=== PATIENT | female | born 1930 | race Caucasian/White ===

== ENCOUNTER 2016-05-20 22:05 | Inpatient (IN) | payer MEDICARE ==
[~2016-05-20] VITALS: Ht 165.1 cm; Wt 75.6 kg
[~2016-05-20 22:05] MED LIST: ASPI81 PO; ATOR10 PO; FLUD.1 PO; GABA100C4 PO; HYDR25TA35 PO; LORA-392 PO; SYNT25TA PO; VITA50LO PO
[2016-05-20 22:09] VITALS: TEMP 102.4
[2016-05-20 22:15] VITALS: BP 150/65; PULSE 72; RESP 24; TEMP 102.4; O2SAT 96
[2016-05-20] MEDS ORDERED: SODIUM CHLOR 0.9% 1000 ML INJ 1,000 ML IV ONE (22:18)
[2016-05-20] MEDS ORDERED: ATOR10TA15 PO (22:22)
[2016-05-20] MEDS ORDERED: ASPI1TAB69 PO (22:22)
[2016-05-20] MEDS ORDERED: MIDO5TAB PO (22:22)
[2016-05-20] MEDS ORDERED: GABA300C5 PO (22:22)
[2016-05-20] MEDS ORDERED: LEVO25TA4 PO (22:22)
[2016-05-20] MEDS ORDERED: FLUD.1 PO (22:22)
[2016-05-20] MEDS ORDERED: ACETAMINOPHEN 325 MG TAB PO ONE (22:30)
[2016-05-20 22:39] LABS: AUTOMATED NEUTROPHIL # 3.3 TH/MM3 (1.8-7.7); BASOPHIL % 0.5 % (0.0-2.0); EOSINOPHIL # 0.1 TH/MM3 (0-0.4); EOSINOPHIL % 1.3 % (0.0-4.0); HEMATOCRIT 28.7 % (35.0-46.0); HEMO FLAGS DIFF FINAL; LYMPH % 14.4 % (9.0-44.0); LYMPHOCYTE # 0.7 TH/MM3 (1.0-4.8); MEAN CELL VOLUME 91.5 FL (80.0-100.0); MEAN CORPUSCULAR HEMOGLOBIN 31.6 PG (27.0-34.0); MEAN CORPUSCULAR HGB CONC 34.6 % (32.0-36.0); MONO % 18.3 % (0.0-8.0); NEUT % 65.5 % (16.0-70.0); PLATELET COUNT 145 TH/MM3 (150-450); RED BLOOD COUNT 3.14 MIL/MM3 (4.00-5.30); RED CELL DISTRIBUTION WIDTH 13.7 % (11.6-17.2)
[2016-05-20 22:54] LABS: APTT (PATIENT) 29.2 SEC (24.3-30.1); PROTHROMBIN TIME - PATIENT 11.4 SEC (9.8-11.6)
[2016-05-20 23:01] LABS: ALT (GPT) 10 U/L (10-53); ANION GAP 8 MEQ/L (5-15); AST (GOT) 13 U/L (15-37); BICARBONATE 27.4 MEQ/L (21.0-32.0); BLOOD UREA NITROGEN 19 MG/DL (7-18); CHLORIDE 102 MEQ/L (98-107); GLOMERULAR FILTRATION RATE 38 ML/MIN (>89); MAGNESIUM 1.8 MG/DL (1.5-2.5); POTASSIUM 3.8 MEQ/L (3.5-5.1); SODIUM (NA) 137 MEQ/L (136-145)
--- NOTE | 2016-05-20 23:03 | RADRPT ---
EXAM DATE/TIME: 05/20/2016 22:35 [facility] COMPARISON: CHEST SINGLE AP, August 27, 2014, 0:56. INDICATIONS : Fever and cough. MEDICAL HISTORY : None. SURGICAL HISTORY : None. ENCOUNTER: Initial ACUITY: 1 week PAIN SCORE: 0/10 LOCATION: chest FINDINGS: A single view of the chest demonstrates linear scarring at the bases. No significant effusion. No pne umothorax. Heart size within normal limits. CONCLUSION: 1. Minimal basilar scarring or atelectasis. Anupam Cabral MD on May 20, 2016 at 23:00 Board Certified Radiologist. This report was verified electronically.
[2016-05-20 23:11] LABS: ALKALINE PHOSPHATASE 71 U/L (45-117); TOTAL BILIRUBIN ADULT 0.4 MG/DL (0.2-1.0)
[2016-05-20] MEDS ORDERED: IODIXANOL 320 MG/ML 10 ML VIAL (for RAD SPEC) IV ONE (23:29)
[2016-05-20 23:51] LABS: BACTERIA, URINE FEW /hpf; BLOOD, URINE NEG (NEG); GLUCOSE,URINE NEG (NEG); KETONE, URINE NEG (NEG); SQUAMOUS EPITHELIAL CELL URINE <1 /hpf (0-5); URINE COLOR YELLOW (YELLW/STRAW)
--- NOTE | 2016-05-20 23:53 | RADRPT ---
EXAM DATE/TIME: 05/20/2016 23:30 [facility] COMPARISON: No previous studies available for comparison. INDICATIONS : Abdominal pain. IV CONTRAST: 47 cc Visipaque (iodixanol) IV ORAL CONTRAST: No oral contrast ingested. RADIATION DOSE: 12.31 CTDIvol (mGy) MEDICAL HISTORY : Hypertension. SURGICAL HISTORY : Appendectomy. Cholecystectomy.Hysterectomy. ENCOUNTER: Initial ACUITY: 1 day PAIN SCALE: 6/10 LOCATION: abdomen TECHNIQUE: Volumetric scanning of the abdomen and pelvis was performed. Using automated exposure control and ad justment of the mA and/or kV according to patient size, radiation dose was kept as low as reasonably achievable to obtain optimal diagnostic quality images. FINDINGS: LOWER LUNGS: The visualized lower lungs are clear. LIVER: Homogeneous density without lesion. There is no dilation of the biliary tree. Previous cholecystecto my. SPLEEN: Normal size without lesion. PANCREAS: Within normal limits. KIDNEYS: Normal in size and shape. There is no mass, stone or hydronephrosis. ADRENAL GLANDS: Within normal limits. VASCULAR: There is atherosclerotic plaque of the abdominal aorta. No aneurysm. BOWEL/MESENTERY: Masslike increased attenuation measuring about 4.3 cm seen in the base of the cecum. I don't see the appendix. ABDOMINAL WALL: Within normal limits. RETROPERITONEUM: There is no lymphadenopathy. BLADDER: No wall thickening or mass. REPRODUCTIVE: Prior hysterectomy. INGUINAL: There is no lymphadenopathy or hernia. MUSCULOSKELETAL: There are degenerative changes of the thoracolumbar spine. No acute bony abnormality demonstrated. CONCLUSION: 1. 4.3 cm intraluminal masslike increased attenuation at the base of the cecum. I'm not sure whether this is debris or a true mass. 2. No other acute abnormalities are demonstrated. There is atherosclerosis of the abdominal aorta wit hout aneurysm. Patient has had previous hysterectomy and cholecystectomy. Blake Saenz MD on May 20, 2016 at 23:44 Board Certified Radiologist. This report was verified electronically.
[2016-05-20 23:55] LABS: COMMENT (UR) CATH-CULTURE IND; CULTURE IF INDICATED CATH CULTURE IND; NITRITE,URINE POS (NEG)
[2016-05-21] VITALS (12 sets, daily range): BP systolic 107–158; BP diastolic 54–72; PULSE 61–88; RESP 16–22; TEMP 97.6–100.8; O2SAT 93–99
--- NOTE | 2016-05-21 00:03 | RADRPT ---
EXAM DATE/TIME: 05/20/2016 23:43 [facility] COMPARISON: No previous studies available for comparison. INDICATIONS : Trauma, fall. MEDICAL HISTORY : None. SURGICAL HISTORY : None. ENCOUNTER: Initial ACUITY: 1 day PAIN SCORE: 3/10 LOCATION: Left knee. FINDINGS: No fracture or subluxation seen of the left knee. No perceptible joint effusion. There is mild 3 compartment joint space narrowing. Also chronic enthesopathic changes of the distal q uadriceps. CONCLUSION: Mild degenerative changes. No evidence of fracture. Blake Saenz MD on May 21, 2016 at 0:00 Board Certified Radiologist. This report was verified electronically.
[2016-05-21] MEDS ORDERED: cefTRIAXone INJ 1,000 MG in SODIUM CHLORIDE 0.9% INJ 100 ML IV ONE (00:15)
--- NOTE | 2016-05-21 00:29 | PD ---
HPI Chief Complaint: Fall Time Seen by Provider: 22:16 Travel History International Travel<30 days: No Contact w/Intl Traveler<30days: No Traveled to known affect area: No History of Present Illness HPI Patient is an 85-year-old female who comes in after she fell today and was unable to get up. She was found to be febrile by EMS. She says she has been feeling sick for the past few days, with fever on and off. She says she has some nausea, but has not vomited. She complains of some lower abdominal pain. She has occasional cough with some nasal congestion. She did not get a flu shot this year. She denies any chest pain. She says she did not hit her head when she fell, she landed on her knees. She denies any loss of consciousness. She says she often falls and has history of postural hypotension as well as neuropathy that seems to be the cause of her falls. Her family was concerned today because she was unable to get up after she fell. PFSH Past Medical History Hx Anticoagulant Therapy: Yes Blood Disorders: No Cancer: No Cardiovascular Problems: Yes (postural hypotension) High Cholesterol: Yes Chemotherapy: No Cerebrovascular Accident: Yes Diabetes: No Diminished Hearing: No Endocrine: No Gastrointestinal Disorders: No Genitourinary: Yes Hepatitis: No Hiatal Hernia: No Hypertension: Yes Implanted Vascular Access Dvce: No Musculoskeletal: No Neurologic: Yes Psychiatric: No Reproductive: Yes Respiratory: Yes Radiation Therapy: No Thyroid Disease: Yes Tetanus Vaccination: > 5 Years Menopausal: No Past Surgical History Abdominal Surgery: Yes AICD: No Appendectomy: Yes Cholecystectomy: Yes Gynecologic Surgery: Yes Hysterectomy: Yes Joint Replacement: No Oral Surgery: Yes Pacemaker: No Tonsillectomy: Yes Other Surgery: Yes (LEFT CAROTID) Social History Alcohol Use: No Tobacco Use: No Substance Use: No Allergies-Medications (Allergen,Severity, Reaction): Coded Allergies: No Known Allergies (Verified , 05/20/16) Reported Meds & Prescriptions Reported Meds & Active Scripts Active Reported Levothyroxine (Levothyroxine Sodium) 25 Mcg Tab 25 Mcg PO HS Fludrocortisone (Fludrocortisone Acetate) 0.1 Mg Tab 0.1 Mg PO DAILY Midodrine 5 Mg Tab 5 Mg PO BID Atorvastatin (Atorvastatin Calcium) 10 Mg Tab 10 Mg PO HS Gabapentin 300 Mg Cap 300 Mg PO TID Aspirin 81 Mg Tabdr 81 Mg PO DAILY Review of Systems Except as stated in HPI: all other systems reviewed are Neg General / Constitutional: Positive: Fever, Chills HENT: Positive: Headaches Cardiovascular: No: Chest Pain or Discomfort Respiratory: No: Shortness of Breath Gastrointestinal: Positive: Nausea, Abdominal Pain, No: Vomiting Genitourinary: No: Dysuria Musculoskeletal: No: Edema, Pain Skin: No Rash, No Change in Pigmentation Neurologic: No: Weakness, Dizziness Physical Exam Narrative GENERAL: Awake and alert in no acute distress. SKIN: Warm and dry. HEAD: Atraumatic. Normocephalic. EYES: Pupils equal and round. No scleral icterus. Extraocular movements intact. ENT: Mucous membranes pink and moist. NECK: Trachea midline. No JVD. CARDIOVASCULAR: Regular rate and rhythm. No murmur appreciated. RESPIRATORY: No accessory muscle use. Clear to auscultation. Breath sounds equal bilaterally. GASTROINTESTINAL: Abdomen soft, nondistended. Tender to the suprapubic area. No rebound or guarding. MUSCULOSKELETAL: No obvious deformities. No clubbing. No cyanosis. No edema. NEUROLOGICAL: Awake and alert. No obvious cranial nerve deficits. Motor grossly within normal limits. Normal speech. PSYCHIATRIC: Appropriate mood and affect; insight and judgment normal. Data Data Last Documented VS Vital Signs Date Time Temp Pulse Resp B/P Pulse Ox O2 Delivery O2 Flow Rate FiO2 05/21/16 00:09 100.8 05/20/16 22:20 89 Nasal Cannula 2 05/20/16 22:15 24 05/20/16 22:15 72 150/65 Orders Electrocardiogram (05/20/16 22:18) Complete Blood Count With Diff (05/20/16 22:18) Comprehensive Metabolic Panel (05/20/16 22:18) Prothrombin Time / Inr (Pt) (05/20/16 22:18) Act Partial Throm Time (Ptt) (05/20/16 22:18) Lactic Acid Sepsis Protocol (05/20/16 22:18) Magnesium (Mg) (05/20/16 22:18) Phosphorus (Po4) (05/20/16 22:18) Lipase (05/20/16 22:18) Troponin I (05/20/16 22:18) Urinalysis - C+S If Indicated (05/20/16 22:18) Ua Includes Microscopic (05/20/16 22:18) Influenzae A/B Antigen (05/20/16 22:18) Blood Culture (05/20/16 22:18) Chest, Single Ap (05/20/16 22:18) Blood Glucose (05/20/16 22:18) Ecg Monitoring (05/20/16 22:18) Iv Access Insert/Monitor (05/20/16 22:18) Oximetry (05/20/16 22:18) Oxygen Administration (05/20/16 22:18) Acetaminophen (Tylenol) (05/20/16 22:30) Sodium Chlor 0.9% 1000 Ml Inj (Ns 1000 M (05/20/16 22:18) Thyroid Stimulating Hormone (05/20/16 22:18) Ct Abd/Pel W Iv Contrast(Rout) (05/20/16 ) Iodixanol 320 Inj (Visipaque 320 Inj) (05/20/16 23:29) Knee, Complete (4vws) (05/20/16 ) Urine Culture (05/20/16 23:07) Ceftriaxone Inj (Rocephin Inj) (05/21/16 00:15) Admit Order (Ed Use Only) (05/21/16 ) Labs Laboratory Tests Test 05/20/16 05/20/16 22:25 23:07 White Blood Count 5.0 TH/MM3 Red Blood Count 3.14 MIL/MM3 Hemoglobin 9.9 GM/DL Hematocrit 28.7 % Mean Corpuscular Volume 91.5 FL Mean Corpuscular Hemoglobin 31.6 PG Mean Corpuscular Hemoglobin 34.6 % Concent Red Cell Distribution Width 13.7 % Platelet Count 145 TH/MM3 Mean Platelet Volume 9.4 FL Neutrophils (%) (Auto) 65.5 % Lymphocytes (%) (Auto) 14.4 % Monocytes (%) (Auto) 18.3 % Eosinophils (%) (Auto) 1.3 % Basophils (%) (Auto) 0.5 % Neutrophils # (Auto) 3.3 TH/MM3 Lymphocytes # (Auto) 0.7 TH/MM3 Monocytes # (Auto) 0.9 TH/MM3 Eosinophils # (Auto) 0.1 TH/MM3 Basophils # (Auto) 0.0 TH/MM3 CBC Comment DIFF FINAL Differential Comment Prothrombin Time 11.4 SEC Prothromb Time International 1.0 RATIO Ratio Activated Partial 29.2 SEC Thromboplast Time Sodium Level 137 MEQ/L Potassium Level 3.8 MEQ/L Chloride Level 102 MEQ/L Carbon Dioxide Level 27.4 MEQ/L Anion Gap 8 MEQ/L Blood Urea Nitrogen 19 MG/DL Creatinine 1.33 MG/DL Estimat Glomerular Filtration 38 ML/MIN Rate Random Glucose 108 MG/DL Lactic Acid Level 0.9 mmol/L Calcium Level 7.7 MG/DL Phosphorus Level 3.0 MG/DL Magnesium Level 1.8 MG/DL Total Bilirubin 0.4 MG/DL Aspartate Amino Transf 13 U/L (AST/SGOT) Alanine Aminotransferase 10 U/L (ALT/SGPT) Alkaline Phosphatase 71 U/L Troponin I LESS THAN 0.02 NG/ML Total Protein 5.9 GM/DL Albumin 3.1 GM/DL Lipase 87 U/L Thyroid Stimulating Hormone 0.627 uIU/ML 3rd Gen Urine Color YELLOW Urine Turbidity HAZY Urine pH 6.0 Urine Specific [place] 1.015 Urine Protein TRACE mg/dL Urine Glucose (UA) NEG mg/dL Urine Ketones NEG mg/dL Urine Occult Blood NEG Urine Nitrite POS Urine Bilirubin NEG Urine Urobilinogen LESS THAN 2.0 MG/DL Urine Leukocyte Esterase TRACE Urine RBC LESS THAN 1 /hpf Urine WBC 6 /hpf Urine Squamous Epithelial <1 /hpf Cells Urine Bacteria FEW /hpf Microscopic Urinalysis Comment CATH-CULTURE IND MDM Medical Decision Making Medical Screen Exam Complete: Yes Emergency Medical Condition: Yes Medical Record Reviewed: Yes Interpretation(s) ECG shows normal sinus rhythm at 70, no ST elevation or depression, normal intervals. Differential Diagnosis Pneumonia Versus sepsis versus UTI versus influenza Narrative Course Patient is an 85-year-old female who comes in after a fall today with a fever. Exam shows some suprapubic tenderness on palpation of the abdomen. IV established, labs sent. Patient given bolus of IV fluids. Given Tylenol. Urinalysis is positive for UTI. CT of the abdomen and pelvis shows a possible cecal mass. This needs to be followed up with possible repeat CT scan. Patient informed of these results. Patient given Rocephin for her UTI. Given ibuprofen for continued headache. Patient will be admitted for further management. Diagnosis Primary Impression: UTI (urinary tract infection) Qualified Code: N30.00 - Acute cystitis without hematuria Additional Impression: Cecum mass Admitting Information Admitting Physician Requests: Admit Kathy Claudio MD May 21, 2016 00:29
[2016-05-21] MEDS ORDERED: SODIUM CHLORIDE 0.9% FLUSH 5 ML FLUSH FLUSH PRN (03:00)
[2016-05-21] MEDS ORDERED: BISACODYL 10 MG SUPP PR PRN (03:00)
[2016-05-21] MEDS ORDERED: MAGNESIUM HYDROXIDE SUSP 30 ML CUP PO PRN (03:00)
[2016-05-21] MEDS ORDERED: NALOXONE HCL 0.4 MG/ML AMP IV PRN (03:00)
[2016-05-21] MEDS: SODIUM CHLOR 0.9% 1000 ML INJ 1,000 ML IV SCH ×2 (03:18→14:44)
[2016-05-21] MEDS: HEPARIN SODIUM - SQ 10,000 UNITS/ML VIAL SQ SCH ×3 (06:35→22:11)
[2016-05-21] MEDS: DOCUSATE SODIUM 100 MG CAP PO SCH ×2 (09:31→22:10)
[2016-05-21] MEDS: SODIUM CHLORIDE 0.9% FLUSH 5 ML FLUSH FLUSH SCH ×2 (09:32→22:10)
[2016-05-21] MEDS: FLUDROCORTISONE ACETATE 0.1 MG TAB PO SCH (13:00)
--- NOTE | 2016-05-21 13:10 | HHI.HP ---
[facility] Service [facility] Primary Care Physician Sarmad Davenport MD Admission Diagnosis UTI, fever Diagnoses: Chief Complaint: Fall Travel History International Travel<30 Days: No Contact w/Intl Traveler <30 Da: No Traveled to Known Affected Are: No History of Present Illness 85-year-old female with past medical history of orthostatic hypotension, HLD, CKD, incontinence, hypothyroidism, neuropathy who presented after a fall. The patient had a fall yesterday at her independent living facility when her family was visiting. She states that she's been having problems with falls for years now. She states that if she's been sitting or lying down too long and stands up too quickly she becomes dizzy. She states that she tries to be careful, but she still fall sometimes. She would like to remain in independent living if possible. She denies any injury from the fall. She states that last night she was having some fevers and chills. She has urinary incontinence at baseline, but feels that the incontinence is been worsening recently. She denies any burning with urination. She denies any nausea. She's been having some "light" abdominal discomfort. She does have an advanced directive to be a DO NOT RESUSCITATE, and would like to continue that. Discussed at length with the patient regarding CT findings and possible cecal mass. She's not sure if she would like to seek treatment for this or not depending on the findings, but would like to find out exactly what it is. Review of Systems Except as stated in HPI: all other systems reviewed are Neg Past Family Social History Past Medical History Orthostatic hypertension Hyperlipidemia Chronic kidney disease Urinary incontinence Hypothyroidism Peripheral neuropathy Past Surgical History Cholecystectomy Hysterectomy Right carotid endarterectomy Tonsillectomy Reported Medications Levothyroxine (Levothyroxine Sodium) 25 Mcg Tab 25 Mcg PO HS Fludrocortisone (Fludrocortisone Acetate) 0.1 Mg Tab 0.1 Mg PO DAILY Midodrine 5 Mg Tab 5 Mg PO BID Atorvastatin (Atorvastatin Calcium) 10 Mg Tab 10 Mg PO HS Gabapentin 300 Mg Cap 300 Mg PO TID Aspirin 81 Mg Tabdr 81 Mg PO DAILY Allergies: Coded Allergies: No Known Allergies (Verified , 05/20/16) Active Ordered Medications Current Medications Medications (Trade) Dose Ordered Sig/Betito Route Start Time Stop Time Status Last Admin (NS 1000 ml Inj) 1,000 ml @ 100 mls/hr Q10H IV 05/21/16 03:00 05/21/16 03:18 (NS Flush) 2 ml UNSCH PRN FLUSH 05/21/16 03:00 (NS Flush) 2 ml BID FLUSH 05/21/16 09:00 05/21/16 09:32 (Tylenol) 650 mg Q4H PRN PO 05/21/16 03:00 (Zofran Inj) 4 mg Q6H PRN IVP 05/21/16 03:00 (Dulcolax Supp) 10 mg DAILY PRN MO 05/21/16 03:00 (Colace) 100 mg Q12HR PO 05/21/16 09:00 05/21/16 09:31 (Milk Of Magnesia Liq) 30 ml Q12H PRN PO 05/21/16 03:00 (Senokot) 17.2 mg Q12H PRN PO 05/21/16 03:00 (Heparin Inj) 5,000 units Q8HR SQ 05/21/16 06:00 05/21/16 06:35 Naloxone HCl 0.4 mg 0.4 mg UNSCH PRN IV 05/21/16 03:00 (Rocephin Inj/NS Inj) 100 ml @ 200 mls/hr Q24H IV 05/22/16 00:00 Family History Mother had some kind of cancer Social History No alcohol or tobacco use Lives alone in independent living facility Physical Exam Vital Signs Vital Signs Date Time Temp Pulse Resp B/P Pulse Ox O2 Delivery O2 Flow Rate FiO2 05/21/16 08:15 98.7 62 16 107/54 95 05/21/16 04:15 97.6 61 17 115/57 95 05/21/16 03:00 97.9 62 22 115/57 96 Nasal Cannula 1 05/21/16 00:57 65 20 125/57 97 Nasal Cannula 1 05/21/16 00:09 100.8 05/20/16 22:20 89 Nasal Cannula 2 05/20/16 22:15 24 94 Room Air 05/20/16 22:15 102.4 72 24 150/65 96 Nasal Cannula 2 05/20/16 22:09 102.4 Physical Exam GENERAL: Well-developed well-nourished. In no acute distress. SKIN: Warm and dry. No lesions noted. HEENT: Normocephalic. Pupils equal and round. Mucous membranes pink and moist. CARDIOVASCULAR: Regular rate and rhythm. No murmur appreciated. RESPIRATORY: No accessory muscle use. Clear to auscultation. Breath sounds equal bilaterally. GASTROINTESTINAL: Abdomen soft, mild lower abdominal TTP, nondistended. Bowel sounds x4. MUSCULOSKELETAL: No obvious deformities. No clubbing or cyanosis. No edema. Lower extremities tender to light touch. NEUROLOGICAL: Awake and alert. No focal neurological deficits. Moves upper and lower extremities spontaneously. Normal speech. PSYCHIATRIC: Appropriate mood and affect; insight and judgment normal. Laboratory Laboratory Tests Test 05/20/16 05/20/16 22:25 23:07 White Blood Count 5.0 Red Blood Count 3.14 Hemoglobin 9.9 Hematocrit 28.7 Mean Corpuscular Volume 91.5 Mean Corpuscular Hemoglobin 31.6 Mean Corpuscular Hemoglobin 34.6 Concent Red Cell Distribution Width 13.7 Platelet Count 145 Mean Platelet Volume 9.4 Neutrophils (%) (Auto) 65.5 Lymphocytes (%) (Auto) 14.4 Monocytes (%) (Auto) 18.3 Eosinophils (%) (Auto) 1.3 Basophils (%) (Auto) 0.5 Neutrophils # (Auto) 3.3 Lymphocytes # (Auto) 0.7 Monocytes # (Auto) 0.9 Eosinophils # (Auto) 0.1 Basophils # (Auto) 0.0 CBC Comment DIFF FINAL Differential Comment Prothrombin Time 11.4 Prothromb Time International 1.0 Ratio Activated Partial 29.2 Thromboplast Time Sodium Level 137 Potassium Level 3.8 Chloride Level 102 Carbon Dioxide Level 27.4 Anion Gap 8 Blood Urea Nitrogen 19 Creatinine 1.33 Estimat Glomerular Filtration 38 Rate Random Glucose 108 Lactic Acid Level 0.9 Calcium Level 7.7 Phosphorus Level 3.0 Magnesium Level 1.8 Total Bilirubin 0.4 Aspartate Amino Transf 13 (AST/SGOT) Alanine Aminotransferase 10 (ALT/SGPT) Alkaline Phosphatase 71 Troponin I LESS THAN 0.02 Total Protein 5.9 Albumin 3.1 Lipase 87 Thyroid Stimulating Hormone 0.627 3rd Gen Urine Color YELLOW Urine Turbidity HAZY Urine pH 6.0 Urine Specific [place] 1.015 Urine Protein TRACE Urine Glucose (UA) NEG Urine Ketones NEG Urine Occult Blood NEG Urine Nitrite POS Urine Bilirubin NEG Urine Urobilinogen LESS THAN 2.0 Urine Leukocyte Esterase TRACE Urine RBC LESS THAN 1 Urine WBC 6 Urine Squamous Epithelial <1 Cells Urine Bacteria FEW Microscopic Urinalysis Comment CATH-CULTURE IND Date/Time Procedure Status Source Growth 05/20/16 23:07 Urine Culture Received Urine Catheterized Urine Pending 05/20/16 22:38 Influenza Types A,B Antigen (MADY) - Final Complete Nasal Washing NEGATIVE FOR FLU A AND B ANTIGEN.... 05/20/16 22:35 Aerobic Blood Culture - Preliminary Resulted Blood Peripheral NO GROWTH IN 1 DAY 05/20/16 22:35 Anaerobic Blood Culture - Preliminary Resulted Blood Peripheral NO GROWTH IN 1 DAY Result Diagram: 05/20/16222405/20/162224 Imaging Last Impressions Chest X-Ray 05/20/162217 Signed Impressions: Service Date/Time: Friday, May 20, 2016 22:35 - CONCLUSION: 1. Minimal basilar scarring or atelectasis. Anupam Cabral MD Knee X-Ray 05/20/16 0000 Signed Impressions: Service Date/Time: Friday, May 20, 2016 23:43 - CONCLUSION: Mild degenerative changes. No evidence of fracture. Blake Saenz MD Abdomen/Pelvis CT 05/20/16 0000 Signed Impressions: Service Date/Time: Friday, May 20, 2016 23:30 - CONCLUSION: 1. 4.3 cm intraluminal masslike increased attenuation at the base of the cecum. I'm not sure whether this is debris or a true mass. 2. No other acute abnormalities are demonstrated. There is atherosclerosis of the abdominal aorta without aneurysm. Patient has had previous hysterectomy and cholecystectomy. Blake Saenz MD Assessment and Plan Problem List: (1) UTI (urinary tract infection) ICD Code: N39.0 Status: Acute (2) Cecum mass ICD Code: K63.9 Status: Acute Assessment and Plan 85-year-old female with past medical history of orthostatic hypotension, HLD, CKD, incontinence, hypothyroidism, neuropathy who presented after a fall UTI with sepsis: Tmax 102.4, tachypnea, source UTI. WBC and lactic acid within normal limits. Chest x-ray with no acute finding. Blood cultures with NGTD. Urine culture pending. Continue empiric IV Rocephin and follow-up cultures. IVF. Fall: Recurrent. Likely secondary to chronic orthostatic hypotension. Denies any injury. PT eval. Fall precautions. Orthostatic hypotension: Chronic. Continue home fludrocortisone and midodrine. Check orthostatics every shift and adjust medications as needed. Cecal mass: Abdomen and pelvis CT in the ED showed incidental 4.3 cm possible mass at the base of the cecum. The patient would like to proceed with definitive diagnosis. Discussed with on-call oncology, recommended colonoscopy for tissue biopsy, surgery evaluation, possible chest CT for staging, no need for consult at this time. Consult gastroenterology. Will also consult palliative care. Hypothyroidism: Check TSH. Continue levothyroxine. DVT prophylaxis: Heparin, SCDs Written by Luc Prescott, acting as scribe for Dr. Solis on 05/21/16 at 13:10. The documentation accurately reflects the work performed [id number] by me Dr. Solis on 05/21/16 at 13:10. Code Status DO NOT RESUSCITATE Discussed Condition With Patient, RN, Dr. Myles Problem Qualifiers (1) UTI (urinary tract infection): Qualified Code: N30.00 - Acute cystitis without hematuria Luc Prescott May 21, 2016 13:10 Shannan Solis MD May 21, 2016 14:11
[2016-05-21] MEDS: SENNOSIDES 8.6 MG TAB PO PRN ×2 (14:39→22:10)
[2016-05-21] MEDS: GABAPENTIN 300 MG CAP PO SCH ×2 (14:39→16:53)
[2016-05-21] MEDS: ONDANSETRON HCL 4 MG/2 ML VIAL IVP PRN (14:47)
--- NOTE | 2016-05-21 14:47 | MB ---
cc: WILLIE METCALF M.D., MIRELA MD DATE OF CONSULTATION: 05/21/2016 REASON FOR CONSULTATION: Abnormal CT scan showing a possible colon mass. Ms. Torres is a 85-year-old lady basically came in because of fall. She states she feels fine. She says she has a little bit of discomfort in her abdomen but no issues, overall. She says her bowels have been moving regularly. She is not being in any bleeding and there is no weight loss. REVIEW OF SYSTEMS Currently reports no symptoms. PAST MEDICAL HISTORY: 1. Hypertension 2. Hyperlipidemia 3. Chronic kidney disease 4. Urinary incontinence 5. Hypothyroidism. 6. Peripheral neuropathy. PAST SURGICAL HISTORY 1. Cholecystectomy 2. Hysterectomy 3. Carotid endarterectomy 4. Tonsillectomy. MEDICATIONS On admission 1. Levothyroxine 2. Midrin 1. Atorvastatin 2. Gabapentin 3. Aspirin. ALLERGIES None documented. FAMILY HISTORY: Mother had some cancer not clear what the etiology of this was SOCIAL HISTORY No tobacco, no alcohol. PHYSICAL EXAMINATION: IN GENERAL: physical examination reveals a well-nourished lady in no apparent distress. VITAL SIGNS: Vitals are stable. HEAD/NECK: Head and neck examination anicteric sclerae. CHEST: Bilateral air entry with rales. ABDOMEN: The abdomen is soft, nontender. No hepatosplenomegaly. Bowel sounds are present. CENTRAL NERVOUS SYSTEM: Exam is nonfocal. RECTAL EXAMINATION: The rectal examination is deferred at this time. LABORATORY FINDINGS: The labs revealed creatinine at 1.3. Liver function tests are normal. Hemoglobin 9.9. CT of the abdomen and pelvis reveals a 4.3 cm intraluminal mass-like lesion in the cecum. No other abnormalities. IMPRESSION Cecal mass. RECOMMENDATIONS Colonoscopy discussed with the patient. She is agreeable this will be scheduled for Monday with Sterecycle prep. For now diet as tolerated. Further recommendations to follow. Thank you for this referral. MD KELLY Etienne/vishnu /1:45 PM /2:41 PM
--- NOTE | 2016-05-21 16:08 | EKG ---
Date Performed: 05/20/2016 Time Performed: 22:29:02 PTAGE: 85 years EKG: Sinus rhythm NONSPECIFIC ST & T-WAVE ABNORMALITY BORDERLINE ECG PREVIOUS TRACING : 08/27/2014 03.32 Compared to previous tracing, ST changes are more prominent . Consider ischemia. DOCTOR: Devante Wilson Interpretating Date/Time 05/21/2016 16:07:34
[2016-05-21] MEDS: ACETAMINOPHEN 325 MG TAB PO PRN ×2 (16:54→22:22)
[2016-05-21] MEDS: RESP: ALBUTEROL 2.5 MG/IPRATROPIUM 0.5 MG NEB (PRN) NEB (21:19)
--- NOTE | 2016-05-21 22:05 | RADRPT ---
EXAM DATE/TIME: 05/21/2016 20:47 [facility] COMPARISON: CHEST SINGLE AP, May 20, 2016, 22:35. INDICATIONS : Congestion MEDICAL HISTORY : None. SURGICAL HISTORY : None. ENCOUNTER: Subsequent ACUITY: 1 week PAIN SCORE: 4/10 LOCATION: Bilateral chest FINDINGS: A single view of the chest demonstrates the lungs to be symmetrically aerated without evidence of mas s, infiltrate or effusion. The cardiomediastinal contours are unremarkable except a mildly tortuous aorta. Osseous structures are intact. CONCLUSION: 1. No acute findings. Anupam Cabral MD on May 21, 2016 at 22:03 Board Certified Radiologist. This report was verified electronically.
[2016-05-21] MEDS: MIDODRINE 5 MG TAB PO SCH (22:10)
[2016-05-21] MEDS: ATORVASTATIN 10 MG TAB PO SCH (22:10)
[2016-05-21] MEDS: LEVOTHYROXINE SODIUM 25 MCG TAB PO SCH (22:10)
[2016-05-21] MEDS: cefTRIAXone INJ 1,000 MG in SODIUM CHLORIDE 0.9% INJ 100 ML IV SCH (22:12)
[2016-05-22] VITALS (9 sets, daily range): BP systolic 129–192; BP diastolic 53–84; PULSE 58–89; RESP 17–21; TEMP 95.6–98; O2SAT 91–96
[2016-05-22] MEDS: RESP: ALBUTEROL 2.5 MG/IPRATROPIUM 0.5 MG NEB (PRN) NEB (01:34)
[2016-05-22] MEDS: HEPARIN SODIUM - SQ 10,000 UNITS/ML VIAL SQ SCH ×3 (06:37→22:00)
[2016-05-22 07:50] LABS: AUTOMATED NEUTROPHIL # 1.4 TH/MM3 (1.8-7.7); BASOPHIL % 0.6 % (0.0-2.0); EOSINOPHIL # 0.1 TH/MM3 (0-0.4); EOSINOPHIL % 4.2 % (0.0-4.0); HEMATOCRIT 26.5 % (35.0-46.0); HEMO FLAGS DIFF FINAL; LYMPH % 27.9 % (9.0-44.0); LYMPHOCYTE # 0.7 TH/MM3 (1.0-4.8); MEAN CELL VOLUME 91.8 FL (80.0-100.0); MEAN CORPUSCULAR HEMOGLOBIN 31.2 PG (27.0-34.0); MEAN CORPUSCULAR HGB CONC 33.9 % (32.0-36.0); MONO % 15.9 % (0.0-8.0); NEUT % 51.4 % (16.0-70.0); PLATELET COUNT 113 TH/MM3 (150-450); RED BLOOD COUNT 2.89 MIL/MM3 (4.00-5.30); RED CELL DISTRIBUTION WIDTH 13.2 % (11.6-17.2); WHITE BLOOD COUNT 2.6 TH/MM3 (4.0-11.0)
[2016-05-22 08:26] LABS: BICARBONATE 27.9 MEQ/L (21.0-32.0)
[2016-05-22] MEDS: GABAPENTIN 300 MG CAP PO SCH ×3 (09:42→17:34)
[2016-05-22] MEDS: MIDODRINE 5 MG TAB PO SCH ×2 (09:43→22:19)
[2016-05-22] MEDS: FLUDROCORTISONE ACETATE 0.1 MG TAB PO SCH (09:43)
[2016-05-22] MEDS: ASPIRIN EC 81 MG TABEC PO SCH (09:43)
[2016-05-22] MEDS: DOCUSATE SODIUM 100 MG CAP PO SCH ×2 (09:43→22:20)
[2016-05-22] MEDS: SODIUM CHLORIDE 0.9% FLUSH 5 ML FLUSH FLUSH SCH ×2 (09:48→22:19)
[2016-05-22] MEDS: ONDANSETRON HCL 4 MG/2 ML VIAL IVP PRN ×2 (10:55→23:34)
[2016-05-22] MEDS: ACETAMINOPHEN 325 MG TAB PO PRN ×2 (11:10→22:22)
[2016-05-22] MEDS ORDERED: PEG (High)/E-LYTE SOLN 4000 ML BTL PO ONE (12:15)
--- NOTE | 2016-05-22 17:19 | HHI.PR ---
Subjective Remarks Says she is coughing more today, no sputum production. No n/v/d/c. No fever or chills. Denies cp, sob, n/v/d/c. Abdominal pain/suprapubic pain improved. Feels tired. Objective Vitals Vital Signs Date Time Temp Pulse Resp B/P Pulse Ox O2 Delivery O2 Flow Rate FiO2 05/22/16 12:00 98.0 58 17 150/84 92 05/22/16 08:00 97.7 60 17 146/68 92 05/22/16 08:00 92 Room Air 05/22/16 04:00 158/62 05/22/16 03:15 96.5 66 20 192/77 91 05/22/16 00:30 97.4 60 18 165/72 92 140/83 129/60 05/21/16 21:23 99 21 05/21/16 19:52 99.1 63 18 158/64 05/21/16 18:58 Room Air 05/21/16 17:50 69 112/55 132/60 121/56 I/O 05/21/16 05/21/16 05/21/16 05/22/16 05/22/16 05/22/16 07:00 15:00 23:00 07:00 15:00 23:00 Intake Total 441 ml 720 ml 739 ml 513 ml Balance 441 ml 720 ml 739 ml 513 ml Intake Oral 120 ml 720 ml 240 ml 240 ml IV Total 321 ml 499 ml 273 ml # Voids 1 4 3 3 # Bowel Movements 0 0 0 0 Result Diagram: 05/22/1611 05/22/16 0711 Imaging Last Impressions Chest X-Ray 05/21/16 0000 Signed Impressions: Service Date/Time: Saturday, May 21, 2016 20:47 - CONCLUSION: 1. No acute findings. Anupam Cabral MD Knee X-Ray 05/20/16 0000 Signed Impressions: Service Date/Time: Friday, May 20, 2016 23:43 - CONCLUSION: Mild degenerative changes. No evidence of fracture. Blake Saenz MD Abdomen/Pelvis CT 05/20/16 0000 Signed Impressions: Service Date/Time: Friday, May 20, 2016 23:30 - CONCLUSION: 1. 4.3 cm intraluminal masslike increased attenuation at the base of the cecum. I'm not sure whether this is debris or a true mass. 2. No other acute abnormalities are demonstrated. There is atherosclerosis of the abdominal aorta without aneurysm. Patient has had previous hysterectomy and cholecystectomy. Blake Saenz MD Objective Remarks GENERAL: Well-developed well-nourished. In no acute distress. SKIN: Warm and dry. No lesions noted. HEENT: Normocephalic. Pupils equal and round. Mucous membranes pink and moist. CARDIOVASCULAR: Regular rate and rhythm. No murmur appreciated. RESPIRATORY: No accessory muscle use. Clear to auscultation. Breath sounds equal bilaterally. GASTROINTESTINAL: Abdomen soft, mild lower abdominal TTP, nondistended. Bowel sounds x4. MUSCULOSKELETAL: No obvious deformities. No clubbing or cyanosis. No edema. Lower extremities tender to light touch. NEUROLOGICAL: Awake and alert. No focal neurological deficits. Moves upper and lower extremities spontaneously. Normal speech. PSYCHIATRIC: Appropriate mood and affect; insight and judgment normal. A/P Problem List: (1) UTI (urinary tract infection) ICD Code: N39.0 Status: Acute (2) Cecum mass ICD Code: K63.9 Status: Acute Assessment and Plan 85-year-old female with past medical history of orthostatic hypotension, HLD, CKD, incontinence, hypothyroidism, neuropathy who presented after a fall UTI with sepsis: Tmax 102.4, tachypnea, source UTI, WBC and lactic acid within normal limits on admission. Chest x-ray with no acute finding. Blood cultures NTD. Urine culture pending. Continue empiric IV Rocephin and follow-up cultures. Continue IVF. Fall: Recurrent. Likely secondary to chronic orthostatic hypotension. Denies any injury. PT eval. Fall precautions. Orthostatic hypotension: Chronic. Continue home fludrocortisone and midodrine. Check orthostatics every shift and adjust medications as needed. Cecal mass: Abdomen and pelvis CT in the ED showed incidental 4.3 cm possible mass at the base of the cecum. The patient would like to proceed with definitive diagnosis. Discussed with on-call oncology, recommended colonoscopy for tissue biopsy, surgery evaluation, possible chest CT for staging, no need for consult at this time. Consult gastroenterology, plan for colonoscopy 05/23. Will also consult palliative care. Hypothyroidism: TSH normal. Continue levothyroxine. DVT prophylaxis: Heparin, SCDs Code Status DO NOT RESUSCITATE Discussed Condition With Patient, nurse Problem Qualifiers (1) UTI (urinary tract infection): Qualified Code: N30.00 - Acute cystitis without hematuria Shannan Solis MD May 22, 2016 17:19
[2016-05-22] MEDS ORDERED: CALCIUM CARBONATE 500 MG CHEWABLE TAB CHEW PRN (17:30)
[2016-05-22] MEDS ORDERED: CALCIUM CARBONATE 500 MG CHEWABLE TAB CHEW ONE (17:30)
[2016-05-22] MEDS: ATORVASTATIN 10 MG TAB PO SCH (22:19)
[2016-05-22] MEDS: SENNOSIDES 8.6 MG TAB PO PRN (22:19)
[2016-05-22] MEDS: LEVOTHYROXINE SODIUM 25 MCG TAB PO SCH (22:19)
[2016-05-22] MEDS: cefTRIAXone INJ 1,000 MG in SODIUM CHLORIDE 0.9% INJ 100 ML IV SCH (23:34)
[2016-05-23] VITALS (8 sets, daily range): BP systolic 100–146; BP diastolic 46–91; PULSE 50–66; RESP 16–22; TEMP 96.7–99.3; O2SAT 93–96
[2016-05-23] MEDS: RESP: ALBUTEROL 2.5 MG/IPRATROPIUM 0.5 MG NEB (PRN) NEB ×2 (03:56→22:34)
[2016-05-23] MEDS: HEPARIN SODIUM - SQ 10,000 UNITS/ML VIAL SQ SCH ×3 (06:00→21:41)
[2016-05-23] MEDS: ASPIRIN EC 81 MG TABEC PO SCH (09:16)
[2016-05-23] MEDS: DOCUSATE SODIUM 100 MG CAP PO SCH ×2 (09:16→21:41)
[2016-05-23] MEDS: GABAPENTIN 300 MG CAP PO SCH ×3 (09:17→17:54)
[2016-05-23] MEDS: MIDODRINE 5 MG TAB PO SCH ×2 (09:17→21:41)
[2016-05-23] MEDS: FLUDROCORTISONE ACETATE 0.1 MG TAB PO SCH (09:17)
[2016-05-23] MEDS: ONDANSETRON HCL 4 MG/2 ML VIAL IVP PRN (09:20)
[2016-05-23] MEDS: SODIUM CHLORIDE 0.9% FLUSH 5 ML FLUSH FLUSH SCH ×2 (09:21→21:00)
[2016-05-23] MEDS: SODIUM CHLORID 0.9% 500 ML IV SCH (10:00)
[2016-05-23] MEDS ORDERED: METOPROLOL TARTRATE 25 MG TAB PO PRN (10:15)
[2016-05-23] MEDS ORDERED: INSULIN HUMAN REGULAR 1,000 UNITS/10 ML VIAL SQ PRN (10:15)
[2016-05-23 13:03] LABS: BASOPHIL % 0.8 % (0.0-2.0); EOSINOPHIL # 0.1 TH/MM3 (0-0.4); EOSINOPHIL % 4.3 % (0.0-4.0); HEMATOCRIT 29.1 % (35.0-46.0); HEMO FLAGS DIFF FINAL; LYMPH % 18.7 % (9.0-44.0); LYMPHOCYTE # 0.6 TH/MM3 (1.0-4.8); MEAN CELL VOLUME 91.9 FL (80.0-100.0); MEAN CORPUSCULAR HEMOGLOBIN 30.6 PG (27.0-34.0); MEAN CORPUSCULAR HGB CONC 33.3 % (32.0-36.0); MONO % 12.2 % (0.0-8.0); PLATELET COUNT 132 TH/MM3 (150-450); RED BLOOD COUNT 3.16 MIL/MM3 (4.00-5.30); RED CELL DISTRIBUTION WIDTH 13.5 % (11.6-17.2); WHITE BLOOD COUNT 3.1 TH/MM3 (4.0-11.0)
[2016-05-23 13:24] LABS: BICARBONATE 29.9 MEQ/L (21.0-32.0); POTASSIUM 3.7 MEQ/L (3.5-5.1)
--- NOTE | 2016-05-23 14:15 | HHI.PR ---
Subjective Remarks Awaiting for colonoscopy plan at 12 today. Says pain is controlled by meds. No n /v/d/c. Had BM yesterday. No blood in it. Denies fever or chills. Has cough, nonproductive, no wheezing or sob, sattign well on room air. Objective Vitals Vital Signs Date Time Temp Pulse Resp B/P Pulse Ox O2 Delivery O2 Flow Rate FiO2 05/23/16 12:06 98.5 60 18 142/91 93 05/23/16 09:17 Room Air 05/23/16 09:17 50 05/23/16 08:10 97.6 62 16 121/74 93 05/23/16 03:35 96.7 55 18 143/70 93 05/22/16 23:45 97.8 61 17 163/60 93 05/22/16 19:40 97.6 60 18 165/83 96 150/62 135/53 05/22/16 19:03 Room Air 05/22/16 16:00 97.9 59 17 146/68 96 I/O 05/22/16 05/22/16 05/22/16 05/23/16 05/23/16 05/23/16 06:59 14:59 22:59 06:59 14:59 22:59 Intake Total 513 ml 1920 ml 1020 ml 480 ml Balance 513 ml 1920 ml 1020 ml 480 ml Intake Oral 240 ml 1920 ml 1020 ml 480 ml IV Total 273 ml # Voids 3 10 5 3 # Bowel Movements 0 6 2 3 Result Diagram: 05/23/16 1245 05/23/16 1245 Imaging Last Impressions Chest X-Ray 05/21/16 0000 Signed Impressions: Service Date/Time: Saturday, May 21, 2016 20:47 - CONCLUSION: 1. No acute findings. Anupam Cabral MD Knee X-Ray 05/20/16 0000 Signed Impressions: Service Date/Time: Friday, May 20, 2016 23:43 - CONCLUSION: Mild degenerative changes. No evidence of fracture. Blake Saenz MD Abdomen/Pelvis CT 05/20/16 0000 Signed Impressions: Service Date/Time: Friday, May 20, 2016 23:30 - CONCLUSION: 1. 4.3 cm intraluminal masslike increased attenuation at the base of the cecum. I'm not sure whether this is debris or a true mass. 2. No other acute abnormalities are demonstrated. There is atherosclerosis of the abdominal aorta without aneurysm. Patient has had previous hysterectomy and cholecystectomy. Blake Saenz MD Objective Remarks GENERAL: Well-developed well-nourished. In no acute distress. SKIN: Warm and dry. No lesions noted. HEENT: Normocephalic. Pupils equal and round. Mucous membranes pink and moist. CARDIOVASCULAR: Regular rate and rhythm. No murmur appreciated. RESPIRATORY: No accessory muscle use. Clear to auscultation. Breath sounds equal bilaterally. GASTROINTESTINAL: Abdomen soft, mild lower abdominal TTP, nondistended. Bowel sounds x4. MUSCULOSKELETAL: No obvious deformities. No clubbing or cyanosis. No edema. Lower extremities tender to light touch. NEUROLOGICAL: Awake and alert. No focal neurological deficits. Moves upper and lower extremities spontaneously. Normal speech. PSYCHIATRIC: Appropriate mood and affect; insight and judgment normal. A/P Problem List: (1) UTI (urinary tract infection) ICD Code: N39.0 Status: Acute (2) Cecum mass ICD Code: K63.9 Status: Acute Assessment and Plan 85-year-old female with past medical history of orthostatic hypotension, HLD, CKD, incontinence, hypothyroidism, neuropathy who presented after a fall UTI with sepsis: Tmax 102.4, tachypnea, source UTI, WBC and lactic acid within normal limits on admission. Chest x-ray with no acute finding. Blood cultures NTD. Urine culture pending. Continue empiric IV Rocephin and follow-up cultures. Continue IVF. Fall: Recurrent. Likely secondary to chronic orthostatic hypotension. Denies any injury. PT eval. Fall precautions. Orthostatic hypotension: Chronic. Continue home fludrocortisone and midodrine. Check orthostatics every shift and adjust medications as needed. Cecal mass: Abdomen and pelvis CT in the ED showed incidental 4.3 cm possible mass at the base of the cecum. The patient would like to proceed with definitive diagnosis. Discussed with on-call oncology, recommended colonoscopy for tissue biopsy, surgery evaluation, possible chest CT for staging, no need for consult at this time. Consult gastroenterology, plan for colonoscopy 05/23. Will also consult palliative care. Hypothyroidism: TSH normal. Continue levothyroxine. DVT prophylaxis: Heparin, SCDs Code Status DO NOT RESUSCITATE Discussed Condition With Patient, nurse, family at bedside Problem Qualifiers (1) UTI (urinary tract infection): Qualified Code: N30.00 - Acute cystitis without hematuria Shannan Solis MD May 23, 2016 14:15
[2016-05-23] MEDS: LACTATED RINGER'S 1000 ML IV SCH (14:57)
--- NOTE | 2016-05-23 16:06 | PD.CONS ---
Consult Service Palliative Care . Consult Requested By YANDEL Francis . Primary Care Physician Had been seeing Dr. Espinal. Was in process of transferring care to Dr. Hunt. . Reason for Consultation a. To assist with evaluation and management of symptoms including: episodic back pain; mild abdominal pain; constipation b. To assist medical decision maker(s) with: better understanding of current medical conditions; weighing benefits/burdens of medical treatment options; making medical treatment decisions. . HPI History of Present Illness Ms. Torres is an 85-year-old female resident of [facility] ) with known history of postural hypotension; hyperlipidemia; stroke; and hypothyroidism who was brought to the emergency department on 05/20/2016 after suffering a fall at her independent living facility. She was unable to get up on her own and EMS was contacted. On arrival, EMS found her to be febrile. The patient admitted to having felt ill for a few days leading up to ER presentation and indicated she had felt feverish on and off. She also reported some nausea without vomiting. She also reported some lower abdominal pain as well as occasional cough and nasal congestion. She denied chest pain. At the time of the fall, the patient fell onto her knees and did not strike her head or have any loss of consciousness. The patient has a history of postural hypotension as well as neuropathy. She reported that she been having problems with falls for approximately a year. Falls usually happen when she gets up from a sitting or recumbent position. The patient reported having baseline urinary incontinence for about two years but this had become worse recently but was not accompanied by dysuria or hematuria. Initial vital signs in the emergency department were as follows: Temperature 102.4; pulse 72; respiratory rate 24; blood pressure 150/65; pulse oximetry 94% on room air Initial evaluation by the emergency department store salesperson noted no abnormal findings. Initial diagnostic testing nor the following: * CBC showed WBC 5.0; hemoglobin 9.9; platelet count 145 * Coagulation profile showed PT 11.4; INR 1.0; PTT 29.2 * Chemistry panel showed sodium 137; potassium 3.8; chloride 102; CO2 27.4; anion gap 8; BUN 19; creatinine 1.33; GFR 38; glucose 108; lactic acid 0.9; calcium 7.7; phosphorus 3.0; magnesium 1.8 * Liver function testing showed AST 13; ALT 10; alkaline phosphatase 71; total protein 5.9; albumin 3.1 * Cardiac serology showed troponin less than 0.02 * Lipase is 87 * TSH was 0.627 * Urinalysis was positive for nitrites and also had 6 white blood cells per high power field and a few bacteria. * EKG showed normal sinus rhythm at a rate of [address]-T wave findings. * CT of the abdomen revealed what appeared to be a 4.3 cm intraluminal masslike structure at the base of the cecum area atherosclerosis of the abdominal aorta without aneurysm was noted. * Chest x-ray showed minimal basilar scarring or atelectasis The emergency department physician was concerned about pneumonia versus sepsis versus UTI versus influenza and possible cecal mass. The patient was started on Rocephin in the emergency department for possible UTI. She was given ibuprofen for reported headache. The patient was admitted to the hospitalist service. Gastroenterology was consulted because of the possible cecal mass. A colonoscopy was performed today -- there is no note from the gastroeneterologist on the chart but family tells me they were told that this appears to be a cancer. Since admission, the patient has had no blood in the bowel movements. She has had a nonproductive cough but no wheezing or significant shortness of breath. White count has remained on the low side at 3.1. Hemoglobin is stable at 9.7. She has had elevated monocytes since admission. The patient's blood cultures and nasal washings for influenza have been negative to date. Urine culture taken on 05/20/16 is positive for Escherichia coli which is pansensitive except to ampicillin. At time of my visit she is just back from the GI lab. She is laughing with family. She is hungry/thirsty and enjoying a meal. Daughter (Mireya), daughter- in-law (Crystal Torres) and two grandchildren are at bedside. . Function/Cognitive Trajectory Patient resides at [facility] in the independent living section. She moved there about a year ago from her own home in [place]. Family says she has not been losing weight. She has had many falls. She has had mild cognitive decline. Patient reports low back pain when she is standing for periods of time. This is attributed to her L3-L4 spinal stenosis and to a less extent her L2-L3 spinal stenosis. Pain is described as severe. It does not radiate. It is helped by sitting down. She does not take pain medication for it. . Review of Systems Constitutional: COMPLAINS OF: Fever, Dizziness (orthostatic lightheadedness), Pain (Gets low back pain from her spinal stenosis), DENIES: Weight gain, Weight loss, Generalized weakness Endocrine: DENIES: Polydipsia, Polyphagia Eyes: COMPLAINS OF: Vision loss (wears glasses), DENIES: Double Vision Ears, nose, mouth, throat: DENIES: Tinnitus, Hearing loss, Throat pain, Running Nose, Epistaxis Respiratory: COMPLAINS OF: Cough, Sputum production, Shortness of breath, DENIES: Hemoptysis Cardiovascular: DENIES: Chest pain, Palpitations, Syncope, Dyspnea on Exertion , Lower Extremity Edema Gastrointestinal: COMPLAINS OF: Constipation, DENIES: Black stools, Bloody stools, Diarrhea, Nausea, Vomiting, Difficulty Swallowing, Anorexia, Vomiting blood Genitourinary: COMPLAINS OF: Urinary incontinence, DENIES: Hematuria, Dysuria Musculoskeletal: COMPLAINS OF: Stiffness, Back pain, Decreased range of motion , DENIES: Neck pain Integumentary: DENIES: Rash, Non-healing sores Hematologic/Lymphatics: DENIES: Bruising Immunologic/Allergic: DENIES: Eczema, Urticaria Neurologic: COMPLAINS OF: Headache, Seizures (history of seizures in the past) , Poor Balance, DENIES: Speech Problems, Tremor Psychiatric: DENIES: Anxiety, Confusion, Depression, Hallucinations, Agitation Past Family Social History Coded Allergies: No Known Allergies (Verified , 05/20/16) Past Medical History Orthostatic hypertension Frequent falls Hyperlipidemia Chronic kidney disease Urinary incontinence Lumbar spinal stenosis at the L3-L4 level with associated degenerative disc disease, facet arthropathy, and spondylolisthesis. Also moderate stenosis at L2 -L3. T12 vertebral body compression fracture Hypothyroidism Peripheral neuropathy Peripheral vascular disease status post carotid endarterectomy History of stroke. . Past Surgical History Cholecystectomy 2003 Appendectomy 2003 Hysterectomy 1974 Left carotid endarterectomy (this had to be stopped prematurely due to hypotension or other problem?) Tonsillectomy . Reported Medications Prehospital medications included the following: Levothyroxine (Levothyroxine Sodium) 25 Mcg Tab 25 Mcg PO HS Fludrocortisone (Fludrocortisone Acetate) 0.1 Mg Tab 0.1 Mg PO DAILY Midodrine 5 Mg Tab 5 Mg PO BID Atorvastatin (Atorvastatin Calcium) 10 Mg Tab 10 Mg PO HS Gabapentin 300 Mg Cap 300 Mg PO TID Aspirin 81 Mg Tabdr 81 Mg PO DAILY . Current Medications Medications (Trade) Dose Ordered Sig/Betito Route Start Time Stop Time Status Last Admin (NS 1000 ml Inj) 1,000 ml @ 100 mls/hr Q10H IV 05/21/16 03:00 Hold 05/21/16 14:44 (NS Flush) 2 ml UNSCH PRN FLUSH 05/21/16 03:00 05/23/16 14:57 (NS Flush) 2 ml BID FLUSH 05/21/16 09:00 05/23/16 09:21 (Tylenol) 650 mg Q4H PRN PO 05/21/16 03:00 05/22/16 22:22 (Zofran Inj) 4 mg Q6H PRN IVP 05/21/16 03:00 05/23/16 09:20 (Dulcolax Supp) 10 mg DAILY PRN DE 05/21/16 03:00 05/23/16 00:28 (Colace) 100 mg Q12HR PO 05/21/16 09:00 05/22/16 22:20 (Milk Of Magnesia Liq) 30 ml Q12H PRN PO 05/21/16 03:00 (Senokot) 17.2 mg Q12H PRN PO 05/21/16 03:00 05/22/16 22:19 (Heparin Inj) 5,000 units Q8HR SQ 05/21/16 06:00 05/22/16 13:21 Naloxone HCl 0.4 mg 0.4 mg UNSCH PRN IV 05/21/16 03:00 (Rocephin Inj/NS Inj) 100 ml @ 200 mls/hr Q24H IV 05/22/16 00:00 05/22/16 23:34 (Ecotrin Ec) 81 mg DAILY PO 05/22/16 09:00 05/22/16 09:43 (Lipitor) 10 mg HS PO 05/21/16 21:00 05/22/16 22:19 (Florinef) 0.1 mg DAILY PO 05/21/16 13:00 05/23/16 09:17 (Neurontin) 300 mg TID PO 05/21/16 13:00 05/23/16 14:56 (Synthroid) 25 mcg HS PO 05/21/16 21:00 05/22/16 22:19 (Proamatine) 5 mg BID PO 05/21/16 21:00 05/23/16 09:17 (Vasotec Inj) 2.25 mg Q6H PRN IV PUSH 05/22/16 12:00 Calcium Carbonate 500 mg 500 mg Q2H PRN CHEW 05/22/16 17:30 Lactated Ringer's 1,000 ml @ 30 mls/hr Q24H IV 05/23/16 10:00 05/23/16 14:57 (NS 500 ml Inj) 500 ml @ 30 mls/hr [id number] IV 05/23/16 10:00 05/24/16 09:59 (Robitussin Dm 200-20 Mg/10 ml Liq) 10 ml Q6H PRN PO 05/23/16 14:30 . Family History Mother had some kind of cancer. She also had kidney disease. She at approximately age 79 Father had heart disease. He at approximately age 65 There is also a history of breast cancer in the family. . Substance Use Tobacco: Lifetime nonsmoker. Alcohol: No history of abuse Prescription med abuse: No known history of abuse Illicits: No known use of illicits . Psychosocial History Originally from the [place] area. Has lived in [facility] for decades. 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 Patient has 4 children * Tyree ([place]) * Edinson (the reported health care surrogate -- [place]) * Mireya Ann ([facility]) * Hina ([place]) There are multiple grandchildren. .. Spiritual/Cultural Factors Patient is Jain. Christianity and spirituality play an important role in her life. Her own pipe smoking machine offbearer has visited. [facility] charcoal unloader. . Living Will: Completed, but not made available Health Care Surrogate: Completed, but not made available Durable Power of Technical Associate: Completed, but not made available Date completed: Unknown date -- copy to be brought in. Health Care Surrogate(s): I am told that the patient's son -- Edinson -- is the designated health care surrogate but we have no paperwork at this time. . Documented care wishes: No written documentation of health care wishes/preferences. . Today's verbally stated goals: None stated today. . Family/friends goals: Family is waiting to here about treatment options and benefits/burdens of those options. . Ethical and Legal Issues Patient is currently capacitated to make her own health care decisions. . Physical Exam Vital Signs Date Time Temp Pulse Resp B/P Pulse Ox O2 Delivery O2 Flow Rate FiO2 05/23/16 12:06 98.5 60 18 142/91 93 05/23/16 09:17 Room Air 05/23/16 09:17 50 05/23/16 08:10 97.6 62 16 121/74 93 05/23/16 03:35 96.7 55 18 143/70 93 05/22/16 23:45 97.8 61 17 163/60 93 05/22/16 19:40 97.6 60 18 165/83 96 150/62 135/53 05/22/16 19:03 Room Air 05/22/16 16:00 97.9 59 17 146/68 96 05/22/16 05/23/16 19:00 07:00 Intake Total 1920 ml 1500 ml Balance 1920 ml 1500 ml Intake Oral 1920 ml 1500 ml # Voids 10 8 # Bowel Movements 6 5 Exam CONSTITUTIONAL/GENERAL: This is an adequately nourished patient, in no apparent distress. She is laughing, eating, post colonoscopy. There is a frequent wet- sounding cough. TUBES/LINES/DRAINS: Peripheral IV. SKIN: No jaundice, rashes, or lesions. Ecchymoses on upper extremities. No wounds seen anteriorly. Skin temperature appropriate. Not diaphoretic. HEAD: Atraumatic. Normocephalic. EYES: Pupils equal and round and reactive. Extraocular motions intact. No scleral icterus. No injection or drainage. Fundi not examined. ENT: Hearing grossly normal. Nose without bleeding or purulent drainage. Throat without visible erythema, exudates, masses, or lesions. NECK: Trachea midline. Supple, nontender. No palpable thyroid enlargement or nodularity. CARDIOVASCULAR: Regular rate and rhythm without murmurs, gallops, or rubs. No JVD. Peripheral pulses symmetric. RESPIRATORY/CHEST: Symmetric, unlabored respirations. Breath sounds equal bilaterally. Frequent cough. Faint wheeze. Faint ronchi bilaterally that clear with cough. GASTROINTESTINAL: Abdomen soft, non-tender, nondistended. No hepato-splenomegaly , or palpable masses. No guarding. Bowel sounds present. GENITOURINARY: Without palpable bladder distension. MUSCULOSKELETAL: Extremities without clubbing, cyanosis, or edema. No joint tenderness or effusion noted. No calf tenderness. No mottling. LYMPHATICS: No palpable cervical or supraclavicular adenopathy. NEUROLOGICAL: Awake and alert. Motor and sensory grossly within normal limits. Follows commands. Cognitively sharp. Moves all extremities. PSYCHIATRIC: No obvious anxiety/depression. No apparent hallucinations or other psychotic thought process. . Diagnostic Tests Laboratory Laboratory Tests Test 05/20/16 05/20/16 05/22/16 05/23/16 22:25 23:07 07:11 12:45 Prothrombin Time 11.4 SEC (9.8-11.6) Prothromb Time International 1.0 RATIO Ratio Activated Partial 29.2 SEC Thromboplast Time (24.3-30.1) Sodium Level 137 MEQ/L 138 MEQ/L 143 MEQ/L (136-145) (136-145) (136-145) Potassium Level 3.8 MEQ/L 4.0 MEQ/L 3.7 MEQ/L (3.5-5.1) (3.5-5.1) (3.5-5.1) Chloride Level 102 MEQ/L 104 MEQ/L 106 MEQ/L (98-107) (98-107) (98-107) Carbon Dioxide Level 27.4 MEQ/L 27.9 MEQ/L 29.9 MEQ/L (21.0-32.0) (21.0-32.0) (21.0-32.0) Anion Gap 8 MEQ/L (5-15) 6 MEQ/L (5-15) 7 MEQ/L (5-15) Blood Urea Nitrogen 19 MG/DL (7-18) 15 MG/DL (7-18) 10 MG/DL (7-18) Creatinine 1.33 MG/DL 1.12 MG/DL 1.14 MG/DL (0.50-1.00) (0.50-1.00) (0.50-1.00) Estimat Glomerular Filtration 38 ML/MIN (>89) 46 ML/MIN (>89) 45 ML/MIN (>89) Rate Random Glucose 108 MG/DL 85 MG/DL 94 MG/DL (74-106) (74-106) (74-106) Lactic Acid Level 0.9 mmol/L (0.4-2.0) Calcium Level 7.7 MG/DL 7.7 MG/DL 7.9 MG/DL (8.5-10.1) (8.5-10.1) (8.5-10.1) Phosphorus Level 3.0 MG/DL (2.5-4.9) Magnesium Level 1.8 MG/DL (1.5-2.5) Total Bilirubin 0.4 MG/DL (0.2-1.0) Aspartate Amino Transf 13 U/L (15-37) (AST/SGOT) Alanine Aminotransferase 10 U/L (10-53) (ALT/SGPT) Alkaline Phosphatase 71 U/L (45-117) Troponin I LESS THAN 0.02 NG/ML (0.02-0.05) Total Protein 5.9 GM/DL (6.4-8.2) Albumin 3.1 GM/DL (3.4-5.0) Lipase 87 U/L (73-393) Thyroid Stimulating Hormone 0.627 uIU/ML 3.160 uIU/ML 3rd Gen (0.358-3.740) (0.358-3.740) White Blood Count 5.0 TH/MM3 2.6 TH/MM3 3.1 TH/MM3 (4.0-11.0) (4.0-11.0) (4.0-11.0) Red Blood Count 3.14 MIL/MM3 2.89 MIL/MM3 3.16 MIL/MM3 (4.00-5.30) (4.00-5.30) (4.00-5.30) Hemoglobin 9.9 GM/DL 9.0 GM/DL 9.7 GM/DL (11.6-15.3) (11.6-15.3) (11.6-15.3) Hematocrit 28.7 % 26.5 % 29.1 % (35.0-46.0) (35.0-46.0) (35.0-46.0) Mean Corpuscular Volume 91.5 FL 91.8 FL 91.9 FL (80.0-100.0) (80.0-100.0) (80.0-100.0) Mean Corpuscular Hemoglobin 31.6 PG 31.2 PG 30.6 PG (27.0-34.0) (27.0-34.0) (27.0-34.0) Mean Corpuscular Hemoglobin 34.6 % 33.9 % 33.3 % Concent (32.0-36.0) (32.0-36.0) (32.0-36.0) Red Cell Distribution Width 13.7 % 13.2 % 13.5 % (11.6-17.2) (11.6-17.2) (11.6-17.2) Platelet Count 145 TH/MM3 113 TH/MM3 132 TH/MM3 (150-450) (150-450) (150-450) Mean Platelet Volume 9.4 FL 9.4 FL 9.3 FL (7.0-11.0) (7.0-11.0) (7.0-11.0) Neutrophils (%) (Auto) 65.5 % 51.4 % 64.0 % (16.0-70.0) (16.0-70.0) (16.0-70.0) Lymphocytes (%) (Auto) 14.4 % 27.9 % 18.7 % (9.0-44.0) (9.0-44.0) (9.0-44.0) Monocytes (%) (Auto) 18.3 % 15.9 % 12.2 % (0.0-8.0) (0.0-8.0) (0.0-8.0) Eosinophils (%) (Auto) 1.3 % (0.0-4.0) 4.2 % (0.0-4.0) 4.3 % (0.0-4.0) Basophils (%) (Auto) 0.5 % (0.0-2.0) 0.6 % (0.0-2.0) 0.8 % (0.0-2.0) Neutrophils # (Auto) 3.3 TH/MM3 1.4 TH/MM3 2.0 TH/MM3 (1.8-7.7) (1.8-7.7) (1.8-7.7) Lymphocytes # (Auto) 0.7 TH/MM3 0.7 TH/MM3 0.6 TH/MM3 (1.0-4.8) (1.0-4.8) (1.0-4.8) Monocytes # (Auto) 0.9 TH/MM3 0.4 TH/MM3 0.4 TH/MM3 (0-0.9) (0-0.9) (0-0.9) Eosinophils # (Auto) 0.1 TH/MM3 0.1 TH/MM3 0.1 TH/MM3 (0-0.4) (0-0.4) (0-0.4) Basophils # (Auto) 0.0 TH/MM3 0.0 TH/MM3 0.0 TH/MM3 (0-0.2) (0-0.2) (0-0.2) CBC Comment DIFF FINAL DIFF FINAL DIFF FINAL Differential Comment Urine Color YELLOW (YELLW/STRAW) Urine Turbidity HAZY (CLEAR) Urine pH 6.0 (5.0-8.5) Urine Specific [place] 1.015 (1.002-1.035) Urine Protein TRACE mg/dL (NEG-TRACE) Urine Glucose (UA) NEG mg/dL (NEG) Urine Ketones NEG mg/dL (NEG) Urine Occult Blood NEG (NEG) Urine Nitrite POS (NEG) Urine Bilirubin NEG (NEG) Urine Urobilinogen LESS THAN 2.0 MG/DL (LESS THAN 2.0) Urine Leukocyte Esterase TRACE (NEG) Urine RBC LESS THAN 1 /hpf (0-3) Urine WBC 6 /hpf (0-5) Urine Squamous Epithelial <1 /hpf (0-5) Cells Urine Bacteria FEW /hpf (NONE) Microscopic Urinalysis Comment CATH-CULTURE IND . Result Diagram: 05/23/16 1245 05/23/16 1245 Microbiology Microbiology Date/Time Procedure Status Source Growth 05/20/16 22:28 Aerobic Blood Culture - Preliminary Resulted Blood Peripheral NO GROWTH IN 3 DAYS 05/20/16 22:28 Anaerobic Blood Culture - Preliminary Resulted Blood Peripheral NO GROWTH IN 3 DAYS 05/20/16 22:35 Aerobic Blood Culture - Preliminary Resulted Blood Peripheral NO GROWTH IN 3 DAYS 05/20/16 22:35 Anaerobic Blood Culture - Preliminary Resulted Blood Peripheral NO GROWTH IN 3 DAYS 05/20/16 22:38 Influenza Types A,B Antigen (MADY) - Final Complete Nasal Washing NEGATIVE FOR FLU A AND B ANTIGEN.... 05/20/16 23:07 Urine Culture - Final Complete Urine Catheterized Urine Escherichia Coli . Imaging Last Impressions Chest X-Ray 05/21/16 0000 Signed Impressions: Service Date/Time: Saturday, May 21, 2016 20:47 - CONCLUSION: 1. No acute findings. Anupam Cabral MD Knee X-Ray 05/20/16 0000 Signed Impressions: Service Date/Time: Friday, May 20, 2016 23:43 - CONCLUSION: Mild degenerative changes. No evidence of fracture. Blake Saenz MD Abdomen/Pelvis CT 05/20/16 0000 Signed Impressions: Service Date/Time: Friday, May 20, 2016 23:30 - CONCLUSION: 1. 4.3 cm intraluminal masslike increased attenuation at the base of the cecum. I'm not sure whether this is debris or a true mass. 2. No other acute abnormalities are demonstrated. There is atherosclerosis of the abdominal aorta without aneurysm. Patient has had previous hysterectomy and cholecystectomy. Blake Saenz MD . Procedures * Colonoscopy 05/23/16 . Patient/Family Conference Present at Family Conference: Crystal Crespokett ([id number] and of reported health care surrogate); Mireya Ann (local daughter); Diana Oglesby (granddaughter). . Family Conference Time (mins): 40 Family Conference Location: [facility] Issues Discussed: * Additional medical, psychosocial, and spiritual history * Patients general health, functional status, and cognitive changes in the months leading up to the current hospitalization * Patient/family understanding of the current medical problems * Patient/family understanding of prognosis * Patients goals of care as best understood from advance directives and/or conversations and/or values * Important questions yet to be answered regarding cecal mass * Likely scenarios comparing ongoing aggressive care with a transition to comfort measures only * Questions answered to the best of my ability . 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 . (2) UTI (urinary tract infection) Comment: E coli per culture. . (3) Orthostatic hypotension (4) Lumbar stenosis with neurogenic claudication Comment: Known at L3-L4 and less at L2-L3. . (5) Frequent falls (6) Peripheral vascular disease Comment: Underwent left carotid endarterectomy which had to be halted for some reason. . (7) Hypothyroidism Symptom Scale: (1) Pain Comment: Patient reports low back pain when she is standing for periods of time. This is attributed to her L3-L4 spinal stenosis and to a less extent her L2-L3 spinal stenosis. Pain is described as severe. It does not radiate. It is helped by sitting down. She does not take pain medication for it. (2) Constipation 0-10 Scale: Unable to quantify Comment: Patient reports a bowel spinning frame changer the last several months. She used to be mostly regular. Now she can go without moving her bowels for two days and then spends a lot of time in the bathroom going on day 3. . No blood reported. . Pertinent Non-Medical Issues Psychosocial: Resident of [facility] independent living. Well supported by her 4 children and her grandchildren. Spiritual: Jain. Christianity and spirituality are important to her. Her pipe smoking machine offbearer will provide spiritual support. Legal: Reportedly has advance directives. No copies in chart at this time. Ethical issues impacting care: Patient is capacitated to make her own health care decisions at this time. . Important Contacts * Mireya Ann (daughter) [phone] . 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 Path still pending. Uncertain what stage this is if cancer. Also uncertain if patient would want treatment. Prognosis will be far more clear once these questions are answered. . Code Status: No Code Plan == Code Status: NO CODE per patient choice. == Decision maker: Patient is currently capacitated to make her own health care decisions. I am told by family that her son -- Edinson -- is the health care surrogate but we have no paperwork confirming. If there is no designated surrogate, should patient become incapacitated, decision making would fall to the patient's 4 children. == Goals of medical treatment: Patient is just back from colonoscopy and interested in eating at time of my visit. Not a good time for goals discussion with her. Family was told there will be a surgical consult tomorrow AM. Patient will probably want to know all treatment options and benefits/burdens of those options prior to talking about goals. Right now , she is very anxious to return to [facility]. == Pain: Patient has some mild post-colonoscopy abdominal pain. She has chronic low back pain that is exacerbated with standing but is not bothering her here in the hospital. She has acetaminophen ordered for pain and I agree. No further recommendation at this time. == Constipation: Patient just completed bowel prep and colonoscopy. Currently has docusate, senna, MOM, and Bisacodyl suppositories ordered. No further recommendation at this time. == Patient is fall risk normally due to orthostatic hypotension. Should not be getting out of bed unattended. == Family encouraged to bring in a copy of advance directive as soon as possible for us to scan into EMR. == Patient is very anxious to go home, but does not appear safe at this time to return to independent living even if she declines any/all treatments for the cecal mass. If she insists on leaving the hospital, she may need halfway at [facility] (where she normally lives in the "independent" section) until her cough is better, UTI is treated, and she is more steady on her feet. == If patient ends up declining all aggressive treatment and desires comfort measures only, she would be eligible for hospice services. Time Spent Total Floor Time (mins): 75 Face to Face Time (mins): 15 >50% Counseling/Coord of Care: Yes Thank you for the opportunity to participate in the care of Ms. Torres. . Attestation To help prompt me to consider important information that might be impacting today's encounter and assessment, information from prior notes written by myself or my colleagues may have been "brought forward" into today's note. My signature on this note, however, is an attestation that I personally performed the exam, history, and/or decision-making noted today, and, unless otherwise indicated, the interactions with patient, family, and staff as well as the review of records all occurred today. I also attest that the listed assessment and stated plan reflect my best clinical judgment today based on the combination of historical information, prior notes, and today's exam/ interactions. When time spent is documented, it refers only to time spent today by the signer, or if indicated, combined time spent today by collaborating physician/nurse practitioner. . Erwin William MD May 23, 2016 16:06
[2016-05-23] MEDS ORDERED: PROPOFOL 200 MG/20 ML AMP IV ONE (16:48)
[2016-05-23] MEDS: guaiFENesin/DEXTROMETHORPHAN 200 MG/20 MG/10 ML CUP PO PRN (18:47)
--- NOTE | 2016-05-23 20:23 | PD.CONS ---
HPI Service General Surgery Consult Requested By Dr. Egan Reason for Consult Cecal mass Primary Care Physician Junior Hunt MD History of Present Illness The patient is an 85-year-old female who is admitted to the hospital a few days ago after a fall. She was noted to have a UTI. She also had anemia with a hemoglobin of 9.9. A CT scan of the abdomen and pelvis with IV contrast was performed in the emergency department and she had a questionable cecal mass, no liver masses. Today, the patient underwent colonoscopy by Dr. Egan and cecal mass was confirmed. Biopsies were taken. I discussed the findings with Dr. Egan and there was an approximately 3 cm cecal mass with ulceration most likely consistent with a cancer. She has normal bowel movements and has not noted any bleeding per rectum. The patient is DNR. She lives in [facility] in the [facility]. The patient has had a cough recently. Review of Systems Constitutional: DENIES: Fever, Chills Eyes: DENIES: Eye inflammation, Eye pain Respiratory: COMPLAINS OF: Cough, Wheezing Gastrointestinal: DENIES: Abdominal pain, Bloody stools Integumentary: DENIES: Pruritus, Rash Neurologic: DENIES: Headache, Seizures Past Family Social History Past Medical History Orthostatic hypotension Hyperlipidemia Chronic kidney disease Hypothyroidism Past Surgical History Laparoscopic cholecystectomy Hysterectomy Right carotid endarterectomy Tonsillectomy Reported Medications Reported Meds & Active Scripts Active Reported Levothyroxine (Levothyroxine Sodium) 25 Mcg Tab 25 Mcg PO HS Fludrocortisone (Fludrocortisone Acetate) 0.1 Mg Tab 0.1 Mg PO DAILY Midodrine 5 Mg Tab 5 Mg PO BID Atorvastatin (Atorvastatin Calcium) 10 Mg Tab 10 Mg PO HS Gabapentin 300 Mg Cap 300 Mg PO TID Aspirin 81 Mg Tabdr 81 Mg PO DAILY Allergies: Coded Allergies: No Known Allergies (Verified , 05/20/16) Active Ordered Medications Current Medications Medications (Trade) Dose Ordered Sig/Betito Route Start Time Stop Time Status Last Admin (NS 1000 ml Inj) 1,000 ml @ 100 mls/hr Q10H IV 05/21/16 03:00 Hold 05/21/16 14:44 (NS Flush) 2 ml UNSCH PRN FLUSH 05/21/16 03:00 05/23/16 14:57 (NS Flush) 2 ml BID FLUSH 05/21/16 09:00 05/23/16 09:21 (Tylenol) 650 mg Q4H PRN PO 05/21/16 03:00 05/22/16 22:22 (Zofran Inj) 4 mg Q6H PRN IVP 05/21/16 03:00 05/23/16 09:20 (Dulcolax Supp) 10 mg DAILY PRN [place] 05/21/16 03:00 05/23/16 00:28 (Colace) 100 mg Q12HR PO 05/21/16 09:00 05/22/16 22:20 (Milk Of Magnesia Liq) 30 ml Q12H PRN PO 05/21/16 03:00 (Senokot) 17.2 mg Q12H PRN PO 05/21/16 03:00 05/22/16 22:19 (Heparin Inj) 5,000 units Q8HR SQ 05/21/16 06:00 05/22/16 13:21 Naloxone HCl 0.4 mg 0.4 mg UNSCH PRN IV 05/21/16 03:00 (Rocephin Inj/NS Inj) 100 ml @ 200 mls/hr Q24H IV 05/22/16 00:00 05/22/16 23:34 (Ecotrin Ec) 81 mg DAILY PO 05/22/16 09:00 05/22/16 09:43 (Lipitor) 10 mg HS PO 05/21/16 21:00 05/22/16 22:19 (Florinef) 0.1 mg DAILY PO 05/21/16 13:00 05/23/16 09:17 (Neurontin) 300 mg TID PO 05/21/16 13:00 05/23/16 17:54 (Synthroid) 25 mcg HS PO 05/21/16 21:00 05/22/16 22:19 (Proamatine) 5 mg BID PO 05/21/16 21:00 05/23/16 09:17 (Vasotec Inj) 2.25 mg Q6H PRN IV PUSH 05/22/16 12:00 Calcium Carbonate 500 mg 500 mg Q2H PRN CHEW 05/22/16 17:30 Lactated Ringer's 1,000 ml @ 30 mls/hr Q24H IV 05/23/16 10:00 05/23/16 14:57 (NS 500 ml Inj) 500 ml @ 30 mls/hr [id number] IV 05/23/16 10:00 05/24/16 09:59 (Robitussin Dm 200-20 Mg/10 ml Liq) 10 ml Q6H PRN PO 05/23/16 14:30 05/23/16 18:47 Family History Noncontributory Social History No alcohol tobacco or drug use. She lives in an independent living facility. She uses a walker to ambulate. Physical Exam Vital Signs Vital Signs Date Time Temp Pulse Resp B/P Pulse Ox O2 Delivery O2 Flow Rate FiO2 05/23/16 17:17 66 20 123/93 95 05/23/16 17:12 68 22 131/63 94 05/23/16 17:07 99.1 65 22 129/62 95 05/23/16 16:00 05/23/16 12:06 98.5 60 18 142/91 93 05/23/16 09:17 Room Air 05/23/16 09:17 50 05/23/16 08:10 97.6 62 16 121/74 93 05/23/16 03:35 96.7 55 18 143/70 93 05/22/16 23:45 97.8 61 17 163/60 93 Physical Exam GENERAL: Awake and alert. No acute distress. Cooperative. Elderly. HEAD: Normocephalic. Atraumatic. EYES: Pupils equal round and reactive to light bilaterally. No scleral icterus. CHEST: No respiratory distress. Bilateral mild wheezing. CARDIOVASCULAR: Regular rate and rhythm. ABDOMEN: Well-healed port site incisions. No masses. Nontender. EXTREMITIES: No cyanosis or edema. SKIN: Warm, dry, nonjaundiced. Laboratory Laboratory Tests Test 05/23/16 12:45 White Blood Count 3.1 Red Blood Count 3.16 Hemoglobin 9.7 Hematocrit 29.1 Mean Corpuscular Volume 91.9 Mean Corpuscular Hemoglobin 30.6 Mean Corpuscular Hemoglobin 33.3 Concent Red Cell Distribution Width 13.5 Platelet Count 132 Mean Platelet Volume 9.3 Neutrophils (%) (Auto) 64.0 Lymphocytes (%) (Auto) 18.7 Monocytes (%) (Auto) 12.2 Eosinophils (%) (Auto) 4.3 Basophils (%) (Auto) 0.8 Neutrophils # (Auto) 2.0 Lymphocytes # (Auto) 0.6 Monocytes # (Auto) 0.4 Eosinophils # (Auto) 0.1 Basophils # (Auto) 0.0 CBC Comment DIFF FINAL Differential Comment Sodium Level 143 Potassium Level 3.7 Chloride Level 106 Carbon Dioxide Level 29.9 Anion Gap 7 Blood Urea Nitrogen 10 Creatinine 1.14 Estimat Glomerular Filtration 45 Rate Random Glucose 94 Calcium Level 7.9 Date/Time Procedure Status Source Growth 05/20/16 23:07 Urine Culture - Final Complete Urine Catheterized Urine Escherichia Coli 05/20/16 22:38 Influenza Types A,B Antigen (MADY) - Final Complete Nasal Washing NEGATIVE FOR FLU A AND B ANTIGEN.... 05/20/16 22:35 Aerobic Blood Culture - Preliminary Resulted Blood Peripheral NO GROWTH IN 3 DAYS 05/20/16 22:35 Anaerobic Blood Culture - Preliminary Resulted Blood Peripheral NO GROWTH IN 3 DAYS Result Diagram: 05/23/16 1245 05/23/16 1245 Imaging Last Impressions Chest X-Ray 05/21/16 0000 Signed Impressions: Service Date/Time: Saturday, May 21, 2016 20:47 - CONCLUSION: 1. No acute findings. Anupam Cabral MD Knee X-Ray 05/20/16 0000 Signed Impressions: Service Date/Time: Friday, May 20, 2016 23:43 - CONCLUSION: Mild degenerative changes. No evidence of fracture. Blake Saenz MD Abdomen/Pelvis CT 05/20/16 0000 Signed Impressions: Service Date/Time: Friday, May 20, 2016 23:30 - CONCLUSION: 1. 4.3 cm intraluminal masslike increased attenuation at the base of the cecum. I'm not sure whether this is debris or a true mass. 2. No other acute abnormalities are demonstrated. There is atherosclerosis of the abdominal aorta without aneurysm. Patient has had previous hysterectomy and cholecystectomy. 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 I discussed the diagnosis and treatment options in detail with the patient tonight. Of course generally I would recommend a right colectomy especially due to chronic bleeding. I think she would do well with laparoscopic-assisted right colectomy. I will discuss the case with the patient's medical physician for clearance. The patient would like for me to discuss this with her son tomorrow when he arrives. We will make a final decision at that time. Levi Thompson MD May 23, 2016 20:23
[2016-05-23] MEDS: ATORVASTATIN 10 MG TAB PO SCH (21:41)
[2016-05-23] MEDS: LEVOTHYROXINE SODIUM 25 MCG TAB PO SCH (21:41)
[2016-05-23] MEDS: cefTRIAXone INJ 1,000 MG in SODIUM CHLORIDE 0.9% INJ 100 ML IV SCH (23:06)
[2016-05-24] VITALS (7 sets, daily range): BP systolic 137–206; BP diastolic 60–88; PULSE 74–90; RESP 16–20; TEMP 97.6–100.5; O2SAT 92–95
[2016-05-24] MEDS: SODIUM CHLORID 0.9% 500 ML IV SCH (02:40)
[2016-05-24] MEDS: HEPARIN SODIUM - SQ 10,000 UNITS/ML VIAL SQ SCH ×3 (06:20→21:32)
[2016-05-24] MEDS: guaiFENesin/DEXTROMETHORPHAN 200 MG/20 MG/10 ML CUP PO PRN ×2 (06:20→21:31)
[2016-05-24] MEDS: RESP: ALBUTEROL 2.5 MG/IPRATROPIUM 0.5 MG NEB (PRN) NEB ×2 (06:47→10:26)
[2016-05-24 08:12] LABS: AUTOMATED NEUTROPHIL # 2.5 TH/MM3 (1.8-7.7); BASOPHIL % 0.7 % (0.0-2.0); EOSINOPHIL # 0.1 TH/MM3 (0-0.4); EOSINOPHIL % 2.4 % (0.0-4.0); HEMATOCRIT 25.7 % (35.0-46.0); HEMO FLAGS DIFF FINAL; LYMPH % 25.5 % (9.0-44.0); MEAN CELL VOLUME 92.6 FL (80.0-100.0); MEAN CORPUSCULAR HEMOGLOBIN 31.2 PG (27.0-34.0); MEAN CORPUSCULAR HGB CONC 33.7 % (32.0-36.0); MONO % 10.9 % (0.0-8.0); NEUT % 60.5 % (16.0-70.0); PLATELET COUNT 114 TH/MM3 (150-450); RED BLOOD COUNT 2.78 MIL/MM3 (4.00-5.30); RED CELL DISTRIBUTION WIDTH 13.2 % (11.6-17.2); WHITE BLOOD COUNT 4.1 TH/MM3 (4.0-11.0)
[2016-05-24 08:49] LABS: BICARBONATE 32.2 MEQ/L (21.0-32.0); POTASSIUM 3.4 MEQ/L (3.5-5.1)
[2016-05-24] MEDS: SODIUM CHLORIDE 0.9% FLUSH 5 ML FLUSH FLUSH SCH (09:00)
[2016-05-24] MEDS ORDERED: POTASSIUM CHLORIDE 10 MEQ CONTROLLED RELEASE TAB PO ONE (10:00)
[2016-05-24] MEDS: MIDODRINE 5 MG TAB PO SCH ×2 (10:17→21:00)
[2016-05-24] MEDS: GABAPENTIN 300 MG CAP PO SCH ×3 (10:17→21:32)
[2016-05-24] MEDS: ASPIRIN EC 81 MG TABEC PO SCH (10:18)
[2016-05-24] MEDS: DOCUSATE SODIUM 100 MG CAP PO SCH ×2 (10:18→21:31)
[2016-05-24] MEDS: FLUDROCORTISONE ACETATE 0.1 MG TAB PO SCH (10:18)
--- NOTE | 2016-05-24 10:29 | HHI.PR ---
Subjective Subjective Notes Her son is present at bedside. She continues to have a cough but has no other complaints. Objective Vitals/I&O Vital Signs Date Time Temp Pulse Resp B/P Pulse Ox O2 Delivery O2 Flow Rate FiO2 05/24/16 08:00 100.0 76 16 157/66 92 05/23/16 22:34 Nasal Cannula 2.50 05/21/16 21:23 21 Labs Laboratory Tests Test 05/23/16 05/23/16 05/24/16 12:45 21:19 07:34 White Blood Count 3.1 4.1 Red Blood Count 3.16 2.78 Hemoglobin 9.7 8.7 Hematocrit 29.1 25.7 Mean Corpuscular Volume 91.9 92.6 Mean Corpuscular Hemoglobin 30.6 31.2 Mean Corpuscular Hemoglobin 33.3 33.7 Concent Red Cell Distribution Width 13.5 13.2 Platelet Count 132 114 Mean Platelet Volume 9.3 9.3 Neutrophils (%) (Auto) 64.0 60.5 Lymphocytes (%) (Auto) 18.7 25.5 Monocytes (%) (Auto) 12.2 10.9 Eosinophils (%) (Auto) 4.3 2.4 Basophils (%) (Auto) 0.8 0.7 Neutrophils # (Auto) 2.0 2.5 Lymphocytes # (Auto) 0.6 1.0 Monocytes # (Auto) 0.4 0.4 Eosinophils # (Auto) 0.1 0.1 Basophils # (Auto) 0.0 0.0 CBC Comment DIFF FINAL DIFF FINAL Differential Comment Sodium Level 143 138 Potassium Level 3.7 3.4 Chloride Level 106 101 Carbon Dioxide Level 29.9 32.2 Anion Gap 7 5 Blood Urea Nitrogen 10 9 Creatinine 1.14 1.18 Estimat Glomerular Filtration 45 43 Rate Random Glucose 94 117 Calcium Level 7.9 7.5 Carcinoembryonic Antigen 2.4 Date/Time Procedure Status Source Growth 05/20/16 23:07 Urine Culture - Final Complete Urine Catheterized Urine Escherichia Coli 05/20/16 22:38 Influenza Types A,B Antigen (MADY) - Final Complete Nasal Washing NEGATIVE FOR FLU A AND B ANTIGEN.... 05/20/16 22:35 Aerobic Blood Culture - Preliminary Resulted Blood Peripheral NO GROWTH IN 3 DAYS 05/20/16 22:35 Anaerobic Blood Culture - Preliminary Resulted Blood Peripheral NO GROWTH IN 3 DAYS Radiology Last Impressions Chest X-Ray 05/21/16 0000 Signed Impressions: Service Date/Time: Saturday, May 21, 2016 20:47 - CONCLUSION: 1. No acute findings. Anupam Cabral MD Knee X-Ray 05/20/16 0000 Signed Impressions: Service Date/Time: Friday, May 20, 2016 23:43 - CONCLUSION: Mild degenerative changes. No evidence of fracture. Blake Saenz MD Abdomen/Pelvis CT 05/20/16 Signed Impressions: Service Date/Time: Friday, May 20, 2016 23:30 - CONCLUSION: 1. 4.3 cm intraluminal masslike increased attenuation at the base of the cecum. I'm not sure whether this is debris or a true mass. 2. No other acute abnormalities are demonstrated. There is atherosclerosis of the abdominal aorta without aneurysm. Patient has had previous hysterectomy and cholecystectomy. Blake Saenz MD Narrative Exam NAD Lungs: mild wheezing and rhonchi bilaterally Abd: soft, nontender A/P Assessment and Plan 85 yo F with cecal mass, likely cancer, and anemia. H/o orthostatic hypotension , carotid disease. I discussed the case in detail with the patient again, this time with her son. She has already made a decision and would like to proceed with colectomy. I discussed risks and benefits. I will tentatively schedule this for tomorrow for laparoscopic assisted ascending colectomy. I will ask cardiology for a risk assessment due to her history of vascular disease and orthostatic hypotension. Levi Thompson MD May 24, 2016 10:29
[2016-05-24] MEDS: BENZONATATE 100 MG CAP PO PRN ×2 (10:44→17:46)
[2016-05-24] MEDS ORDERED: RESP: ALBUTEROL 2.5 MG/IPRATROPIUM 0.5 MG NEB (PRN) NEB ×2 (10:45→16:00)
--- NOTE | 2016-05-24 11:29 | HHI.PR ---
Subjective Remarks Patient in bed. She is coughing more today however no sputum production. She is more sob and she is wheezing. No fever or chills. No n/v/d/c. Did not eat much. K is low, replaced. No LE edema. Objective Vitals Vital Signs Date Time Temp Pulse Resp B/P Pulse Ox O2 Delivery O2 Flow Rate FiO2 05/24/16 10:28 93 Nasal Cannula 2.50 05/24/16 08:00 92 Nasal Cannula 2.00 05/24/16 08:00 100.0 76 16 157/66 92 05/23/16 23:17 98.9 66 22 122/62 95 05/23/16 22:34 95 Nasal Cannula 2.50 05/23/16 20:12 99.3 63 16 146/64 96 120/50 100/46 05/23/16 20:00 66 05/23/16 19:30 Nasal Cannula 2.00 05/23/16 17:17 66 20 123/93 95 05/23/16 17:12 68 22 131/63 94 05/23/16 17:07 99.1 65 22 129/62 95 05/23/16 16:00 05/23/16 12:06 98.5 60 18 142/91 93 I/O 05/23/16 05/23/16 05/23/16 05/24/16 05/24/16 05/24/16 07:00 15:00 23:00 07:00 15:00 23:00 Intake Total 480 ml 0 ml 540 ml 240 ml Balance 480 ml 0 ml 540 ml 240 ml Intake Oral 480 ml 0 ml 240 ml 240 ml IV Total 300 ml # Voids 3 4 2 2 # Bowel Movements 3 0 Result Diagram: 05/24/16 0734 05/24/16 0734 Imaging Last Impressions Chest X-Ray 05/21/16 0000 Signed Impressions: Service Date/Time: Saturday, May 21, 2016 20:47 - CONCLUSION: 1. No acute findings. Anupam Cabral MD Knee X-Ray 05/20/16 0000 Signed Impressions: Service Date/Time: Friday, May 20, 2016 23:43 - CONCLUSION: Mild degenerative changes. No evidence of fracture. Blake Saenz MD Abdomen/Pelvis CT 05/20/16 0000 Signed Impressions: Service Date/Time: Friday, May 20, 2016 23:30 - CONCLUSION: 1. 4.3 cm intraluminal masslike increased attenuation at the base of the cecum. I'm not sure whether this is debris or a true mass. 2. No other acute abnormalities are demonstrated. There is atherosclerosis of the abdominal aorta without aneurysm. Patient has had previous hysterectomy and cholecystectomy. Blake Saenz MD Objective Remarks GENERAL: Well-developed well-nourished. In no acute distress. SKIN: Warm and dry. No lesions noted. HEENT: Normocephalic. Pupils equal and round. Mucous membranes pink and moist. CARDIOVASCULAR: Regular rate and rhythm. No murmur appreciated. RESPIRATORY: No accessory muscle use. SOB, wheezing. GASTROINTESTINAL: Abdomen soft, mild lower abdominal TTP, nondistended. Bowel sounds x4. MUSCULOSKELETAL: No obvious deformities. No clubbing or cyanosis. No edema. Lower extremities tender to light touch. NEUROLOGICAL: Awake and alert. No focal neurological deficits. Moves upper and lower extremities spontaneously. Normal speech. PSYCHIATRIC: Appropriate mood and affect; insight and judgment normal. A/P Problem List: (1) UTI (urinary tract infection) ICD Code: N39.0 Status: Acute (2) Cecum mass ICD Code: K63.9 Status: Acute Assessment and Plan 85-year-old female with past medical history of orthostatic hypotension, HLD, CKD, incontinence, hypothyroidism, neuropathy who presented after a fall UTI with sepsis: Tmax 102.4, tachypnea, source UTI, WBC and lactic acid within normal limits on admission. Chest x-ray with no acute finding. Blood cultures NTD. Urine culture pending. Continue empiric IV Rocephin and follow-up cultures. Continue IVF. COPD with exacerbation: Patient has a h/o COPD. She has coughing and wheezing. She is sattign well on 2 L NC. Start duonebs scheduled and prn. CXR reviewed no signs of infiltrate or acute disease. Start Tessalon Perles. lready on ceftriaxone IV add azithromycin. No fevers, no tachycardia, has leukopenia, doesn't meet sepsis criteria. Check legionella and pneumococcal Ag, check sputum cx if obtainable. Fall: Recurrent. Likely secondary to chronic orthostatic hypotension. Denies any injury. PT eval. Fall precautions. Orthostatic hypotension: Chronic. Continue home fludrocortisone and midodrine. Check orthostatics every shift and adjust medications as needed. Cecal mass: Abdomen and pelvis CT in the ED showed incidental 4.3 cm possible mass at the base of the cecum. The patient would like to proceed with definitive diagnosis. Discussed with on-call oncology, recommended colonoscopy for tissue biopsy, surgery evaluation, possible chest CT for staging, no need for consult at this time. Consult gastroenterology, plan for colonoscopy 05/23. Will also consult palliative care. Hypothyroidism: TSH normal. Continue levothyroxine. DVT prophylaxis: Heparin, SCDs Code Status DO NOT RESUSCITATE Discussed Condition With Patient, nurse, family at bedside Problem Qualifiers (1) UTI (urinary tract infection): Qualified Code: N30.00 - Acute cystitis without hematuria Shannan Solis MD May 24, 2016 11:29
[2016-05-24] MEDS ORDERED: methylPREDNISolone SOD SUCC 125 MG/2 ML VIAL IV PUSH ONE (12:00)
[2016-05-24] MEDS: AZITHROMYCIN INJ 500 MG in SODIUM CHLOR 0.9% 250 ML INJ 250 ML IV SCH (12:56)
[2016-05-24 14:36] LABS: TRANSFERRIN IRON PROFILE 187 MG/DL (200-360)
[2016-05-24 15:01] LABS: FERRITIN 110 NG/ML (8-252)
--- NOTE | 2016-05-24 15:56 | MB ---
cc: ANGEL MARTIN DO DATE OF CONSULTATION: 05/24/2016 REASON FOR CONSULTATION: Risk assessment preoperatively HISTORY OF PRESENT ILLNESS Sameera Torres is a pleasant 85-year-old female who presents to [facility] emergency room on May 21, 2016 after a fall. She currently lives in independent living facility and her family was visiting. She states that she was attempting to get up and got up too quickly got dizzy and fell. She has a history of orthostatic hypotension for some time now and she knows that when she gets up too quickly after she has been sitting or lying down too long that she gets dizzy. She also notes that she has had some abdominal discomfort. Because of that she underwent a CT of the abdomen and was found to have a cecal mass. She then underwent colonoscopy which showed cecal mass with ulceration, most likely consistent with cancer. I was asked to see Sameera for cardiovascular risk assessment preoperatively for consideration of a right colectomy. In speaking to her she states that every day after lunch she walks a third to half mile. She does have to sit down occasionally during this as she has problems with her lungs. She denies any chest pain. She does have to sit down occasionally during this she has problems with her lungs. She denies any chest pain. She does have a chronic history of orthostatic hypotension and when she gets up too quickly, she has had episodes where she gets presyncopal and falls. PAST MEDICAL HISTORY 1. Orthostatic hypotension. 2. Hyperlipidemia 3. Chronic kidney disease. 4. Urinary incontinence 5. Hypothyroidism. 6. Peripheral vascular disease. 7. Peripheral neuropathy. PAST SURGICAL HISTORY 1. Right carotid endarterectomy (Aug 16 2012) 2. Cholecystectomy. 3. Hysterectomy 4. Tonsillectomy. ALLERGIES NO KNOWN DRUG ALLERGIES. MEDICATIONS 1. Fludrocortisone 0.1 mg daily 2. Midodrine 5 mg b.i.d. 3. Gabapentin 300 mg t.i.d. 4. Lipitor 10 mg every night 5. Aspirin 81 mg daily 6. Synthroid 25 mcg every night. FAMILY HISTORY Denies premature coronary artery disease or sudden cardiac within the family. SOCIAL HISTORY Denies alcohol or tobacco abuse. Lives alone in an independent living facility. REVIEW OF SYSTEMS 14 systems were reviewed including osteopathic pertinent positives and negatives above, otherwise negative. PHYSICAL EXAMINATION VITAL SIGNS: Temperature 98.1 with a max temperature of 102.4, heart rate 98, blood pressure 178/72, respirations 20, pulse ox 95% on 2 liters. IN GENERAL: In general the patient appears well in no acute distress, alert, awake and oriented x3. HEAD, EYES, EARS, NOSE, AND THROAT: Extraocular muscles intact. Mucous membranes moist. NECK: Supple. No JVD at 45 degrees. No carotid bruits heard bilaterally. Carotid upstroke is brisk in nature. HEART: Heart is regular rate and rhythm. Positive first and second heart sounds with a 1/6 holosystolic murmur noted at the apex. LUNGS: Lungs have decreased breath sounds bilaterally with noted expiration wheezing. No rales noted. ABDOMEN: The abdomen is soft, nontender, nondistended, no organomegaly noted. EXTREMITIES: Show no clubbing, cyanosis or edema. Femoral and distal pulses intact bilaterally. NEUROLOGIC: Neurologically, no focal deficits. SKIN: Warm, dry and intact. OSTEOPATHICALLY: Mild kyphoscoliosis, no lordosis or paraspinal tender points. LABORATORY FINDINGS Hemoglobin 8.7, hematocrit 25.7, platelets 114. Potassium 3.4, BUN 9, creatinine 1.18. Electrocardiogram (May 24, 2016 at 10:54) normal sinus rhythm, nonspecific ST-T wave changes. No significant change from previous. IMPRESSION 1. Preoperative risk assessment for laparoscopic-assisted right colectomy. 2. History of COPD with current exacerbation. 3. UTI with sepsis. 4. Orthostatic hypotension chronically 5. Cecal mass most likely cancerous in nature. 6. History of peripheral artery disease with her right carotid endarterectomy (August 16, 2012). 7. History of hyperlipidemia. RECOMMENDATIONS 1. It appears that Sameera most likely has a greater than four mets functional capacity although this is somewhat difficult with her current log status. 2. I agree with having pulmonary see her for risk assessment from her a COPD standpoint. 3. Will check a 2-D echo to look her overall left ventricular function, cardiac structure and possible vulvopathies. 4. Based on the above results we will discuss with primary surgery as well as the patient and family, risk assessment preoperatively. 5. Further recommendations will be made on the above testing. Thank you for allowing me to see Sameera Torres if there are any questions please do not hesitate to call. Angel ALANIZ/vishnu /2:22 PM /3:36 PM
--- NOTE | 2016-05-24 16:19 | EC ---
Study Study Date:05/24/2016 STUDY CONCLUSIONS SUMMARY - Left ventricle: The cavity size was normal. Systolic function was normal. The estimated ejection fraction was in the range of 60% to 65%. Wall motion was normal; there were no regional wall motion abnormalities. - Aortic valve: Valve area: 1.85cm^2(VTI). Valve area: 1.62cm^2 (Vmax). - Tricuspid valve: Mild regurgitation. - Pulmonary arteries: PA peak pressure: 56mm Hg (S). - Pericardium, extracardiac: A trivial pericardial effusion was identified. If LV function is below 40, please consider prescribing an ACEI or ARB or document rationale for non-use. PROCEDURE DATA STUDY STATUS: Elective. Procedure: Transthoracic echocardiography. Image quality was good. Scanning was performed from the parasternal, apical, and subcostal acoustic windows. Study completion: The patient tolerated the procedure well. Transthoracic echocardiography. M-mode, complete 2D, complete spectral Doppler, and color Doppler. Height: Height: 65in. Weight: Weight: 167.7lb. Body mass index: BMI: 28kg/m^2. Body surface area: BSA: 1.84m^2. Patient status: Inpatient. CARDIAC ANATOMY LEFT VENTRICLE: The cavity size was normal. There was no hypertrophy. Systolic function was normal. The estimated ejection fraction was in the range of 60% to 65%. Wall motion was normal; there were no regional wall motion abnormalities. AORTIC VALVE: The valve appears to be grossly normal. Doppler: There was no stenosis. No significant regurgitation. Valve area: 1.85cm^2(VTI). Indexed valve area: 1.01cm^2/m^2 (VTI). Valve area: 1.62cm^2 (Vmax). Indexed valve area: 0.88cm^2/m^2 (Vmax). Mean gradient: 4mm Hg (S). MITRAL VALVE: The valve appears to be grossly normal. Doppler: There was no evidence for stenosis. Trace to mild regurgitation. Peak gradient: 5mm Hg (D). LEFT ATRIUM: The atrium was normal in size. RIGHT VENTRICLE: The cavity size was normal. Systolic function was normal. PULMONIC VALVE: Not well visualized. Doppler: There was no evidence for stenosis. Trace regurgitation. TRICUSPID VALVE: The valve appears to be grossly normal. Doppler: There was no evidence for stenosis. Mild regurgitation. PERICARDIUM: A trivial pericardial effusion was identified. Patient weight: 167.7lb _Ejection fraction:_ 65-75% _Fractional shortening:_ 32% up to 5Kg 5-11.5Kg 11.6-22.9Kg 23-45Kg 45-57Kg Aortic Root 7-13 <17 13-22 17-27 17-27 LA diam 6-13 <23 24-38 33-47 37-40 RVID 10-17 7-15 7-15 7-18 8-17 LVIDd 12-22 <32 24-38 33-47 37-40 LVPW 2-4 3-6 5-7 6-8 7-8 IVS 2-4 3-6 5-7 6-8 7-8 BASIC MEASUREMENTS ADULT NORMAL Left ventricle LV internal dimension, ED, chordal 49.7 mm 43-52 level, PLAX LV internal dimension, ES, chordal 32.1 mm 23-38 level, PLAX Fractional shortening, chordal level, 35 % >29 PLAX LV posterior wall thickness, ED 9.78 mm IVS/LVPW ratio, ED 1 <1.3 Ventricular septum Septal thickness, ED 9.76 mm Aortic valve Leaflet separation 20 mm 15-26 Aorta Root diameter, ED 33 mm Left atrium Anterior-posterior dimension 29 mm Anterior-posterior dimension index 1.58 cm/m^2 <2.2 BASIC MEASUREMENTS ADULT NORMAL Aortic valve Leaflet separation 20 mm 15-26 DOPPLER MEASUREMENTS ADULT NORMAL Main pulmonary artery Pressure, S *56 mm Hg =30 Aortic valve Peak velocity, S 132 cm/s Mean velocity, S 95.9 cm/s VTI, S 28.2 cm Mean gradient, S 4 mm Hg Valve area, VTI 1.85 cm^2 Valve area index, VTI 1.01 cm^2/m^2 Valve area, Vmax 1.62 cm^2 Valve area index, Vmax 0.88 cm^2/m^2 Mitral valve Peak E-wave velocity 112 cm/s Peak A-wave velocity 77.5 cm/s Deceleration time *102 ms 150-230 Peak gradient, D 5 mm Hg Peak E/A ratio 1.4 Tricuspid valve Regurgitant peak velocity 346 cm/s Peak RV-RA gradient, S 48 mm Hg Maximal regurgitant velocity 346 cm/s Systemic veins Estimated CVP 10 mm Hg Right ventricle RV pressure, S *58 mm Hg <30 Pulmonic valve Peak velocity, S 75.9 cm/s LEGEND: Mean values are shown as u=mean value. Asterisk (*) lópez values outside specified normal range. Prepared and signed by Angel Azar [id number]
[2016-05-24] MEDS: RESP: ALBUTEROL 2.5 MG/IPRATROPIUM 0.5 MG NEB (SCH) NEB ×2 (17:21→19:33)
[2016-05-24] MEDS: methylPREDNISolone SOD SUCC 40 MG/1 ML VIAL IV PUSH SCH (17:41)
--- NOTE | 2016-05-24 18:27 | EKG ---
Date Performed: 05/24/2016 Time Performed: 10:54:24 PTAGE: 85 years EKG: Sinus rhythm NONSPECIFIC ST & T-WAVE ABNORMALITY Compared to prior tracing no significant change BORDERLINE ECG PREVIOUS TRACING : 05/20/2016 22.29 DOCTOR: Rian Michael Interpretating Date/Time 05/24/2016 18:25:10
--- NOTE | 2016-05-24 19:28 | MB ---
cc: RADHAMES,RADHAMES DATE OF CONSULTATION 05/24/2016 REASON FOR CONSULTATION Question bronchial asthma. HISTORY OF PRESENT ILLNESS Mrs. Torres is an 85-year-old female who was admitted with temperature elevation and underlying infection. Further evaluation was suggestive for underlying urinary tract infection. A cecal mass was suspect as well. The patient had developed shortness of breath and severe wheezing earlier today. She has been seen by cardiology. The patient's echocardiogram was undertaken with evidence of mild pulmonary hypertension, however, her left ventricular function seems normal. Colonoscopy was undertaken with evidence of a cecal mass and ulceration suggestive of underlying malignancy. The patient denies history of fever, chills or shortness of breath at present. No cough or expectoration. PAST MEDICAL HISTORY Her past medical history is that of: 1. Chronic kidney disease. 2. Hyperlipidemia. 3. Hypothyroidism. 4. Peripheral vascular disease. 5. Peripheral neuropathy. 6. Hyperlipidemia. 7. And orthostatic hypotension. 8. Previous right carotid endarterectomy. 9. Cholecystectomy. 10. Hysterectomy. 11. Tonsillectomy. ALLERGIES None known to medication. MEDICATIONS At home include: 1. Fludrocortisone. 2. Midodrine. 3. Gabapentin. 4. Lipitor. 5. Aspirin. 6. Synthroid. FAMILY HISTORY Noncontributory. SOCIAL HISTORY Does not smoke, does not drink. No TB, no industrial exposure. Lives at an independent living facility by herself. REVIEW OF SYSTEMS 12-point review of systems as per HPI and past history otherwise negative. PHYSICAL EXAMINATION VITAL SIGNS: Temperature 98, pulse 90, respiratory rate 18, blood pressure 170/70. Oxygen saturation 95% on 2 liters oxygen nasal cannula. HEENT: Unremarkable. Eyes without icterus. NECK: Without adenopathy or thyroid enlargement. Central trachea. CHEST: No dullness to percussion. Clear to auscultation. CARDIAC: Point of maximal impulse not appreciated. S1, S2 audible. No murmur, no rub. ABDOMEN: Lax. Bowel sounds audible. EXTREMITIES: No clubbing, cyanosis or edema. LABORATORY DATA White count 4.1, hemoglobin 8.7, hematocrit 25. Sodium 138, potassium 3.4, BUN 9, creatinine 1.1. INR 1.0. IMPRESSION 1. Acute onset chest wheeze, presently asymptomatic. 2. Cecal mass, question malignancy. 3. Urinary tract infection. 4. Hyperlipidemia. 5. Hypothyroidism. 6. Peripheral vascular disease. 7. Peripheral neuropathy. PLAN The patient's shortness of breath and wheezing are without obvious cause. The patient has no previous history of lung disease or smoking. Her oxygenation is adequate. Her oxygen saturation, however, is on the low side, oxygen saturation between 92-95% on 2 liters oxygen via nasal cannula. A CT angiogram for possible pulmonary embolization would be appropriate and she is prone to same given her advanced age and possible underlying malignancy. We will obtain baseline pulmonary function as well. I do thank you for asking me to partake in Mrs. Torres's care. Radhames Ricci MD WWW/[facility] /6:53 PM /12:33 PM
--- NOTE | 2016-05-24 19:48 | HHI.HCPN ---
Reason for visit a. To assist with evaluation and management of symptoms including: episodic back pain; mild abdominal pain; constipation; cough b. To assist medical decision maker(s) with: better understanding of current medical conditions; weighing benefits/burdens of medical treatment options; making medical treatment decisions. . Subjective/Interval History Ms. Torres was sleeping when I entered the room. When she was awakened her focus was on getting a nurse to help her go to the bathroom. Family at bedside tell me that she was feeling less comfortable today and apparently most of her complaints were some abdominal pain. She was eating little today. Family reports she continues to cough. Hospitalist noted more SOB/wheezing earlier today but no sputum production General surgery has been to see her and has talked with family. Dr. Thompson recommended an ascending colectomy. Patient and family have agreed. Dr. Thompson asked for cardiology clearance given her history of orthostatic hypotension and cardiology has, in turn , requested pulmonary clearance. An echocardigram has been completed and demonstrates an excellent EF and no significant valvular disease. Dr. Ricci has requested pulmonary function testing at bedside and chest CTA. Patient is now on methylprednisolone 40 mg q 6 hours and IV azithromycin for respiratory symptoms. Tmax 100.5. HR unremarkable. BPs 122-178/ 62-79 02 sats 92-95 on 02 at 2 L /min. Voiding well. No BM since bowel prep for colonoscopy. Hg now 8.7. Creat 1.18; GFR 43. Urine testing for Legionella and Strep pneum pending. No new imaging. . Family/friend interactions Spoke with son -- Edinson, daughter -- Hina Lozano, and Hina's at bedside. They confirmed that family would like patient to go through with surgery if cleared. Answered questions re: clearance. . Advance Directives Living Will: Copy in medical record Health Care Surrogate: Copy in medical record Durable Power of Retail Key Holder: Never completed Advance Directive Specifics Date completed: 10/09/2006 . Health Care Surrogate(s): Edinson Torres (son) is the primary Hina Lozano (daughter) is the alternate . . Documented care wishes: Patient only wants life support if both physicians and surrogate both believe the treatment would restore patient to a reasonable quality of life "in which I can interact in a meaningful way with other people." . Significant change in goals: Desires surgery for cancer. . Objective Vital Signs Date Time Temp Pulse Resp B/P Pulse Ox O2 Delivery O2 Flow Rate FiO2 05/24/16 16:31 100.0 86 20 157/74 95 05/24/16 13:20 98.1 90 20 178/72 95 05/24/16 13:20 95 Nasal Cannula 2.00 05/24/16 12:00 100.5 83 16 172/79 94 137/60 150/67 05/24/16 10:28 93 Nasal Cannula 2.50 05/24/16 08:00 92 Nasal Cannula 2.00 05/24/16 08:00 100.0 76 16 157/66 92 05/23/16 23:17 98.9 66 22 122/62 95 05/23/16 22:34 95 Nasal Cannula 2.50 05/23/16 20:12 99.3 63 16 146/64 96 120/50 100/46 05/23/16 20:00 66 05/23/16 19:30 Nasal Cannula 2.00 Intake & Output 05/24/16 05/24/16 07:00 19:00 Intake Total 480 ml 480 ml Balance 480 ml 480 ml Intake Oral 480 ml 480 ml # Voids 4 2 # Bowel Movements 0 . Physical Exam CONSTITUTIONAL/GENERAL: This is an adequately nourished patient, in no apparent distress. Intermittent cough noted. She is uncomfortable and needs to go to the bathroom at time of my visit. TUBES/LINES/DRAINS: Peripheral IV. Nasal cannula 02. SKIN: No jaundice, rashes, or lesions. Ecchymoses on upper extremities. No wounds seen anteriorly. Skin temperature appropriate. Not diaphoretic. EYES: Pupils equal and round and reactive. Extraocular motions intact. No scleral icterus. No injection or drainage. Fundi not examined. CARDIOVASCULAR: Regular rate and rhythm without murmurs, gallops, or rubs. No JVD. RESPIRATORY/CHEST: Symmetric, unlabored respirations. Breath sounds equal bilaterally. Intermittent cough. No wheeze heard. Faint ronchi. GASTROINTESTINAL: Abdomen soft, non-tender, nondistended. No hepato-splenomegaly , or palpable masses. No guarding. Bowel sounds present. GENITOURINARY: Without palpable bladder distension. MUSCULOSKELETAL: Extremities without clubbing, cyanosis, or edema. No calf tenderness. No mottling. LYMPHATICS: Not examined. NEUROLOGICAL: Awake easily to voice/exam. Motor and sensory grossly within normal limits. Follows commands. Cognitively sharp. Moves all extremities. PSYCHIATRIC: No obvious anxiety/depression. No apparent hallucinations or other psychotic thought process. . Diagnostic Tests Laboratory Laboratory Tests Test 05/22/16 05/23/16 05/23/16 05/24/16 07:11 12:45 21:19 07:34 White Blood Count 2.6 TH/MM3 3.1 TH/MM3 4.1 TH/MM3 (4.0-11.0) (4.0-11.0) (4.0-11.0) Red Blood Count 2.89 MIL/MM3 3.16 MIL/MM3 2.78 MIL/MM3 (4.00-5.30) (4.00-5.30) (4.00-5.30) Hemoglobin 9.0 GM/DL 9.7 GM/DL 8.7 GM/DL (11.6-15.3) (11.6-15.3) (11.6-15.3) Hematocrit 26.5 % 29.1 % 25.7 % (35.0-46.0) (35.0-46.0) (35.0-46.0) Mean Corpuscular Volume 91.8 FL 91.9 FL 92.6 FL (80.0-100.0) (80.0-100.0) (80.0-100.0) Mean Corpuscular Hemoglobin 31.2 PG 30.6 PG 31.2 PG (27.0-34.0) (27.0-34.0) (27.0-34.0) Mean Corpuscular Hemoglobin 33.9 % 33.3 % 33.7 % Concent (32.0-36.0) (32.0-36.0) (32.0-36.0) Red Cell Distribution Width 13.2 % 13.5 % 13.2 % (11.6-17.2) (11.6-17.2) (11.6-17.2) Platelet Count 113 TH/MM3 132 TH/MM3 114 TH/MM3 (150-450) (150-450) (150-450) Mean Platelet Volume 9.4 FL 9.3 FL 9.3 FL (7.0-11.0) (7.0-11.0) (7.0-11.0) Neutrophils (%) (Auto) 51.4 % 64.0 % 60.5 % (16.0-70.0) (16.0-70.0) (16.0-70.0) Lymphocytes (%) (Auto) 27.9 % 18.7 % 25.5 % (9.0-44.0) (9.0-44.0) (9.0-44.0) Monocytes (%) (Auto) 15.9 % 12.2 % 10.9 % (0.0-8.0) (0.0-8.0) (0.0-8.0) Eosinophils (%) (Auto) 4.2 % (0.0-4.0) 4.3 % (0.0-4.0) 2.4 % (0.0-4.0) Basophils (%) (Auto) 0.6 % (0.0-2.0) 0.8 % (0.0-2.0) 0.7 % (0.0-2.0) Neutrophils # (Auto) 1.4 TH/MM3 2.0 TH/MM3 2.5 TH/MM3 (1.8-7.7) (1.8-7.7) (1.8-7.7) Lymphocytes # (Auto) 0.7 TH/MM3 0.6 TH/MM3 1.0 TH/MM3 (1.0-4.8) (1.0-4.8) (1.0-4.8) Monocytes # (Auto) 0.4 TH/MM3 0.4 TH/MM3 0.4 TH/MM3 (0-0.9) (0-0.9) (0-0.9) Eosinophils # (Auto) 0.1 TH/MM3 0.1 TH/MM3 0.1 TH/MM3 (0-0.4) (0-0.4) (0-0.4) Basophils # (Auto) 0.0 TH/MM3 0.0 TH/MM3 0.0 TH/MM3 (0-0.2) (0-0.2) (0-0.2) CBC Comment DIFF FINAL DIFF FINAL DIFF FINAL Differential Comment Sodium Level 138 MEQ/L 143 MEQ/L 138 MEQ/L (136-145) (136-145) (136-145) Potassium Level 4.0 MEQ/L 3.7 MEQ/L 3.4 MEQ/L (3.5-5.1) (3.5-5.1) (3.5-5.1) Chloride Level 104 MEQ/L 106 MEQ/L 101 MEQ/L (98-107) (98-107) (98-107) Carbon Dioxide Level 27.9 MEQ/L 29.9 MEQ/L 32.2 MEQ/L (21.0-32.0) (21.0-32.0) (21.0-32.0) Anion Gap 6 MEQ/L (5-15) 7 MEQ/L (5-15) 5 MEQ/L (5-15) Blood Urea Nitrogen 15 MG/DL (7-18) 10 MG/DL (7-18) 9 MG/DL (7-18) Creatinine 1.12 MG/DL 1.14 MG/DL 1.18 MG/DL (0.50-1.00) (0.50-1.00) (0.50-1.00) Estimat Glomerular Filtration 46 ML/MIN (>89) 45 ML/MIN (>89) 43 ML/MIN (>89) Rate Random Glucose 85 MG/DL 94 MG/DL 117 MG/DL (74-106) (74-106) (74-106) Calcium Level 7.7 MG/DL 7.9 MG/DL 7.5 MG/DL (8.5-10.1) (8.5-10.1) (8.5-10.1) Thyroid Stimulating Hormone 3.160 uIU/ML 3rd Gen (0.358-3.740) Carcinoembryonic Antigen 2.4 NG/ML (0.2-5.0) Test 05/24/16 13:33 Iron Level 14 MCG/DL (50-170) Total Iron Binding Capacity 262 MCG/DL (250-450) Percent Iron Saturation 5.3 % (20-50) Ferritin 110 NG/ML (8-252) B-Type Natriuretic Peptide 318 PG/ML (0-100) Vitamin B12 Level 424 PG/ML (193-986) Folate 14.6 NG/ML (3.1-17.5) . Result Diagram: 05/24/16 0734 05/24/16 0734 Microbiology Microbiology Date/Time Procedure Status Source Growth 05/24/16 11:10 Legionella Antigen Received Urine Random Urine Pending 05/24/16 11:10 Streptococcus pneumoniae Antigen (M Received Urine Random Urine Pending . Imaging Last Impressions Chest X-Ray 05/21/16 0000 Signed Impressions: Service Date/Time: Saturday, May 21, 2016 20:47 - CONCLUSION: 1. No acute findings. Anupam Cabral MD Knee X-Ray 05/20/16 0000 Signed Impressions: Service Date/Time: Friday, May 20, 2016 23:43 - CONCLUSION: Mild degenerative changes. No evidence of fracture. Blake Saenz MD Abdomen/Pelvis CT 05/20/16 0000 Signed Impressions: Service Date/Time: Friday, May 20, 2016 23:30 - CONCLUSION: 1. 4.3 cm intraluminal masslike increased attenuation at the base of the cecum. I'm not sure whether this is debris or a true mass. 2. No other acute abnormalities are demonstrated. There is atherosclerosis of the abdominal aorta without aneurysm. Patient has had previous hysterectomy and cholecystectomy. Blake Saenz MD . Procedures * Colonoscopy 05/23/16 . Other * Echocardiogram 05/24/16 --> EF 60-65%. No significant vavulopathy. Trivail pericardial effusion. . 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 . (2) UTI (urinary tract infection) Comment: E coli per culture. . (3) Respiratory infection Comment: Now on antibioitcs and IV steroids. . (4) Orthostatic hypotension (5) Lumbar stenosis with neurogenic claudication Comment: Known at L3-L4 and less at L2-L3. . (6) Peripheral vascular disease Comment: Underwent left carotid endarterectomy which had to be halted for some reason. . (7) Frequent falls (8) Hypothyroidism Symptom Scale: (1) Pain Comment: Patient reports low back pain when she is standing for periods of time. This is attributed to her L3-L4 spinal stenosis and to a less extent her L2-L3 spinal stenosis. Pain is described as severe. It does not radiate. It is helped by sitting down. She does not take pain medication for it. (2) Constipation 0-10 Scale: Unable to quantify Comment: Patient reports a bowel change control analyst the last several months. She used to be mostly regular. Now she can go without moving her bowels for two days and then spends a lot of time in the bathroom going on day 3. . No blood reported. . Pertinent Non-Medical Issues Psychosocial: Resident of [facility]. Well supported by her 4 children and her grandchildren. Spiritual: Taoist. Mandaen and spirituality are important to her. Her data consultant will provide spiritual support. Legal: Advance directive on chart. Son -- Edinson-- is health care surrogate. Ethical issues impacting care: Patient is capacitated to make her own health care decisions at this time. . Important Contacts * Edinson Torres (son and HEALTH CARE SURROGATE) [phone] * Mireya Ann (daughter) [phone] . 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 Path still pending. Uncertain what stage this is if cancer. Ascending colectomy has been recommended by surgery and patient/family agree. Await clearance by cardiology and pulmonology. Patient appears to have some sort of respiratory infection at this time that may need to clear before surgery. If she tolerates surgery well and there is no evidence of metastatic disease, she should have quality of life post operatively. Her advanced age certainly adds risk particularly to the post-op period in spite of being relatively spry for her age. . . Code Status: No Code Plan == Code Status: NO CODE per patient choice. == Decision maker: Patient is currently capacitated to make her own health care decisions. Advance directives are on chart. Patient's son -- Edinson Torres -- is the primary health care surrogate and daughter -- Hina -- is the alternate. == Goals of medical treatment: Patient and family are wanting to go forward with ascending colectomy for the cancer once she is cleared by cardiology and pulmonology. Goals are aggressive short of resuscitation. == Pain: Patient has some mild post-colonoscopy abdominal pain. She has chronic low back pain that is exacerbated with standing but is not bothering her here in the hospital. She has acetaminophen ordered for pain and I agree. No further recommendation at this time. == Constipation: Patient just completed bowel prep and colonoscopy on . Currently has docusate, senna, MOM, and Bisacodyl suppositories ordered. No further recommendation at this time. == Patient is fall risk normally due to orthostatic hypotension. Should not be getting out of bed unattended. == Respiratory infection -- CXR was negative , but patient has cough/wheezing. Now on antibioitcs and iv steroids. PFT and chest CTA are pending as part of pulmonary clearance w/u. == Palliative care will continue to follow to assist with symptom management and to further clarify goals of medical treatment as the clinical course evolves. . Attestation To help prompt me to consider important information that might be impacting today's encounter and assessment, information from prior notes written by myself or my colleagues may have been "brought forward" into today's note. My signature on this note, however, is an attestation that I personally performed the exam, history, and/or decision-making noted today, and, unless otherwise indicated, the interactions with patient, family, and staff as well as the review of records all occurred today. I also attest that the listed assessment and stated plan reflect my best clinical judgment today based on the combination of historical information, prior notes, and today's exam/ interactions. When time spent is documented, it refers only to time spent today by the signer, or if indicated, combined time spent today by collaborating physician/nurse practitioner. . Erwin William MD May 24, 2016 19:48
[2016-05-24 19:55] LABS: BLOOD GAS CARBOXYHEMOGLOBIN 0.9 % (0-4); BLOOD GAS HCO3 26 mmol/L (22-26); BLOOD GAS METHEMOGLOBIN 0.7 % (0-2); BLOOD GAS O2 HGB SATURATION 96 % (90-100); BLOOD GAS OXYGEN CONTENT 13.2 Vol % (12.0-20.0); BLOOD GAS PCO2 41 mmHg (38-42); BLOOD GAS PO2 97 mmHg (61-120); BLOOD GAS TOTAL HGB 9.7 G/DL (12.0-16.0); CRITICAL VALUE NO; DRAW SITE RT RADIAL; LITER FLOW 3 L/M; OXYGEN DEVICE NASAL CANNULA; TEMP CORR TO 98.6
[2016-05-24 19:56] LABS: NUMBER OF ARTERIAL PUNCTURES 1; STAT NO; ULNAR PULSE PRESENT
--- NOTE | 2016-05-24 21:22 | RADRPT ---
EXAM DATE/TIME: 05/24/2016 20:43 [facility] COMPARISON: No previous studies available for comparison. INDICATIONS : Shortness of breath and chest pain. IV CONTRAST: 60 cc Omnipaque 350 (iohexol) IV RADIATION DOSE: 23.28 CTDIvol (mGy) MEDICAL HISTORY : Cerebrovascular disease. Cardiovascular disease Hypertension. SURGICAL HISTORY : Appendectomy. Cholecystectomy. Hysterectomy. ENCOUNTER: Initial ACUITY: 1 day PAIN SCALE: 5/10 LOCATION: Chest TECHNIQUE: Volumetric scanning of the chest was performed using a pulmonary embolism protocol MIP images were reconstructed. Using automated exposure control and adjustment of the mA and/or kV acco rding to patient size, radiation dose was kept as low as reasonably achievable to obtain optimal diag nostic quality images. FINDINGS: The pulmonary arterial structures are well demonstrated. No pulmonary embolus identifi ed. There is patchy consolidation seen at the posterior aspect of the right upper lobe. There are mi nimal bilateral pleural effusions. There is a small hiatal hernia. CONCLUSION: 1. No pulmonary embolus. 2. Patchy consolidation in the posterior aspect of the right upper lobe. Blake Lombardo MD on May 24, 2016 at 21:08 Board Certified Radiologist. This report was verified electronically.
[2016-05-24] MEDS: LEVOTHYROXINE SODIUM 25 MCG TAB PO SCH (21:31)
[2016-05-24] MEDS: ATORVASTATIN 10 MG TAB PO SCH (21:31)
[2016-05-24] MEDS: ACETAMINOPHEN 325 MG TAB PO PRN (21:32)
[2016-05-25] VITALS (11 sets, daily range): BP systolic 140–200; BP diastolic 65–90; PULSE 56–138; RESP 18–20; TEMP 96.1–99; O2SAT 94–98
[2016-05-25] MEDS: methylPREDNISolone SOD SUCC 40 MG/1 ML VIAL IV PUSH SCH ×5 (00:24→23:49)
[2016-05-25] MEDS: cefTRIAXone INJ 1,000 MG in SODIUM CHLORIDE 0.9% INJ 100 ML IV SCH ×2 (00:25→23:49)
[2016-05-25] MEDS: ENALAPRILAT 2.5 MG/2 ML VIAL IV PUSH PRN ×2 (05:38→12:29)
[2016-05-25] MEDS: HEPARIN SODIUM - SQ 10,000 UNITS/ML VIAL SQ SCH ×3 (05:38→21:17)
[2016-05-25] MEDS ORDERED: ENALAPRILAT 2.5 MG/2 ML VIAL IV PUSH ONE (07:30)
[2016-05-25 08:11] LABS: AUTOMATED NEUTROPHIL # 2.5 TH/MM3 (1.8-7.7); BASOPHIL % 0.1 % (0.0-2.0); HEMATOCRIT 29.5 % (35.0-46.0); LYMPH % 14.5 % (9.0-44.0); LYMPHOCYTE # 0.5 TH/MM3 (1.0-4.8); MEAN CELL VOLUME 91.5 FL (80.0-100.0); MEAN CORPUSCULAR HEMOGLOBIN 30.6 PG (27.0-34.0); MEAN CORPUSCULAR HGB CONC 33.4 % (32.0-36.0); MONO % 7.3 % (0.0-8.0); NEUT % 78.1 % (16.0-70.0); PLATELET COUNT 125 TH/MM3 (150-450); RED BLOOD COUNT 3.22 MIL/MM3 (4.00-5.30); RED CELL DISTRIBUTION WIDTH 13.5 % (11.6-17.2); WHITE BLOOD COUNT 3.2 TH/MM3 (4.0-11.0)
[2016-05-25 08:18] LABS: HEMO FLAGS AUTO DIFF
[2016-05-25 08:24] LABS: BICARBONATE 32.2 MEQ/L (21.0-32.0); MAGNESIUM 1.8 MG/DL (1.5-2.5); POTASSIUM 3.6 MEQ/L (3.5-5.1)
--- NOTE | 2016-05-25 08:36 | HHI.PR ---
Subjective Subjective Notes She is breathing more comfortably. Son at bedside. Objective Vitals/I&O Vital Signs Date Time Temp Pulse Resp B/P Pulse Ox O2 Delivery O2 Flow Rate FiO2 05/25/16 06:30 200/90 05/25/16 04:00 96.5 56 96 05/25/16 00:00 18 05/24/16 19:42 Nasal Cannula 3.00 05/21/16 21:23 21 Labs Laboratory Tests Test 05/24/16 05/24/16 13:33 19:42 Iron Level 14 Total Iron Binding Capacity 262 Percent Iron Saturation 5.3 Ferritin 110 B-Type Natriuretic Peptide 318 Vitamin B12 Level 424 Folate 14.6 Blood Gas Puncture Site RT RADIAL Blood Gas Patient Temperature 98.6 Blood Gas HCO3 26 Blood Gas Base Excess 2.0 Blood Gas Oxygen Saturation 96 Arterial Blood pH 7.42 Arterial Blood Partial 41 Pressure CO2 Arterial Blood Partial 97 Pressure O2 Arterial Blood Oxygen Content 13.2 Arterial Blood 0.9 Carboxyhemoglobin Arterial Blood Methemoglobin 0.7 Blood Gas Hemoglobin 9.7 Oxygen Delivery Device NASAL CANNULA Blood Gas Liter Flow 3 Date/Time Procedure Status Source Growth 05/24/16 11:10 Legionella Antigen - Final Complete Urine Random Urine PRESUMPTIVE NEGATIVE FOR LEGIONELLA P... 05/24/16 11:10 Streptococcus pneumoniae Antigen (M - Final Complete Urine Random Urine PRESUMPTIVE NEGATIVE FOR STREPTOCOCCU... 05/20/16 23:07 Urine Culture - Final Complete Urine Catheterized Urine Escherichia Coli 05/20/16 22:38 Influenza Types A,B Antigen (MADY) - Final Complete Nasal Washing NEGATIVE FOR FLU A AND B ANTIGEN.... 05/20/16 22:35 Aerobic Blood Culture - Preliminary Resulted Blood Peripheral NO GROWTH IN 4 DAYS 05/20/16 22:35 Anaerobic Blood Culture - Preliminary Resulted Blood Peripheral NO GROWTH IN 4 DAYS Radiology Last Impressions Chest X-Ray 05/21/16 0000 Signed Impressions: Service Date/Time: Saturday, May 21, 2016 20:47 - CONCLUSION: 1. No acute findings. Anupam Cabral MD Knee X-Ray 05/20/16 0000 Signed Impressions: Service Date/Time: Friday, May 20, 2016 23:43 - CONCLUSION: Mild degenerative changes. No evidence of fracture. Blake Saenz MD Abdomen/Pelvis CT 05/20/16 0000 Signed Impressions: Service Date/Time: Friday, May 20, 2016 23:30 - CONCLUSION: 1. 4.3 cm intraluminal masslike increased attenuation at the base of the cecum. I'm not sure whether this is debris or a true mass. 2. No other acute abnormalities are demonstrated. There is atherosclerosis of the abdominal aorta without aneurysm. Patient has had previous hysterectomy and cholecystectomy. Blake Saenz MD Narrative Exam NAD Lungs: clear bilaterally Abd: soft, nontender A/P Assessment and Plan 85 yo F with cecal mass, likely cancer, and anemia. H/o orthostatic hypotension , carotid disease. Appreciate cardiology input. Recommend to postpone surgery at this time until pulmonary issues resolved. Pulmonology consult- pt on IV steroids. I discussed with patient and son rationale for waiting at least a few days for surgery. They are very anxious to have it done. I reinforced that this is not an emergency and it is safer to wait until she is at full strength and any cardiopulmonary issues resolved. Would likely plan for Monday, possibly this Monday. She may want to go home and see me in the office prior if it will be next week. JayLevi henriquez MD May 25, 2016 08:36
[2016-05-25] MEDS: MIDODRINE 5 MG TAB PO SCH ×2 (09:00→21:18)
[2016-05-25] MEDS: FLUDROCORTISONE ACETATE 0.1 MG TAB PO SCH (09:00)
[2016-05-25 09:31] LABS: BANDS 11 % (0-6); MYELOCYTES 1 % (0-0); NEUTROPHIL # MANUAL DIFF 2.5 TH/MM3 (1.8-7.7); PLATELET ESTIMATE SMEAR LOW (NORMAL); PLATELET MORPHOLOGY NORMAL (NORMAL); POLYS (SEG NEUTROPHILS) 67 % (16-70); WBC DIFF SAMPLE 100
[2016-05-25 09:32] LABS: SCAN/DIFF FINAL DIFF MANUAL
[2016-05-25] MEDS: GABAPENTIN 300 MG CAP PO SCH ×2 (09:43→21:17)
[2016-05-25] MEDS: DOCUSATE SODIUM 100 MG CAP PO SCH ×2 (09:44→21:17)
[2016-05-25] MEDS: ASPIRIN EC 81 MG TABEC PO SCH (09:44)
[2016-05-25] MEDS: SODIUM CHLORIDE 0.9% FLUSH 5 ML FLUSH FLUSH SCH ×2 (09:45→21:18)
--- NOTE | 2016-05-25 09:45 | HHI.PR ---
Subjective Remarks Patient is still coughing, nonproductive cough and she feesl sob requiring more O2. Denies chest pain . However she is endorsing chest pressure /dyscomfort. Per son at bedside she is also gettign more sob lately. Wheezing improving with steroids and nebs. No fever or chills overnight. Denies n/v/d/c. Objective Vitals Vital Signs Date Time Temp Pulse Resp B/P Pulse Ox O2 Delivery O2 Flow Rate FiO2 05/25/16 09:24 180/82 05/25/16 08:52 98 Nasal Cannula 4.00 05/25/16 06:30 200/90 05/25/16 05:37 200/90 05/25/16 04:00 96.5 56 96 05/25/16 00:00 140/68 05/25/16 00:00 144/69 05/25/16 00:00 96.1 73 18 195/88 95 05/24/16 21:31 74 05/24/16 20:09 97.6 77 20 206/88 95 05/24/16 19:42 Nasal Cannula 3.00 05/24/16 19:34 Nasal Cannula 3.00 Humidified 05/24/16 16:31 100.0 86 20 157/74 95 05/24/16 13:20 98.1 90 20 178/72 95 05/24/16 13:20 95 Nasal Cannula 2.00 05/24/16 12:00 100.5 83 16 172/79 94 137/60 150/67 05/24/16 10:28 93 Nasal Cannula 2.50 I/O 05/24/16 05/24/16 05/24/16 05/25/16 05/25/16 05/25/16 07:00 15:00 23:00 07:00 15:00 23:00 Intake Total 240 ml 480 ml 240 ml Balance 240 ml 480 ml 240 ml Intake Oral 240 ml 480 ml 240 ml # Voids 2 2 1 # Bowel Movements 0 Result Diagram: 05/25/1670205/25/[address] Angiography 05/24/16 0000 Signed Impressions: Service Date/Time: Tuesday, May 24, 2016 20:43 - CONCLUSION: 1. No pulmonary embolus. 2. Patchy consolidation in the posterior aspect of the right upper lobe. Blake Lombardo MD Chest X-Ray 05/21/16 Signed Impressions: Service Date/Time: Saturday, May 21, 2016 20:47 - CONCLUSION: 1. No acute findings. Anupam Cabral MD Knee X-Ray 05/20/16 Signed Impressions: Service Date/Time: Friday, May 20, 2016 23:43 - CONCLUSION: Mild degenerative changes. No evidence of fracture. Blake Saenz MD Abdomen/Pelvis CT 05/20/16 Signed Impressions: Service Date/Time: Friday, May 20, 2016 23:30 - CONCLUSION: 1. 4.3 cm intraluminal masslike increased attenuation at the base of the cecum. I'm not sure whether this is debris or a true mass. 2. No other acute abnormalities are demonstrated. There is atherosclerosis of the abdominal aorta without aneurysm. Patient has had previous hysterectomy and cholecystectomy. Blake Saenz MD Objective Remarks GENERAL: Well-developed well-nourished. In no acute distress. SKIN: Warm and dry. No lesions noted. HEENT: Normocephalic. Pupils equal and round. Mucous membranes pink and moist. CARDIOVASCULAR: Regular rate and rhythm. No murmur appreciated. RESPIRATORY: No accessory muscle use. SOB, wheezing. GASTROINTESTINAL: Abdomen soft, mild lower abdominal TTP, nondistended. Bowel sounds x4. MUSCULOSKELETAL: No obvious deformities. No clubbing or cyanosis. No edema. Lower extremities tender to light touch. NEUROLOGICAL: Awake and alert. No focal neurological deficits. Moves upper and lower extremities spontaneously. Normal speech. PSYCHIATRIC: Appropriate mood and affect; insight and judgment normal. A/P Problem List: (1) UTI (urinary tract infection) ICD Code: N39.0 Status: Acute (2) Cecum mass ICD Code: K63.9 Status: Acute Assessment and Plan 85-year-old female with past medical history of orthostatic hypotension, HLD, CKD, incontinence, hypothyroidism, neuropathy who presented after a fall UTI with sepsis: Tmax 102.4, tachypnea, source UTI, WBC and lactic acid within normal limits on admission. Chest x-ray with no acute finding. Blood cultures NTD. Urine culture with E Coli. Continue empiric IV Rocephin and follow-up cultures. Continue IVF. COPD with exacerbation. Pneumonia Pleural effusions,. BNP slightly elevated. DC IVF. Acute respiratory failure requiring now more O2 currently 4L . Patient has a h/o COPD. She has coughing and wheezing. She is sattign well on 2 L NC. Start duonebs scheduled and prn. CXR reviewed no signs of infiltrate or acute disease. Start Tessalon Perles. lready on ceftriaxone IVand azithromycin. No fevers, no tachycardia, has leukopenia, doesn't meet sepsis criteria. Influenza A/B is negative. Check legionella and pneumococcal Ag negative, check sputum cx if obtainable. Consult pulm, appreciate recommendations Fall: Recurrent. Likely secondary to chronic orthostatic hypotension. Denies any injury. PT eval. Fall precautions. Orthostatic hypotension: Chronic. Continue home fludrocortisone and midodrine. Check orthostatics every shift and adjust medications as needed. Now hypertensive. Hold fludocortisone because BP noted elevated. Restart home meds. Vasotec IV as need if SBP> 160. Give diuretic today and check BP . Discussed with Dr Madhu lowry cardiology Cecal mass: Abdomen and pelvis CT in the ED showed incidental 4.3 cm possible mass at the base of the cecum. The patient would like to proceed with definitive diagnosis. Discussed with on-call oncology, recommended colonoscopy for tissue biopsy, surgery evaluation, possible chest CT for staging, no need for consult at this time. Consult gastroenterology, plan for colonoscopy 05/23, reviewed, patient has biopsy of the mass. Plan for surgery by gen surg postponed as patient with copd with exacerbation at this time and is requiring more O2. Poss surgery removal of cecal mass on Tuesday 05/30. Dr Jay chaudhari surgery following. Consult cardiology for clearance for surgery, moderate risk for surgery. Patient /family is also refusing any intervention at this time , declined stress test/cardiac cath. Consult pulm for clearance for surgery. Consult palliative care. Anemia with Iron deficiency anemia. Will start venofer IV and will continue with ferrous sulfate PO after surgery at OR. Hypothyroidism: TSH normal. Continue levothyroxine. DVT prophylaxis: Heparin, SCDs Code Status DO NOT RESUSCITATE Discussed Condition With Patient, nurse, family at bedside, Dr Jay chaudhari surgery, Dr Reyes cardiology Problem Qualifiers (1) UTI (urinary tract infection): Qualified Code: N30.00 - Acute cystitis without hematuria Shannan Solis MD May 25, 2016 09:45
[2016-05-25] MEDS: LACTATED RINGER'S 1000 ML IV SCH (09:46)
[2016-05-25] MEDS ORDERED: CYANOCOBALAMIN 1000 MCG/ML VIAL IM ONE (10:00)
--- NOTE | 2016-05-25 10:40 | HHI.GIFU ---
Subjective Remarks Resting in bed. States her breathing is a little better today and that her O2 was decreased from 3.5 L to 2.5 L via n/c. No abdominal pain. Hungry this morning, waiting on breakfast tray. (Saige He) Objective Vitals I&O Vital Signs Date Time Temp Pulse Resp B/P Pulse Ox O2 Delivery O2 Flow Rate FiO2 05/25/16 09:24 180/82 05/25/16 08:52 98 Nasal Cannula 4.00 05/25/16 08:00 96.9 62 20 98 05/25/16 06:30 200/90 05/25/16 05:37 200/90 05/25/16 04:00 96.5 56 96 05/25/16 00:00 140/68 05/25/16 00:00 144/69 05/25/16 00:00 96.1 73 18 195/88 95 05/24/16 21:31 74 05/24/16 20:09 97.6 77 20 206/88 95 05/24/16 19:42 Nasal Cannula 3.00 05/24/16 19:34 Nasal Cannula 3.00 Humidified 05/24/16 16:31 100.0 86 20 157/74 95 05/24/16 13:20 98.1 90 20 178/72 95 05/24/16 13:20 95 Nasal Cannula 2.00 05/24/16 12:00 100.5 83 16 172/79 94 137/60 150/67 I/O 05/24/16 05/24/16 05/24/16 05/25/16 05/25/16 05/25/16 07:00 15:00 23:00 07:00 15:00 23:00 Intake Total 240 ml 480 ml 240 ml Balance 240 ml 480 ml 240 ml Intake Oral 240 ml 480 ml 240 ml # Voids 2 2 1 # Bowel Movements 0 Laboratory Laboratory Tests Test 05/24/16 05/24/16 05/25/16 13:33 19:42 07:03 Iron Level 14 Total Iron Binding Capacity 262 Percent Iron Saturation 5.3 Ferritin 110 B-Type Natriuretic Peptide 318 Vitamin B12 Level 424 Folate 14.6 Blood Gas Puncture Site RT RADIAL Blood Gas Patient Temperature 98.6 Blood Gas HCO3 26 Blood Gas Base Excess 2.0 Blood Gas Oxygen Saturation 96 Arterial Blood pH 7.42 Arterial Blood Partial 41 Pressure CO2 Arterial Blood Partial 97 Pressure O2 Arterial Blood Oxygen Content 13.2 Arterial Blood 0.9 Carboxyhemoglobin Arterial Blood Methemoglobin 0.7 Blood Gas Hemoglobin 9.7 Oxygen Delivery Device NASAL CANNULA Blood Gas Liter Flow 3 White Blood Count 3.2 Red Blood Count 3.22 Hemoglobin 9.9 Hematocrit 29.5 Mean Corpuscular Volume 91.5 Mean Corpuscular Hemoglobin 30.6 Mean Corpuscular Hemoglobin 33.4 Concent Red Cell Distribution Width 13.5 Platelet Count 125 Mean Platelet Volume 9.8 Neutrophils (%) (Auto) 78.1 Lymphocytes (%) (Auto) 14.5 Monocytes (%) (Auto) 7.3 Eosinophils (%) (Auto) 0.0 Basophils (%) (Auto) 0.1 Neutrophils # (Auto) 2.5 Lymphocytes # (Auto) 0.5 Monocytes # (Auto) 0.2 Eosinophils # (Auto) 0.0 Basophils # (Auto) 0.0 CBC Comment AUTO DIFF Differential Total Cells 100 Counted Neutrophils % (Manual) 67 Band Neutrophils % 11 Lymphocytes % 12 Monocytes % 9 Neutrophils # (Manual) 2.5 Myelocytes 1 Differential Comment FINAL DIFF MANUAL Platelet Estimate LOW Platelet Morphology Comment NORMAL Sodium Level 138 Potassium Level 3.6 Chloride Level 100 Carbon Dioxide Level 32.2 Anion Gap 6 Blood Urea Nitrogen 9 Creatinine 1.10 Estimat Glomerular Filtration 47 Rate Random Glucose 151 Calcium Level 8.0 Magnesium Level 1.8 Date/Time Procedure Status Source Growth 05/24/16 11:10 Legionella Antigen - Final Complete Urine Random Urine PRESUMPTIVE NEGATIVE FOR LEGIONELLA P... 05/24/16 11:10 Streptococcus pneumoniae Antigen (M - Final Complete Urine Random Urine PRESUMPTIVE NEGATIVE FOR STREPTOCOCCU... 05/20/16 23:07 Urine Culture - Final Complete Urine Catheterized Urine Escherichia Coli 05/20/16 22:38 Influenza Types A,B Antigen (MADY) - Final Complete Nasal Washing NEGATIVE FOR FLU A AND B ANTIGEN.... 05/20/16 22:35 Aerobic Blood Culture - Preliminary Resulted Blood Peripheral NO GROWTH IN 4 DAYS 05/20/16 22:35 Anaerobic Blood Culture - Preliminary Resulted Blood Peripheral NO GROWTH IN 4 DAYS Imaging Last Imp[address] CT Angiography 05/24/16 0000 Signed Impressions: Service Date/Time: Tuesday, May 24, 2016 20:43 - CONCLUSION: 1. No pulmonary embolus. 2. Patchy consolidation in the posterior aspect of the right upper lobe. Blake Lombardo MD Chest X-Ray 05/21/16 0000 Signed Impressions: Service Date/Time: Saturday, May 21, 2016 20:47 - CONCLUSION: 1. No acute findings. Anupam Cabral MD Knee X-Ray 05/20/16 0000 Signed Impressions: Service Date/Time: Friday, May 20, 2016 23:43 - CONCLUSION: Mild degenerative changes. No evidence of fracture. Blake Saenz MD Abdomen/Pelvis CT 05/20/16 0000 Signed Impressions: Service Date/Time: Friday, May 20, 2016 23:30 - CONCLUSION: 1. 4.3 cm intraluminal masslike increased attenuation at the base of the cecum. I'm not sure whether this is debris or a true mass. 2. No other acute abnormalities are demonstrated. There is atherosclerosis of the abdominal aorta without aneurysm. Patient has had previous hysterectomy and cholecystectomy. Blake Saenz MD Physical Exam HEENT: Normocephalic; atraumatic; no jaundice. CHEST: Resp even/unlabored, shallow breathing, diminished CARDIAC: RRR ABDOMEN: Soft, nondistended, nontender; no hepatosplenomegaly; bowel sounds are present in all four quadrants. EXTREMITIES: No clubbing, cyanosis, or edema. SKIN: Generalized pallor [employer]OR [employer] SORTER: No focal deficits; Lethargic and oriented times three. Generalized weakness (Saige He) Assessment and Plan Plan ASSESSMENT: - Cecal Mass. Abdomen/Pelvis CT (05/20/16)----> 1. 4.3 cm intraluminal masslike increased attenuation at the base of the cecum. I'm not sure whether this is debris or a true mass. 2. No other acute abnormalities are demonstrated. There is atherosclerosis of the abdominal aorta without aneurysm. Patient has had previous hysterectomy and cholecystectomy. S/P Colonoscopy (05/23/16)---> mass cecum, retroflexed views revealed small internal hemorrhoids, revealed external hemorrhoids. Pathology pending. GS following, planning for surgery once pulmonary issues resolve and cleared from cardiology/pulmonary standpoint. - Anemia. 9.9/29.5. - COPD Exacerbation, steroids, nebs, per pulmonary - UTI, Hyperlipidemia, DEANNE per primary - Cardiology following for risk assessment. PLAN: - MAGDALENE - Await pathology - Monitor labs - GS following - Oncology following - Pulmonary following - GI will sign off, please reconsult as needed - PT seen and examined by Dr. Egan and myself and this note is written on her behalf (Saige He) Physician Comments seen, examined agree with above pathology discussed with patient and family bedside=proceed with surgery as scheduled (Latanya Egan MD) Saige He May 25, 2016 10:39 Latanya Egan MD May 25, 2016 17:21
--- NOTE | 2016-05-25 10:42 | PD.CARD.PN ---
Subjective Subjective Remarks No chest pain, no shortness of breath Objective Medications Current Medications Medications (Trade) Dose Ordered Sig/Betito Route Start Time Stop Time Status Last Admin (NS 1000 ml Inj) 1,000 ml @ 100 mls/hr Q10H IV 05/21/16 03:00 Hold 05/21/16 14:44 (NS Flush) 2 ml UNSCH PRN FLUSH 05/21/16 03:00 05/23/16 14:57 (NS Flush) 2 ml BID FLUSH 05/21/16 09:00 05/25/16 09:45 (Tylenol) 650 mg Q4H PRN PO 05/21/16 03:00 05/24/16 21:32 (Zofran Inj) 4 mg Q6H PRN IVP 05/21/16 03:00 05/23/16 09:20 (Dulcolax Supp) 10 mg DAILY PRN IL 05/21/16 03:00 05/23/16 00:28 (Colace) 100 mg Q12HR PO 05/21/16 09:00 05/25/16 09:44 (Milk Of Smart Imaging Systemsviji Liq) 30 ml Q12H PRN PO 05/21/16 03:00 (Senokot) 17.2 mg Q12H PRN PO 05/21/16 03:00 05/22/16 22:19 (Heparin Inj) 5,000 units Q8HR SQ 05/21/16 06:00 05/24/16 21:32 Naloxone HCl 0.4 mg 0.4 mg UNSCH PRN IV 05/21/16 03:00 (Rocephin Inj/NS Inj) 100 ml @ 200 mls/hr Q24H IV 05/22/16 00:00 05/25/16 00:25 (Ecotrin Ec) 81 mg DAILY PO 05/22/16 09:00 05/25/16 09:44 (Lipitor) 10 mg HS PO 05/21/16 21:00 05/24/16 21:31 (Florinef) 0.1 mg DAILY PO 05/21/16 13:00 05/24/16 10:18 (Synthroid) 25 mcg HS PO 05/21/16 21:00 05/24/16 21:31 (Proamatine) 5 mg BID PO 05/21/16 21:00 05/24/16 10:17 (Vasotec Inj) 2.25 mg Q6H PRN IV PUSH 05/22/16 12:00 05/25/16 05:38 Calcium Carbonate 500 mg 500 mg Q2H PRN CHEW 05/22/16 17:30 (Lr 1000 ml Inj) 1,000 ml @ 30 mls/hr Q24H IV 05/23/16 10:00 05/23/16 14:57 (Robitussin Dm 200-20 Mg/10 ml Liq) 10 ml Q6H PRN PO 05/23/16 14:30 05/24/16 21:31 (Tessalon) 100 mg TID PRN PO 05/24/16 10:45 05/24/16 17:46 Methylprednisolone Sodium Succinate 40 mg 40 mg Q6HR IV PUSH 05/24/16 18:00 05/25/16 05:37 (Zithromax Inj/ NS 250 ml Inj) 250 ml @ 250 mls/hr Q24H IV 05/24/16 12:00 05/24/16 12:56 Gabapentin 300 mg 300 mg Q12HR PO 05/24/16 21:00 05/25/16 09:43 (Venofer Inj/NS Inj) 105 ml @ 105 mls/hr DAILY IV 05/25/16 10:00 05/27/16 09:59 Vital Signs / I&O Vital Signs Date Time Temp Pulse Resp B/P Pulse Ox O2 Delivery O2 Flow Rate FiO2 05/25/16 09:24 180/82 05/25/16 08:52 98 Nasal Cannula 4.00 05/25/16 08:00 96.9 62 20 98 05/25/16 06:30 200/90 05/25/16 05:37 200/90 05/25/16 04:00 96.5 56 96 05/25/16 00:00 140/68 05/25/16 00:00 144/69 05/25/16 00:00 96.1 73 18 195/88 95 05/24/16 21:31 74 05/24/16 20:09 97.6 77 20 206/88 95 05/24/16 19:42 Nasal Cannula 3.00 05/24/16 19:34 Nasal Cannula 3.00 Humidified 05/24/16 16:31 100.0 86 20 157/74 95 05/24/16 13:20 98.1 90 20 178/72 95 05/24/16 13:20 95 Nasal Cannula 2.00 05/24/16 12:00 100.5 83 16 172/79 94 137/60 150/67 05/24/16 10:28 93 Nasal Cannula 2.50 I/O 05/24/16 05/24/16 05/24/16 05/25/16 05/25/16 05/25/16 07:00 15:00 23:00 07:00 15:00 23:00 Intake Total 240 ml 480 ml 240 ml Balance 240 ml 480 ml 240 ml Intake Oral 240 ml 480 ml 240 ml # Voids 2 2 1 # Bowel Movements 0 Physical Exam GENERAL: NAD, AAOx3 SKIN: Warm and dry. HEAD: Atraumatic. Normocephalic. EYES: Pupils equal and round. No scleral icterus. No injection or drainage. ENT: No nasal bleeding or discharge. Mucous membranes pink and moist. NECK: Trachea midline. No JVD. CARDIOVASCULAR: Regular rate and rhythm. No murmurs RESPIRATORY: No accessory muscle use. Expiratory wheezing noted GASTROINTESTINAL: Abdomen soft, non-tender, nondistended. Hepatic and splenic margins not palpable. MUSCULOSKELETAL: Extremities without clubbing, cyanosis, or edema. No obvious deformities. NEUROLOGICAL: Awake and alert. No obvious cranial nerve deficits. Motor grossly within normal limits. Five out of 5 muscle strength in the arms and legs. Normal speech. PSYCHIATRIC: Appropriate mood and affect; insight and judgment normal. Laboratory Laboratory Tests Test 05/24/16 05/24/16 05/25/16 13:33 19:42 07:03 Iron Level 14 MCG/DL Total Iron Binding Capacity 262 MCG/DL Percent Iron Saturation 5.3 % Ferritin 110 NG/ML B-Type Natriuretic Peptide 318 PG/ML Vitamin B12 Level 424 PG/ML Folate 14.6 NG/ML Blood Gas Puncture Site RT RADIAL Blood Gas Patient Temperature 98.6 Blood Gas HCO3 26 mmol/L Blood Gas Base Excess 2.0 mmol/L Blood Gas Oxygen Saturation 96 % Arterial Blood pH 7.42 Arterial Blood Partial 41 mmHg Pressure CO2 Arterial Blood Partial 97 mmHg Pressure O2 Arterial Blood Oxygen Content 13.2 Vol % Arterial Blood 0.9 % Carboxyhemoglobin Arterial Blood Methemoglobin 0.7 % Blood Gas Hemoglobin 9.7 G/DL Oxygen Delivery Device NASAL CANNULA Blood Gas Liter Flow 3 L/M White Blood Count 3.2 TH/MM3 Red Blood Count 3.22 MIL/MM3 Hemoglobin 9.9 GM/DL Hematocrit 29.5 % Mean Corpuscular Volume 91.5 FL Mean Corpuscular Hemoglobin 30.6 PG Mean Corpuscular Hemoglobin 33.4 % Concent Red Cell Distribution Width 13.5 % Platelet Count 125 TH/MM3 Mean Platelet Volume 9.8 FL Neutrophils (%) (Auto) 78.1 % Lymphocytes (%) (Auto) 14.5 % Monocytes (%) (Auto) 7.3 % Eosinophils (%) (Auto) 0.0 % Basophils (%) (Auto) 0.1 % Neutrophils # (Auto) 2.5 TH/MM3 Lymphocytes # (Auto) 0.5 TH/MM3 Monocytes # (Auto) 0.2 TH/MM3 Eosinophils # (Auto) 0.0 TH/MM3 Basophils # (Auto) 0.0 TH/MM3 CBC Comment AUTO DIFF Differential Total Cells 100 Counted Neutrophils % (Manual) 67 % Band Neutrophils % 11 % Lymphocytes % 12 % Monocytes % 9 % Neutrophils # (Manual) 2.5 TH/MM3 Myelocytes 1 % Differential Comment FINAL DIFF MANUAL Platelet Estimate LOW Platelet Morphology Comment NORMAL Sodium Level 138 MEQ/L Potassium Level 3.6 MEQ/L Chloride Level 100 MEQ/L Carbon Dioxide Level 32.2 MEQ/L Anion Gap 6 MEQ/L Blood Urea Nitrogen 9 MG/DL Creatinine 1.10 MG/DL Estimat Glomerular Filtration 47 ML/MIN Rate Random Glucose 151 MG/DL Calcium Level 8.0 MG/DL Magnesium Level 1.8 MG/DL Assessment and Plan Problem List: (1) Cecum mass (2) Orthostatic hypotension (3) HTN (hypertension) (4) Peripheral vascular disease Assessment and Plan 1) Pre-operative risk assessment for possible Laparoscopic-Assisted Right Colectomy 2) Had a long discussion with the patient, her son and [id number] about her risk assessment, difficult to determine her functional capacity but it appears that she does laundry by herself, does walk some distance but at a slow pace, has to stop due to wheezing 3) Echo shows normal LV function, no significant valvular disease 4) On CT scan, does have minimal bibasilar pleural effusions and elevated BNP, no clinical CHF... received 5.5L of NS over 2 days 5) No clinical ACS noted 6) Patient/family do not want further ischemic work up, whether that be stress test/cardiac catheterization 7) I believe that she is moderate to high risk for a moderate risk surgery, and I can not decrease her risk further, patient/family understands there is risk undergoing surgery 8) No further testing will decrease her risk, will optimize as I can, maintain blood pressure sherine-operatively 9) Lasix for fluid overload state 10) Will watch blood pressure after diuresis, may need further medications, but would avoid Norvasc (potentiates orthostatic hypotension) and Beta Blockers ( would not start this soon to surgery) 11) Discussed with Dr. 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
[2016-05-25] MEDS: RESP: ALBUTEROL 2.5 MG/IPRATROPIUM 0.5 MG NEB (SCH) NEB ×3 (11:50→19:35)
[2016-05-25] MEDS: AZITHROMYCIN INJ 500 MG in SODIUM CHLOR 0.9% 250 ML INJ 250 ML IV SCH (12:30)
[2016-05-25] MEDS: IRON SUCROSE INJ 100 MG in SODIUM CHLORIDE 0.9% INJ 100 ML IV SCH (12:30)
[2016-05-25] MEDS: FUROSEMIDE 20 MG/2 ML VIAL IV PUSH SCH (12:30)
--- NOTE | 2016-05-25 19:00 | HHI.PR ---
Subjective Remarks ALERT OCASIONAL COUGH NO SOB Objective Vital Signs Date Time Temp Pulse Resp B/P Pulse Ox O2 Delivery O2 Flow Rate FiO2 05/25/16 16:54 98 Nasal Cannula 2.00 05/25/16 16:03 98.7 138 18 147/69 95 05/25/16 12:00 98.2 80 20 188/78 95 05/25/16 09:24 180/82 05/25/16 08:52 98 Nasal Cannula 4.00 05/25/16 08:00 96.9 62 20 98 05/25/16 06:30 200/90 05/25/16 05:37 200/90 05/25/16 04:00 96.5 56 96 05/25/16 00:00 140/68 05/25/16 00:00 144/69 05/25/16 00:00 96.1 73 18 195/88 95 05/24/16 21:31 74 05/24/16 20:09 97.6 77 20 206/88 95 05/24/16 19:42 Nasal Cannula 3.00 05/24/16 19:34 Nasal Cannula 3.00 Humidified I/O 05/24/16 05/24/16 05/24/16 05/25/16 05/25/16 05/25/16 07:00 15:00 23:00 07:00 15:00 23:00 Intake Total 240 ml 480 ml 240 ml 360 ml Balance 240 ml 480 ml 240 ml 360 ml Intake Oral 240 ml 480 ml 240 ml 360 ml # Voids 2 2 1 7 # Bowel Movements 0 0 Result Diagram: 05/25/16 0703 05/25/16 0703 Objective Remarks GENERAL: SKIN: Warm and dry. HEAD: Atraumatic. Normocephalic. EYES: Pupils equal and round. No scleral icterus. No injection or drainage. ENT: No nasal bleeding or discharge. Mucous membranes pink and moist. NECK: Trachea midline. No JVD. CARDIOVASCULAR: Regular rate and rhythm. RESPIRATORY: No accessory muscle use. Clear to auscultation. Breath sounds equal bilaterally. GASTROINTESTINAL: Abdomen soft, non-tender, nondistended. Hepatic and splenic margins not palpable. MUSCULOSKELETAL: Extremities without clubbing, cyanosis, or edema. No obvious deformities. NEUROLOGICAL: Awake and alert. No obvious cranial nerve deficits. Motor grossly within normal limits. Five out of 5 muscle strength in the arms and legs. Normal speech. PSYCHIATRIC: Appropriate mood and affect; insight and judgment normal. Assessment and Plan Assessment and Plan ALERT STILL WITH SOME CONGESTION ON ANTIBITICS COLON MASS PLAN O2 NEEDED ANTIBIOTICS BRONCHODILATOR THERAPY CHECK PFT Radhames Ricci MD May 25, 2016 19:00
[2016-05-25] MEDS: ATORVASTATIN 10 MG TAB PO SCH (21:17)
[2016-05-25] MEDS: LEVOTHYROXINE SODIUM 25 MCG TAB PO SCH (21:17)
[2016-05-25] MEDS: ACETAMINOPHEN 325 MG TAB PO PRN (21:18)
[2016-05-26] VITALS (16 sets, daily range): BP systolic 151–192; BP diastolic 69–92; PULSE 68–140; RESP 16–20; TEMP 95.9–98.2; O2SAT 91–98
[2016-05-26] MEDS: methylPREDNISolone SOD SUCC 40 MG/1 ML VIAL IV PUSH SCH ×3 (05:13→18:00)
[2016-05-26] MEDS: HEPARIN SODIUM - SQ 10,000 UNITS/ML VIAL SQ SCH ×3 (05:13→22:00)
[2016-05-26 07:00] LABS: BASOPHIL % 0.1 % (0.0-2.0); HEMATOCRIT 27.4 % (35.0-46.0); HEMO FLAGS DIFF FINAL; LYMPH % 4.5 % (9.0-44.0); LYMPHOCYTE # 0.4 TH/MM3 (1.0-4.8); MEAN CELL VOLUME 90.7 FL (80.0-100.0); MEAN CORPUSCULAR HGB CONC 34.2 % (32.0-36.0); MONO % 5.7 % (0.0-8.0); NEUT % 89.7 % (16.0-70.0); PLATELET COUNT 155 TH/MM3 (150-450); RED BLOOD COUNT 3.02 MIL/MM3 (4.00-5.30); RED CELL DISTRIBUTION WIDTH 13.2 % (11.6-17.2); WHITE BLOOD COUNT 8.9 TH/MM3 (4.0-11.0)
[2016-05-26 07:35] LABS: BICARBONATE 31.1 MEQ/L (21.0-32.0); MAGNESIUM 1.7 MG/DL (1.5-2.5); POTASSIUM 3.2 MEQ/L (3.5-5.1)
[2016-05-26] MEDS: RESP: ALBUTEROL 2.5 MG/IPRATROPIUM 0.5 MG NEB (SCH) NEB ×3 (07:42→21:22)
[2016-05-26] MEDS: FUROSEMIDE 20 MG/2 ML VIAL IV PUSH SCH (09:00)
[2016-05-26] MEDS: SODIUM CHLORIDE 0.9% FLUSH 5 ML FLUSH FLUSH SCH ×2 (09:03→22:00)
[2016-05-26] MEDS: ENALAPRILAT 2.5 MG/2 ML VIAL IV PUSH PRN (09:03)
[2016-05-26] MEDS: FLUDROCORTISONE ACETATE 0.1 MG TAB PO SCH (09:04)
[2016-05-26] MEDS: MIDODRINE 5 MG TAB PO SCH ×2 (09:04→21:59)
[2016-05-26] MEDS: DOCUSATE SODIUM 100 MG CAP PO SCH ×2 (09:04→22:00)
[2016-05-26] MEDS: ASPIRIN EC 81 MG TABEC PO SCH (09:04)
[2016-05-26] MEDS: GABAPENTIN 300 MG CAP PO SCH ×2 (09:04→22:01)
[2016-05-26] MEDS: IRON SUCROSE INJ 100 MG in SODIUM CHLORIDE 0.9% INJ 100 ML IV SCH (09:44)
[2016-05-26] MEDS ORDERED: POTASSIUM CHLORIDE 10 MEQ CONTROLLED RELEASE TAB PO ONE (10:00)
[2016-05-26] MEDS ORDERED: CALCIUM GLUCONATE INJ 1 GM in DEXTROSE 5% IN WATER 100ML INJ 100 ML IV ONE ×2 (10:00)
[2016-05-26] MEDS ORDERED: DILTIAZEM HCL 25 MG/5 ML VIAL IV PUSH ONE (10:00)
[2016-05-26] MEDS ORDERED: MORPHINE SULFATE 4 MG/ML INJ IV ONE (10:00)
--- NOTE | 2016-05-26 10:11 | HHI.PR ---
Subjective Remarks Stat call from the nurse. Patient having chest pain. When I arrived to the room patient in bed complaining of chest pain 10/10 epigastric, nonradiating, associated with sob, lightheadedness, palpitations. Received morphine, ASA, pain improved. Also she had cardizem IVP as her HR in 140s. HR better controlled. Objective Vitals Vital Signs Date Time Temp Pulse Resp B/P Pulse Ox O2 Delivery O2 Flow Rate FiO2 05/26/16 09:15 93 2.00 05/26/16 07:44 96 Nasal Cannula 2.00 05/26/16 04:11 97.8 70 18 151/69 97 05/26/16 00:18 95.9 79 20 156/72 98 05/25/16 21:17 3.00 05/25/16 20:08 99.0 90 18 142/65 94 05/25/16 16:54 98 Nasal Cannula 2.00 05/25/16 16:03 98.7 138 18 147/69 95 05/25/16 12:00 98.2 80 20 188/78 95 I/O 05/25/16 05/25/16 05/25/16 05/26/16 05/26/16 05/26/16 07:00 15:00 23:00 07:00 15:00 23:00 Intake Total 360 ml 500 ml Balance 360 ml 500 ml Intake Oral 360 ml 500 ml # Voids 7 3 # Bowel Movements 0 0 Result Diagram: 05/26/16 0535 05/26/16 0535 Imaging Last Impressions Chest X-Ray 05/26/16 0000 Signed Impressions: Service Date/Time: May 10:13 - CONCLUSION: Lingular infiltrate suspected. Cardiomegaly. Ricco Santana Jr., MD CT Angiography 05/24/16 0000 Signed Impressions: Service Date/Time: Tuesday, May 24, 2016 20:43 - CONCLUSION: 1. No pulmonary embolus. 2. Patchy consolidation in the posterior aspect of the right upper lobe. Blake Lombardo MD Knee X-Ray 05/20/16 0000 Signed Impressions: Service Date/Time: Friday, May 20, 2016 23:43 - CONCLUSION: Mild degenerative changes. No evidence of fracture. Blake Saenz MD Abdomen/Pelvis CT 05/20/16 0000 Signed Impressions: Service Date/Time: Friday, May 20, 2016 23:30 - CONCLUSION: 1. 4.3 cm intraluminal masslike increased attenuation at the base of the cecum. I'm not sure whether this is debris or a true mass. 2. No other acute abnormalities are demonstrated. There is atherosclerosis of the abdominal aorta without aneurysm. Patient has had previous hysterectomy and cholecystectomy. Blake Saenz MD Objective Remarks GENERAL: Well-developed well-nourished. In no acute distress. SKIN: Warm and dry. No lesions noted. HEENT: Normocephalic. Pupils equal and round. Mucous membranes pink and moist. CARDIOVASCULAR: Regular rate and rhythm. No murmur appreciated. RESPIRATORY: No accessory muscle use. SOB, wheezing. GASTROINTESTINAL: Abdomen soft, mild lower abdominal TTP, nondistended. Bowel sounds x4. MUSCULOSKELETAL: No obvious deformities. No clubbing or cyanosis. No edema. Lower extremities tender to light touch. NEUROLOGICAL: Awake and alert. No focal neurological deficits. Moves upper and lower extremities spontaneously. Normal speech. PSYCHIATRIC: Appropriate mood and affect; insight and judgment normal. A/P Problem List: (1) UTI (urinary tract infection) ICD Code: N39.0 Status: Acute (2) Cecum mass ICD Code: K63.9 Status: Acute Assessment and Plan 85-year-old female with past medical history of orthostatic hypotension, HLD, CKD, incontinence, hypothyroidism, neuropathy who presented after a fall Chest pain Newly onset Afib with RVR On telemetry patient with HR in 140s and irregularly irregular. Also her SBP 193. Patient main complaint is chest pain. Satting well on 2L. Stat trops, CKMB , cbc, bmp, EKG ordered. Patient received stat 2 mg IV morphine with some chest pain releaf. EKG with AFIB, received [address] Madhu lowry cardiology was notified and also came to the bedside. Patient improved with morphine and cardizem . Her SBP dropped to 99. Discussed with Dr Reyes cardiology and will start digoxin. Will hold on anticoagulation at this time per cardio. Started load digoxin IV Dr Doe briscoe following. Transfer patient to [facility] UTI with sepsis: Tmax 102.4, tachypnea, source UTI, WBC and lactic acid within normal limits on admission. Chest x-ray with no acute finding. Blood cultures NTD. Urine culture with E Coli. Continue empiric IV Rocephin and follow-up cultures. Continue IVF. COPD with exacerbation. Pneumonia Pleural effusions,. BNP slightly elevated. DC IVF. Acute respiratory failure requiring now more O2 currently 4L . Patient has a h/o COPD. She has coughing and wheezing. She is sattign well on 2 L NC. Start duonebs scheduled and prn. CXR reviewed no signs of infiltrate or acute disease. Start Tessalon Perles. lready on ceftriaxone IVand azithromycin. No fevers, no tachycardia, has leukopenia, doesn't meet sepsis criteria. Influenza A/B is negative. Check legionella and pneumococcal Ag negative, check sputum cx if obtainable. Consult pulm, appreciate recommendations Fall: Recurrent. Likely secondary to chronic orthostatic hypotension. Denies any injury. PT eval. Fall precautions. Orthostatic hypotension: Chronic. Continue home fludrocortisone and midodrine. Check orthostatics every shift and adjust medications as needed. Now hypertensive. Hold fludocortisone because BP noted elevated. Restart home meds. Vasotec IV as need if SBP> 160. Give diuretic today and check BP . Discussed with Dr Azar cardiology. Cecal mass: Abdomen and pelvis CT in the ED showed incidental 4.3 cm possible mass at the base of the cecum. The patient would like to proceed with definitive diagnosis. Discussed with on-call oncology, recommended colonoscopy for tissue biopsy, surgery evaluation, possible chest CT for staging, no need for consult at this time. Consult gastroenterology, plan for colonoscopy 05/23, reviewed, patient has biopsy of the mass. Plan for surgery by gen surg postponed as patient with copd with exacerbation at this time and is requiring more O2. Poss surgery removal of cecal mass on Tuesday 05/30. Dr Jay chaudhari surgery following. Consult cardiology for clearance for surgery, moderate risk for surgery. Patient /family is also refusing any intervention at this time , declined stress test/cardiac cath. Consult pulm for clearance for surgery. Consult palliative care. Anemia with Iron deficiency anemia. Will start venofer IV and will continue with ferrous sulfate PO after surgery at [place]. Hypothyroidism: TSH normal. Continue levothyroxine. DVT prophylaxis: Heparin, SCDs Code Status DO NOT RESUSCITATE Discussed Condition With Patient, nurse, family at bedside, Dr Reyes cardiology Transfer patient to [facility] Critical time spent 40 minutes. Problem Qualifiers (1) UTI (urinary tract infection): Qualified Code: N30.00 - Acute cystitis without hematuria Shannan Solis MD May 26, 2016 10:11
[2016-05-26] MEDS ORDERED: SODIUM CHLORIDE 0.9% FLUSH 5 ML FLUSH FLUSH PRN (10:15)
[2016-05-26] MEDS ORDERED: DIGOXIN 0.5 MG/2 ML VIAL IV PUSH ONE (10:15)
[2016-05-26] MEDS ORDERED: MAGNESIUM OXIDE 400 MG TAB PO ONE (10:15)
[2016-05-26] MEDS: POTASSIUM CHLOR 20 MEQ PREMIX 100 ML IV SCH ×2 (10:38→12:00)
--- NOTE | 2016-05-26 10:51 | RADRPT ---
EXAM DATE/TIME: 05/26/2016 10:13 [facility] COMPARISON: CHEST SINGLE AP, May 21, 2016, 20:47. INDICATIONS : Short of breath. MEDICAL HISTORY : Chronic obstructive pulmonary disease. Hypertension SURGICAL HISTORY : None. ENCOUNTER: Initial ACUITY: 4 - 6 days PAIN SCORE: 0/10 LOCATION: Bilateral chest FINDINGS: A single portable frontal view the chest shows a vague parenchymal density obscuring the cardiac apex . Right lung is clear. No effusions. Heart is mildly enlarged. Aorta is mildly calcified and tortuous . A scoliotic and degenerative thoracic spine. CONCLUSION: Lingular infiltrate suspected. Cardiomegaly. Ricco Santana Jr., MD on May 26, 2016 at 10:49 Board Certified Radiologist. This report was verified electronically.
[2016-05-26 10:55] LABS: AUTOMATED NEUTROPHIL # 8.6 TH/MM3 (1.8-7.7); BASOPHIL % 0.1 % (0.0-2.0); HEMATOCRIT 27.2 % (35.0-46.0); HEMO FLAGS DIFF FINAL; LYMPH % 3.2 % (9.0-44.0); LYMPHOCYTE # 0.3 TH/MM3 (1.0-4.8); MEAN CORPUSCULAR HEMOGLOBIN 30.9 PG (27.0-34.0); MEAN CORPUSCULAR HGB CONC 34.4 % (32.0-36.0); MONO % 6.3 % (0.0-8.0); NEUT % 90.4 % (16.0-70.0); PLATELET COUNT 171 TH/MM3 (150-450); RED BLOOD COUNT 3.03 MIL/MM3 (4.00-5.30); RED CELL DISTRIBUTION WIDTH 13.6 % (11.6-17.2); WHITE BLOOD COUNT 9.5 TH/MM3 (4.0-11.0)
[2016-05-26] MEDS ORDERED: MAGNESIUM SULFATE 1 GM PREMIX 100 ML IV SCH (11:00)
--- NOTE | 2016-05-26 11:16 | EKG ---
Date Performed: 05/26/2016 Time Performed: 09:33:00 PTAGE: 85 years EKG: ATRIAL FIBRILLATION WITH RAPID VENTRICULAR RESPONSE MARKED ST DEPRESSION, CONSIDER SUBENDO CARDIAL INJURY ABNORMAL ECG PREVIOUS TRACING : 05/24/2016 10.54 DOCTOR: Nik Dillon Interpretating Date/Time 05/26/2016 11:16:05
[2016-05-26 11:18] LABS: BICARBONATE 31.1 MEQ/L (21.0-32.0); POTASSIUM 3.2 MEQ/L (3.5-5.1)
[2016-05-26 11:47] LABS: CKMB 1.7 NG/ML (0.5-3.6)
[2016-05-26] MEDS: AZITHROMYCIN INJ 500 MG in SODIUM CHLOR 0.9% 250 ML INJ 250 ML IV SCH (12:00)
--- NOTE | 2016-05-26 12:45 | HHI.HCPN ---
Reason for visit a. To assist with evaluation and management of symptoms including: episodic back pain; chest pain; mild abdominal pain; constipation; cough b. To assist medical decision maker(s) with: better understanding of current medical conditions; weighing benefits/burdens of medical treatment options; making medical treatment decisions. . Subjective/Interval History Ms. Torres reports she was speaking with her son feeling well this AM and then had the sudden onset of increasing substernal chest tightness accompanied by increasing SOB. Patient became tachycardic. A HALICAT was called. EKG shwoed atrial fibrillation with RVR and marked ST depression. CXR shows lingular consolidation. Patient has received diltiazem, dig, morphine. CTA has been ordered. R/O WI w/u in progress. Patient has been transferred to the cardiac step-down unit. At time of my visit, patient says she barely notices any chest discomfort. She says a deep breath can cause slight substernal pain. She is smiling and laughing with visitors. She has a frequent wet sounding cough but tells me she is not able to bring any phlegm up. She denies SOB at this time. Has been eating well. No other complaints. . Family/friend interactions Spoke with daughter and granddaughter at bedside. Discussed today's events. We spoke about our highest priority is diagnosing and treating what caused today 's events. We discussed how today's events certainly shed a different light on surgical risk for the planned ascending colectomy and once stable this will need to be reassessed. . Advance Directives Living Will: Copy in medical record Health Care Surrogate: Copy in medical record Durable Power of Ore Washer: Never completed Advance Directive Specifics Date completed: 10/09/2006 . Health Care Surrogate(s): Edinson Torres (son) is the primary Hina Lozano (daughter) is the alternate . . Documented care wishes: Patient only wants life support if both physicians and surrogate both believe the treatment would restore patient to a reasonable quality of life "in which I can interact in a meaningful way with other people." . Objective Vital Signs Date Time Temp Pulse Resp B/P Pulse Ox O2 Delivery O2 Flow Rate FiO2 05/26/16 09:15 93 2.00 05/26/16 08:00 97.5 68 18 192/82 97 05/26/16 07:44 96 Nasal Cannula 2.00 05/26/16 04:11 97.8 70 18 151/69 97 05/26/16 00:18 95.9 79 20 156/72 98 05/25/16 21:17 3.00 05/25/16 20:08 99.0 90 18 142/65 94 05/25/16 16:54 98 Nasal Cannula 2.00 05/25/16 16:03 98.7 138 18 147/69 95 Intake & Output 05/26/16 05/26/16 07:00 19:00 Intake Total 500 ml Balance 500 ml Intake Oral 500 ml # Voids 3 # Bowel Movements 0 . Physical Exam CONSTITUTIONAL/GENERAL: This is an adequately nourished patient, in no apparent distress. Intermittent cough noted. Smiling and laughing with guests. TUBES/LINES/DRAINS: Peripheral IV. Nasal cannula 02. SKIN: No jaundice, rashes, or lesions. Ecchymoses on upper extremities. No wounds seen anteriorly. Skin temperature appropriate. Not diaphoretic. EYES: Pupils equal and round. Extraocular motions intact. No scleral icterus. No injection or drainage. Fundi not examined. CARDIOVASCULAR: Regular rate and rhythm without murmurs, gallops, or rubs. No JVD. RESPIRATORY/CHEST: Symmetric, unlabored respirations. Breath sounds equal bilaterally. Intermittent cough. Faint expiratory wheeze. Bibasilar faint crackles. GASTROINTESTINAL: Abdomen soft, non-tender, nondistended. No hepato-splenomegaly , or palpable masses. No guarding. Bowel sounds present. GENITOURINARY: Without palpable bladder distension. MUSCULOSKELETAL: Extremities without clubbing, cyanosis, or edema. No calf tenderness. No mottling. LYMPHATICS: Not examined. NEUROLOGICAL: Awake, alert, interactive, cognitively sharp. Follows commands. Moves all extremities. PSYCHIATRIC: No obvious anxiety/depression. No apparent hallucinations or other psychotic thought process. . Diagnostic Tests Laboratory Laboratory Tests Test 05/23/16 05/23/16 05/24/16 05/24/16 12:45 21:19 07:34 13:33 White Blood Count 3.1 TH/MM3 4.1 TH/MM3 (4.0-11.0) (4.0-11.0) Red Blood Count 3.16 MIL/MM3 2.78 MIL/MM3 (4.00-5.30) (4.00-5.30) Hemoglobin 9.7 GM/DL 8.7 GM/DL (11.6-15.3) (11.6-15.3) Hematocrit 29.1 % 25.7 % (35.0-46.0) (35.0-46.0) Mean Corpuscular Volume 91.9 FL 92.6 FL (80.0-100.0) (80.0-100.0) Mean Corpuscular Hemoglobin 30.6 PG 31.2 PG (27.0-34.0) (27.0-34.0) Mean Corpuscular Hemoglobin 33.3 % 33.7 % Concent (32.0-36.0) (32.0-36.0) Red Cell Distribution Width 13.5 % 13.2 % (11.6-17.2) (11.6-17.2) Platelet Count 132 TH/MM3 114 TH/MM3 (150-450) (150-450) Mean Platelet Volume 9.3 FL 9.3 FL (7.0-11.0) (7.0-11.0) Neutrophils (%) (Auto) 64.0 % 60.5 % (16.0-70.0) (16.0-70.0) Lymphocytes (%) (Auto) 18.7 % 25.5 % (9.0-44.0) (9.0-44.0) Monocytes (%) (Auto) 12.2 % 10.9 % (0.0-8.0) (0.0-8.0) Eosinophils (%) (Auto) 4.3 % (0.0-4.0) 2.4 % (0.0-4.0) Basophils (%) (Auto) 0.8 % (0.0-2.0) 0.7 % (0.0-2.0) Neutrophils # (Auto) 2.0 TH/MM3 2.5 TH/MM3 (1.8-7.7) (1.8-7.7) Lymphocytes # (Auto) 0.6 TH/MM3 1.0 TH/MM3 (1.0-4.8) (1.0-4.8) Monocytes # (Auto) 0.4 TH/MM3 0.4 TH/MM3 (0-0.9) (0-0.9) Eosinophils # (Auto) 0.1 TH/MM3 0.1 TH/MM3 (0-0.4) (0-0.4) Basophils # (Auto) 0.0 TH/MM3 0.0 TH/MM3 (0-0.2) (0-0.2) CBC Comment DIFF FINAL DIFF FINAL Differential Comment Sodium Level 143 MEQ/L 138 MEQ/L (136-145) (136-145) Potassium Level 3.7 MEQ/L 3.4 MEQ/L (3.5-5.1) (3.5-5.1) Chloride Level 106 MEQ/L 101 MEQ/L (98-107) (98-107) Carbon Dioxide Level 29.9 MEQ/L 32.2 MEQ/L (21.0-32.0) (21.0-32.0) Anion Gap 7 MEQ/L (5-15) 5 MEQ/L (5-15) Blood Urea Nitrogen 10 MG/DL (7-18) 9 MG/DL (7-18) Creatinine 1.14 MG/DL 1.18 MG/DL (0.50-1.00) (0.50-1.00) Estimat Glomerular Filtration 45 ML/MIN (>89) 43 ML/MIN (>89) Rate Random Glucose 94 MG/DL 117 MG/DL (74-106) (74-106) Calcium Level 7.9 MG/DL 7.5 MG/DL (8.5-10.1) (8.5-10.1) Carcinoembryonic Antigen 2.4 NG/ML (0.2-5.0) Iron Level 14 MCG/DL (50-170) Total Iron Binding Capacity 262 MCG/DL (250-450) Percent Iron Saturation 5.3 % (20-50) Ferritin 110 NG/ML (8-252) B-Type Natriuretic Peptide 318 PG/ML (0-100) Vitamin B12 Level 424 PG/ML (193-986) Folate 14.6 NG/ML (3.1-17.5) Test 05/24/16 05/25/16 05/26/16 05/26/16 19:42 07:03 05:35 10:45 Blood Gas Puncture Site RT RADIAL Blood Gas Patient Temperature 98.6 Blood Gas HCO3 26 mmol/L (22-26) Blood Gas Base Excess 2.0 mmol/L (-2-2) Blood Gas Oxygen Saturation 96 % (90-100) Arterial Blood pH 7.42 (7.380-7.420) Arterial Blood Partial 41 mmHg (38-42) Pressure CO2 Arterial Blood Partial 97 mmHg Pressure O2 (61-120) Arterial Blood Oxygen Content 13.2 Vol % (12.0-20.0) Arterial Blood 0.9 % (0-4) Carboxyhemoglobin Arterial Blood Methemoglobin 0.7 % (0-2) Blood Gas Hemoglobin 9.7 G/DL (12.0-16.0) Oxygen Delivery Device NASAL CANNULA Blood Gas Liter Flow 3 L/M White Blood Count 3.2 TH/MM3 8.9 TH/MM3 9.5 TH/MM3 (4.0-11.0) (4.0-11.0) (4.0-11.0) Red Blood Count 3.22 MIL/MM3 3.02 MIL/MM3 3.03 MIL/MM3 (4.00-5.30) (4.00-5.30) (4.00-5.30) Hemoglobin 9.9 GM/DL 9.4 GM/DL 9.4 GM/DL (11.6-15.3) (11.6-15.3) (11.6-15.3) Hematocrit 29.5 % 27.4 % 27.2 % (35.0-46.0) (35.0-46.0) (35.0-46.0) Mean Corpuscular Volume 91.5 FL 90.7 FL 90.0 FL (80.0-100.0) (80.0-100.0) (80.0-100.0) Mean Corpuscular Hemoglobin 30.6 PG 31.0 PG 30.9 PG (27.0-34.0) (27.0-34.0) (27.0-34.0) Mean Corpuscular Hemoglobin 33.4 % 34.2 % 34.4 % Concent (32.0-36.0) (32.0-36.0) (32.0-36.0) Red Cell Distribution Width 13.5 % 13.2 % 13.6 % (11.6-17.2) (11.6-17.2) (11.6-17.2) Platelet Count 125 TH/MM3 155 TH/MM3 171 TH/MM3 (150-450) (150-450) (150-450) Mean Platelet Volume 9.8 FL 10.2 FL 9.5 FL (7.0-11.0) (7.0-11.0) (7.0-11.0) Neutrophils (%) (Auto) 78.1 % 89.7 % 90.4 % (16.0-70.0) (16.0-70.0) (16.0-70.0) Lymphocytes (%) (Auto) 14.5 % 4.5 % 3.2 % (9.0-44.0) (9.0-44.0) (9.0-44.0) Monocytes (%) (Auto) 7.3 % (0.0-8.0) 5.7 % (0.0-8.0) 6.3 % (0.0-8.0) Eosinophils (%) (Auto) 0.0 % (0.0-4.0) 0.0 % (0.0-4.0) 0.0 % (0.0-4.0) Basophils (%) (Auto) 0.1 % (0.0-2.0) 0.1 % (0.0-2.0) 0.1 % (0.0-2.0) Neutrophils # (Auto) 2.5 TH/MM3 8.0 TH/MM3 8.6 TH/MM3 (1.8-7.7) (1.8-7.7) (1.8-7.7) Lymphocytes # (Auto) 0.5 TH/MM3 0.4 TH/MM3 0.3 TH/MM3 (1.0-4.8) (1.0-4.8) (1.0-4.8) Monocytes # (Auto) 0.2 TH/MM3 0.5 TH/MM3 0.6 TH/MM3 (0-0.9) (0-0.9) (0-0.9) Eosinophils # (Auto) 0.0 TH/MM3 0.0 TH/MM3 0.0 TH/MM3 (0-0.4) (0-0.4) (0-0.4) Basophils # (Auto) 0.0 TH/MM3 0.0 TH/MM3 0.0 TH/MM3 (0-0.2) (0-0.2) (0-0.2) CBC Comment AUTO DIFF DIFF FINAL DIFF FINAL Differential Total Cells 100 Counted Neutrophils % (Manual) 67 % (16-70) Band Neutrophils % 11 % (0-6) Lymphocytes % 12 % (9-44) Monocytes % 9 % (0-8) Neutrophils # (Manual) 2.5 TH/MM3 (1.8-7.7) Myelocytes 1 % (0-0) Differential Comment FINAL DIFF MANUAL Platelet Estimate LOW (NORMAL) Platelet Morphology Comment NORMAL (NORMAL) Sodium Level 138 MEQ/L 138 MEQ/L 138 MEQ/L (136-145) (136-145) (136-145) Potassium Level 3.6 MEQ/L 3.2 MEQ/L 3.2 MEQ/L (3.5-5.1) (3.5-5.1) (3.5-5.1) Chloride Level 100 MEQ/L 98 MEQ/L 100 MEQ/L (98-107) (98-107) (98-107) Carbon Dioxide Level 32.2 MEQ/L 31.1 MEQ/L 31.1 MEQ/L (21.0-32.0) (21.0-32.0) (21.0-32.0) Anion Gap 6 MEQ/L (5-15) 9 MEQ/L (5-15) 7 MEQ/L (5-15) Blood Urea Nitrogen 9 MG/DL (7-18) 14 MG/DL (7-18) 16 MG/DL (7-18) Creatinine 1.10 MG/DL 0.98 MG/DL 1.03 MG/DL (0.50-1.00) (0.50-1.00) (0.50-1.00) Estimat Glomerular Filtration 47 ML/MIN (>89) 54 ML/MIN (>89) 51 ML/MIN (>89) Rate Random Glucose 151 MG/DL 157 MG/DL 175 MG/DL (74-106) (74-106) (74-106) Calcium Level 8.0 MG/DL 7.7 MG/DL 7.9 MG/DL (8.5-10.1) (8.5-10.1) (8.5-10.1) Magnesium Level 1.8 MG/DL 1.7 MG/DL (1.5-2.5) (1.5-2.5) Total Creatine Kinase 225 U/L (26-192) Creatine Kinase MB 1.7 NG/ML (0.5-3.6) Creatine Kinase MB % 0.8 % (0.0-4.0) Troponin I 0.02 NG/ML (0.02-0.05) . Result Diagram: 05/26/16 1045 05/26/16 1045 Microbiology Microbiology Date/Time Procedure Status Source Growth 05/24/16 11:10 Legionella Antigen - Final Complete Urine Random Urine PRESUMPTIVE NEGATIVE FOR LEGIONELLA P... 05/24/16 11:10 Streptococcus pneumoniae Antigen (M - Final Complete Urine Random Urine PRESUMPTIVE NEGATIVE FOR STREPTOCOCCU... . Imaging Last Impressions Chest X-Ray 05/26/16 0000 Signed Impressions: Service Date/Time: May 10:13 - CONCLUSION: Lingular infiltrate suspected. Cardiomegaly. Ricco Santana Jr., MD CT Angiography 05/24/16 0000 Signed Impressions: Service Date/Time: Tuesday, May 24, 2016 20:43 - CONCLUSION: 1. No pulmonary embolus. 2. Patchy consolidation in the posterior aspect of the right upper lobe. Blake Lombardo MD Knee X-Ray 05/20/16 0000 Signed Impressions: Service Date/Time: Friday, May 20, 2016 23:43 - CONCLUSION: Mild degenerative changes. No evidence of fracture. Blake Saenz MD Abdomen/Pelvis CT 05/20/16 0000 Signed Impressions: Service Date/Time: Friday, May 20, 2016 23:30 - CONCLUSION: 1. 4.3 cm intraluminal masslike increased attenuation at the base of the cecum. I'm not sure whether this is debris or a true mass. 2. No other acute abnormalities are demonstrated. There is atherosclerosis of the abdominal aorta without aneurysm. Patient has had previous hysterectomy and cholecystectomy. Blake Saenz MD . Procedures * Colonoscopy 05/23/16 . 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 . (2) UTI (urinary tract infection) Comment: E coli per culture. . (3) Respiratory infection Comment: Now on antibioitcs and IV steroids. Lingular infiltrate seen on CXR - - possible pneumonia. . (4) Atrial fibrillation with RVR Comment: Sudden onset on 05/26/16. Ruling out WI. Event places patient at increased risk for planned ascending colectomy. May need to re-visit risks/ benefits of surgery. . (5) Orthostatic hypotension (6) Lumbar stenosis with neurogenic claudication Comment: Known at L3-L4 and less at L2-L3. . (7) Peripheral vascular disease Comment: Underwent left carotid endarterectomy which had to be halted for some reason. . (8) Frequent falls (9) Hypothyroidism Symptom Scale: (1) Pain Comment: Acute chest pain associated with a Fib with RVR on 05/26/16 now resolved. Pt possibly had WI. Patient also reports history low back pain when she is standing for periods of time. This is attributed to her L3-L4 spinal stenosis and to a less extent her L2-L3 spinal stenosis. Pain is described as severe. It does not radiate. It is helped by sitting down. She does not take pain medication for it. . (2) Constipation 0-10 Scale: Unable to quantify Comment: Patient reports a bowel mold changer the last several months. She used to be mostly regular. Now she can go without moving her bowels for two days and then spends a lot of time in the bathroom going on day 3. . No blood reported. No bowel movement since 05/23/16 when she had her colonoscopy prep. . Pertinent Non-Medical Issues Psychosocial: Resident of [facility]. Well supported by her 4 children and her grandchildren. Spiritual: Sikh. Christian and spirituality are important to her. Her cardiology technician will provide spiritual support. Legal: Advance directive on chart. Son -- Edinson-- is health care surrogate. Ethical issues impacting care: Patient is capacitated to make her own health care decisions at this time. . Important Contacts * Edinson Torres (son and HEALTH CARE SURROGATE) [phone] * Mireya Ann (daughter) [phone] . 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 Path still pending. Uncertain what stage this is if cancer. Ascending colectomy has been recommended by surgery and patient/family agree. Await clearance by cardiology and pulmonology. Patient appears to have some sort of respiratory infection (possibly pneumonia) at this time that may need to clear before surgery. On 05/26/16 she had chest pain and tachycardia -- she was in A fib with RVR. Pt may have had WI. This will greatly elevate risk of the surgery and will probably cause a significant delay even if there is determination to go forward with it. If she tolerates surgery well and there is no evidence of metastatic disease, she should have quality of life post operatively. Her advanced age certainly adds risk particularly to the post-op period in spite of being relatively spry for her age. . . Code Status: No Code Plan == Code Status: NO CODE per patient choice. == Decision maker: Patient is currently capacitated to make her own health care decisions. Advance directives are on chart. Patient's son -- Edinson Torres -- is the primary health care surrogate and daughter -- Hina -- is the alternate. == Goals of medical treatment: Patient and family are wanting to go forward with ascending colectomy for the cancer if/when she is cleared by cardiology and pulmonology. They may need to re-assess risiks/benefits of surgery given the vents of 05/26 with Atrial Fib + RVR and possible WI. Goals are aggressive short of resuscitation. == Pain: Patient had some mild post-colonoscopy abdominal pain. She has chronic low back pain that is exacerbated with standing but is not bothering her here in the hospital. She had brief 10/10 chest pain concurrent with her Atrial fib with RVR. She has acetaminophen ordered for pain. Recommend an order for 2 mg iv morphine q 4 hours prn pain level >#6 in case she has another cardiac event. == Constipation: Patient completed bowel prep and colonoscopy on 05/23/16. Now bowel movements since colonoscopy. Currently has docusate, senna, MOM, and Bisacodyl suppositories ordered. No further recommendation at this time. == Patient is fall risk normally due to orthostatic hypotension. Should not be getting out of bed unattended. == Respiratory infection -- CXR now shows lingular infiltrate -- pneumonia?. Cough and SOB persist. Now on antibioitcs and iv steroids. PFT and chest CTA are pending. == If, as a result of the cardiac event of 05/26/16 patient and family opt against surgery and desire comfort measures, hospice consultation would be appropriate. == Palliative care will continue to follow to assist with symptom management and to further clarify goals of medical treatment as the clinical course evolves. . Attestation To help prompt me to consider important information that might be impacting today's encounter and assessment, information from prior notes written by myself or my colleagues may have been "brought forward" into today's note. My signature on this note, however, is an attestation that I personally performed the exam, history, and/or decision-making noted today, and, unless otherwise indicated, the interactions with patient, family, and staff as well as the review of records all occurred today. I also attest that the listed assessment and stated plan reflect my best clinical judgment today based on the combination of historical information, prior notes, and today's exam/ interactions. When time spent is documented, it refers only to time spent today by the signer, or if indicated, combined time spent today by collaborating physician/nurse practitioner. . Erwin William MD May 26, 2016 12:45
--- NOTE | 2016-05-26 13:02 | HHI.PR ---
Subjective Subjective Notes She had an episode of tachycardia and chest pain this am and transferred to [facility]. Heart rate is down now and her symptoms have improved. She still has a cough. Family is at bedside. Objective Vitals/I&O Vital Signs Date Time Temp Pulse Resp B/P Pulse Ox O2 Delivery O2 Flow Rate FiO2 05/26/16 09:15 93 2.00 05/26/16 08:00 97.5 68 18 192/82 05/26/16 07:44 Nasal Cannula Labs Laboratory Tests Test 05/26/16 05/26/16 05:35 10:45 White Blood Count 8.9 9.5 Red Blood Count 3.02 3.03 Hemoglobin 9.4 9.4 Hematocrit 27.4 27.2 Mean Corpuscular Volume 90.7 90.0 Mean Corpuscular Hemoglobin 31.0 30.9 Mean Corpuscular Hemoglobin 34.2 34.4 Concent Red Cell Distribution Width 13.2 13.6 Platelet Count 155 171 Mean Platelet Volume 10.2 9.5 Neutrophils (%) (Auto) 89.7 90.4 Lymphocytes (%) (Auto) 4.5 3.2 Monocytes (%) (Auto) 5.7 6.3 Eosinophils (%) (Auto) 0.0 0.0 Basophils (%) (Auto) 0.1 0.1 Neutrophils # (Auto) 8.0 8.6 Lymphocytes # (Auto) 0.4 0.3 Monocytes # (Auto) 0.5 0.6 Eosinophils # (Auto) 0.0 0.0 Basophils # (Auto) 0.0 0.0 CBC Comment DIFF FINAL DIFF FINAL Differential Comment Sodium Level 138 138 Potassium Level 3.2 3.2 Chloride Level 98 100 Carbon Dioxide Level 31.1 31.1 Anion Gap 9 7 Blood Urea Nitrogen 14 16 Creatinine 0.98 1.03 Estimat Glomerular Filtration 54 51 Rate Random Glucose 157 175 Calcium Level 7.7 7.9 Magnesium Level 1.7 Total Creatine Kinase 225 Creatine Kinase MB 1.7 Creatine Kinase MB % 0.8 Troponin I 0.02 Date/Time Procedure Status Source Growth 05/24/16 11:10 Legionella Antigen - Final Complete Urine Random Urine PRESUMPTIVE NEGATIVE FOR LEGIONELLA P... 05/24/16 11:10 Streptococcus pneumoniae Antigen (M - Final Complete Urine Random Urine PRESUMPTIVE NEGATIVE FOR STREPTOCOCCU... Radiology Last Impressions Chest X-Ray 2/11/17 0000 Signed Impressions: Service Date/Time: Saturday, May 21, 2016 20:47 - CONCLUSION: 1. No acute findings. Anupam Cabral MD Knee X-Ray 05/20/16 Signed Impressions: Service Date/Time: Friday, May 20, 2016 23:43 - CONCLUSION: Mild degenerative changes. No evidence of fracture. Blake Saenz MD Abdomen/Pelvis CT 05/20/16 Signed Impressions: Service Date/Time: Friday, May 20, 2016 23:30 - CONCLUSION: 1. 4.3 cm intraluminal masslike increased attenuation at the base of the cecum. I'm not sure whether this is debris or a true mass. 2. No other acute abnormalities are demonstrated. There is atherosclerosis of the abdominal aorta without aneurysm. Patient has had previous hysterectomy and cholecystectomy. 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 H/o orthostatic hypotension , carotid disease. She had a cardiac episode this am. Heart rate is now controlled. First set of enzymes ok. Appreciate cardiology Dr. Muir- case discussed with him. At this point, I will hold off on surgery indefinitely until cardiac and pulmonary status improved and risk assessed. Likely will see her in office after discharge and plan for surgery at that time if the patient desires. 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 Levi Thompson MD May 26, 2016 13:02
[2016-05-26] MEDS: DIGOXIN 0.5 MG/2 ML VIAL IVS SCH ×2 (17:00→21:59)
[2016-05-26] MEDS ORDERED: IOHEXOL 350 MG/ML 10 ML VIAL (for RAD DIAG) IV ONE (17:19)
[2016-05-26 17:25] LABS: CKMB 1.8 NG/ML (0.5-3.6)
--- NOTE | 2016-05-26 17:47 | RADRPT ---
EXAM DATE/TIME: 05/26/2016 17:07 [facility] COMPARISON: CT PULMONARY ANGIOGRAM, May 24, 2016, 20:43. INDICATIONS : Chest pain and fever. IV CONTRAST: 75 cc Omnipaque 350 (iohexol) IV RADIATION DOSE: 13.48 CTDIvol (mGy) MEDICAL HISTORY : Cardiovascular disease. SURGICAL HISTORY : Tonsillectomy. Appendectomy.Cholecystectomy. ENCOUNTER: Initial ACUITY: 1 day PAIN SCALE: 3/10 LOCATION: chest TECHNIQUE: Volumetric scanning of the chest was performed using a pulmonary embolism protocol MIP images were re constructed. Using automated exposure control and adjustment of the mA and/or kV according to patien t size, radiation dose was kept as low as reasonably achievable to obtain optimal diagnostic quality images. FINDINGS: PULMONARY ARTERIES: No filling defects are seen in the pulmonary arteries through the segmental level. LUNGS: Airspace disease in the posterior aspect of the right upper lobe seen a few days earlier shows signif icant improvement and may represent resolving atelectasis. There are some developing atelectatic jaquez ges in the left lung base with a stable area of atelectasis in the right lung base and a small associ ated tiny right-sided. PLEURAE: Very small right-sided effusion. MEDIASTINUM: There is good visualization of the great vessels of the middle mediastinum. No evidence of mediastin al or hilar adenopathy/mass. However, there is some narrowing of the left mainstem bronchus which was not present 2-days earlier. This presumably is related to the phase of inspiration and there may be a component of external compression as the esophagus passes just posterior to the bronchus. Very smal l pericardial effusion. MUSCULOSKELETAL: Within normal limits for patient age. MISCELLANEOUS: The visualized upper abdominal organs demonstrate no acute abnormality. Patient is status post cholec ystectomy CONCLUSION: 1. Patchy airspace disease in the posterior perifissural aspect of the right upper lobe shows interva l improvement and probably represents resolving atelectasis. Minimal bibasilar atelectasis. 2. Tiny pericardial and right pleural effusion. Minimal bibasilar atelectatic changes. 3. Narrowing of the left mainstem bronchus I believe is physiologic and probably related to the phase of respiration possibly exacerbated by some esophageal distention as the latter passes just posterio r to the left mainstem bronchus. This was not present 2 days earlier.. Jaya Cazares MD on May 26, 2016 at 17:33 Board Certified Radiologist. This report was verified electronically.
--- NOTE | 2016-05-26 18:05 | PD.CARD.PN ---
Subjective Subjective Remarks Patient seen earlier during [facility] with Dr. Solis.... went into Afib with RVR, heart rate around 140, started having chest pain EKG Afib with RVR, ST depressions noted Given Cardizem 15mg IV, heart decreased to around 115bpm, blood pressure dropped with Cardizem, mildly dizzy... started on IV fluids. Chest pain decreased with drop in heart rate. Patient stabilized. Transferred to [facility]. Heart rate still mildly elevated around 110. Concern with previous history of orthostatic hypotension along with her sensitivity to blood pressure medications in the past, given digoxin 0.25 mg IV. Chest pain free. Stopped back to see the patient around 1pm. No chest pain, feels better. Hemodynamically stable Objective Medications Current Medications Medications (Trade) Dose Ordered Sig/Betito Route Start Time Stop Time Status Last Admin (NS Flush) 2 ml UNSCH PRN FLUSH 05/21/16 03:00 05/23/16 14:57 (NS Flush) 2 ml BID FLUSH 05/21/16 09:00 05/26/16 09:03 (Tylenol) 650 mg Q4H PRN PO 05/21/16 03:00 05/25/16 21:18 (Zofran Inj) 4 mg Q6H PRN IVP 05/21/16 03:00 05/23/16 09:20 (Dulcolax Supp) 10 mg DAILY PRN [place] 05/21/16 03:00 05/23/16 00:28 (Colace) 100 mg Q12HR PO 05/21/16 09:00 05/26/16 09:04 (Milk Of Magnesia Liq) 30 ml Q12H PRN PO 05/21/16 03:00 05/26/16 09:05 (Senokot) 17.2 mg Q12H PRN PO 05/21/16 03:00 05/22/16 22:19 (Heparin Inj) 5,000 units Q8HR SQ 05/21/16 06:00 05/26/16 14:00 Naloxone HCl 0.4 mg 0.4 mg UNSCH PRN IV 05/21/16 03:00 (Rocephin Inj/NS Inj) 100 ml @ 200 mls/hr Q24H IV 05/22/16 00:00 05/25/16 23:49 (Ecotrin Ec) 81 mg DAILY PO 05/22/16 09:00 05/26/16 09:04 (Lipitor) 10 mg HS PO 05/21/16 21:00 05/25/16 21:17 (Florinef) 0.1 mg DAILY PO 05/21/16 13:00 05/26/16 09:04 (Synthroid) 25 mcg HS PO 05/21/16 21:00 05/25/16 21:17 (Proamatine) 5 mg BID PO 05/21/16 21:00 05/26/16 09:04 (Vasotec Inj) 2.25 mg Q6H PRN IV PUSH 05/22/16 12:00 05/26/16 09:03 (Tums Chew) 500 mg Q2H PRN CHEW 05/22/16 17:30 (Robitussin Dm 200-20 Mg/10 ml Liq) 10 ml Q6H PRN PO 05/23/16 14:30 05/24/16 21:31 (Tessalon) 100 mg TID PRN PO 05/24/16 10:45 05/24/16 17:46 Methylprednisolone Sodium Succinate 40 mg 40 mg Q6HR IV PUSH 05/24/16 18:00 05/26/16 13:44 (Zithromax Inj/ NS 250 ml Inj) 250 ml @ 250 mls/hr Q24H IV 05/24/16 12:00 05/26/16 12:00 Gabapentin 300 mg 300 mg Q12HR PO 05/24/16 21:00 05/26/16 09:04 (Venofer Inj/NS Inj) 105 ml @ 105 mls/hr DAILY IV 05/25/16 10:00 05/27/16 09:59 05/26/16 09:44 (Lasix Inj) 20 mg DAILY IV PUSH 05/25/16 10:45 05/25/16 12:30 (Lanoxin Inj) 0.25 mg Q6H IVS 05/26/16 17:00 05/26/16 23:01 Vital Signs / I&O Vital Signs Date Time Temp Pulse Resp B/P Pulse Ox O2 Delivery O2 Flow Rate FiO2 05/26/16 16:30 158/80 05/26/16 16:00 97.9 71 20 184/92 93 05/26/16 11:30 98.1 98 18 152/83 94 05/26/16 09:15 93 2.00 05/26/16 09:00 140 05/26/16 09:00 Nasal Cannula 3.00 Humidified 05/26/16 08:00 97.5 68 18 192/82 97 05/26/16 07:44 96 Nasal Cannula 2.00 05/26/16 04:11 97.8 70 18 151/69 97 05/26/16 00:18 95.9 79 20 156/72 98 05/25/16 21:17 3.00 05/25/16 20:08 99.0 90 18 142/65 94 I/O 05/25/16 05/25/16 05/25/16 05/26/16 05/26/16 05/26/16 07:00 15:00 23:00 07:00 15:00 23:00 Intake Total 360 ml 500 ml Balance 360 ml 500 ml Intake Oral 360 ml 500 ml # Voids 7 3 # Bowel Movements 0 0 Physical Exam GENERAL: NAD, AAOx3 SKIN: Warm and dry. HEAD: Atraumatic. Normocephalic. EYES: Pupils equal and round. No scleral icterus. No injection or drainage. ENT: No nasal bleeding or discharge. Mucous membranes pink and moist. NECK: Trachea midline. No JVD. CARDIOVASCULAR: Irregularly irregular RESPIRATORY: No accessory muscle use. Expiratory wheezing noted, mild rhonchi GASTROINTESTINAL: Abdomen soft, non-tender, nondistended. Hepatic and splenic margins not palpable. MUSCULOSKELETAL: Extremities without clubbing, cyanosis, or edema. No obvious deformities. NEUROLOGICAL: Awake and alert. No obvious cranial nerve deficits. Motor grossly within normal limits. Five out of 5 muscle strength in the arms and legs. Normal speech. PSYCHIATRIC: Appropriate mood and affect; insight and judgment normal. Laboratory Laboratory Tests Test 05/26/16 05/26/16 05/26/16 05:35 10:45 16:33 White Blood Count 8.9 TH/MM3 9.5 TH/MM3 Red Blood Count 3.02 MIL/MM3 3.03 MIL/MM3 Hemoglobin 9.4 GM/DL 9.4 GM/DL Hematocrit 27.4 % 27.2 % Mean Corpuscular Volume 90.7 FL 90.0 FL Mean Corpuscular Hemoglobin 31.0 PG 30.9 PG Mean Corpuscular Hemoglobin 34.2 % 34.4 % Concent Red Cell Distribution Width 13.2 % 13.6 % Platelet Count 155 TH/MM3 171 TH/MM3 Mean Platelet Volume 10.2 FL 9.5 FL Neutrophils (%) (Auto) 89.7 % 90.4 % Lymphocytes (%) (Auto) 4.5 % 3.2 % Monocytes (%) (Auto) 5.7 % 6.3 % Eosinophils (%) (Auto) 0.0 % 0.0 % Basophils (%) (Auto) 0.1 % 0.1 % Neutrophils # (Auto) 8.0 TH/MM3 8.6 TH/MM3 Lymphocytes # (Auto) 0.4 TH/MM3 0.3 TH/MM3 Monocytes # (Auto) 0.5 TH/MM3 0.6 TH/MM3 Eosinophils # (Auto) 0.0 TH/MM3 0.0 TH/MM3 Basophils # (Auto) 0.0 TH/MM3 0.0 TH/MM3 CBC Comment DIFF FINAL DIFF FINAL Differential Comment Sodium Level 138 MEQ/L 138 MEQ/L Potassium Level 3.2 MEQ/L 3.2 MEQ/L Chloride Level 98 MEQ/L 100 MEQ/L Carbon Dioxide Level 31.1 MEQ/L 31.1 MEQ/L Anion Gap 9 MEQ/L 7 MEQ/L Blood Urea Nitrogen 14 MG/DL 16 MG/DL Creatinine 0.98 MG/DL 1.03 MG/DL Estimat Glomerular Filtration 54 ML/MIN 51 ML/MIN Rate Random Glucose 157 MG/DL 175 MG/DL Calcium Level 7.7 MG/DL 7.9 MG/DL Magnesium Level 1.7 MG/DL Total Creatine Kinase 225 U/L 221 U/L Creatine Kinase MB 1.7 NG/ML 1.8 NG/ML Creatine Kinase MB % 0.8 % 0.8 % Troponin I 0.02 NG/ML 0.09 NG/ML Assessment and Plan Problem List: (1) Cecum mass (2) Orthostatic hypotension (3) HTN (hypertension) (4) Peripheral vascular disease Assessment and Plan 1) Stabilized after episode of Afib with RVR.... chest pain most likely related to elevated heart rate, initial troponin normal, second mildly elevated 2) Had a long discussion with the patient and family about my concerns for surgery from a cardiovascular standpoint as well with the pulmonary issues. 3) Currently will hold off on surgery, discussed with Dr. Thompson who agrees 4) Will discuss further with Sameera about her previous AV doug blocking agents which she has been on, may need digoxin chronically if not able to use any other meds Angel Azar DO May 26, 2016 18:05
[2016-05-26] MEDS ORDERED: SODIUM CHLORIDE 0.9% FLUSH 5 ML FLUSH FLUSH SCH (21:00)
[2016-05-26] MEDS: ATORVASTATIN 10 MG TAB PO SCH (22:00)
[2016-05-26] MEDS: LEVOTHYROXINE SODIUM 25 MCG TAB PO SCH (22:00)
[2016-05-27] VITALS (26 sets, daily range): BP systolic 136–208; BP diastolic 67–105; PULSE 50–77; RESP 16–18; TEMP 97.7–98.3; O2SAT 64–98
[2016-05-27] MEDS: methylPREDNISolone SOD SUCC 40 MG/1 ML VIAL IV PUSH SCH ×4 (00:19→22:24)
[2016-05-27] MEDS: cefTRIAXone INJ 1,000 MG in SODIUM CHLORIDE 0.9% INJ 100 ML IV SCH (00:20)
[2016-05-27] MEDS: ENALAPRILAT 2.5 MG/2 ML VIAL IV PUSH PRN ×2 (03:51→11:01)
[2016-05-27] MEDS: HEPARIN SODIUM - SQ 10,000 UNITS/ML VIAL SQ SCH ×3 (06:27→22:25)
[2016-05-27] MEDS: RESP: ALBUTEROL 2.5 MG/IPRATROPIUM 0.5 MG NEB (SCH) NEB ×4 (07:34→20:28)
[2016-05-27 08:18] LABS: BICARBONATE 30.9 MEQ/L (21.0-32.0); MAGNESIUM 1.9 MG/DL (1.5-2.5); POTASSIUM 3.8 MEQ/L (3.5-5.1)
[2016-05-27] MEDS: MIDODRINE 5 MG TAB PO SCH ×2 (08:28→21:00)
[2016-05-27] MEDS: ASPIRIN EC 81 MG TABEC PO SCH (08:29)
[2016-05-27] MEDS: DOCUSATE SODIUM 100 MG CAP PO SCH ×2 (08:30→21:00)
[2016-05-27] MEDS: GABAPENTIN 300 MG CAP PO SCH ×2 (08:30→22:21)
[2016-05-27] MEDS: IRON SUCROSE INJ 100 MG in SODIUM CHLORIDE 0.9% INJ 100 ML IV SCH (08:31)
[2016-05-27] MEDS: FUROSEMIDE 20 MG/2 ML VIAL IV PUSH SCH (08:31)
[2016-05-27] MEDS: SODIUM CHLORIDE 0.9% FLUSH 5 ML FLUSH FLUSH SCH ×2 (08:31→22:22)
[2016-05-27] MEDS: FLUDROCORTISONE ACETATE 0.1 MG TAB PO SCH (08:32)
--- NOTE | 2016-05-27 08:37 | HHI.PR ---
Subjective Remarks ALERT no SOB CTA NO PE . IMPROVED ATELECTASIS Objective Vital Signs Date Time Temp Pulse Resp B/P Pulse Ox O2 Delivery O2 Flow Rate FiO2 05/27/16 07:34 96 Nasal Cannula 3.00 05/27/16 05:35 97.7 77 16 205/105 93 05/27/16 05:00 60 05/27/16 04:00 66 05/27/16 03:00 68 05/27/16 02:00 70 05/27/16 01:00 64 05/27/16 00:00 76 05/26/16 23:41 98.0 77 16 179/78 93 05/26/16 23:00 78 05/26/16 22:00 70 05/26/16 21:25 93 Nasal Cannula 2.00 05/26/16 21:00 70 05/26/16 20:43 Nasal Cannula 2.00 Humidified 05/26/16 20:00 74 05/26/16 20:00 98.2 70 16 186/77 91 05/26/16 19:00 70 05/26/16 16:30 158/80 05/26/16 16:00 97.9 71 20 184/92 93 05/26/16 11:30 98.1 98 18 152/83 94 05/26/16 09:15 93 2.00 05/26/16 09:00 140 05/26/16 09:00 Nasal Cannula 3.00 Humidified I/O 05/26/16 05/26/16 05/26/16 05/27/16 05/27/16 05/27/16 07:00 15:00 23:00 07:00 15:00 23:00 Intake Total 500 ml 440 ml Output Total 750 ml Balance 500 ml -310 ml Intake Oral 500 ml 440 ml Output Urine Total 750 ml # Voids 3 # Bowel Movements 0 Result Diagram: 05/26/16 1045 05/27/16 0705 Objective Remarks GENERAL: SKIN: Warm and dry. HEAD: Atraumatic. Normocephalic. EYES: Pupils equal and round. No scleral icterus. No injection or drainage. ENT: No nasal bleeding or discharge. Mucous membranes pink and moist. NECK: Trachea midline. No JVD. CARDIOVASCULAR: Regular rate and rhythm. RESPIRATORY: No accessory muscle use. Clear to auscultation. Breath sounds equal bilaterally. GASTROINTESTINAL: Abdomen soft, non-tender, nondistended. Hepatic and splenic margins not palpable. MUSCULOSKELETAL: Extremities without clubbing, cyanosis, or edema. No obvious deformities. NEUROLOGICAL: Awake and alert. No obvious cranial nerve deficits. Motor grossly within normal limits. Five out of 5 muscle strength in the arms and legs. Normal speech. PSYCHIATRIC: Appropriate mood and affect; insight and judgment normal. Assessment and Plan Assessment and Plan ALERT STILL WITH SOME CONGESTION ON ANTIBITICS COLON MASS PLAN O2 NEEDED ANTIBIOTICS BRONCHODILATOR THERAPY CHECK PFT OPTIONS FOR COLON MASS THERAPY , PER SURGERY Radhames Ricci MD May 27, 2016 08:37
--- NOTE | 2016-05-27 09:53 | HHI.PR ---
Subjective Remarks sitting on the chair with no distress. denies chest pain or sob. family at the bedside. Objective Vitals Vital Signs Date Time Temp Pulse Resp B/P Pulse Ox O2 Delivery O2 Flow Rate FiO2 05/27/16 07:34 96 Nasal Cannula 3.00 05/27/16 05:35 97.7 77 16 205/105 93 05/27/16 05:00 60 05/27/16 04:00 66 05/27/16 03:00 68 05/27/16 02:00 70 05/27/16 01:00 64 05/27/16 00:00 76 05/26/16 23:41 98.0 77 16 179/78 93 05/26/16 23:00 78 05/26/16 22:00 70 05/26/16 21:25 93 Nasal Cannula 2.00 05/26/16 21:00 70 05/26/16 20:43 Nasal Cannula 2.00 Humidified 05/26/16 20:00 74 05/26/16 20:00 98.2 70 16 186/77 91 05/26/16 19:00 70 05/26/16 16:30 158/80 05/26/16 16:00 97.9 71 20 184/92 93 05/26/16 11:30 98.1 98 18 152/83 94 I/O 05/26/16 05/26/16 05/26/16 05/27/16 05/27/16 05/27/16 07:00 15:00 23:00 07:00 15:00 23:00 Intake Total 500 ml 440 ml Output Total 750 ml Balance 500 ml -310 ml Intake Oral 500 ml 440 ml Output Urine Total 750 ml # Voids 3 # Bowel Movements 0 Result Diagram: 05/26/16 1045 05/27/16 0705 Imaging Last Impressions Chest X-Ray 05/26/16 0000 Signed Impressions: Service Date/Time: May 10:13 - CONCLUSION: Lingular infiltrate suspected. Cardiomegaly. Ricco Santana Jr., MD CT Angiography 05/26/16 0000 Signed Impressions: Service Date/Time: May 17:07 - CONCLUSION: 1. Patchy airspace disease in the posterior perifissural aspect of the right upper lobe shows interval improvement and probably represents resolving atelectasis. Minimal bibasilar atelectasis. 2. Tiny pericardial and right pleural effusion. Minimal bibasilar atelectatic changes. 3. Narrowing of the left mainstem bronchus I believe is physiologic and probably related to the phase of respiration possibly exacerbated by some esophageal distention as the latter passes just posterior to the left mainstem bronchus. This was not present 2 days earlier.. Jaya Cazares MD Knee X-Ray 05/20/16 0000 Signed Impressions: Service Date/Time: Friday, May 20, 2016 23:43 - CONCLUSION: Mild degenerative changes. No evidence of fracture. Blake Saenz MD Abdomen/Pelvis CT 05/20/16 0000 Signed Impressions: Service Date/Time: Friday, May 20, 2016 23:30 - CONCLUSION: 1. 4.3 cm intraluminal masslike increased attenuation at the base of the cecum. I'm not sure whether this is debris or a true mass. 2. No other acute abnormalities are demonstrated. There is atherosclerosis of the abdominal aorta without aneurysm. Patient has had previous hysterectomy and cholecystectomy. Blake Saenz MD Objective Remarks GENERAL: This is a well-nourished, well-developed patient, in no apparent distress. CARDIOVASCULAR: Regular rate and regular rhythm without murmurs, gallops, or rubs. RESPIRATORY: Clear to auscultation. Breath sounds equal bilaterally. No wheezes , rales, or rhonchi. GASTROINTESTINAL: Abdomen soft, non-tender, nondistended. Normal, active bowel sounds MUSCULOSKELETAL: Extremities without clubbing, cyanosis, or edema. NEURO: Alert & Oriented x4 to person, place, time, situation. Moves all ext x4 Medications and IVs Current Medications Acetaminophen 650 mg 650 mg ONCE ONCE PO Last administered on 05/20/16 22:54 ; Start 05/20/16 at 22:30; Stop 05/20/16 at 22:31; Status DC Sodium Chloride (NS 1000 ml Inj) 1,000 ml @ 1,000 mls/hr Q1H ONCE IV Last administered on 05/20/16 22:54; Start 05/20/16 at 22:18; Stop 05/20/16 at 23:17 ; Status DC Iodixanol 47 ml 47 ml STK-MED ONCE IV Last administered on 05/20/16 23:29; Start 05/20/16 at 23:29; Stop 05/20/16 at 23:30; Status DC Ceftriaxone Sodium 1000 mg/ Sodium Chloride 100 ml @ 200 mls/hr ONCE ONCE IV Last administered on 05/21/16 00:41; Start 05/21/16 at 00:15; Stop 05/21/16 at 00:44; Status DC Sodium Chloride (NS 1000 ml Inj) 1,000 ml @ 100 mls/hr Q10H IV Last administered on 05/21/16 14:44; Start 05/21/16 at 03:00; Stop 05/25/16 at 13:26 ; Status DC IV Flush (NS Flush) 2 ml UNSCH PRN FLUSH FLUSH AFTER USING IV ACCESS Last administered on 05/23/16 14:57; Start 05/21/16 at 03:00 IV Flush (NS Flush) 2 ml BID FLUSH Last administered on 05/27/16 08:31; Start 05/21/16 at 09:00 Acetaminophen (Tylenol) 650 mg Q4H PRN PO TEMP > 100.4 Last administered on 21:18; Start 05/21/16 at 03:00 Ondansetron HCl (Zofran Inj) 4 mg Q6H PRN IVP NAUSEA OR VOMITING Last administered on 05/23/16 09:20; Start 05/21/16 at 03:00 Bisacodyl (Dulcolax Supp) 10 mg DAILY PRN [place] CONSTIPATION Last administered on 05/23/16 00:28; Start 05/21/16 at 03:00 Docusate Sodium (Colace) 100 mg Q12HR PO Last administered on 05/27/16 08:30; Start 05/21/16 at 09:00 Magnesium Hydroxide (Milk Of Magnesia Liq) 30 ml Q12H PRN PO CONSTIPATION Last administered on 05/26/16 09:05; Start 05/21/16 at 03:00 Sennosides (Senokot) 17.2 mg Q12H PRN PO CONSTIPATION Last administered on 05/22 22:19; Start 05/21/16 at 03:00 Heparin Sodium (Porcine) (Heparin Inj) 5,000 units Q8HR SQ Last administered on 05/27/16 06:27; Start 05/21/16 at 06:00 Naloxone HCl 0.4 mg 0.4 mg UNSCH PRN IV SEE LABEL COMMENTS; Start 05/21/16 at 03:00 Ceftriaxone Sodium/Sodium Chloride (Rocephin Inj/NS Inj) 100 ml @ 200 mls/hr Q24H IV Last administered on 05/27/16 00:20; Start 05/22/16 at 00:00 Aspirin (Ecotrin Ec) 81 mg DAILY PO Last administered on 05/27/16 08:29; Start 05/22/16 at 09:00 Atorvastatin Calcium (Lipitor) 10 mg HS PO Last administered on 05/26/16 22:00 ; Start 05/21/16 at 21:00 Fludrocortisone Acetate (Florinef) 0.1 mg DAILY PO Last administered on 09:04; Start 05/21/16 at 13:00 Gabapentin (Neurontin) 300 mg TID PO Last administered on 05/24/16 13:11; Start 05/21/16 at 13:00; Stop 05/24/16 at 15:47; Status DC Levothyroxine Sodium (Synthroid) 25 mcg HS PO Last administered on 05/26/16 22 :00; Start 05/21/16 at 21:00 Midodrine (Proamatine) 5 mg BID PO Last administered on 05/27/16 08:28; Start 05/21/16 at 21:00 Albuterol/ Ipratropium (Duoneb Neb) 1 ampule Q4HR NEB PRN NEB shortness of breath/wheezing Last administered on 05/24/16 10:26; Start 05/21/16 at 20:00; Stop 05/24/16 at 10:33; Status DC Enalaprilat (Vasotec Inj) 2.25 mg Q6H PRN IV PUSH SBP>160, DBP>100 Last administered on 05/27/16 03:51; Start 05/22/16 at 12:00 Polyethylene Glycol/ Electrolytes (Colyte Liq) 4,000 ml ONCE ONCE PO Last administered on 05/22/16 13:06; Start 05/22/16 at 12:15; Stop 05/22/16 at 12:26 ; Status DC Calcium Carbonate (Tums Chew) 500 mg ONCE ONCE CHEW Last administered on 17:34; Start 05/22/16 at 17:30; Stop 05/22/16 at 17:31; Status DC Calcium Carbonate 500 mg 500 mg Q2H PRN CHEW dyspepsia /low calcium; Start 03/26 at 17:30 Lactated Ringer's 1,000 ml @ 30 mls/hr Q24H IV Last administered on 05/23/16 14:57; Start 05/23/16 at 10:00; Stop 05/25/16 at 13:26; Status DC Sodium Chloride (NS 500 ml Inj) 500 ml @ 30 mls/hr [id number] IV ; Start 05/23/16 at 10:00; Stop 05/24/16 at 09:59; Status DC Insulin Human Regular (NovoLIN R INJ) See Protocol Table ... UNSCH X1 PRN SQ SEE PROTOCOL; Start 05/23/16 at 10:15; Stop 05/24/16 at 10:14; Status DC Metoprolol Tartrate (Lopressor) 25 mg UNSCH X1 PRN PO SEE LABEL COMMENTS; Start 05/23/16 at 10:15; Stop 05/24/16 at 10:14; Status DC Guaifenesin/ Dextromethorphan (Robitussin Dm 200-20 Mg/10 ml Liq) 10 ml Q6H PRN PO cough Last administered on 05/24/16 21:31; Start 05/23/16 at 14:30 Propofol (Diprivan 200 Mg/20 ml Inj) 140 mg STK-MED ONCE IV ; Start 05/23/16 at 16:48; Stop 05/23/16 at 17:18; Status DC Potassium Chloride (KCl) 30 meq ONCE ONCE PO Last administered on 05/24/16 10 :18; Start 05/24/16 at 10:00; Stop 05/24/16 at 10:01; Status DC Albuterol/ Ipratropium (Duoneb Neb) 1 ampule Q6HR NEB PRN NEB shortness of breath/wheezing; Start 05/24/16 at 16:00; Status Cancel Albuterol/ Ipratropium (Duoneb Neb) 1 ampule Q2HR NEB PRN NEB sob/wheezing; Start 05/24/16 at 10:45 Benzonatate (Tessalon) 100 mg TID PRN PO cough Last administered on 05/24/16 17:46; Start 05/24/16 at 10:45 Methylprednisolone Sodium Succinate (SoluMEDROL INJ) 125 mg ONCE ONCE IV PUSH Last administered on 05/24/16 12:56; Start 05/24/16 at 12:00; Stop 05/24/16 at 12:01; Status DC Methylprednisolone Sodium Succinate (SoluMEDROL INJ) 40 mg Q6HR IV PUSH Last administered on 05/27/16 06:26; Start 05/24/16 at 18:00 Albuterol/ Ipratropium 1 ampule 1 ampule Q4HR WHILE AWAKE NEB NEB Last administered on 05/27/16 07:34; Start 05/24/16 at 12:00 Azithromycin/ Sodium Chloride (Zithromax Inj/ NS 250 ml Inj) 250 ml @ 250 mls/ hr Q24H IV Last administered on 05/26/16 12:00; Start 05/24/16 at 12:00 Gabapentin (Neurontin) 300 mg Q12HR PO Last administered on 05/27/16 08:30; Start 05/24/16 at 21:00 Enalaprilat 2.5 mg 2.5 mg NOW ONCE IV PUSH Last administered on 05/25/16 07: 33; Start 05/25/16 at 07:30; Stop 05/25/16 at 07:31; Status DC Iron Sucrose/ Sodium Chloride (Venofer Inj/NS Inj) 105 ml @ 105 mls/hr DAILY IV Last administered on 05/27/16 08:31; Start 05/25/16 at 10:00; Stop at 09:59 Cyanocobalamin (Vitamin B12 Inj) 1,000 mcg ONCE ONCE IM Last administered on 12:29; Start 05/25/16 at 10:00; Stop 05/25/16 at 10:01; Status DC Furosemide (Lasix Inj) 20 mg DAILY IV PUSH Last administered on 05/27/16 08:31 ; Start 05/25/16 at 10:45 Morphine Sulfate (Morphine Inj) 2 mg NOW ONCE IV Last administered on 09:15; Start 05/26/16 at 10:00; Stop 05/26/16 at 10:01; Status DC Diltiazem HCl 15 mg 15 mg NOW ONCE IV PUSH Last administered on 05/26/16 10: 00; Start 05/26/16 at 10:00; Stop 05/26/16 at 10:01; Status DC Potassium Chloride 100 ml @ 50 mls/hr Q2H IV Last administered on 05/26/16 12 :00; Start 05/26/16 at 10:00; Stop 05/26/16 at 13:59; Status DC Calcium Gluconate/ Dextrose (Calcium Gluconate Inj/D5W 100 ml Inj) 110 ml @ 110 mls/hr ONCE ONCE IV Last administered on 05/26/16 10:00; Start 05/26/16 at 10:00; Stop 05/26/16 at 10:59; Status DC Potassium Chloride (KCl) 30 meq ONCE ONCE PO Last administered on 05/26/16 10 :37; Start 05/26/16 at 10:00; Stop 05/26/16 at 10:04; Status DC Magnesium Oxide (Mag-Ox) 400 mg ONCE ONCE PO Last administered on 05/26/16 13 :45; Start 05/26/16 at 10:15; Stop 05/26/16 at 10:16; Status DC Digoxin (Lanoxin Inj) 0.25 mg ONCE ONCE IV PUSH Last administered on 10:37; Start 05/26/16 at 10:15; Stop 05/26/16 at 10:16; Status DC IV Flush (NS Flush) 2 ml UNSCH PRN FLUSH FLUSH AFTER USING IV ACCESS; Start at 10:15; Stop 05/26/16 at 10:27; Status DC IV Flush 2 ml 2 ml BID FLUSH ; Start 05/26/16 at 21:00; Stop 05/26/16 at 21:00; Status DC Magnesium Sulfate/ Dextrose (Magnesium Sulfate 1 Gm Premix) 100 ml @ 100 mls/ hr Q1H IV ; Start 05/26/16 at 11:00; Stop 05/26/16 at 12:59; Status DC Digoxin (Lanoxin Inj) 0.25 mg Q6H IVS Last administered on 05/26/16 21:59; Start 05/26/16 at 17:00; Stop 05/26/16 at 23:01; Status DC Iohexol (Omnipaque 350 Inj) 75 ml STK-MED ONCE IV ; Start 05/26/16 at 17:19; Stop 05/26/16 at 17:20; Status DC A/P Assessment and Plan A/P Chest pain/ Newly onset Afib with RVR Will hold on anticoagulation at this time per cardio. received digoxin IV Dr Azar cardiology following. UTI with sepsis: Urine culture with E Coli. Continue empiric IV Rocephin and follow-up cultures. COPD with exacerbation/Pneumonia Acute respiratory failure requiring now more O2 currently 4L . on ceftriaxone IV and azithromycin. taper down IV steroids- continue neb treatment. Influenza A/B is negative. Check legionella and pneumococcal Ag negative. Consulted pulm, appreciate recommendations Fall: Recurrent. Likely secondary to chronic orthostatic hypotension. Denies any injury. PT eval. Fall precautions. Orthostatic hypotension: Chronic. Continue home fludrocortisone and midodrine. Now hypertensive. Hold fludocortisone because BP noted elevated. Restart home meds. Vasotec IV as need if SBP> 160. Give diuretic today and check BP . Cecal mass: Abdomen and pelvis CT in the ED showed incidental 4.3 cm possible mass at the base of the cecum. 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 surgery recommends outpatient f/u due to her lung/ cardiac comorbidities- palliative care following. Anemia with Iron deficiency anemia. started venofer IV and will continue with ferrous sulfate PO after surgery at [place]. Hypothyroidism: TSH normal. Continue levothyroxine. DVT prophylaxis: Heparin, SCDs Discharge Planning d/w the family at the bedside who believe that she's not able to liver by herself. will consult case management for dc planning. Ernie Pacheco MD May 27, 2016 09:53
[2016-05-27 11:01] LABS: AUTOMATED NEUTROPHIL # 10.7 TH/MM3 (1.8-7.7); EOSINOPHIL % 0.1 % (0.0-4.0); HEMATOCRIT 30.3 % (35.0-46.0); LYMPH % 3.3 % (9.0-44.0); LYMPHOCYTE # 0.4 TH/MM3 (1.0-4.8); MEAN CELL VOLUME 90.9 FL (80.0-100.0); MEAN CORPUSCULAR HEMOGLOBIN 29.9 PG (27.0-34.0); MEAN CORPUSCULAR HGB CONC 32.8 % (32.0-36.0); MONO % 3.1 % (0.0-8.0); NEUT % 93.5 % (16.0-70.0); PLATELET COUNT 217 TH/MM3 (150-450); RED BLOOD COUNT 3.33 MIL/MM3 (4.00-5.30); RED CELL DISTRIBUTION WIDTH 13.7 % (11.6-17.2); WHITE BLOOD COUNT 11.4 TH/MM3 (4.0-11.0)
[2016-05-27 11:06] LABS: HEMO FLAGS AUTO DIFF
[2016-05-27 12:02] LABS: BANDS 4 % (0-6); METAMYELOCYTES 1 % (0-1); MYELOCYTES 1 % (0-0); NEUTROPHIL # MANUAL DIFF 10.8 TH/MM3 (1.8-7.7); PLATELET ESTIMATE SMEAR NORMAL (NORMAL); PLATELET MORPHOLOGY NORMAL (NORMAL); POLYS (SEG NEUTROPHILS) 89 % (16-70); SCAN/DIFF FINAL DIFF MANUAL; WBC DIFF SAMPLE 100
[2016-05-27] MEDS: AZITHROMYCIN INJ 500 MG in SODIUM CHLOR 0.9% 250 ML INJ 250 ML IV SCH (12:37)
--- NOTE | 2016-05-27 13:38 | PD.CARD.PN ---
Subjective Subjective Remarks No events over night, no chest pain, no shortness of breath Objective Medications Current Medications Medications (Trade) Dose Ordered Sig/Betito Route Start Time Stop Time Status Last Admin (NS Flush) 2 ml UNSCH PRN FLUSH 05/21/16 03:00 05/23/16 14:57 (NS Flush) 2 ml BID FLUSH 05/21/16 09:00 05/27/16 08:31 (Tylenol) 650 mg Q4H PRN PO 05/21/16 03:00 05/25/16 21:18 (Zofran Inj) 4 mg Q6H PRN IVP 05/21/16 03:00 05/23/16 09:20 (Dulcolax Supp) 10 mg DAILY PRN AL 05/21/16 03:00 05/23/16 00:28 (Colace) 100 mg Q12HR PO 05/21/16 09:00 05/27/16 08:30 (Milk Of Magnesia Liq) 30 ml Q12H PRN PO 05/21/16 03:00 05/26/16 09:05 (Senokot) 17.2 mg Q12H PRN PO 05/21/16 03:00 05/22/16 22:19 (Heparin Inj) 5,000 units Q8HR SQ 05/21/16 06:00 05/27/16 06:27 Naloxone HCl 0.4 mg 0.4 mg UNSCH PRN IV 05/21/16 03:00 (Rocephin Inj/NS Inj) 100 ml @ 200 mls/hr Q24H IV 05/22/16 00:00 05/27/16 00:20 (Ecotrin Ec) 81 mg DAILY PO 05/22/16 09:00 05/27/16 08:29 (Lipitor) 10 mg HS PO 05/21/16 21:00 05/26/16 22:00 (Florinef) 0.1 mg DAILY PO 05/21/16 13:00 Hold 05/26/16 09:04 (Synthroid) 25 mcg HS PO 05/21/16 21:00 05/26/16 22:00 (Proamatine) 5 mg BID PO 05/21/16 21:00 05/27/16 08:28 (Vasotec Inj) 2.25 mg Q6H PRN IV PUSH 05/22/16 12:00 05/27/16 11:01 (Tums Chew) 500 mg Q2H PRN CHEW 05/22/16 17:30 (Robitussin Dm 200-20 Mg/10 ml Liq) 10 ml Q6H PRN PO 05/23/16 14:30 05/24/16 21:31 Benzonatate 100 mg 100 mg TID PRN PO 05/24/16 10:45 05/24/16 17:46 (Zithromax Inj/ NS 250 ml Inj) 250 ml @ 250 mls/hr Q24H IV 05/24/16 12:00 05/27/16 12:37 (Neurontin) 300 mg Q12HR PO 05/24/16 21:00 05/27/16 08:30 (Lasix Inj) 20 mg DAILY IV PUSH 05/25/16 10:45 05/27/16 08:31 (SoluMEDROL INJ) 40 mg Q8HR IV PUSH 05/27/16 14:00 Vital Signs / I&O Vital Signs Date Time Temp Pulse Resp B/P Pulse Ox O2 Delivery O2 Flow Rate FiO2 05/27/16 12:25 74 05/27/16 12:25 98.3 71 18 180/92 97 05/27/16 11:55 71 05/27/16 10:21 51 05/27/16 09:00 64 05/27/16 08:00 59 05/27/16 08:00 98.1 68 18 208/82 95 05/27/16 08:00 Nasal Cannula 3.00 21 05/27/16 07:34 96 Nasal Cannula 3.00 05/27/16 05:35 97.7 77 16 205/105 93 05/27/16 05:00 60 05/27/16 04:00 66 05/27/16 03:00 68 05/27/16 02:00 70 05/27/16 01:00 64 05/27/16 00:00 76 05/26/16 23:41 98.0 77 16 179/78 93 05/26/16 23:00 78 05/26/16 22:00 70 05/26/16 21:25 93 Nasal Cannula 2.00 05/26/16 21:00 70 05/26/16 20:43 Nasal Cannula 2.00 Humidified 05/26/16 20:00 74 05/26/16 20:00 98.2 70 16 186/77 91 05/26/16 19:00 70 05/26/16 16:30 158/80 05/26/16 16:00 97.9 71 20 184/92 93 I/O 05/26/16 05/26/16 05/26/16 05/27/16 05/27/16 05/27/16 07:00 15:00 23:00 07:00 15:00 23:00 Intake Total 500 ml 440 ml Output Total 750 ml Balance 500 ml -310 ml Intake Oral 500 ml 440 ml Output Urine Total 750 ml # Voids 3 # Bowel Movements 0 Physical Exam GENERAL: NAD, AAOx3 SKIN: Warm and dry. HEAD: Atraumatic. Normocephalic. EYES: Pupils equal and round. No scleral icterus. No injection or drainage. ENT: No nasal bleeding or discharge. Mucous membranes pink and moist. NECK: Trachea midline. No JVD. CARDIOVASCULAR: Regular rate and rhythm RESPIRATORY: No accessory muscle use. Expiratory wheezing noted, mild rhonchi GASTROINTESTINAL: Abdomen soft, non-tender, nondistended. Hepatic and splenic margins not palpable. MUSCULOSKELETAL: Extremities without clubbing, cyanosis, or edema. No obvious deformities. NEUROLOGICAL: Awake and alert. No obvious cranial nerve deficits. Motor grossly within normal limits. Five out of 5 muscle strength in the arms and legs. Normal speech. PSYCHIATRIC: Appropriate mood and affect; insight and judgment normal. Laboratory Laboratory Tests Test 05/26/16 05/26/16 05/27/16 05/27/16 16:33 23:01 07:05 09:55 Total Creatine Kinase 221 U/L 172 U/L Creatine Kinase MB 1.8 NG/ML Creatine Kinase MB % 0.8 % Troponin I 0.09 NG/ML 0.09 NG/ML Sodium Level 137 MEQ/L Potassium Level 3.8 MEQ/L Chloride Level 97 MEQ/L Carbon Dioxide Level 30.9 MEQ/L Anion Gap 9 MEQ/L Blood Urea Nitrogen 21 MG/DL Creatinine 1.08 MG/DL Estimat Glomerular Filtration 48 ML/MIN Rate Random Glucose 140 MG/DL Calcium Level 8.2 MG/DL Magnesium Level 1.9 MG/DL White Blood Count 11.4 TH/MM3 Red Blood Count 3.33 MIL/MM3 Hemoglobin 10.0 GM/DL Hematocrit 30.3 % Mean Corpuscular Volume 90.9 FL Mean Corpuscular Hemoglobin 29.9 PG Mean Corpuscular Hemoglobin 32.8 % Concent Red Cell Distribution Width 13.7 % Platelet Count 217 TH/MM3 Mean Platelet Volume 9.9 FL Neutrophils (%) (Auto) 93.5 % Lymphocytes (%) (Auto) 3.3 % Monocytes (%) (Auto) 3.1 % Eosinophils (%) (Auto) 0.1 % Basophils (%) (Auto) 0.0 % Neutrophils # (Auto) 10.7 TH/MM3 Lymphocytes # (Auto) 0.4 TH/MM3 Monocytes # (Auto) 0.4 TH/MM3 Eosinophils # (Auto) 0.0 TH/MM3 Basophils # (Auto) 0.0 TH/MM3 CBC Comment AUTO DIFF Differential Total Cells 100 Counted Neutrophils % (Manual) 89 % Band Neutrophils % 4 % Lymphocytes % 2 % Monocytes % 3 % Neutrophils # (Manual) 10.8 TH/MM3 Metamyelocytes 1 % Myelocytes 1 % Differential Comment FINAL DIFF MANUAL Platelet Estimate NORMAL Platelet Morphology Comment NORMAL Red Cell Morphology Comment NORMAL Assessment and Plan Problem List: (1) Cecum mass (2) Orthostatic hypotension (3) HTN (hypertension) (4) Peripheral vascular disease (5) Atrial fibrillation with RVR Assessment and Plan 1) Stabilized after episode of Afib with RVR.... chest pain most likely related to elevated heart rate, initial troponin normal, second/third 0.09 2) Had a long discussion with the patient and family about my concerns for surgery from a cardiovascular standpoint as well with the pulmonary issues. 3) Currently will hold off on surgery, discussed with Dr. Thompson who agrees 4) She continues to be a moderate-high risk for surgery, unable to decrease this risk, family understands this risk but they want surgery... does not want further ischemic evaluation 5) If going to rehab, will attempt to start Lopressor low dose for hypertension and pre-operative BB Angel Azar DO May 27, 2016 13:38
--- NOTE | 2016-05-27 14:25 | HHI.PR ---
Subjective Subjective Notes She is feeling ok without complaints. Family is at bedside. Objective Vitals/I&O Vital Signs Date Time Temp Pulse Resp B/P Pulse Ox O2 Delivery O2 Flow Rate FiO2 05/27/16 14:05 60 05/27/16 12:25 98.3 18 180/92 97 05/27/16 08:00 Nasal Cannula 3.00 21 Labs Laboratory Tests Test 05/26/16 05/26/16 05/27/16 05/27/16 16:33 23:01 07:05 09:55 Total Creatine Kinase 221 172 Creatine Kinase MB 1.8 Creatine Kinase MB % 0.8 Troponin I 0.09 0.09 Sodium Level 137 Potassium Level 3.8 Chloride Level 97 Carbon Dioxide Level 30.9 Anion Gap 9 Blood Urea Nitrogen 21 Creatinine 1.08 Estimat Glomerular Filtration 48 Rate Random Glucose 140 Calcium Level 8.2 Magnesium Level 1.9 White Blood Count 11.4 Red Blood Count 3.33 Hemoglobin 10.0 Hematocrit 30.3 Mean Corpuscular Volume 90.9 Mean Corpuscular Hemoglobin 29.9 Mean Corpuscular Hemoglobin 32.8 Concent Red Cell Distribution Width 13.7 Platelet Count 217 Mean Platelet Volume 9.9 Neutrophils (%) (Auto) 93.5 Lymphocytes (%) (Auto) 3.3 Monocytes (%) (Auto) 3.1 Eosinophils (%) (Auto) 0.1 Basophils (%) (Auto) 0.0 Neutrophils # (Auto) 10.7 Lymphocytes # (Auto) 0.4 Monocytes # (Auto) 0.4 Eosinophils # (Auto) 0.0 Basophils # (Auto) 0.0 CBC Comment AUTO DIFF Differential Total Cells 100 Counted Neutrophils % (Manual) 89 Band Neutrophils % 4 Lymphocytes % 2 Monocytes % 3 Neutrophils # (Manual) 10.8 Metamyelocytes 1 Myelocytes 1 Differential Comment FINAL DIFF MANUAL Platelet Estimate NORMAL Platelet Morphology Comment NORMAL Red Cell Morphology Comment NORMAL Date/Time Procedure Status Source Growth 05/24/16 11:10 Legionella Antigen - Final Complete Urine Random Urine PRESUMPTIVE NEGATIVE FOR LEGIONELLA P... 05/24/16 11:10 Streptococcus pneumoniae Antigen (M - Final Complete Urine Random Urine PRESUMPTIVE NEGATIVE FOR STREPTOCOCCU... Radiology Last Impressions Chest X-Ray 05/21/16 0000 Signed Impressions: Service Date/Time: Saturday, May 21, 2016 20:47 - CONCLUSION: 1. No acute findings. Anupam Cabral MD Knee X-Ray 05/20/16 0000 Signed Impressions: Service Date/Time: Friday, May 20, 2016 23:43 - CONCLUSION: Mild degenerative changes. No evidence of fracture. Blake Saenz MD Abdomen/Pelvis CT 05/20/16 0000 Signed Impressions: Service Date/Time: Friday, May 20, 2016 23:30 - CONCLUSION: 1. 4.3 cm intraluminal masslike increased attenuation at the base of the cecum. I'm not sure whether this is debris or a true mass. 2. No other acute abnormalities are demonstrated. There is atherosclerosis of the abdominal aorta without aneurysm. Patient has had previous hysterectomy and cholecystectomy. 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 H/o orthostatic hypotension , carotid disease. I had a long discussion with the family. I recommend for her to be discharged when medically cleared and improve from cardiopulmonary standpoint and see me in the office in two weeks. I will plan surgery within 6 weeks when she is in optimal health. I discussed with Dr. Pacheco and Dr. Azar. The patient and family understand that she will be moderate to high risk for surgery. Levi Thompson MD May 27, 2016 14:25
--- NOTE | 2016-05-27 15:42 | HHI.HCPN ---
Reason for visit a. To assist with evaluation and management of symptoms including: episodic back pain; chest pain; mild abdominal pain; constipation; cough b. To assist medical decision maker(s) with: better understanding of current medical conditions; weighing benefits/burdens of medical treatment options; making medical treatment decisions. . Subjective/Interval History Ms. Torres is awake and alert at time of my visit. She reports no further episodes of chest pain. She denies SOB. She tells me her cough is improving. She says her appetite is improving. She had difficulty sleeping last night due to IV alarm sounds. Cardiology has been to see the patient already. He does not think she has had an WA. He does feel surgical risks are substantial. Hydralazine was started for BP control. General surgery has seen the patient and spoken with family today. There seems to be agreement that the best options at this point is to send the patient to rehab, allow her to get stronger, and then re-visit Dr. Thompson as an outpatient and make a decision then about surgery. . Family/friend interactions Daughter and son-in-law at bedside. They have spoken with cardiology and general surgery and are comfortable with the plan. They will be speaking to case management about discharge planning. . Advance Directives Living Will: Copy in medical record Health Care Surrogate: Copy in medical record Durable Power of Gill Box Operator: Never completed Advance Directive Specifics Date completed: 10/09/2006 . Health Care Surrogate(s): Edinson Torres (son) is the primary Hina Lozano (daughter) is the alternate . . Documented care wishes: Patient only wants life support if both physicians and surrogate both believe the treatment would restore patient to a reasonable quality of life "in which I can interact in a meaningful way with other people." . Objective Vital Signs Date Time Temp Pulse Resp B/P Pulse Ox O2 Delivery O2 Flow Rate FiO2 05/27/16 15:06 58 05/27/16 14:05 60 05/27/16 13:37 50 05/27/16 12:25 74 05/27/16 12:25 98.3 71 18 180/92 97 05/27/16 11:55 71 05/27/16 10:21 51 05/27/16 09:00 64 05/27/16 08:00 59 05/27/16 08:00 98.1 68 18 208/82 95 05/27/16 08:00 Nasal Cannula 3.00 21 05/27/16 07:34 96 Nasal Cannula 3.00 05/27/16 05:35 97.7 77 16 205/105 93 05/27/16 05:00 60 05/27/16 04:00 66 05/27/16 03:00 68 05/27/16 02:00 70 05/27/16 01:00 64 05/27/16 00:00 76 05/26/16 23:41 98.0 77 16 179/78 93 05/26/16 23:00 78 05/26/16 22:00 70 05/26/16 21:25 93 Nasal Cannula 2.00 05/26/16 21:00 70 05/26/16 20:43 Nasal Cannula 2.00 Humidified 05/26/16 20:00 74 05/26/16 20:00 98.2 70 16 186/77 91 05/26/16 19:00 70 05/26/16 16:30 158/80 05/26/16 16:00 97.9 71 20 184/92 93 Intake & Output 05/27/16 05/27/16 07:00 19:00 Intake Total 440 ml Output Total 750 ml Balance -310 ml Intake Oral 440 ml Output Urine Total 750 ml . Physical Exam CONSTITUTIONAL/GENERAL: This is an adequately nourished patient, in no apparent distress. No cough noted today. Smiles. TUBES/LINES/DRAINS: Peripheral IV. Nasal cannula 02. SKIN: No jaundice, rashes, or lesions. Ecchymoses on upper extremities. No wounds seen anteriorly. Skin temperature appropriate. Not diaphoretic. EYES: Pupils equal and round. Extraocular motions intact. No scleral icterus. No injection or drainage. Fundi not examined. CARDIOVASCULAR: Regular rate and rhythm without murmurs, gallops, or rubs. No JVD. RESPIRATORY/CHEST: Symmetric, unlabored respirations. Breath sounds equal bilaterally. No cough today. No audible wheeze. No crackles. GASTROINTESTINAL: Abdomen soft, non-tender, nondistended. No hepato-splenomegaly , or palpable masses. No guarding. Bowel sounds present. GENITOURINARY: Without palpable bladder distension. MUSCULOSKELETAL: Extremities without clubbing, cyanosis, or edema. No calf tenderness. No mottling. LYMPHATICS: Not examined. NEUROLOGICAL: Awake, alert, interactive, cognitively sharp. Follows commands. Moves all extremities. PSYCHIATRIC: No obvious anxiety/depression. No apparent hallucinations or other psychotic thought process. . Diagnostic Tests Laboratory Laboratory Tests Test 05/24/16 05/25/16 05/26/16 05/26/16 19:42 07:03 05:35 10:45 Blood Gas Puncture Site RT RADIAL Blood Gas Patient Temperature 98.6 Blood Gas HCO3 26 mmol/L (22-26) Blood Gas Base Excess 2.0 mmol/L (-2-2) Blood Gas Oxygen Saturation 96 % (90-100) Arterial Blood pH 7.42 (7.380-7.420) Arterial Blood Partial 41 mmHg (38-42) Pressure CO2 Arterial Blood Partial 97 mmHg Pressure O2 (61-120) Arterial Blood Oxygen Content 13.2 Vol % (12.0-20.0) Arterial Blood 0.9 % (0-4) Carboxyhemoglobin Arterial Blood Methemoglobin 0.7 % (0-2) Blood Gas Hemoglobin 9.7 G/DL (12.0-16.0) Oxygen Delivery Device NASAL CANNULA Blood Gas Liter Flow 3 L/M White Blood Count 3.2 TH/MM3 8.9 TH/MM3 9.5 TH/MM3 (4.0-11.0) (4.0-11.0) (4.0-11.0) Red Blood Count 3.22 MIL/MM3 3.02 MIL/MM3 3.03 MIL/MM3 (4.00-5.30) (4.00-5.30) (4.00-5.30) Hemoglobin 9.9 GM/DL 9.4 GM/DL 9.4 GM/DL (11.6-15.3) (11.6-15.3) (11.6-15.3) Hematocrit 29.5 % 27.4 % 27.2 % (35.0-46.0) (35.0-46.0) (35.0-46.0) Mean Corpuscular Volume 91.5 FL 90.7 FL 90.0 FL (80.0-100.0) (80.0-100.0) (80.0-100.0) Mean Corpuscular Hemoglobin 30.6 PG 31.0 PG 30.9 PG (27.0-34.0) (27.0-34.0) (27.0-34.0) Mean Corpuscular Hemoglobin 33.4 % 34.2 % 34.4 % Concent (32.0-36.0) (32.0-36.0) (32.0-36.0) Red Cell Distribution Width 13.5 % 13.2 % 13.6 % (11.6-17.2) (11.6-17.2) (11.6-17.2) Platelet Count 125 TH/MM3 155 TH/MM3 171 TH/MM3 (150-450) (150-450) (150-450) Mean Platelet Volume 9.8 FL 10.2 FL 9.5 FL (7.0-11.0) (7.0-11.0) (7.0-11.0) Neutrophils (%) (Auto) 78.1 % 89.7 % 90.4 % (16.0-70.0) (16.0-70.0) (16.0-70.0) Lymphocytes (%) (Auto) 14.5 % 4.5 % 3.2 % (9.0-44.0) (9.0-44.0) (9.0-44.0) Monocytes (%) (Auto) 7.3 % (0.0-8.0) 5.7 % (0.0-8.0) 6.3 % (0.0-8.0) Eosinophils (%) (Auto) 0.0 % (0.0-4.0) 0.0 % (0.0-4.0) 0.0 % (0.0-4.0) Basophils (%) (Auto) 0.1 % (0.0-2.0) 0.1 % (0.0-2.0) 0.1 % (0.0-2.0) Neutrophils # (Auto) 2.5 TH/MM3 8.0 TH/MM3 8.6 TH/MM3 (1.8-7.7) (1.8-7.7) (1.8-7.7) Lymphocytes # (Auto) 0.5 TH/MM3 0.4 TH/MM3 0.3 TH/MM3 (1.0-4.8) (1.0-4.8) (1.0-4.8) Monocytes # (Auto) 0.2 TH/MM3 0.5 TH/MM3 0.6 TH/MM3 (0-0.9) (0-0.9) (0-0.9) Eosinophils # (Auto) 0.0 TH/MM3 0.0 TH/MM3 0.0 TH/MM3 (0-0.4) (0-0.4) (0-0.4) Basophils # (Auto) 0.0 TH/MM3 0.0 TH/MM3 0.0 TH/MM3 (0-0.2) (0-0.2) (0-0.2) CBC Comment AUTO DIFF DIFF FINAL DIFF FINAL Differential Total Cells 100 Counted Neutrophils % (Manual) 67 % (16-70) Band Neutrophils % 11 % (0-6) Lymphocytes % 12 % (9-44) Monocytes % 9 % (0-8) Neutrophils # (Manual) 2.5 TH/MM3 (1.8-7.7) Myelocytes 1 % (0-0) Differential Comment FINAL DIFF MANUAL Platelet Estimate LOW (NORMAL) Platelet Morphology Comment NORMAL (NORMAL) Sodium Level 138 MEQ/L 138 MEQ/L 138 MEQ/L (136-145) (136-145) (136-145) Potassium Level 3.6 MEQ/L 3.2 MEQ/L 3.2 MEQ/L (3.5-5.1) (3.5-5.1) (3.5-5.1) Chloride Level 100 MEQ/L 98 MEQ/L 100 MEQ/L (98-107) (98-107) (98-107) Carbon Dioxide Level 32.2 MEQ/L 31.1 MEQ/L 31.1 MEQ/L (21.0-32.0) (21.0-32.0) (21.0-32.0) Anion Gap 6 MEQ/L (5-15) 9 MEQ/L (5-15) 7 MEQ/L (5-15) Blood Urea Nitrogen 9 MG/DL (7-18) 14 MG/DL (7-18) 16 MG/DL (7-18) Creatinine 1.10 MG/DL 0.98 MG/DL 1.03 MG/DL (0.50-1.00) (0.50-1.00) (0.50-1.00) Estimat Glomerular Filtration 47 ML/MIN (>89) 54 ML/MIN (>89) 51 ML/MIN (>89) Rate Random Glucose 151 MG/DL 157 MG/DL 175 MG/DL (74-106) (74-106) (74-106) Calcium Level 8.0 MG/DL 7.7 MG/DL 7.9 MG/DL (8.5-10.1) (8.5-10.1) (8.5-10.1) Magnesium Level 1.8 MG/DL 1.7 MG/DL (1.5-2.5) (1.5-2.5) Total Creatine Kinase 225 U/L (26-192) Creatine Kinase MB 1.7 NG/ML (0.5-3.6) Creatine Kinase MB % 0.8 % (0.0-4.0) Troponin I 0.02 NG/ML (0.02-0.05) Test 05/26/16 05/26/16 05/27/16 05/27/16 16:33 23:01 07:05 09:55 Total Creatine Kinase 221 U/L 172 U/L (26-192) (26-192) Creatine Kinase MB 1.8 NG/ML (0.5-3.6) Creatine Kinase MB % 0.8 % (0.0-4.0) Troponin I 0.09 NG/ML 0.09 NG/ML (0.02-0.05) (0.02-0.05) Sodium Level 137 MEQ/L (136-145) Potassium Level 3.8 MEQ/L (3.5-5.1) Chloride Level 97 MEQ/L (98-107) Carbon Dioxide Level 30.9 MEQ/L (21.0-32.0) Anion Gap 9 MEQ/L (5-15) Blood Urea Nitrogen 21 MG/DL (7-18) Creatinine 1.08 MG/DL (0.50-1.00) Estimat Glomerular Filtration 48 ML/MIN (>89) Rate Random Glucose 140 MG/DL (74-106) Calcium Level 8.2 MG/DL (8.5-10.1) Magnesium Level 1.9 MG/DL (1.5-2.5) White Blood Count 11.4 TH/MM3 (4.0-11.0) Red Blood Count 3.33 MIL/MM3 (4.00-5.30) Hemoglobin 10.0 GM/DL (11.6-15.3) Hematocrit 30.3 % (35.0-46.0) Mean Corpuscular Volume 90.9 FL (80.0-100.0) Mean Corpuscular Hemoglobin 29.9 PG (27.0-34.0) Mean Corpuscular Hemoglobin 32.8 % Concent (32.0-36.0) Red Cell Distribution Width 13.7 % (11.6-17.2) Platelet Count 217 TH/MM3 (150-450) Mean Platelet Volume 9.9 FL (7.0-11.0) Neutrophils (%) (Auto) 93.5 % (16.0-70.0) Lymphocytes (%) (Auto) 3.3 % (9.0-44.0) Monocytes (%) (Auto) 3.1 % (0.0-8.0) Eosinophils (%) (Auto) 0.1 % (0.0-4.0) Basophils (%) (Auto) 0.0 % (0.0-2.0) Neutrophils # (Auto) 10.7 TH/MM3 (1.8-7.7) Lymphocytes # (Auto) 0.4 TH/MM3 (1.0-4.8) Monocytes # (Auto) 0.4 TH/MM3 (0-0.9) Eosinophils # (Auto) 0.0 TH/MM3 (0-0.4) Basophils # (Auto) 0.0 TH/MM3 (0-0.2) CBC Comment AUTO DIFF Differential Total Cells 100 Counted Neutrophils % (Manual) 89 % (16-70) Band Neutrophils % 4 % (0-6) Lymphocytes % 2 % (9-44) Monocytes % 3 % (0-8) Neutrophils # (Manual) 10.8 TH/MM3 (1.8-7.7) Metamyelocytes 1 % (0-1) Myelocytes 1 % (0-0) Differential Comment FINAL DIFF MANUAL Platelet Estimate NORMAL (NORMAL) Platelet Morphology Comment NORMAL (NORMAL) Red Cell Morphology Comment NORMAL (NORMAL) . Result Diagram: 05/27/16 0955 05/27/16 0705 Microbiology Microbiology Date/Time Procedure Status Source Growth 05/24/16 11:10 Legionella Antigen - Final Complete Urine Random Urine PRESUMPTIVE NEGATIVE FOR LEGIONELLA P... 05/24/16 11:10 Streptococcus pneumoniae Antigen (M - Final Complete Urine Random Urine PRESUMPTIVE NEGATIVE FOR STREPTOCOCCU... . Imaging Last Impressions Chest X-Ray 05/26/16 0000 Signed Impressions: Service Date/Time: May 10:13 - CONCLUSION: Lingular infiltrate suspected. Cardiomegaly. Ricco Santana Jr., MD CT Angiography 05/26/16 0000 Signed Impressions: Service Date/Time: , May 26, 2016 17:07 - CONCLUSION: 1. Patchy airspace disease in the posterior perifissural aspect of the right upper lobe shows interval improvement and probably represents resolving atelectasis. Minimal bibasilar atelectasis. 2. Tiny pericardial and right pleural effusion. Minimal bibasilar atelectatic changes. 3. Narrowing of the left mainstem bronchus I believe is physiologic and probably related to the phase of respiration possibly exacerbated by some esophageal distention as the latter passes just posterior to the left mainstem bronchus. This was not present 2 days earlier.. Jaya Cazares MD Knee X-Ray 05/20/16 0000 Signed Impressions: Service Date/Time: Friday, May 20, 2016 23:43 - CONCLUSION: Mild degenerative changes. No evidence of fracture. Blake Saenz MD Abdomen/Pelvis CT 05/20/16 0000 Signed Impressions: Service Date/Time: Friday, May 20, 2016 23:30 - CONCLUSION: 1. 4.3 cm intraluminal masslike increased attenuation at the base of the cecum. I'm not sure whether this is debris or a true mass. 2. No other acute abnormalities are demonstrated. There is atherosclerosis of the abdominal aorta without aneurysm. Patient has had previous hysterectomy and cholecystectomy. Blake Saenz MD . Procedures * Colonoscopy 05/23/16 . 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 . (2) UTI (urinary tract infection) Comment: E coli per culture. . (3) Respiratory infection Comment: Now on antibioitcs and IV steroids. Lingular infiltrate seen on CXR - - possible pneumonia. . (4) Atrial fibrillation with RVR Comment: Sudden onset on 05/26/16. Ruling out WA. Event places patient at increased risk for planned ascending colectomy. May need to re-visit risks/ benefits of surgery. . (5) Orthostatic hypotension (6) Lumbar stenosis with neurogenic claudication Comment: Known at L3-L4 and less at L2-L3. . (7) Peripheral vascular disease Comment: Underwent left carotid endarterectomy which had to be halted for some reason. . (8) Frequent falls (9) Hypothyroidism Symptom Scale: (1) Pain Comment: Acute chest pain associated with a Fib with RVR on 05/26/16 now resolved. Pt possibly had WA. Patient also reports history of low back pain when she is standing for periods of time. This is attributed to her L3-L4 spinal stenosis and to a less extent her L2-L3 spinal stenosis. Pain is described as severe. It does not radiate. It is helped by sitting down. She does not take pain medication for it. . 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 She used to be mostly regular. Now she can go without moving her bowels for two days and then spends a lot of time in the bathroom going on day 3. . No blood reported. No bowel movement charted by nursing since 05/23/16 when she had her colonoscopy prep. Patient reports her bowels are moving fine. . Pertinent Non-Medical Issues Psychosocial: Resident of [facility]. Well supported by her 4 children and her grandchildren. Spiritual: Adventist. Faith and spirituality are important to her. Her data modeling architect will provide spiritual support. Legal: Advance directive on chart. Son -- Edinson-- is health care surrogate. Ethical issues impacting care: Patient is capacitated to make her own health care decisions at this time. . Important Contacts * Edinson Torres (son and HEALTH CARE SURROGATE) [phone] * Mireya Ann (daughter) [phone] . 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 Uncertain what stage this is if cancer. Ascending colectomy has been recommended by surgery and patient/family agree. Await clearance by cardiology and pulmonology. Patient appears to have some sort of respiratory infection ( possibly pneumonia) at this time that may need to clear before surgery. On she had chest pain and tachycardia -- she was in A fib with RVR. Cardiology does not feel she had an WA. This will greatly elevate risk of the surgery and will probably cause a significant delay even if there is determination to go forward with it. If she tolerates surgery well and there is no evidence of metastatic disease, she should have quality of life post operatively. Her advanced age certainly adds risk particularly to the post-op period in spite of being relatively spry for her age. . . Code Status: No Code Plan == Code Status: NO CODE per patient choice. == Decision maker: Patient is currently capacitated to make her own health care decisions. Advance directives are on chart. Patient's son -- Edinson Torres -- is the primary health care surrogate and daughter -- Hina -- is the alternate. == Goals of medical treatment: Patient and family are wanting to go forward with ascending colectomy for the cancer if/when she is cleared by cardiology and pulmonology. They may need to re-assess risiks/benefits of surgery given the vents of 05/26 with Atrial Fib + RVR and possible WA. Goals are aggressive short of resuscitation. == Pain: Patient had some mild post-colonoscopy abdominal pain. She has chronic low back pain that is exacerbated with standing but is not bothering her here in the hospital. She had brief 10/10 chest pain concurrent with her Atrial fib with RVR. She has acetaminophen ordered for pain. Recommend an order for 2 mg iv morphine q 4 hours prn pain level >#6 in case she has another cardiac event. == Constipation: Patient completed bowel prep and colonoscopy on 05/23/16. Now bowel movements reported by nursing since colonoscopy but patient is telling me her bowels are moving fine. Currently has docusate, senna, MOM, and Bisacodyl suppositories ordered. No further recommendation at this time. == Patient is fall risk normally due to orthostatic hypotension. Should not be getting out of bed unattended. == Respiratory infection -- CXR now shows lingular infiltrate -- pneumonia?. . Now on antibioitcs and iv steroids. Cough is improving. No SOB today. CTA was negative. == If, as a result of the cardiac event of 05/26/16 patient and family opt against surgery and desire comfort measures, hospice consultation would be appropriate. == Palliative care will continue to follow to assist with symptom management and to further clarify goals of medical treatment as the clinical course evolves. . Attestation To help prompt me to consider important information that might be impacting today's encounter and assessment, information from prior notes written by myself or my colleagues may have been "brought forward" into today's note. My signature on this note, however, is an attestation that I personally performed the exam, history, and/or decision-making noted today, and, unless otherwise indicated, the interactions with patient, family, and staff as well as the review of records all occurred today. I also attest that the listed assessment and stated plan reflect my best clinical judgment today based on the combination of historical information, prior notes, and today's exam/ interactions. When time spent is documented, it refers only to time spent today by the signer, or if indicated, combined time spent today by collaborating physician/nurse practitioner. . Erwin William MD May 27, 2016 15:42
[2016-05-27] MEDS: hydrALAZINE HCL 25 MG TAB PO SCH (16:27)
--- NOTE | 2016-05-27 17:07 | EKG ---
Date Performed: 05/27/2016 Time Performed: 03:12:10 PTAGE: 85 years EKG: Sinus rhythm . Extensive ST-T changes are nonspecific Compared to prior tracing no significant change Borderline E CG PREVIOUS TRACING : 05/26/2016 17.35 DOCTOR: Lennox Johnson Interpretating Date/Time 05/27/2016 16:59:24
--- NOTE | 2016-05-27 17:19 | EKG ---
Date Performed: 05/26/2016 Time Performed: 17:35:06 PTAGE: 85 years EKG: Sinus rhythm Extensive ST-T changes are nonspecific Borderline ECG PREVIOUS TRACING : 05/26/2016 09.33 Atrial fibrillation is resolved. Nonspecific ST-T wave jaquez ges improved but persistent. Clinical correlation recommended. DOCTOR: Lennox Johnson Interpretating Date/Time 05/27/2016 17:13:04
[2016-05-27] MEDS: ATORVASTATIN 10 MG TAB PO SCH (22:21)
[2016-05-27] MEDS: LEVOTHYROXINE SODIUM 25 MCG TAB PO SCH (22:21)
[2016-05-28] VITALS (24 sets, daily range): BP systolic 109–212; BP diastolic 53–100; PULSE 56–75; RESP 16–24; TEMP 97.6–98.3; O2SAT 96–100
[2016-05-28] MEDS: cefTRIAXone INJ 1,000 MG in SODIUM CHLORIDE 0.9% INJ 100 ML IV SCH ×2 (01:14→23:22)
[2016-05-28] MEDS: hydrALAZINE HCL 25 MG TAB PO SCH ×2 (01:14→09:59)
[2016-05-28] MEDS: HEPARIN SODIUM - SQ 10,000 UNITS/ML VIAL SQ SCH ×3 (05:30→22:21)
[2016-05-28] MEDS: methylPREDNISolone SOD SUCC 40 MG/1 ML VIAL IV PUSH SCH ×3 (05:31→22:20)
[2016-05-28] MEDS: RESP: ALBUTEROL 2.5 MG/IPRATROPIUM 0.5 MG NEB (SCH) NEB (08:21)
[2016-05-28] MEDS: ASPIRIN EC 81 MG TABEC PO SCH (10:00)
[2016-05-28] MEDS: GABAPENTIN 300 MG CAP PO SCH ×2 (10:01→22:21)
[2016-05-28] MEDS: FUROSEMIDE 20 MG/2 ML VIAL IV PUSH SCH (10:01)
[2016-05-28] MEDS: MIDODRINE 5 MG TAB PO SCH ×2 (10:01→22:20)
[2016-05-28] MEDS: DOCUSATE SODIUM 100 MG CAP PO SCH ×2 (10:01→22:20)
[2016-05-28] MEDS: SODIUM CHLORIDE 0.9% FLUSH 5 ML FLUSH FLUSH SCH ×2 (10:01→22:22)
--- NOTE | 2016-05-28 10:21 | PD.CARD.PN ---
Subjective Subjective Remarks No chest pain, no shortness of breath, mild RLQ ache Objective Medications Current Medications Medications (Trade) Dose Ordered Sig/Betito Route Start Time Stop Time Status Last Admin (NS Flush) 2 ml UNSCH PRN FLUSH 05/21/16 03:00 05/23/16 14:57 (NS Flush) 2 ml BID FLUSH 05/21/16 09:00 05/28/16 10:01 (Tylenol) 650 mg Q4H PRN PO 05/21/16 03:00 05/25/16 21:18 (Zofran Inj) 4 mg Q6H PRN IVP 05/21/16 03:00 05/23/16 09:20 (Dulcolax Supp) 10 mg DAILY PRN HI 05/21/16 03:00 05/23/16 00:28 (Colace) 100 mg Q12HR PO 05/21/16 09:00 05/28/16 10:01 (Milk Of Magnesia Liq) 30 ml Q12H PRN PO 05/21/16 03:00 05/26/16 09:05 (Senokot) 17.2 mg Q12H PRN PO 05/21/16 03:00 05/22/16 22:19 (Heparin Inj) 5,000 units Q8HR SQ 05/21/16 06:00 05/28/16 05:30 Naloxone HCl 0.4 mg 0.4 mg UNSCH PRN IV 05/21/16 03:00 (Rocephin Inj/NS Inj) 100 ml @ 200 mls/hr Q24H IV 05/22/16 00:00 05/28/16 01:14 (Ecotrin Ec) 81 mg DAILY PO 05/22/16 09:00 05/28/16 10:00 (Lipitor) 10 mg HS PO 05/21/16 21:00 05/27/16 22:21 (Florinef) 0.1 mg DAILY PO 05/21/16 13:00 Hold 05/26/16 09:04 (Synthroid) 25 mcg HS PO 05/21/16 21:00 05/27/16 22:21 (Proamatine) 5 mg BID PO 05/21/16 21:00 05/28/16 10:01 (Vasotec Inj) 2.25 mg Q6H PRN IV PUSH 05/22/16 12:00 05/27/16 11:01 (Tums Chew) 500 mg Q2H PRN CHEW 05/22/16 17:30 (Robitussin Dm 200-20 Mg/10 ml Liq) 10 ml Q6H PRN PO 05/23/16 14:30 05/24/16 21:31 Benzonatate 100 mg 100 mg TID PRN PO 05/24/16 10:45 05/24/16 17:46 (Zithromax Inj/ NS 250 ml Inj) 250 ml @ 250 mls/hr Q24H IV 05/24/16 12:00 05/27/16 12:37 (Neurontin) 300 mg Q12HR PO 05/24/16 21:00 05/28/16 10:01 (Lasix Inj) 20 mg DAILY IV PUSH 05/25/16 10:45 05/28/16 10:01 (SoluMEDROL INJ) 40 mg Q8HR IV PUSH 05/27/16 14:00 05/28/16 05:31 (Apresoline) 25 mg Q8H PO 05/27/16 16:00 05/28/16 01:14 Vital Signs / I&O Vital Signs Date Time Temp Pulse Resp B/P Pulse Ox O2 Delivery O2 Flow Rate FiO2 05/28/16 08:27 100 Nasal Cannula 5.00 05/28/16 08:14 68 05/28/16 07:35 Nasal Cannula 3.00 21 Humidified 05/28/16 07:00 57 05/28/16 05:40 98.3 63 16 197/68 97 05/28/16 02:10 114/62 05/28/16 02:00 56 05/28/16 01:00 62 05/28/16 00:00 60 05/27/16 23:13 136/67 05/27/16 23:13 184/81 05/27/16 23:13 179/81 05/27/16 23:00 62 05/27/16 22:54 Nasal Cannula 3.00 Humidified 05/27/16 22:00 74 05/27/16 21:00 72 05/27/16 20:30 98 Nasal Cannula 3.00 05/27/16 20:00 66 05/27/16 20:00 97.7 63 18 163/80 93 2/17/17 19:00 68 05/27/16 18:16 60 05/27/16 17:07 67 05/27/16 16:39 98.2 68 18 188/96 96 05/27/16 16:39 63 05/27/16 15:06 58 05/27/16 14:05 60 05/27/16 13:37 50 05/27/16 12:25 74 05/27/16 12:25 98.3 71 18 180/92 97 05/27/16 11:55 71 05/27/16 10:21 51 I/O 05/27/16 05/27/16 05/27/16 05/28/16 05/28/16 05/28/16 07:00 15:00 23:00 07:00 15:00 23:00 Intake Total 440 ml 960 ml 780 ml Output Total 750 ml 2050 ml 850 ml Balance -310 ml -1090 ml -70 ml Intake Oral 440 ml 960 ml 680 ml IV Total 100 ml Output Urine Total 750 ml 2050 ml 850 ml # Voids 1 # Bowel Movements 1 0 Physical Exam GENERAL: NAD, AAOx3 SKIN: Warm and dry. HEAD: Atraumatic. Normocephalic. EYES: Pupils equal and round. No scleral icterus. No injection or drainage. ENT: No nasal bleeding or discharge. Mucous membranes pink and moist. NECK: Trachea midline. No JVD. CARDIOVASCULAR: Regular rate and rhythm RESPIRATORY: No accessory muscle use. More CTA B/L GASTROINTESTINAL: Abdomen soft, non-tender, nondistended. Hepatic and splenic margins not palpable. MUSCULOSKELETAL: Extremities without clubbing, cyanosis, or edema. No obvious deformities. NEUROLOGICAL: Awake and alert. No obvious cranial nerve deficits. Motor grossly within normal limits. Five out of 5 muscle strength in the arms and legs. Normal speech. PSYCHIATRIC: Appropriate mood and affect; insight and judgment normal. Assessment and Plan Problem List: (1) Cecum mass (2) Orthostatic hypotension (3) HTN (hypertension) (4) Peripheral vascular disease (5) Atrial fibrillation with RVR Assessment and Plan 1) Stabilized after episode of Afib with RVR.... chest pain most likely related to elevated heart rate, initial troponin normal, second/third 0.09 2) Had a long discussion with the patient and family about my concerns for surgery from a cardiovascular standpoint as well with the pulmonary issues. 3) Currently will hold off on surgery, discussed with Dr. Thompson who agrees, will plan in the next 4-6 weeks 4) She continues to be a moderate-high risk for surgery, unable to decrease this risk, family understands this risk but they want surgery... does not want further ischemic evaluation 5) Will need to have permissive hypertension due to her extensive orthostatic hypotension... started on Hydralazine but BP with significant drop on standing, will decrease 6) Not started on BB/CCB/digoxin due to orthostatic hypotension and resting heart rate of 55-65 bpm Angel Azar DO May 28, 2016 10:21
[2016-05-28] MEDS ORDERED: hydrALAZINE HCL 10 MG TAB PO ONE (10:30)
--- NOTE | 2016-05-28 11:06 | HHI.PR ---
Subjective Remarks in no acute distress. sob is improving. had some lower abdominal pain earlier which has resolved. no fever. family at the bedside. Objective Vitals Vital Signs Date Time Temp Pulse Resp B/P Pulse Ox O2 Delivery O2 Flow Rate FiO2 05/28/16 08:27 100 Nasal Cannula 5.00 05/28/16 08:14 68 05/28/16 07:35 Nasal Cannula 3.00 21 Humidified 05/28/16 07:00 57 05/28/16 05:40 98.3 63 16 197/68 97 05/28/16 02:10 114/62 05/28/16 02:00 56 05/28/16 01:00 62 05/28/16 00:00 60 05/27/16 23:13 136/67 05/27/16 23:13 184/81 05/27/16 23:13 179/81 05/27/16 23:00 62 05/27/16 22:54 Nasal Cannula 3.00 Humidified 05/27/16 22:00 74 05/27/16 21:00 72 05/27/16 20:30 98 Nasal Cannula 3.00 05/27/16 20:00 66 05/27/16 20:00 97.7 63 18 163/80 93 05/27/16 19:00 68 05/27/16 18:16 60 05/27/16 17:07 67 05/27/16 16:39 98.2 68 18 188/96 96 05/27/16 16:39 63 05/27/16 15:06 58 05/27/16 14:05 60 05/27/16 13:37 50 05/27/16 12:25 74 05/27/16 12:25 98.3 71 18 180/92 97 05/27/16 11:55 71 I/O 05/27/16 05/27/16 05/27/16 05/28/16 05/28/16 05/28/16 07:00 15:00 23:00 07:00 15:00 23:00 Intake Total 440 ml 960 ml 780 ml Output Total 750 ml 2050 ml 850 ml Balance -310 ml -1090 ml -70 ml Intake Oral 440 ml 960 ml 680 ml IV Total 100 ml Output Urine Total 750 ml 2050 ml 850 ml # Voids 1 # Bowel Movements 1 0 Result Diagram: 05/27/16 0955 05/27/16 0705 Imaging Last Impressions Chest X-Ray 05/26/16 0000 Signed Impressions: Service Date/Time: May 10:13 - CONCLUSION: Lingular infiltrate suspected. Cardiomegaly. Ricco Santana Jr., MD CT Angiography 05/26/16 0000 Signed Impressions: Service Date/Time: , May 26, 2016 17:07 - CONCLUSION: 1. Patchy airspace disease in the posterior perifissural aspect of the right upper lobe shows interval improvement and probably represents resolving atelectasis. Minimal bibasilar atelectasis. 2. Tiny pericardial and right pleural effusion. Minimal bibasilar atelectatic changes. 3. Narrowing of the left mainstem bronchus I believe is physiologic and probably related to the phase of respiration possibly exacerbated by some esophageal distention as the latter passes just posterior to the left mainstem bronchus. This was not present 2 days earlier.. Jaya Cazares MD Knee X-Ray 05/20/16 0000 Signed Impressions: Service Date/Time: Friday, May 20, 2016 23:43 - CONCLUSION: Mild degenerative changes. No evidence of fracture. Blake Saenz MD Abdomen/Pelvis CT 05/20/16 0000 Signed Impressions: Service Date/Time: Friday, May 20, 2016 23:30 - CONCLUSION: 1. 4.3 cm intraluminal masslike increased attenuation at the base of the cecum. I'm not sure whether this is debris or a true mass. 2. No other acute abnormalities are demonstrated. There is atherosclerosis of the abdominal aorta without aneurysm. Patient has had previous hysterectomy and cholecystectomy. Blake Saenz MD Objective Remarks GENERAL: This is a well-nourished, well-developed patient, in no apparent distress. CARDIOVASCULAR: Regular rate and regular rhythm without murmurs, gallops, or rubs. RESPIRATORY: Clear to auscultation. Breath sounds equal bilaterally. No wheezes , rales, or rhonchi. GASTROINTESTINAL: Abdomen soft, non-tender, nondistended. Normal, active bowel sounds MUSCULOSKELETAL: Extremities without clubbing, cyanosis, or edema. NEURO: Alert & Oriented x4 to person, place, time, situation. Moves all ext x4 Medications and IVs Current Medications Acetaminophen 650 mg 650 mg ONCE ONCE PO Last administered on 05/20/16 22:54 ; Start 05/20/16 at 22:30; Stop 05/20/16 at 22:31; Status DC Sodium Chloride (NS 1000 ml Inj) 1,000 ml @ 1,000 mls/hr Q1H ONCE IV Last administered on 05/20/16 22:54; Start 05/20/16 at 22:18; Stop 05/20/16 at 23:17 ; Status DC Iodixanol 47 ml 47 ml STK-MED ONCE IV Last administered on 05/20/16 23:29; Start 05/20/16 at 23:29; Stop 05/20/16 at 23:30; Status DC Ceftriaxone Sodium 1000 mg/ Sodium Chloride 100 ml @ 200 mls/hr ONCE ONCE IV Last administered on 05/21/16 00:41; Start 05/21/16 at 00:15; Stop 05/21/16 at 00:44; Status DC Sodium Chloride (NS 1000 ml Inj) 1,000 ml @ 100 mls/hr Q10H IV Last administered on 05/21/16 14:44; Start 05/21/16 at 03:00; Stop 05/25/16 at 13:26 ; Status DC IV Flush (NS Flush) 2 ml UNSCH PRN FLUSH FLUSH AFTER USING IV ACCESS Last administered on 05/23/16 14:57; Start 05/21/16 at 03:00 IV Flush (NS Flush) 2 ml BID FLUSH Last administered on 05/28/16 10:01; Start 05/21/16 at 09:00 Acetaminophen (Tylenol) 650 mg Q4H PRN PO TEMP > 100.4 Last administered on 21:18; Start 05/21/16 at 03:00 Ondansetron HCl (Zofran Inj) 4 mg Q6H PRN IVP NAUSEA OR VOMITING Last administered on 05/23/16 09:20; Start 05/21/16 at 03:00 Bisacodyl (Dulcolax Supp) 10 mg DAILY PRN MD CONSTIPATION Last administered on 05/23/16 00:28; Start 05/21/16 at 03:00 Docusate Sodium (Colace) 100 mg Q12HR PO Last administered on 05/28/16 10:01; Start 05/21/16 at 09:00 Magnesium Hydroxide (Milk Of Libby Liq) 30 ml Q12H PRN PO CONSTIPATION Last administered on 05/26/16 09:05; Start 05/21/16 at 03:00 Sennosides (Senokot) 17.2 mg Q12H PRN PO CONSTIPATION Last administered on 05/22 22:19; Start 05/21/16 at 03:00 Heparin Sodium (Porcine) (Heparin Inj) 5,000 units Q8HR SQ Last administered on 05/28/16 05:30; Start 05/21/16 at 06:00 Naloxone HCl 0.4 mg 0.4 mg UNSCH PRN IV SEE LABEL COMMENTS; Start 05/21/16 at 03:00 Ceftriaxone Sodium/Sodium Chloride (Rocephin Inj/NS Inj) 100 ml @ 200 mls/hr Q24H IV Last administered on 05/28/16 01:14; Start 05/22/16 at 00:00 Aspirin (Ecotrin Ec) 81 mg DAILY PO Last administered on 05/28/16 10:00; Start 05/22/16 at 09:00 Atorvastatin Calcium (Lipitor) 10 mg HS PO Last administered on 05/27/16 22:21 ; Start 05/21/16 at 21:00 Fludrocortisone Acetate (Florinef) 0.1 mg DAILY PO Last administered on 09:04; Start 05/21/16 at 13:00; Status Hold Gabapentin (Neurontin) 300 mg TID PO Last administered on 05/24/16 13:11; Start 05/21/16 at 13:00; Stop 05/24/16 at 15:47; Status DC Levothyroxine Sodium (Synthroid) 25 mcg HS PO Last administered on 05/27/16 22 :21; Start 05/21/16 at 21:00 Midodrine (Proamatine) 5 mg BID PO Last administered on 05/28/16 10:01; Start 05/21/16 at 21:00 Albuterol/ Ipratropium (Duoneb Neb) 1 ampule Q4HR NEB PRN NEB shortness of breath/wheezing Last administered on 05/24/16 10:26; Start 05/21/16 at 20:00; Stop 05/24/16 at 10:33; Status DC Enalaprilat (Vasotec Inj) 2.25 mg Q6H PRN IV PUSH SBP>160, DBP>100 Last administered on 05/27/16 11:01; Start 05/22/16 at 12:00 Polyethylene Glycol/ Electrolytes (Colyte Liq) 4,000 ml ONCE ONCE PO Last administered on 05/22/16 13:06; Start 05/22/16 at 12:15; Stop 05/22/16 at 12:26 ; Status DC Calcium Carbonate (Tums Chew) 500 mg ONCE ONCE CHEW Last administered on 17:34; Start 05/22/16 at 17:30; Stop 05/22/16 at 17:31; Status DC Calcium Carbonate 500 mg 500 mg Q2H PRN CHEW dyspepsia /low calcium; Start 03/26 at 17:30 Lactated Ringer's 1,000 ml @ 30 mls/hr Q24H IV Last administered on 05/23/16 14:57; Start 05/23/16 at 10:00; Stop 05/25/16 at 13:26; Status DC Sodium Chloride (NS 500 ml Inj) 500 ml @ 30 mls/hr [id number] IV ; Start 05/23/16 at 10:00; Stop 05/24/16 at 09:59; Status DC Insulin Human Regular (NovoLIN R INJ) See Protocol Table ... UNSCH X1 PRN SQ SEE PROTOCOL; Start 05/23/16 at 10:15; Stop 05/24/16 at 10:14; Status DC Metoprolol Tartrate (Lopressor) 25 mg UNSCH X1 PRN PO SEE LABEL COMMENTS; Start 05/23/16 at 10:15; Stop 05/24/16 at 10:14; Status DC Guaifenesin/ Dextromethorphan (Robitussin Dm 200-20 Mg/10 ml Liq) 10 ml Q6H PRN PO cough Last administered on 05/24/16 21:31; Start 05/23/16 at 14:30 Propofol (Diprivan 200 Mg/20 ml Inj) 140 mg STK-MED ONCE IV ; Start 05/23/16 at 16:48; Stop 05/23/16 at 17:18; Status DC Potassium Chloride (KCl) 30 meq ONCE ONCE PO Last administered on 05/24/16 10 :18; Start 05/24/16 at 10:00; Stop 05/24/16 at 10:01; Status DC Albuterol/ Ipratropium (Duoneb Neb) 1 ampule Q6HR NEB PRN NEB shortness of breath/wheezing; Start 05/24/16 at 16:00; Status Cancel Albuterol/ Ipratropium (Duoneb Neb) 1 ampule Q2HR NEB PRN NEB sob/wheezing; Start 05/24/16 at 10:45 Benzonatate (Tessalon) 100 mg TID PRN PO cough Last administered on 05/24/16 17:46; Start 05/24/16 at 10:45 Methylprednisolone Sodium Succinate (SoluMEDROL INJ) 125 mg ONCE ONCE IV PUSH Last administered on 05/24/16 12:56; Start 05/24/16 at 12:00; Stop 05/24/16 at 12:01; Status DC Methylprednisolone Sodium Succinate (SoluMEDROL INJ) 40 mg Q6HR IV PUSH Last administered on 05/27/16 06:26; Start 05/24/16 at 18:00; Stop 05/27/16 at 09:55 ; Status DC Albuterol/ Ipratropium 1 ampule 1 ampule Q4HR WHILE AWAKE NEB NEB Last administered on 05/28/16 08:21; Start 05/24/16 at 12:00 Azithromycin/ Sodium Chloride (Zithromax Inj/ NS 250 ml Inj) 250 ml @ 250 mls/ hr Q24H IV Last administered on 05/27/16 12:37; Start 05/24/16 at 12:00 Gabapentin (Neurontin) 300 mg Q12HR PO Last administered on 05/28/16 10:01; Start 05/24/16 at 21:00 Enalaprilat 2.5 mg 2.5 mg NOW ONCE IV PUSH Last administered on 05/25/16 07: 33; Start 05/25/16 at 07:30; Stop 05/25/16 at 07:31; Status DC Iron Sucrose/ Sodium Chloride (Venofer Inj/NS Inj) 105 ml @ 105 mls/hr DAILY IV Last administered on 05/27/16 08:31; Start 05/25/16 at 10:00; Stop at 09:59; Status DC Cyanocobalamin (Vitamin B12 Inj) 1,000 mcg ONCE ONCE IM Last administered on 12:29; Start 05/25/16 at 10:00; Stop 05/25/16 at 10:01; Status DC Furosemide (Lasix Inj) 20 mg DAILY IV PUSH Last administered on 05/28/16 10:01 ; Start 05/25/16 at 10:45 Morphine Sulfate (Morphine Inj) 2 mg NOW ONCE IV Last administered on 09:15; Start 05/26/16 at 10:00; Stop 05/26/16 at 10:01; Status DC Diltiazem HCl 15 mg 15 mg NOW ONCE IV PUSH Last administered on 05/26/16 10: 00; Start 05/26/16 at 10:00; Stop 05/26/16 at 10:01; Status DC Potassium Chloride 100 ml @ 50 mls/hr Q2H IV Last administered on 05/26/16 12 :00; Start 05/26/16 at 10:00; Stop 05/26/16 at 13:59; Status DC Calcium Gluconate/ Dextrose (Calcium Gluconate Inj/D5W 100 ml Inj) 110 ml @ 110 mls/hr ONCE ONCE IV Last administered on 05/26/16 10:00; Start 05/26/16 at 10:00; Stop 05/26/16 at 10:59; Status DC Potassium Chloride (KCl) 30 meq ONCE ONCE PO Last administered on 05/26/16 10 :37; Start 05/26/16 at 10:00; Stop 05/26/16 at 10:04; Status DC Magnesium Oxide (Mag-Ox) 400 mg ONCE ONCE PO Last administered on 05/26/16 13 :45; Start 05/26/16 at 10:15; Stop 05/26/16 at 10:16; Status DC Digoxin (Lanoxin Inj) 0.25 mg ONCE ONCE IV PUSH Last administered on 10:37; Start 05/26/16 at 10:15; Stop 05/26/16 at 10:16; Status DC IV Flush (NS Flush) 2 ml UNSCH PRN FLUSH FLUSH AFTER USING IV ACCESS; Start at 10:15; Stop 05/26/16 at 10:27; Status DC IV Flush 2 ml 2 ml BID FLUSH ; Start 05/26/16 at 21:00; Stop 05/26/16 at 21:00; Status DC Magnesium Sulfate/ Dextrose (Magnesium Sulfate 1 Gm Premix) 100 ml @ 100 mls/ hr Q1H IV ; Start 05/26/16 at 11:00; Stop 05/26/16 at 12:59; Status DC Digoxin (Lanoxin Inj) 0.25 mg Q6H IVS Last administered on 05/26/16 21:59; Start 05/26/16 at 17:00; Stop 05/26/16 at 23:01; Status DC Iohexol (Omnipaque 350 Inj) 75 ml STK-MED ONCE IV ; Start 05/26/16 at 17:19; Stop 05/26/16 at 17:20; Status DC Methylprednisolone Sodium Succinate (SoluMEDROL INJ) 40 mg Q8HR IV PUSH Last administered on 05/28/16 05:31; Start 05/27/16 at 14:00 Hydralazine HCl (Apresoline) 25 mg Q8H PO Last administered on 05/28/16 01:14 ; Start 05/27/16 at 16:00; Stop 05/28/16 at 10:21; Status DC Hydralazine HCl (Apresoline) 10 mg Q8HR PO ; Start 05/28/16 at 14:00 Hydralazine HCl (Apresoline) 10 mg ONCE ONCE PO ; Start 05/28/16 at 10:30; Stop 05/28/16 at 10:31; Status DC A/P Assessment and Plan A/P Chest pain/ Newly onset Afib with RVR Will hold on anticoagulation at this time per cardio. received digoxin IV Dr Azar cardiology following. UTI with sepsis: Urine culture with E Coli. Continue IV Rocephin and follow- up cultures. acute respiratory failure due to COPD with exacerbation/Pneumonia on ceftriaxone IV and azithromycin. continue to taper down IV steroids- continue neb treatment. Influenza A/B is negative. legionella and pneumococcal Ag negative. Consulted pulm, appreciate recommendations Fall: Recurrent. Likely secondary to chronic orthostatic hypotension. Denies any injury. PT eval. Fall precautions. Orthostatic hypotension/: Chronic. Now hypertensive. Continue midodrine. florinef on hold- started on low dose hydralazine- will monitor for now. Cecal mass: Abdomen and pelvis CT in the ED showed incidental 4.3 cm possible mass at the base of the cecum. 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 surgery recommends outpatient f/u due to her lung/ cardiac comorbidities- this was previously d/w . palliative care following. Anemia with Iron deficiency anemia. received venofer IV and will continue with ferrous sulfate PO after surgery at [place]. Hypothyroidism: TSH normal. Continue levothyroxine. DVT prophylaxis: Heparin, SCDs Discharge Planning d/w the family at the bedside who believe that she's not able to liver by herself. consulted case management for dc planning. Ernie Pacheco MD May 28, 2016 11:06
[2016-05-28] MEDS: AZITHROMYCIN INJ 500 MG in SODIUM CHLOR 0.9% 250 ML INJ 250 ML IV SCH (12:25)
[2016-05-28] MEDS: hydrALAZINE HCL 10 MG TAB PO SCH ×2 (14:33→22:21)
--- NOTE | 2016-05-28 14:54 | HHI.PR ---
Subjective Remarks ALERT no SOB CTA NO PE . IMPROVED ATELECTASIS Objective Vital Signs Date Time Temp Pulse Resp B/P Pulse Ox O2 Delivery O2 Flow Rate FiO2 05/28/16 13:00 69 05/28/16 12:20 98.0 60 18 212/100 98 05/28/16 12:00 60 05/28/16 11:00 57 05/28/16 10:00 67 05/28/16 09:45 97.9 67 18 153/71 97 128/60 109/53 Manual Cuff/Palpation 05/28/16 09:00 67 05/28/16 08:27 100 Nasal Cannula 5.00 05/28/16 08:14 68 05/28/16 07:35 Nasal Cannula 3.00 21 Humidified 05/28/16 07:00 57 05/28/16 05:40 98.3 63 16 197/68 97 05/28/16 02:10 114/62 05/28/16 02:00 56 05/28/16 01:00 62 05/28/16 00:00 60 05/27/16 23:13 136/67 05/27/16 23:13 184/81 05/27/16 23:13 179/81 05/27/16 23:00 62 05/27/16 22:54 Nasal Cannula 3.00 Humidified 05/27/16 22:00 74 05/27/16 21:00 72 05/27/16 20:30 98 Nasal Cannula 3.00 05/27/16 20:00 66 05/27/16 20:00 97.7 63 18 163/80 93 05/27/16 19:00 68 05/27/16 18:16 60 05/27/16 17:07 67 05/27/16 16:39 98.2 68 18 188/96 96 05/27/16 16:39 63 05/27/16 15:06 58 I/O 05/27/16 05/27/16 05/27/16 05/28/16 05/28/16 05/28/16 07:00 15:00 23:00 07:00 15:00 23:00 Intake Total 440 ml 960 ml 780 ml Output Total 750 ml 2050 ml 850 ml Balance -310 ml -1090 ml -70 ml Intake Oral 440 ml 960 ml 680 ml IV Total 100 ml Output Urine Total 750 ml 2050 ml 850 ml # Voids 1 1 # Bowel Movements 1 0 Result Diagram: 05/27/16 0955 05/27/16 0705 Objective Remarks GENERAL: SKIN: Warm and dry. HEAD: Atraumatic. Normocephalic. EYES: Pupils equal and round. No scleral icterus. No injection or drainage. ENT: No nasal bleeding or discharge. Mucous membranes pink and moist. NECK: Trachea midline. No JVD. CARDIOVASCULAR: Regular rate and rhythm. RESPIRATORY: No accessory muscle use. Clear to auscultation. Breath sounds equal bilaterally. GASTROINTESTINAL: Abdomen soft, non-tender, nondistended. Hepatic and splenic margins not palpable. MUSCULOSKELETAL: Extremities without clubbing, cyanosis, or edema. No obvious deformities. NEUROLOGICAL: Awake and alert. No obvious cranial nerve deficits. Motor grossly within normal limits. Five out of 5 muscle strength in the arms and legs. Normal speech. PSYCHIATRIC: Appropriate mood and affect; insight and judgment normal. Assessment and Plan Assessment and Plan ALERT STILL WITH SOME CONGESTION ON ANTIBITICS COLON MASS PLAN O2 NEEDED ANTIBIOTICS BRONCHODILATOR THERAPY CHECK PFT OPTIONS FOR COLON MASS THERAPY , PER SURGERY Radhames Ricci MD May 28, 2016 14:54
[2016-05-28] MEDS: LEVOTHYROXINE SODIUM 25 MCG TAB PO SCH (22:20)
[2016-05-28] MEDS: ATORVASTATIN 10 MG TAB PO SCH (22:21)
[2016-05-28] MEDS: ACETAMINOPHEN 325 MG TAB PO PRN (23:23)
[2016-05-28] MEDS: guaiFENesin/DEXTROMETHORPHAN 200 MG/20 MG/10 ML CUP PO PRN (23:24)
[2016-05-28] MEDS: ENALAPRILAT 2.5 MG/2 ML VIAL IV PUSH PRN (23:36)
[2016-05-29] VITALS (24 sets, daily range): BP systolic 95–207; BP diastolic 37–83; PULSE 48–66; RESP 14–24; TEMP 97.5–98.1; O2SAT 94–100
[2016-05-29] MEDS: hydrALAZINE HCL 10 MG TAB PO SCH ×3 (06:45→22:14)
[2016-05-29] MEDS: methylPREDNISolone SOD SUCC 40 MG/1 ML VIAL IV PUSH SCH ×2 (06:46→22:13)
[2016-05-29] MEDS: HEPARIN SODIUM - SQ 10,000 UNITS/ML VIAL SQ SCH ×3 (06:46→22:14)
[2016-05-29] MEDS: MIDODRINE 5 MG TAB PO SCH ×2 (08:55→22:14)
[2016-05-29] MEDS: GABAPENTIN 300 MG CAP PO SCH ×2 (08:55→22:14)
[2016-05-29] MEDS: ASPIRIN EC 81 MG TABEC PO SCH (08:56)
[2016-05-29] MEDS: SODIUM CHLORIDE 0.9% FLUSH 5 ML FLUSH FLUSH SCH ×2 (08:56→22:15)
[2016-05-29] MEDS: FUROSEMIDE 20 MG/2 ML VIAL IV PUSH SCH (08:56)
[2016-05-29] MEDS: DOCUSATE SODIUM 100 MG CAP PO SCH ×2 (08:56→22:13)
--- NOTE | 2016-05-29 09:11 | PD.CARD.PN ---
Subjective Subjective Remarks No chest pain, no shortness of breath, feels well Objective Medications Current Medications Medications (Trade) Dose Ordered Sig/Betito Route Start Time Stop Time Status Last Admin (NS Flush) 2 ml UNSCH PRN FLUSH 05/21/16 03:00 05/23/16 14:57 (NS Flush) 2 ml BID FLUSH 05/21/16 09:00 05/29/16 08:56 (Tylenol) 650 mg Q4H PRN PO 05/21/16 03:00 05/28/16 23:23 (Zofran Inj) 4 mg Q6H PRN IVP 05/21/16 03:00 05/23/16 09:20 (Dulcolax Supp) 10 mg DAILY PRN IN 05/21/16 03:00 05/23/16 00:28 (Colace) 100 mg Q12HR PO 05/21/16 09:00 05/29/16 08:56 (Milk Of Magnesia Liq) 30 ml Q12H PRN PO 05/21/16 03:00 05/26/16 09:05 (Senokot) 17.2 mg Q12H PRN PO 05/21/16 03:00 05/22/16 22:19 (Heparin Inj) 5,000 units Q8HR SQ 05/21/16 06:00 05/29/16 06:46 Naloxone HCl 0.4 mg 0.4 mg UNSCH PRN IV 05/21/16 03:00 (Rocephin Inj/NS Inj) 100 ml @ 200 mls/hr Q24H IV 05/22/16 00:00 05/28/16 23:22 (Ecotrin Ec) 81 mg DAILY PO 05/22/16 09:00 05/29/16 08:56 (Lipitor) 10 mg HS PO 05/21/16 21:00 05/28/16 22:21 (Florinef) 0.1 mg DAILY PO 05/21/16 13:00 Hold 05/26/16 09:04 (Synthroid) 25 mcg HS PO 05/21/16 21:00 05/28/16 22:20 (Proamatine) 5 mg BID PO 05/21/16 21:00 05/29/16 08:55 (Vasotec Inj) 2.25 mg Q6H PRN IV PUSH 05/22/16 12:00 05/28/16 23:36 (Tums Chew) 500 mg Q2H PRN CHEW 05/22/16 17:30 (Robitussin Dm 200-20 Mg/10 ml Liq) 10 ml Q6H PRN PO 05/23/16 14:30 05/28/16 23:24 Benzonatate 100 mg 100 mg TID PRN PO 05/24/16 10:45 05/24/16 17:46 (Zithromax Inj/ NS 250 ml Inj) 250 ml @ 250 mls/hr Q24H IV 05/24/16 12:00 05/28/16 12:25 (Neurontin) 300 mg Q12HR PO 05/24/16 21:00 05/29/16 08:55 (Lasix Inj) 20 mg DAILY IV PUSH 05/25/16 10:45 05/29/16 08:56 (Apresoline) 10 mg Q8HR PO 05/28/16 14:00 05/29/16 06:45 (SoluMEDROL INJ) 20 mg Q8HR IV PUSH 05/28/16 14:00 05/29/16 06:46 Vital Signs / I&O Vital Signs Date Time Temp Pulse Resp B/P Pulse Ox O2 Delivery O2 Flow Rate FiO2 05/29/16 06:00 50 05/29/16 05:00 52 05/29/16 04:00 97.7 58 14 128/64 94 05/29/16 04:00 50 05/29/16 03:00 48 05/29/16 02:00 52 05/29/16 01:00 52 05/29/16 00:00 55 05/29/16 00:00 97.9 60 24 207/83 96 Manual Cuff/Palpation 05/28/16 23:00 58 05/28/16 22:00 56 05/28/16 20:00 62 05/28/16 20:00 97.8 59 24 210/91 96 151/77 118/58 05/28/16 19:00 96 3.00 05/28/16 19:00 56 05/28/16 18:15 66 05/28/16 17:00 66 05/28/16 17:00 97.6 66 18 150/74 97 05/28/16 16:04 68 05/28/16 15:00 70 05/28/16 14:00 75 05/28/16 13:00 69 05/28/16 12:20 98.0 60 18 212/100 98 05/28/16 12:00 60 05/28/16 11:00 57 05/28/16 10:00 67 05/28/16 09:45 97.9 67 18 153/71 97 128/60 109/53 Manual Cuff/Palpation I/O 05/28/16 05/28/16 05/28/16 05/29/16 05/29/16 05/29/16 07:00 15:00 23:00 07:00 15:00 23:00 Intake Total 780 ml 971 ml 580 ml Output Total 850 ml 1200 ml 1750 ml Balance -70 ml -229 ml -1170 ml Intake Oral 680 ml 720 ml 480 ml IV Total 100 ml 251 ml 100 ml Output Urine Total 850 ml 1200 ml 1750 ml # Voids 1 1 # Bowel Movements 0 Physical Exam GENERAL: NAD, AAOx3 SKIN: Warm and dry. HEAD: Atraumatic. Normocephalic. EYES: Pupils equal and round. No scleral icterus. No injection or drainage. ENT: No nasal bleeding or discharge. Mucous membranes pink and moist. NECK: Trachea midline. No JVD. CARDIOVASCULAR: Regular rate and rhythm RESPIRATORY: No accessory muscle use. CTA B/L GASTROINTESTINAL: Abdomen soft, non-tender, nondistended. Hepatic and splenic margins not palpable. MUSCULOSKELETAL: Extremities without clubbing, cyanosis, or edema. No obvious deformities. NEUROLOGICAL: Awake and alert. No obvious cranial nerve deficits. Motor grossly within normal limits. Five out of 5 muscle strength in the arms and legs. Normal speech. PSYCHIATRIC: Appropriate mood and affect; insight and judgment normal. Assessment and Plan Problem List: (1) Cecum mass (2) Orthostatic hypotension (3) HTN (hypertension) (4) Peripheral vascular disease (5) Atrial fibrillation with RVR Assessment and Plan 1) Currently will hold off on surgery, discussed with Dr. Thompson who agrees, will plan in the next 4-6 weeks 2) She continues to be a moderate-high risk for surgery, unable to decrease this risk, family understands this risk but they want surgery... does not want further ischemic evaluation 3) Will need to have permissive hypertension due to her extensive orthostatic hypotension... started on Hydralazine 4) Not started on BB/CCB/digoxin due to orthostatic hypotension and resting heart rate of 55-65 bpm 5) Discharge planning, discussed with Dr. Pacheco 6) Not an anticoagulation candidate with GI mass and falls, concern for possible bleed Angel Azar DO May 29, 2016 09:11
--- NOTE | 2016-05-29 09:47 | HHI.PR ---
Subjective Remarks resting comfortably with no distress. no chest pain or sob. family at the bedside. Objective Vitals Vital Signs Date Time Temp Pulse Resp B/P Pulse Ox O2 Delivery O2 Flow Rate FiO2 05/29/16 06:00 50 05/29/16 05:00 52 05/29/16 04:00 97.7 58 14 128/64 94 05/29/16 04:00 50 05/29/16 03:00 48 05/29/16 02:00 52 05/29/16 01:00 52 05/29/16 00:00 55 05/29/16 00:00 97.9 60 24 207/83 96 Manual Cuff/Palpation 05/28/16 23:00 58 05/28/16 22:00 56 05/28/16 20:00 62 05/28/16 20:00 97.8 59 24 210/91 96 151/77 118/58 05/28/16 19:00 96 3.00 05/28/16 19:00 56 05/28/16 18:15 66 05/28/16 17:00 66 05/28/16 17:00 97.6 66 18 150/74 97 05/28/16 16:04 68 05/28/16 15:00 70 05/28/16 14:00 75 05/28/16 13:00 69 05/28/16 12:20 98.0 60 18 212/100 98 05/28/16 12:00 60 05/28/16 11:00 57 05/28/16 10:00 67 05/28/16 09:45 97.9 67 18 153/71 97 128/60 109/53 Manual Cuff/Palpation I/O 05/28/16 05/28/16 05/28/16 05/29/16 05/29/16 05/29/16 07:00 15:00 23:00 07:00 15:00 23:00 Intake Total 780 ml 971 ml 580 ml Output Total 850 ml 1200 ml 1750 ml Balance -70 ml -229 ml -1170 ml Intake Oral 680 ml 720 ml 480 ml IV Total 100 ml 251 ml 100 ml Output Urine Total 850 ml 1200 ml 1750 ml # Voids 1 1 # Bowel Movements 0 Result Diagram: 05/27/16 0955 05/27/16 0705 Imaging Last Impressions Chest X-Ray 05/26/16 0000 Signed Impressions: Service Date/Time: May 10:13 - CONCLUSION: Lingular infiltrate suspected. Cardiomegaly. Ricco Santana Jr., MD CT Angiography 05/26/16 0000 Signed Impressions: Service Date/Time: May 17:07 - CONCLUSION: 1. Patchy airspace disease in the posterior perifissural aspect of the right upper lobe shows interval improvement and probably represents resolving atelectasis. Minimal bibasilar atelectasis. 2. Tiny pericardial and right pleural effusion. Minimal bibasilar atelectatic changes. 3. Narrowing of the left mainstem bronchus I believe is physiologic and probably related to the phase of respiration possibly exacerbated by some esophageal distention as the latter passes just posterior to the left mainstem bronchus. This was not present 2 days earlier.. Jaya Cazares MD Knee X-Ray 05/20/16 0000 Signed Impressions: Service Date/Time: Friday, May 20, 2016 23:43 - CONCLUSION: Mild degenerative changes. No evidence of fracture. Blake Saenz MD Abdomen/Pelvis CT 05/20/16 0000 Signed Impressions: Service Date/Time: Friday, May 20, 2016 23:30 - CONCLUSION: 1. 4.3 cm intraluminal masslike increased attenuation at the base of the cecum. I'm not sure whether this is debris or a true mass. 2. No other acute abnormalities are demonstrated. There is atherosclerosis of the abdominal aorta without aneurysm. Patient has had previous hysterectomy and cholecystectomy. Blake Saenz MD Objective Remarks GENERAL: This is a well-nourished, well-developed patient, in no apparent distress. CARDIOVASCULAR: Regular rate and regular rhythm without murmurs, gallops, or rubs. RESPIRATORY: Clear to auscultation. Breath sounds equal bilaterally. No wheezes , rales, or rhonchi. GASTROINTESTINAL: Abdomen soft, non-tender, nondistended. Normal, active bowel sounds MUSCULOSKELETAL: Extremities without clubbing, cyanosis, or edema. NEURO: Alert & Oriented x4 to person, place, time, situation. Moves all ext x4 Medications and IVs Current Medications Acetaminophen 650 mg 650 mg ONCE ONCE PO Last administered on 05/20/16t 22:54 ; Start 05/20/16 at 22:30; Stop 05/20/16 at 22:31; Status DC Sodium Chloride (NS 1000 ml Inj) 1,000 ml @ 1,000 mls/hr Q1H ONCE IV Last administered on 05/20/16 22:54; Start 05/20/16 at 22:18; Stop 05/20/16 at 23:17 ; Status DC Iodixanol 47 ml 47 ml STK-MED ONCE IV Last administered on 05/20/16 23:29; Start 05/20/16 at 23:29; Stop 05/20/16 at 23:30; Status DC Ceftriaxone Sodium 1000 mg/ Sodium Chloride 100 ml @ 200 mls/hr ONCE ONCE IV Last administered on 05/21/16 00:41; Start 05/21/16 at 00:15; Stop 05/21/16 at 00:44; Status DC Sodium Chloride (NS 1000 ml Inj) 1,000 ml @ 100 mls/hr Q10H IV Last administered on 05/21/16 14:44; Start 05/21/16 at 03:00; Stop 05/25/16 at 13:26 ; Status DC IV Flush (NS Flush) 2 ml UNSCH PRN FLUSH FLUSH AFTER USING IV ACCESS Last administered on 05/23/16 14:57; Start 05/21/16 at 03:00 IV Flush (NS Flush) 2 ml BID FLUSH Last administered on 05/29/16 08:56; Start 05/21/16 at 09:00 Acetaminophen (Tylenol) 650 mg Q4H PRN PO TEMP > 100.4 Last administered on 23:23; Start 05/21/16 at 03:00 Ondansetron HCl (Zofran Inj) 4 mg Q6H PRN IVP NAUSEA OR VOMITING Last administered on 05/23/16 09:20; Start 05/21/16 at 03:00 Bisacodyl (Dulcolax Supp) 10 mg DAILY PRN [place] CONSTIPATION Last administered on 05/23/16 00:28; Start 05/21/16 at 03:00 Docusate Sodium (Colace) 100 mg Q12HR PO Last administered on 05/29/16 08:56; Start 05/21/16 at 09:00 Magnesium Hydroxide (Milk Of Magnesia Liq) 30 ml Q12H PRN PO CONSTIPATION Last administered on 05/26/16 09:05; Start 05/21/16 at 03:00 Sennosides (Senokot) 17.2 mg Q12H PRN PO CONSTIPATION Last administered on 05/22 22:19; Start 05/21/16 at 03:00 Heparin Sodium (Porcine) (Heparin Inj) 5,000 units Q8HR SQ Last administered on 05/29/16 06:46; Start 05/21/16 at 06:00 Naloxone HCl 0.4 mg 0.4 mg UNSCH PRN IV SEE LABEL COMMENTS; Start 05/21/16 at 03:00 Ceftriaxone Sodium/Sodium Chloride (Rocephin Inj/NS Inj) 100 ml @ 200 mls/hr Q24H IV Last administered on 05/28/16 23:22; Start 05/22/16 at 00:00 Aspirin (Ecotrin Ec) 81 mg DAILY PO Last administered on 05/29/16 08:56; Start 05/22/16 at 09:00 Atorvastatin Calcium (Lipitor) 10 mg HS PO Last administered on 05/28/16 22:21 ; Start 05/21/16 at 21:00 Fludrocortisone Acetate (Florinef) 0.1 mg DAILY PO Last administered on 09:04; Start 05/21/16 at 13:00; Status Hold Gabapentin (Neurontin) 300 mg TID PO Last administered on 05/24/16 13:11; Start 05/21/16 at 13:00; Stop 05/24/16 at 15:47; Status DC Levothyroxine Sodium (Synthroid) 25 mcg HS PO Last administered on 05/28/16 22 :20; Start 05/21/16 at 21:00 Midodrine (Proamatine) 5 mg BID PO Last administered on 05/29/16 08:55; Start 05/21/16 at 21:00 Albuterol/ Ipratropium (Duoneb Neb) 1 ampule Q4HR NEB PRN NEB shortness of breath/wheezing Last administered on 05/24/16 10:26; Start 05/21/16 at 20:00; Stop 05/24/16 at 10:33; Status DC Enalaprilat (Vasotec Inj) 2.25 mg Q6H PRN IV PUSH SBP>160, DBP>100 Last administered on 05/28/16 23:36; Start 05/22/16 at 12:00 Polyethylene Glycol/ Electrolytes (Colyte Liq) 4,000 ml ONCE ONCE PO Last administered on 05/22/16 13:06; Start 05/22/16 at 12:15; Stop 05/22/16 at 12:26 ; Status DC Calcium Carbonate (Tums Chew) 500 mg ONCE ONCE CHEW Last administered on 17:34; Start 05/22/16 at 17:30; Stop 05/22/16 at 17:31; Status DC Calcium Carbonate 500 mg 500 mg Q2H PRN CHEW dyspepsia /low calcium; Start 03/26 at 17:30 Lactated Ringer's 1,000 ml @ 30 mls/hr Q24H IV Last administered on 05/23/16 14:57; Start 05/23/16 at 10:00; Stop 05/25/16 at 13:26; Status DC Sodium Chloride (NS 500 ml Inj) 500 ml @ 30 mls/hr [id number] IV ; Start 05/23/16 at 10:00; Stop 05/24/16 at 09:59; Status DC Insulin Human Regular (NovoLIN R INJ) See Protocol Table ... UNSCH X1 PRN SQ SEE PROTOCOL; Start 05/23/16 at 10:15; Stop 05/24/16 at 10:14; Status DC Metoprolol Tartrate (Lopressor) 25 mg UNSCH X1 PRN PO SEE LABEL COMMENTS; Start 05/23/16 at 10:15; Stop 05/24/16 at 10:14; Status DC Guaifenesin/ Dextromethorphan (Robitussin Dm 200-20 Mg/10 ml Liq) 10 ml Q6H PRN PO cough Last administered on 05/28/16 23:24; Start 05/23/16 at 14:30 Propofol (Diprivan 200 Mg/20 ml Inj) 140 mg STK-MED ONCE IV ; Start 05/23/16 at 16:48; Stop 05/23/16 at 17:18; Status DC Potassium Chloride (KCl) 30 meq ONCE ONCE PO Last administered on 05/24/16 10 :18; Start 05/24/16 at 10:00; Stop 05/24/16 at 10:01; Status DC Albuterol/ Ipratropium (Duoneb Neb) 1 ampule Q6HR NEB PRN NEB shortness of breath/wheezing; Start 05/24/16 at 16:00; Status Cancel Albuterol/ Ipratropium (Duoneb Neb) 1 ampule Q2HR NEB PRN NEB sob/wheezing Last administered on 05/28/16 12:12; Start 05/24/16 at 10:45 Benzonatate (Tessalon) 100 mg TID PRN PO cough Last administered on 05/24/16 17:46; Start 05/24/16 at 10:45 Methylprednisolone Sodium Succinate (SoluMEDROL INJ) 125 mg ONCE ONCE IV PUSH Last administered on 05/24/16 12:56; Start 05/24/16 at 12:00; Stop 05/24/16 at 12:01; Status DC Methylprednisolone Sodium Succinate (SoluMEDROL INJ) 40 mg Q6HR IV PUSH Last administered on 05/27/16 06:26; Start 05/24/16 at 18:00; Stop 05/27/16 at 09:55 ; Status DC Albuterol/ Ipratropium 1 ampule 1 ampule Q4HR WHILE AWAKE NEB NEB Last administered on 05/28/16 08:21; Start 05/24/16 at 12:00; Stop 05/28/16 at 12:00 ; Status DC Azithromycin/ Sodium Chloride (Zithromax Inj/ NS 250 ml Inj) 250 ml @ 250 mls/ hr Q24H IV Last administered on 05/28/16 12:25; Start 05/24/16 at 12:00 Gabapentin (Neurontin) 300 mg Q12HR PO Last administered on 05/29/16 08:55; Start 05/24/16 at 21:00 Enalaprilat 2.5 mg 2.5 mg NOW ONCE IV PUSH Last administered on 05/25/16 07: 33; Start 05/25/16 at 07:30; Stop 05/25/16 at 07:31; Status DC Iron Sucrose/ Sodium Chloride (Venofer Inj/NS Inj) 105 ml @ 105 mls/hr DAILY IV Last administered on 05/27/16 08:31; Start 05/25/16 at 10:00; Stop at 09:59; Status DC Cyanocobalamin (Vitamin B12 Inj) 1,000 mcg ONCE ONCE IM Last administered on 12:29; Start 05/25/16 at 10:00; Stop 05/25/16 at 10:01; Status DC Furosemide (Lasix Inj) 20 mg DAILY IV PUSH Last administered on 05/29/16 08:56 ; Start 05/25/16 at 10:45 Morphine Sulfate (Morphine Inj) 2 mg NOW ONCE IV Last administered on 09:15; Start 05/26/16 at 10:00; Stop 05/26/16 at 10:01; Status DC Diltiazem HCl 15 mg 15 mg NOW ONCE IV PUSH Last administered on 05/26/16 10: 00; Start 05/26/16 at 10:00; Stop 05/26/16 at 10:01; Status DC Potassium Chloride 100 ml @ 50 mls/hr Q2H IV Last administered on 05/26/16 12 :00; Start 05/26/16 at 10:00; Stop 05/26/16 at 13:59; Status DC Calcium Gluconate/ Dextrose (Calcium Gluconate Inj/D5W 100 ml Inj) 110 ml @ 110 mls/hr ONCE ONCE IV Last administered on 05/26/16 10:00; Start 05/26/16 at 10:00; Stop 05/26/16 at 10:59; Status DC Potassium Chloride (KCl) 30 meq ONCE ONCE PO Last administered on 05/26/16 10 :37; Start 05/26/16 at 10:00; Stop 05/26/16 at 10:04; Status DC Magnesium Oxide (Mag-Ox) 400 mg ONCE ONCE PO Last administered on 05/26/16 13 :45; Start 05/26/16 at 10:15; Stop 05/26/16 at 10:16; Status DC Digoxin (Lanoxin Inj) 0.25 mg ONCE ONCE IV PUSH Last administered on 10:37; Start 05/26/16 at 10:15; Stop 05/26/16 at 10:16; Status DC IV Flush (NS Flush) 2 ml UNSCH PRN FLUSH FLUSH AFTER USING IV ACCESS; Start at 10:15; Stop 05/26/16 at 10:27; Status DC IV Flush 2 ml 2 ml BID FLUSH ; Start 05/26/16 at 21:00; Stop 05/26/16 at 21:00; Status DC Magnesium Sulfate/ Dextrose (Magnesium Sulfate 1 Gm Premix) 100 ml @ 100 mls/ hr Q1H IV ; Start 05/26/16 at 11:00; Stop 05/26/16 at 12:59; Status DC Digoxin (Lanoxin Inj) 0.25 mg Q6H IVS Last administered on 05/26/16 21:59; Start 05/26/16 at 17:00; Stop 05/26/16 at 23:01; Status DC Iohexol (Omnipaque 350 Inj) 75 ml STK-MED ONCE IV ; Start 05/26/16 at 17:19; Stop 05/26/16 at 17:20; Status DC Methylprednisolone Sodium Succinate (SoluMEDROL INJ) 40 mg Q8HR IV PUSH Last administered on 05/28/16 05:31; Start 05/27/16 at 14:00; Stop 05/28/16 at 11:07 ; Status DC Hydralazine HCl (Apresoline) 25 mg Q8H PO Last administered on 05/28/16 01:14 ; Start 05/27/16 at 16:00; Stop 05/28/16 at 10:21; Status DC Hydralazine HCl (Apresoline) 10 mg Q8HR PO Last administered on 05/29/16 06:45 ; Start 05/28/16 at 14:00 Hydralazine HCl (Apresoline) 10 mg ONCE ONCE PO Last administered on 12:25; Start 05/28/16 at 10:30; Stop 05/28/16 at 10:31; Status DC Methylprednisolone Sodium Succinate (SoluMEDROL INJ) 20 mg Q8HR IV PUSH Last administered on 05/29/16 06:46; Start 05/28/16 at 14:00 A/P Assessment and Plan A/P Chest pain/ Newly onset Afib with RVR Will hold on anticoagulation at this time per cardio. received digoxin IV Dr Azar cardiology following. UTI with sepsis: Urine culture with E Coli. Continue IV Rocephin and follow- up cultures. acute respiratory failure due to COPD with exacerbation/Pneumonia- improving. on ceftriaxone IV and azithromycin. continue to taper down IV steroids; will switch to po steroids tomorrow. continue neb treatment. Influenza A/B is negative. legionella and pneumococcal Ag negative. Consulted pulmonary, appreciate recommendations Fall: Recurrent. Likely secondary to chronic orthostatic hypotension. Denies any injury. PT eval. Fall precautions. Orthostatic hypotension/: Chronic. Now hypertensive. Continue midodrine. florinef on hold- started on low dose hydralazine- will monitor for now. continue with permissive hypertension and this was d/w and the patient and her family. Cecal mass: Abdomen and pelvis CT in the ED showed incidental 4.3 cm possible mass at the base of the cecum. 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 surgery recommends outpatient f/u due to her lung/ cardiac comorbidities- this was previously d/w . palliative care following. Anemia with Iron deficiency anemia. received venofer IV and will continue with ferrous sulfate PO after surgery at DC. Hypothyroidism: TSH normal. Continue levothyroxine. DVT prophylaxis: Heparin, SCDs d/w . Discharge Planning dc to rehab in am if stable. Ernie Pacheco MD May 29, 2016 09:47
--- NOTE | 2016-05-29 13:11 | HHI.PR ---
Subjective Remarks ALERT no SOB CTA NO PE . IMPROVED ATELECTASIS Objective Vital Signs Date Time Temp Pulse Resp B/P Pulse Ox O2 Delivery O2 Flow Rate FiO2 05/29/16 12:00 97.8 58 16 119/59 98 05/29/16 09:00 97.5 65 16 129/63 97 108/58 105/37 05/29/16 08:00 97 Nasal Cannula 4.00 05/29/16 06:00 50 05/29/16 05:00 52 05/29/16 04:00 97.7 58 14 128/64 94 05/29/16 04:00 50 05/29/16 03:00 48 05/29/16 02:00 52 05/29/16 01:00 52 05/29/16 00:00 55 05/29/16 00:00 97.9 60 24 207/83 96 Manual Cuff/Palpation 05/28/16 23:00 58 05/28/16 22:00 56 05/28/16 20:00 62 05/28/16 20:00 97.8 59 24 210/91 96 151/77 118/58 05/28/16 19:00 96 3.00 05/28/16 19:00 56 05/28/16 18:15 66 05/28/16 17:00 66 05/28/16 17:00 97.6 66 18 150/74 97 05/28/16 16:04 68 05/28/16 15:00 70 05/28/16 14:00 75 I/O 05/28/16 05/28/16 05/28/16 05/29/16 05/29/16 05/29/16 06:59 14:59 22:59 06:59 14:59 22:59 Intake Total 780 ml 971 ml 580 ml Output Total 850 ml 1200 ml 1750 ml Balance -70 ml -229 ml -1170 ml Intake Oral 680 ml 720 ml 480 ml IV Total 100 ml 251 ml 100 ml Output Urine Total 850 ml 1200 ml 1750 ml # Voids 1 1 # Bowel Movements 0 Result Diagram: 05/27/16 0955 05/27/16 0705 Objective Remarks GENERAL: SKIN: Warm and dry. HEAD: Atraumatic. Normocephalic. EYES: Pupils equal and round. No scleral icterus. No injection or drainage. ENT: No nasal bleeding or discharge. Mucous membranes pink and moist. NECK: Trachea midline. No JVD. CARDIOVASCULAR: Regular rate and rhythm. RESPIRATORY: No accessory muscle use. Clear to auscultation. Breath sounds equal bilaterally. GASTROINTESTINAL: Abdomen soft, non-tender, nondistended. Hepatic and splenic margins not palpable. MUSCULOSKELETAL: Extremities without clubbing, cyanosis, or edema. No obvious deformities. NEUROLOGICAL: Awake and alert. No obvious cranial nerve deficits. Motor grossly within normal limits. Five out of 5 muscle strength in the arms and legs. Normal speech. PSYCHIATRIC: Appropriate mood and affect; insight and judgment normal. Assessment and Plan Assessment and Plan ALERT STILL WITH SOME CONGESTION ON ANTIBITICS COLON MASS PLAN O2 NEEDED ANTIBIOTICS BRONCHODILATOR THERAPY CHECK PFT OPTIONS FOR COLON MASS THERAPY , PER SURGERY Radhames Ricci MD May 29, 2016 13:11
[2016-05-29] MEDS: AZITHROMYCIN INJ 500 MG in SODIUM CHLOR 0.9% 250 ML INJ 250 ML IV SCH (13:28)
[2016-05-29] MEDS: ACETAMINOPHEN 325 MG TAB PO PRN (22:12)
[2016-05-29] MEDS: BENZONATATE 100 MG CAP PO PRN (22:12)
[2016-05-29] MEDS: LEVOTHYROXINE SODIUM 25 MCG TAB PO SCH (22:14)
[2016-05-29] MEDS: ATORVASTATIN 10 MG TAB PO SCH (22:15)
[2016-05-29] MEDS: cefTRIAXone INJ 1,000 MG in SODIUM CHLORIDE 0.9% INJ 100 ML IV SCH (22:51)
[2016-05-29] MEDS: ENALAPRILAT 2.5 MG/2 ML VIAL IV PUSH PRN (23:12)
[2016-05-30] VITALS (11 sets, daily range): BP systolic 106–209; BP diastolic 56–83; PULSE 50–60; RESP 16–20; TEMP 98–98.2; O2SAT 98
[2016-05-30] MEDS: hydrALAZINE HCL 10 MG TAB PO SCH (06:20)
[2016-05-30] MEDS: HEPARIN SODIUM - SQ 10,000 UNITS/ML VIAL SQ SCH (06:20)
--- NOTE | 2016-05-30 08:25 | HHI.PR ---
Subjective Remarks overall doing fine with no new complaints. the BP reading fluctuation noted. family at the bedside. d/w the RN and no acute issues over night. Objective Vitals Vital Signs Date Time Temp Pulse Resp B/P Pulse Ox O2 Delivery O2 Flow Rate FiO2 05/30/16 04:00 98.2 53 20 150/72 98 05/30/16 00:00 98.2 55 20 209/83 98 05/29/16 20:00 98.1 57 20 142/71 98 105/52 95/49 05/29/16 18:10 53 05/29/16 17:00 58 05/29/16 16:00 98.0 58 18 127/66 100 05/29/16 16:00 56 05/29/16 15:00 59 05/29/16 14:19 59 05/29/16 13:00 66 05/29/16 12:00 97.8 58 16 119/59 98 05/29/16 12:00 60 05/29/16 11:00 57 05/29/16 10:00 54 05/29/16 09:00 97.5 65 16 129/63 97 108/58 105/37 05/29/16 09:00 64 I/O 05/29/16 05/29/16 05/29/16 05/30/16 05/30/16 05/30/16 07:00 15:00 23:00 07:00 15:00 23:00 Intake Total 580 ml 680 ml 580 ml Output Total 1750 ml 500 ml 1650 ml Balance -1170 ml 180 ml -1070 ml Intake Oral 480 ml 480 ml 480 ml IV Total 100 ml 100 ml TPN/PPN 200 ml Output Urine Total 1750 ml 500 ml 1650 ml # Bowel Movements 0 Result Diagram: 05/27/16 0955 05/27/16 0705 Imaging Last Impressions Chest X-Ray 05/26/16 0000 Signed Impressions: Service Date/Time: May 10:13 - CONCLUSION: Lingular infiltrate suspected. Cardiomegaly. Ricco Santana Jr., MD CT Angiography 05/26/16 0000 Signed Impressions: Service Date/Time: May 17:07 - CONCLUSION: 1. Patchy airspace disease in the posterior perifissural aspect of the right upper lobe shows interval improvement and probably represents resolving atelectasis. Minimal bibasilar atelectasis. 2. Tiny pericardial and right pleural effusion. Minimal bibasilar atelectatic changes. 3. Narrowing of the left mainstem bronchus I believe is physiologic and probably related to the phase of respiration possibly exacerbated by some esophageal distention as the latter passes just posterior to the left mainstem bronchus. This was not present 2 days earlier.. Jaya Cazares MD Knee X-Ray 05/20/16 0000 Signed Impressions: Service Date/Time: Friday, May 20, 2016 23:43 - CONCLUSION: Mild degenerative changes. No evidence of fracture. Blake Saenz MD Abdomen/Pelvis CT 05/20/16 0000 Signed Impressions: Service Date/Time: Friday, May 20, 2016 23:30 - CONCLUSION: 1. 4.3 cm intraluminal masslike increased attenuation at the base of the cecum. I'm not sure whether this is debris or a true mass. 2. No other acute abnormalities are demonstrated. There is atherosclerosis of the abdominal aorta without aneurysm. Patient has had previous hysterectomy and cholecystectomy. Blake Saenz MD Objective Remarks GENERAL: This is a well-nourished, well-developed patient, in no apparent distress. CARDIOVASCULAR: Regular rate and regular rhythm without murmurs, gallops, or rubs. RESPIRATORY: Clear to auscultation. Breath sounds equal bilaterally. No wheezes , rales, or rhonchi. GASTROINTESTINAL: Abdomen soft, non-tender, nondistended. Normal, active bowel sounds MUSCULOSKELETAL: Extremities without clubbing, cyanosis, or edema. NEURO: Alert & Oriented x4 to person, place, time, situation. Moves all ext x4 Procedures colonoscopy Medications and IVs Current Medications Acetaminophen 650 mg 650 mg ONCE ONCE PO Last administered on 05/20/16 22:54 ; Start 05/20/16 at 22:30; Stop 05/20/16 at 22:31; Status DC Sodium Chloride (NS 1000 ml Inj) 1,000 ml @ 1,000 mls/hr Q1H ONCE IV Last administered on 05/20/16 22:54; Start 05/20/16 at 22:18; Stop 05/20/16 at 23:17 ; Status DC Iodixanol 47 ml 47 ml STK-MED ONCE IV Last administered on 05/20/16 23:29; Start 05/20/16 at 23:29; Stop 05/20/16 at 23:30; Status DC Ceftriaxone Sodium 1000 mg/ Sodium Chloride 100 ml @ 200 mls/hr ONCE ONCE IV Last administered on 05/21/16 00:41; Start 05/21/16 at 00:15; Stop 05/21/16 at 00:44; Status DC Sodium Chloride (NS 1000 ml Inj) 1,000 ml @ 100 mls/hr Q10H IV Last administered on 05/21/16 14:44; Start 05/21/16 at 03:00; Stop 05/25/16 at 13:26 ; Status DC IV Flush (NS Flush) 2 ml UNSCH PRN FLUSH FLUSH AFTER USING IV ACCESS Last administered on 05/23/16 14:57; Start 05/21/16 at 03:00 IV Flush (NS Flush) 2 ml BID FLUSH Last administered on 05/29/16 22:15; Start 05/21/16 at 09:00 Acetaminophen (Tylenol) 650 mg Q4H PRN PO TEMP > 100.4 Last administered on 22:12; Start 05/21/16 at 03:00 Ondansetron HCl (Zofran Inj) 4 mg Q6H PRN IVP NAUSEA OR VOMITING Last administered on 05/23/16 09:20; Start 05/21/16 at 03:00 Bisacodyl (Dulcolax Supp) 10 mg DAILY PRN NV CONSTIPATION Last administered on 05/23/16 00:28; Start 05/21/16 at 03:00 Docusate Sodium (Colace) 100 mg Q12HR PO Last administered on 05/29/16 22:13; Start 05/21/16 at 09:00 Magnesium Hydroxide (Milk Of Magnesia Liq) 30 ml Q12H PRN PO CONSTIPATION Last administered on 05/26/16 09:05; Start 05/21/16 at 03:00 Sennosides (Senokot) 17.2 mg Q12H PRN PO CONSTIPATION Last administered on 05/22 22:19; Start 05/21/16 at 03:00 Heparin Sodium (Porcine) (Heparin Inj) 5,000 units Q8HR SQ Last administered on 05/30/16 06:20; Start 05/21/16 at 06:00 Naloxone HCl 0.4 mg 0.4 mg UNSCH PRN IV SEE LABEL COMMENTS; Start 05/21/16 at 03:00 Ceftriaxone Sodium/Sodium Chloride (Rocephin Inj/NS Inj) 100 ml @ 200 mls/hr Q24H IV Last administered on 05/29/16 22:51; Start 05/22/16 at 00:00 Aspirin (Ecotrin Ec) 81 mg DAILY PO Last administered on 05/29/16 08:56; Start 05/22/16 at 09:00 Atorvastatin Calcium (Lipitor) 10 mg HS PO Last administered on 05/29/16 22:15 ; Start 05/21/16 at 21:00 Fludrocortisone Acetate (Florinef) 0.1 mg DAILY PO Last administered on 09:04; Start 05/21/16 at 13:00; Status Hold Gabapentin (Neurontin) 300 mg TID PO Last administered on 05/24/16 13:11; Start 05/21/16 at 13:00; Stop 05/24/16 at 15:47; Status DC Levothyroxine Sodium (Synthroid) 25 mcg HS PO Last administered on 05/29/16 22 :14; Start 05/21/16 at 21:00 Midodrine (Proamatine) 5 mg BID PO Last administered on 05/29/16 22:14; Start 05/21/16 at 21:00 Albuterol/ Ipratropium (Duoneb Neb) 1 ampule Q4HR NEB PRN NEB shortness of breath/wheezing Last administered on 05/24/16 10:26; Start 05/21/16 at 20:00; Stop 05/24/16 at 10:33; Status DC Enalaprilat (Vasotec Inj) 2.25 mg Q6H PRN IV PUSH SBP>160, DBP>100 Last administered on 05/29/16 23:12; Start 05/22/16 at 12:00 Polyethylene Glycol/ Electrolytes (Colyte Liq) 4,000 ml ONCE ONCE PO Last administered on 05/22/16 13:06; Start 05/22/16 at 12:15; Stop 05/22/16 at 12:26 ; Status DC Calcium Carbonate (Tums Chew) 500 mg ONCE ONCE CHEW Last administered on 17:34; Start 05/22/16 at 17:30; Stop 05/22/16 at 17:31; Status DC Calcium Carbonate 500 mg 500 mg Q2H PRN CHEW dyspepsia /low calcium; Start 03/26 at 17:30 Lactated Ringer's 1,000 ml @ 30 mls/hr Q24H IV Last administered on 05/23/16 14:57; Start 05/23/16 at 10:00; Stop 05/25/16 at 13:26; Status DC Sodium Chloride (NS 500 ml Inj) 500 ml @ 30 mls/hr [id number] IV ; Start 05/23/16 at 10:00; Stop 05/24/16 at 09:59; Status DC Insulin Human Regular (NovoLIN R INJ) See Protocol Table ... UNSCH X1 PRN SQ SEE PROTOCOL; Start 05/23/16 at 10:15; Stop 05/24/16 at 10:14; Status DC Metoprolol Tartrate (Lopressor) 25 mg UNSCH X1 PRN PO SEE LABEL COMMENTS; Start 05/23/16 at 10:15; Stop 05/24/16 at 10:14; Status DC Guaifenesin/ Dextromethorphan (Robitussin Dm 200-20 Mg/10 ml Liq) 10 ml Q6H PRN PO cough Last administered on 05/28/16 23:24; Start 05/23/16 at 14:30 Propofol (Diprivan 200 Mg/20 ml Inj) 140 mg STK-MED ONCE IV ; Start 05/23/16 at 16:48; Stop 05/23/16 at 17:18; Status DC Potassium Chloride (KCl) 30 meq ONCE ONCE PO Last administered on 05/24/16 10 :18; Start 05/24/16 at 10:00; Stop 05/24/16 at 10:01; Status DC Albuterol/ Ipratropium (Duoneb Neb) 1 ampule Q6HR NEB PRN NEB shortness of breath/wheezing; Start 05/24/16 at 16:00; Status Cancel Albuterol/ Ipratropium (Duoneb Neb) 1 ampule Q2HR NEB PRN NEB sob/wheezing Last administered on 05/28/16 12:12; Start 05/24/16 at 10:45 Benzonatate (Tessalon) 100 mg TID PRN PO cough Last administered on 05/29/16 22:12; Start 05/24/16 at 10:45 Methylprednisolone Sodium Succinate (SoluMEDROL INJ) 125 mg ONCE ONCE IV PUSH Last administered on 05/24/16 12:56; Start 05/24/16 at 12:00; Stop 05/24/16 at 12:01; Status DC Methylprednisolone Sodium Succinate (SoluMEDROL INJ) 40 mg Q6HR IV PUSH Last administered on 05/27/16 06:26; Start 05/24/16 at 18:00; Stop 05/27/16 at 09:55 ; Status DC Albuterol/ Ipratropium 1 ampule 1 ampule Q4HR WHILE AWAKE NEB NEB Last administered on 05/28/16 08:21; Start 05/24/16 at 12:00; Stop 05/28/16 at 12:00 ; Status DC Azithromycin/ Sodium Chloride (Zithromax Inj/ NS 250 ml Inj) 250 ml @ 250 mls/ hr Q24H IV Last administered on 05/29/16 13:28; Start 05/24/16 at 12:00 Gabapentin (Neurontin) 300 mg Q12HR PO Last administered on 05/29/16 22:14; Start 05/24/16 at 21:00 Enalaprilat 2.5 mg 2.5 mg NOW ONCE IV PUSH Last administered on 05/25/16 07: 33; Start 05/25/16 at 07:30; Stop 05/25/16 at 07:31; Status DC Iron Sucrose/ Sodium Chloride (Venofer Inj/NS Inj) 105 ml @ 105 mls/hr DAILY IV Last administered on 05/27/16 08:31; Start 05/25/16 at 10:00; Stop at 09:59; Status DC Cyanocobalamin (Vitamin B12 Inj) 1,000 mcg ONCE ONCE IM Last administered on 12:29; Start 05/25/16 at 10:00; Stop 05/25/16 at 10:01; Status DC Furosemide (Lasix Inj) 20 mg DAILY IV PUSH Last administered on 05/29/16 08:56 ; Start 05/25/16 at 10:45 Morphine Sulfate (Morphine Inj) 2 mg NOW ONCE IV Last administered on 09:15; Start 05/26/16 at 10:00; Stop 05/26/16 at 10:01; Status DC Diltiazem HCl 15 mg 15 mg NOW ONCE IV PUSH Last administered on 05/26/16 10: 00; Start 05/26/16 at 10:00; Stop 05/26/16 at 10:01; Status DC Potassium Chloride 100 ml @ 50 mls/hr Q2H IV Last administered on 05/26/16 12 :00; Start 05/26/16 at 10:00; Stop 05/26/16 at 13:59; Status DC Calcium Gluconate/ Dextrose (Calcium Gluconate Inj/D5W 100 ml Inj) 110 ml @ 110 mls/hr ONCE ONCE IV Last administered on 05/26/16 10:00; Start 05/26/16 at 10:00; Stop 05/26/16 at 10:59; Status DC Potassium Chloride (KCl) 30 meq ONCE ONCE PO Last administered on 05/26/16 10 :37; Start 05/26/16 at 10:00; Stop 05/26/16 at 10:04; Status DC Magnesium Oxide (Mag-Ox) 400 mg ONCE ONCE PO Last administered on 05/26/16 13 :45; Start 05/26/16 at 10:15; Stop 05/26/16 at 10:16; Status DC Digoxin (Lanoxin Inj) 0.25 mg ONCE ONCE IV PUSH Last administered on 10:37; Start 05/26/16 at 10:15; Stop 05/26/16 at 10:16; Status DC IV Flush (NS Flush) 2 ml UNSCH PRN FLUSH FLUSH AFTER USING IV ACCESS; Start at 10:15; Stop 05/26/16 at 10:27; Status DC IV Flush 2 ml 2 ml BID FLUSH ; Start 05/26/16 at 21:00; Stop 05/26/16 at 21:00; Status DC Magnesium Sulfate/ Dextrose (Magnesium Sulfate 1 Gm Premix) 100 ml @ 100 mls/ hr Q1H IV ; Start 05/26/16 at 11:00; Stop 05/26/16 at 12:59; Status DC Digoxin (Lanoxin Inj) 0.25 mg Q6H IVS Last administered on 05/26/16 21:59; Start 05/26/16 at 17:00; Stop 05/26/16 at 23:01; Status DC Iohexol (Omnipaque 350 Inj) 75 ml STK-MED ONCE IV ; Start 05/26/16 at 17:19; Stop 05/26/16 at 17:20; Status DC Methylprednisolone Sodium Succinate (SoluMEDROL INJ) 40 mg Q8HR IV PUSH Last administered on 05/28/16 05:31; Start 05/27/16 at 14:00; Stop 05/28/16 at 11:07 ; Status DC Hydralazine HCl (Apresoline) 25 mg Q8H PO Last administered on 05/28/16 01:14 ; Start 05/27/16 at 16:00; Stop 05/28/16 at 10:21; Status DC Hydralazine HCl (Apresoline) 10 mg Q8HR PO Last administered on 05/30/16 06:20 ; Start 05/28/16 at 14:00 Hydralazine HCl (Apresoline) 10 mg ONCE ONCE PO Last administered on 12:25; Start 05/28/16 at 10:30; Stop 05/28/16 at 10:31; Status DC Methylprednisolone Sodium Succinate (SoluMEDROL INJ) 20 mg Q8HR IV PUSH Last administered on 05/29/16 06:46; Start 05/28/16 at 14:00; Stop 05/29/16 at 09:49 ; Status DC Methylprednisolone Sodium Succinate (SoluMEDROL INJ) 20 mg Q12HR IV PUSH Last administered on 05/29/16 22:13; Start 05/29/16 at 21:00 A/P Assessment and Plan A/P Chest pain/ Newly onset Afib with RVR Will hold on anticoagulation at this time per cardio. received digoxin IV Dr Azar cardiology following. UTI with sepsis: Urine culture with E Coli. Continue IV Rocephin and follow- up cultures. acute respiratory failure due to COPD with exacerbation/Pneumonia- improving. on ceftriaxone IV and azithromycin; will switch to po antibiotics and prednisone. Influenza A/B is negative. legionella and pneumococcal Ag negative. Consulted pulmonary, appreciate recommendations Fall: Recurrent. Likely secondary to chronic orthostatic hypotension. Denies any injury. PT eval. Fall precautions. Orthostatic hypotension/: Chronic. Now hypertensive. Continue midodrine. florinef on hold- started on low dose hydralazine- will monitor for now. continue with permissive hypertension and this was previously d/w and the patient and her family. Cecal mass: Abdomen and pelvis CT in the ED showed incidental 4.3 cm possible mass at the base of the cecum. 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 surgery recommends outpatient f/u due to her lung/ cardiac comorbidities- this was previously d/w . palliative care following. Anemia with Iron deficiency anemia. received venofer IV and will continue with ferrous sulfate PO after surgery at [place]. Hypothyroidism: TSH normal. Continue levothyroxine. DVT prophylaxis: Heparin, SCDs Discharge Planning dc to rehab when arrangements made. f/u; pcp, pulmonary, cardiology and surgery. see med list. d/w the patient and her family at the bedside. d/w the RN. time spent 35 min. Ernie Pacheco MD May 30, 2016 08:25
[2016-05-30] MEDS ORDERED: FLUD.1 PO (08:29)
[2016-05-30] MEDS ORDERED: PRED5TAB PO (08:29)
[2016-05-30] MEDS ORDERED: CEFT500T3 PO (08:29)
--- NOTE | 2016-05-30 08:30 | HHI.DCPOC ---
Discharge Care Plan Diagnosis: (1) Pneumonia (2) Cecum mass Your Health Problems Are: Cough Shortness of Breath Goals to Promote Your Health * To prevent worsening of your condition and complications * To maintain your health at the optimal level Directions to Meet Your Goals Take your medications as prescribed Follow your dietary instruction Follow activity as directed Keep your appointments as scheduled Take your immunizations and boosters as scheduled If your symptoms worsen call your PCP, if no PCP go to Urgent Care Center or Emergency Room Smoking is Dangerous to Your Health. Avoid second hand smoke Call the 24-hour hour crisis hotline for domestic abuse at Ernie Pacheco MD May 30, 2016 08:29
--- NOTE | 2016-05-30 08:30 | HHI.DS ---
Discharge Summary Admission Date May 21, 2016 at 00:34 Discharge Date: May 30, 2016 Admitting Diagnosis UTI, fever (1) UTI (urinary tract infection) ICD Code: N39.0 Diagnosis: Principal (2) Cecum mass ICD Code: K63.9 Diagnosis: Principal (3) Pneumonia ICD Code: J18.9 Diagnosis: Principal Procedures colonoscopy Brief History - From Admission 85-year-old female with past medical history of orthostatic hypotension, HLD, CKD, incontinence, hypothyroidism, neuropathy who presented after a fall. The patient had a fall yesterday at her independent living facility when her family was visiting. She states that she's been having problems with falls for years now. She states that if she's been sitting or lying down too long and stands up too quickly she becomes dizzy. She states that she tries to be careful, but she still fall sometimes. She would like to remain in independent living if possible. She denies any injury from the fall. She states that last night she was having some fevers and chills. She has urinary incontinence at baseline, but feels that the incontinence is been worsening recently. She denies any burning with urination. She denies any nausea. She's been having some "light" abdominal discomfort. She does have an advanced directive to be a DO NOT RESUSCITATE, and would like to continue that. Discussed at length with the patient regarding CT findings and possible cecal mass. She's not sure if she would like to seek treatment for this or not depending on the findings, but would like to find out exactly what it is. CBC/BMP: 05/27/16 0955 05/27/16 0705 Significant Findings Laboratory Tests Test 05/27/16 09:55 White Blood Count 11.4 TH/MM3 (4.0-11.0) Red Blood Count 3.33 MIL/MM3 (4.00-5.30) Hemoglobin 10.0 GM/DL (11.6-15.3) Hematocrit 30.3 % (35.0-46.0) Neutrophils (%) (Auto) 93.5 % (16.0-70.0) Lymphocytes (%) (Auto) 3.3 % (9.0-44.0) Neutrophils # (Auto) 10.7 TH/MM3 (1.8-7.7) Lymphocytes # (Auto) 0.4 TH/MM3 (1.0-4.8) Neutrophils % (Manual) 89 % (16-70) Lymphocytes % 2 % (9-44) Neutrophils # (Manual) 10.8 TH/MM3 (1.8-7.7) Myelocytes 1 % (0-0) Imaging Last Impressions Chest X-Ray 05/26/16 Signed Impressions: Service Date/Time: May 10:13 - CONCLUSION: Lingular infiltrate suspected. Cardiomegaly. Ricco Santana Jr., MD CT Angiography 05/26/16 Signed Impressions: Service Date/Time: May 17:07 - CONCLUSION: 1. Patchy airspace disease in the posterior perifissural aspect of the right upper lobe shows interval improvement and probably represents resolving atelectasis. Minimal bibasilar atelectasis. 2. Tiny pericardial and right pleural effusion. Minimal bibasilar atelectatic changes. 3. Narrowing of the left mainstem bronchus I believe is physiologic and probably related to the phase of respiration possibly exacerbated by some esophageal distention as the latter passes just posterior to the left mainstem bronchus. This was not present 2 days earlier.. Jaya Cazares MD Knee X-Ray 05/20/16 Signed Impressions: Service Date/Time: Friday, May 20, 2016 23:43 - CONCLUSION: Mild degenerative changes. No evidence of fracture. Blake Saenz MD Abdomen/Pelvis CT 05/20/16 0000 Signed Impressions: Service Date/Time: Friday, May 20, 2016 23:30 - CONCLUSION: 1. 4.3 cm intraluminal masslike increased attenuation at the base of the cecum. I'm not sure whether this is debris or a true mass. 2. No other acute abnormalities are demonstrated. There is atherosclerosis of the abdominal aorta without aneurysm. Patient has had previous hysterectomy and cholecystectomy. Blake Saenz MD PE at Discharge GENERAL: This is a well-nourished, well-developed patient, in no apparent distress. CARDIOVASCULAR: Regular rate and regular rhythm without murmurs, gallops, or rubs. RESPIRATORY: Clear to auscultation. Breath sounds equal bilaterally. No wheezes , rales, or rhonchi. GASTROINTESTINAL: Abdomen soft, non-tender, nondistended. Normal, active bowel sounds MUSCULOSKELETAL: Extremities without clubbing, cyanosis, or edema. NEURO: Alert & Oriented x4 to person, place, time, situation. Moves all ext x4 Hospital Course Chest pain/ Newly onset Afib with RVR Will hold on anticoagulation at this time per cardio. received digoxin IV Dr Azar cardiology following. UTI with sepsis: Urine culture with E Coli. Continue IV Rocephin and follow- up cultures. acute respiratory failure due to COPD with exacerbation/Pneumonia- improving. on ceftriaxone IV and azithromycin; will switch to po antibiotics and prednisone. Influenza A/B is negative. legionella and pneumococcal Ag negative. Consulted pulmonary, appreciate recommendations Fall: Recurrent. Likely secondary to chronic orthostatic hypotension. Denies any injury. PT eval. Fall precautions. Orthostatic hypotension/: Chronic. Now hypertensive. Continue midodrine. florinef on hold- started on low dose hydralazine- will monitor for now. continue with permissive hypertension and this was previously d/w and the patient and her family. Cecal mass: Abdomen and pelvis CT in the ED showed incidental 4.3 cm possible mass at the base of the cecum. 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 surgery recommends outpatient f/u due to her lung/ cardiac comorbidities- this was previously d/w . palliative care following. Anemia with Iron deficiency anemia. received venofer IV and will continue with ferrous sulfate PO after surgery at [place]. Hypothyroidism: TSH normal. Continue levothyroxine. DVT prophylaxis: Heparin, SCDs Pt Condition on Discharge: Good Discharge Disposition: Discharge to SNF Discharge Time: > 30 minutes Discharge Instructions DIET: Follow Instructions for: Heart Healthy Diet Activities you can perform: Regular-No Restrictions Follow up Referrals: Cardiology PCP Follow-up Pulmonology Surgical - 2 Weeks with Levi Thompson MD New Medications: Cefuroxime (Ceftin) 500 Mg Tab 500 MG PO BID Infection Days 5 Ref 0 TAB Prednisone (Prednisone) 5 Mg Tab 5 MG PO DIRECTED 40 mg po daily for two days then 30 mg po daily for two days then 20 mg po daily for two days then 10 mg po daily for two days then 5 mg po daily for two days then stop. copd Days 10 Ref 0 TAB Hydralazine (Hydralazine) 10 Mg Tab 10 MG PO Q8HR hypertension Days 30 Ref 0 TAB Changed Medications: Fludrocortisone (Fludrocortisone) 0.1 Mg Tab 0.1 MG PO DAILY resume after the course of prednisone has been completed. orthostatic hypotension #30 Ref 0 TAB (Medication details modified) Continued Medications: Aspirin (Aspirin) 81 Mg Tabdr 81 MG PO DAILY TAB Atorvastatin (Atorvastatin) 10 Mg Tab 10 MG PO HS Cholesterol Management #30 Ref 0 TAB Gabapentin (Gabapentin) 300 Mg Cap 300 MG PO TID #90 Ref 0 CAP Levothyroxine (Levothyroxine) 25 Mcg Tab 25 MCG PO HS Thyroid #30 Ref 0 TAB Midodrine (Midodrine) 5 Mg Tab 5 MG PO BID Control Low Blood Pressure #90 Ref 0 TAB Ernie Pacheco MD May 30, 2016 08:30
[2016-05-30] MEDS ORDERED: HYDR10TA23 PO (08:34)
[2016-05-30] MEDS: methylPREDNISolone SOD SUCC 40 MG/1 ML VIAL IV PUSH SCH (09:06)
[2016-05-30] MEDS: MIDODRINE 5 MG TAB PO SCH (09:07)
[2016-05-30] MEDS: GABAPENTIN 300 MG CAP PO SCH (09:07)
[2016-05-30] MEDS: FUROSEMIDE 20 MG/2 ML VIAL IV PUSH SCH (09:07)
[2016-05-30] MEDS: SODIUM CHLORIDE 0.9% FLUSH 5 ML FLUSH FLUSH SCH (09:07)
[2016-05-30] MEDS: ASPIRIN EC 81 MG TABEC PO SCH (09:07)
[2016-05-30] MEDS: DOCUSATE SODIUM 100 MG CAP PO SCH (09:07)
[2016-05-30] MEDS: AZITHROMYCIN INJ 500 MG in SODIUM CHLOR 0.9% 250 ML INJ 250 ML IV SCH (11:53)
--- NOTE | 2016-05-30 15:32 | PD.CARD.PN ---
Subjective Subjective Remarks Patient seen earlier, no chest pain, no shortness of breath Objective Medications Current Medications Acetaminophen 650 mg 650 mg ONCE ONCE PO Last administered on 05/20/16 22:54 ; Start 05/20/16 at 22:30; Stop 05/20/16 at 22:31; Status DC Sodium Chloride (NS 1000 ml Inj) 1,000 ml @ 1,000 mls/hr Q1H ONCE IV Last administered on 05/20/16 22:54; Start 05/20/16 at 22:18; Stop 05/20/16 at 23:17 ; Status DC Iodixanol 47 ml 47 ml STK-MED ONCE IV Last administered on 05/20/16 23:29; Start 05/20/16 at 23:29; Stop 05/20/16 at 23:30; Status DC Ceftriaxone Sodium 1000 mg/ Sodium Chloride 100 ml @ 200 mls/hr ONCE ONCE IV Last administered on 05/21/16 00:41; Start 05/21/16 at 00:15; Stop 05/21/16 at 00:44; Status DC Sodium Chloride (NS 1000 ml Inj) 1,000 ml @ 100 mls/hr Q10H IV Last administered on 05/21/16 14:44; Start 05/21/16 at 03:00; Stop 05/25/16 at 13:26 ; Status DC IV Flush (NS Flush) 2 ml UNSCH PRN FLUSH FLUSH AFTER USING IV ACCESS Last administered on 05/23/16 14:57; Start 05/21/16 at 03:00; Stop 05/30/16 at 13:17 ; Status DC IV Flush (NS Flush) 2 ml BID FLUSH Last administered on 05/30/16 09:07; Start 05/21/16 at 09:00; Stop 05/30/16 at 13:17; Status DC Acetaminophen (Tylenol) 650 mg Q4H PRN PO TEMP > 100.4 Last administered on 22:12; Start 05/21/16 at 03:00; Stop 05/30/16 at 13:17; Status DC Ondansetron HCl (Zofran Inj) 4 mg Q6H PRN IVP NAUSEA OR VOMITING Last administered on 05/23/16 09:20; Start 05/21/16 at 03:00; Stop 05/30/16 at 13:17 ; Status DC Bisacodyl (Dulcolax Supp) 10 mg DAILY PRN GA CONSTIPATION Last administered on 05/23/16 00:28; Start 05/21/16 at 03:00; Stop 05/30/16 at 13:17; Status DC Docusate Sodium (Colace) 100 mg Q12HR PO Last administered on 05/30/16 09:07; Start 05/21/16 at 09:00; Stop 05/30/16 at 13:17; Status DC Magnesium Hydroxide (Milk Of Magnesia Liq) 30 ml Q12H PRN PO CONSTIPATION Last administered on 05/26/16 09:05; Start 05/21/16 at 03:00; Stop 05/30/16 at 13:17 ; Status DC Sennosides (Senokot) 17.2 mg Q12H PRN PO CONSTIPATION Last administered on 05/22 22:19; Start 05/21/16 at 03:00; Stop 05/30/16 at 13:17; Status DC Heparin Sodium (Porcine) (Heparin Inj) 5,000 units Q8HR SQ Last administered on 05/30/16 06:20; Start 05/21/16 at 06:00; Stop 05/30/16 at 13:17; Status DC Naloxone HCl 0.4 mg 0.4 mg UNSCH PRN IV SEE LABEL COMMENTS; Start 05/21/16 at 03:00; Stop 05/30/16 at 13:17; Status DC Ceftriaxone Sodium/Sodium Chloride (Rocephin Inj/NS Inj) 100 ml @ 200 mls/hr Q24H IV Last administered on 05/29/16 22:51; Start 05/22/16 at 00:00; Stop at 13:17; Status DC Aspirin (Ecotrin Ec) 81 mg DAILY PO Last administered on 05/30/16 09:07; Start 05/22/16 at 09:00; Stop 05/30/16 at 13:17; Status DC Atorvastatin Calcium (Lipitor) 10 mg HS PO Last administered on 05/29/16 22:15 ; Start 05/21/16 at 21:00; Stop 05/30/16 at 13:17; Status DC Fludrocortisone Acetate (Florinef) 0.1 mg DAILY PO Last administered on 09:04; Start 05/21/16 at 13:00; Stop 05/30/16 at 13:17; Status DC Gabapentin (Neurontin) 300 mg TID PO Last administered on 05/24/16 13:11; Start 05/21/16 at 13:00; Stop 05/24/16 at 15:47; Status DC Levothyroxine Sodium (Synthroid) 25 mcg HS PO Last administered on 05/29/16 22 :14; Start 05/21/16 at 21:00; Stop 05/30/16 at 13:17; Status DC Midodrine (Proamatine) 5 mg BID PO Last administered on 05/30/16 09:07; Start 05/21/16 at 21:00; Stop 05/30/16 at 13:17; Status DC Albuterol/ Ipratropium (Duoneb Neb) 1 ampule Q4HR NEB PRN NEB shortness of breath/wheezing Last administered on 05/24/16 10:26; Start 05/21/16 at 20:00; Stop 05/24/16 at 10:33; Status DC Enalaprilat (Vasotec Inj) 2.25 mg Q6H PRN IV PUSH SBP>160, DBP>100 Last administered on 05/29/16 23:12; Start 05/22/16 at 12:00; Stop 05/30/16 at 13:17 ; Status DC Polyethylene Glycol/ Electrolytes (Colyte Liq) 4,000 ml ONCE ONCE PO Last administered on 05/22/16 13:06; Start 05/22/16 at 12:15; Stop 05/22/16 at 12:26 ; Status DC Calcium Carbonate (Tums Chew) 500 mg ONCE ONCE CHEW Last administered on 17:34; Start 05/22/16 at 17:30; Stop 05/22/16 at 17:31; Status DC Calcium Carbonate 500 mg 500 mg Q2H PRN CHEW dyspepsia /low calcium; Start 03/26 at 17:30; Stop 05/30/16 at 13:17; Status DC Lactated Ringer's 1,000 ml @ 30 mls/hr Q24H IV Last administered on 05/23/16 14:57; Start 05/23/16 at 10:00; Stop 05/25/16 at 13:26; Status DC Sodium Chloride (NS 500 ml Inj) 500 ml @ 30 mls/hr [id number] IV ; Start 05/23/16 at 10:00; Stop 05/24/16 at 09:59; Status DC Insulin Human Regular (NovoLIN R INJ) See Protocol Table ... UNSCH X1 PRN SQ SEE PROTOCOL; Start 05/23/16 at 10:15; Stop 05/24/16 at 10:14; Status DC Metoprolol Tartrate (Lopressor) 25 mg UNSCH X1 PRN PO SEE LABEL COMMENTS; Start 05/23/16 at 10:15; Stop 05/24/16 at 10:14; Status DC Guaifenesin/ Dextromethorphan (Robitussin Dm 200-20 Mg/10 ml Liq) 10 ml Q6H PRN PO cough Last administered on 05/28/16 23:24; Start 05/23/16 at 14:30; Stop 05/30/16 at 13:17; Status DC Propofol (Diprivan 200 Mg/20 ml Inj) 140 mg STK-MED ONCE IV ; Start 05/23/16 at 16:48; Stop 05/23/16 at 17:18; Status DC Potassium Chloride (KCl) 30 meq ONCE ONCE PO Last administered on 05/24/16 10 :18; Start 05/24/16 at 10:00; Stop 05/24/16 at 10:01; Status DC Albuterol/ Ipratropium (Duoneb Neb) 1 ampule Q6HR NEB PRN NEB shortness of breath/wheezing; Start 05/24/16 at 16:00; Status Cancel Albuterol/ Ipratropium (Duoneb Neb) 1 ampule Q2HR NEB PRN NEB sob/wheezing Last administered on 05/28/16 12:12; Start 05/24/16 at 10:45; Stop 05/30/16 at 13:17; Status DC Benzonatate (Tessalon) 100 mg TID PRN PO cough Last administered on 05/29/16 22:12; Start 05/24/16 at 10:45; Stop 05/30/16 at 13:17; Status DC Methylprednisolone Sodium Succinate (SoluMEDROL INJ) 125 mg ONCE ONCE IV PUSH Last administered on 05/24/16 12:56; Start 05/24/16 at 12:00; Stop 05/24/16 at 12:01; Status DC Methylprednisolone Sodium Succinate (SoluMEDROL INJ) 40 mg Q6HR IV PUSH Last administered on 05/27/16 06:26; Start 05/24/16 at 18:00; Stop 05/27/16 at 09:55 ; Status DC Albuterol/ Ipratropium 1 ampule 1 ampule Q4HR WHILE AWAKE NEB NEB Last administered on 05/28/16 08:21; Start 05/24/16 at 12:00; Stop 05/28/16 at 12:00 ; Status DC Azithromycin/ Sodium Chloride (Zithromax Inj/ NS 250 ml Inj) 250 ml @ 250 mls/ hr Q24H IV Last administered on 05/30/16 11:53; Start 05/24/16 at 12:00; Stop 05/30/16 at 13:17; Status DC Gabapentin (Neurontin) 300 mg Q12HR PO Last administered on 05/30/16 09:07; Start 05/24/16 at 21:00; Stop 05/30/16 at 13:17; Status DC Enalaprilat 2.5 mg 2.5 mg NOW ONCE IV PUSH Last administered on 05/25/16 07: 33; Start 05/25/16 at 07:30; Stop 05/25/16 at 07:31; Status DC Iron Sucrose/ Sodium Chloride (Venofer Inj/NS Inj) 105 ml @ 105 mls/hr DAILY IV Last administered on 05/27/16 08:31; Start 05/25/16 at 10:00; Stop at 09:59; Status DC Cyanocobalamin (Vitamin B12 Inj) 1,000 mcg ONCE ONCE IM Last administered on 12:29; Start 05/25/16 at 10:00; Stop 05/25/16 at 10:01; Status DC Furosemide (Lasix Inj) 20 mg DAILY IV PUSH Last administered on 05/30/16 09:07 ; Start 05/25/16 at 10:45; Stop 05/30/16 at 13:17; Status DC Morphine Sulfate (Morphine Inj) 2 mg NOW ONCE IV Last administered on 09:15; Start 05/26/16 at 10:00; Stop 05/26/16 at 10:01; Status DC Diltiazem HCl 15 mg 15 mg NOW ONCE IV PUSH Last administered on 05/26/16 10: 00; Start 05/26/16 at 10:00; Stop 05/26/16 at 10:01; Status DC Potassium Chloride 100 ml @ 50 mls/hr Q2H IV Last administered on 05/26/16 12 :00; Start 05/26/16 at 10:00; Stop 05/26/16 at 13:59; Status DC Calcium Gluconate/ Dextrose (Calcium Gluconate Inj/D5W 100 ml Inj) 110 ml @ 110 mls/hr ONCE ONCE IV Last administered on 05/26/16 10:00; Start 05/26/16 at 10:00; Stop 05/26/16 at 10:59; Status DC Potassium Chloride (KCl) 30 meq ONCE ONCE PO Last administered on 05/26/16 10 :37; Start 05/26/16 at 10:00; Stop 05/26/16 at 10:04; Status DC Magnesium Oxide (Mag-Ox) 400 mg ONCE ONCE PO Last administered on 05/26/16 13 :45; Start 05/26/16 at 10:15; Stop 05/26/16 at 10:16; Status DC Digoxin (Lanoxin Inj) 0.25 mg ONCE ONCE IV PUSH Last administered on 10:37; Start 05/26/16 at 10:15; Stop 05/26/16 at 10:16; Status DC IV Flush (NS Flush) 2 ml UNSCH PRN FLUSH FLUSH AFTER USING IV ACCESS; Start at 10:15; Stop 05/26/16 at 10:27; Status DC IV Flush 2 ml 2 ml BID FLUSH ; Start 05/26/16 at 21:00; Stop 05/26/16 at 21:00; Status DC Magnesium Sulfate/ Dextrose (Magnesium Sulfate 1 Gm Premix) 100 ml @ 100 mls/ hr Q1H IV ; Start 05/26/16 at 11:00; Stop 05/26/16 at 12:59; Status DC Digoxin (Lanoxin Inj) 0.25 mg Q6H IVS Last administered on 05/26/16 21:59; Start 05/26/16 at 17:00; Stop 05/26/16 at 23:01; Status DC Iohexol (Omnipaque 350 Inj) 75 ml STK-MED ONCE IV ; Start 05/26/16 at 17:19; Stop 05/26/16 at 17:20; Status DC Methylprednisolone Sodium Succinate (SoluMEDROL INJ) 40 mg Q8HR IV PUSH Last administered on 05/28/16 05:31; Start 05/27/16 at 14:00; Stop 05/28/16 at 11:07 ; Status DC Hydralazine HCl (Apresoline) 25 mg Q8H PO Last administered on 05/28/16 01:14 ; Start 05/27/16 at 16:00; Stop 05/28/16 at 10:21; Status DC Hydralazine HCl (Apresoline) 10 mg Q8HR PO Last administered on 05/30/16 06:20 ; Start 05/28/16 at 14:00; Stop 05/30/16 at 13:17; Status DC Hydralazine HCl (Apresoline) 10 mg ONCE ONCE PO Last administered on 12:25; Start 05/28/16 at 10:30; Stop 05/28/16 at 10:31; Status DC Methylprednisolone Sodium Succinate (SoluMEDROL INJ) 20 mg Q8HR IV PUSH Last administered on 05/29/16 06:46; Start 05/28/16 at 14:00; Stop 05/29/16 at 09:49 ; Status DC Methylprednisolone Sodium Succinate (SoluMEDROL INJ) 20 mg Q12HR IV PUSH Last administered on 05/30/16 09:06; Start 05/29/16 at 21:00; Stop 05/30/16 at 13:17 ; Status DC Vital Signs / I&O Vital Signs Date Time Temp Pulse Resp B/P Pulse Ox O2 Delivery O2 Flow Rate FiO2 05/30/16 12:30 98.2 59 18 106/56 98 05/30/16 12:30 59 05/30/16 10:31 57 05/30/16 09:38 54 05/30/16 08:00 55 05/30/16 08:00 98 Nasal Cannula 2.00 05/30/16 08:00 98.0 56 16 132/68 98 05/30/16 06:00 50 05/30/16 05:00 54 05/30/16 04:00 98.2 53 20 150/72 98 05/30/16 04:00 60 05/30/16 03:00 52 05/30/16 02:00 54 05/30/16 01:00 54 05/30/16 00:00 55 05/30/16 00:00 98.2 55 20 209/83 98 05/29/16 23:00 54 05/29/16 22:00 60 05/29/16 21:00 54 05/29/16 20:00 98.1 57 20 142/71 98 105/52 95/49 05/29/16 20:00 55 05/29/16 19:00 52 05/29/16 19:00 96 Nasal Cannula 3.00 05/29/16 18:10 53 05/29/16 17:00 58 05/29/16 16:00 98.0 58 18 127/66 100 05/29/16 16:00 56 I/O 05/29/16 05/29/16 05/29/16 05/30/16 05/30/16 05/30/16 07:00 15:00 23:00 07:00 15:00 23:00 Intake Total 580 ml 680 ml 580 ml Output Total 1750 ml 500 ml 1650 ml Balance -1170 ml 180 ml -1070 ml Intake Oral 480 ml 480 ml 480 ml IV Total 100 ml 100 ml TPN/PPN 200 ml Output Urine Total 1750 ml 500 ml 1650 ml # Bowel Movements 0 Physical Exam GENERAL: NAD, AAOx3 SKIN: Warm and dry. HEAD: Atraumatic. Normocephalic. EYES: Pupils equal and round. No scleral icterus. No injection or drainage. ENT: No nasal bleeding or discharge. Mucous membranes pink and moist. NECK: Trachea midline. No JVD. CARDIOVASCULAR: Regular rate and rhythm RESPIRATORY: No accessory muscle use. CTA B/L GASTROINTESTINAL: Abdomen soft, non-tender, nondistended. Hepatic and splenic margins not palpable. MUSCULOSKELETAL: Extremities without clubbing, cyanosis, or edema. No obvious deformities. NEUROLOGICAL: Awake and alert. No obvious cranial nerve deficits. Motor grossly within normal limits. Five out of 5 muscle strength in the arms and legs. Normal speech. PSYCHIATRIC: Appropriate mood and affect; insight and judgment normal. Assessment and Plan Problem List: (1) Cecum mass (2) Orthostatic hypotension (3) HTN (hypertension) (4) Peripheral vascular disease (5) Atrial fibrillation with RVR Assessment and Plan 1) Currently will hold off on surgery, discussed with Dr. Thompson who agrees, will plan in the next 4-6 weeks 2) She continues to be a moderate-high risk for surgery, unable to decrease this risk, family understands this risk but they want surgery... does not want further ischemic evaluation 3) Will need to have permissive hypertension due to her extensive orthostatic hypotension... started on Hydralazine 4) Not started on BB/CCB/digoxin due to orthostatic hypotension and resting heart rate of 55-65 bpm 5) Discharge planning, discussed with Dr. Pacheco 6) Not an anticoagulation candidate with GI mass and falls, concern for possible bleed 7) Discussed with the family AzarAngel Radha BATISTA May 30, 2016 15:32
--- NOTE | 2016-05-30 19:53 | HHI.HCPN ---
Reason for visit a. To assist with evaluation and management of symptoms including: episodic back pain; chest pain; mild abdominal pain; constipation; cough b. To assist medical decision maker(s) with: better understanding of current medical conditions; weighing benefits/burdens of medical treatment options; making medical treatment decisions. . Subjective/Interval History Ms. Torres is awake and alert at time of my visit. She reports no further episodes of chest pain. She denies SOB. She tells me her cough is improving but she coughs several times during my visit. She complains that her bowels have not moved since 05/28/16 but she does not want anything to help them prior to her transport to [facility] for skilled rehab planned for later today. She says her appetite is good. There have been no further cardiac events. Heart rate is controlled. Afebrile. No other complaints. Plan is for her to completely overcome her respiratory infection and gain strength. They will then return to Dr. Thompson and decide on if/when to try surgery. . Family/friend interactions Son and son-in-law at bedside. They are looking forward to the rehab. No further questions. . Advance Directives Living Will: Copy in medical record Health Care Surrogate: Copy in medical record Durable Power of Biology Laboratory Assistant: Never completed Advance Directive Specifics Date completed: 10/09/2006 . Health Care Surrogate(s): Edinson Torres (son) is the primary Hina Lzoano (daughter) is the alternate . . Documented care wishes: Patient only wants life support if both physicians and surrogate both believe the treatment would restore patient to a reasonable quality of life "in which I can interact in a meaningful way with other people." . Objective Vital Signs Date Time Temp Pulse Resp B/P Pulse Ox O2 Delivery O2 Flow Rate FiO2 05/30/16 12:30 98.2 59 18 106/56 98 05/30/16 12:30 59 05/30/16 10:31 57 05/30/16 09:38 54 05/30/16 08:00 55 05/30/16 08:00 98 Nasal Cannula 2.00 05/30/16 08:00 98.0 56 16 132/68 98 05/30/16 06:00 50 05/30/16 05:00 54 05/30/16 04:00 98.2 53 20 150/72 98 05/30/16 04:00 60 05/30/16 03:00 52 05/30/16 02:00 54 05/30/16 01:00 54 05/30/16 00:00 55 05/30/16 00:00 98.2 55 20 209/83 98 05/29/16 23:00 54 05/29/16 22:00 60 05/29/16 21:00 54 05/29/16 20:00 98.1 57 20 142/71 98 105/52 95/49 05/29/16 20:00 55 . Physical Exam CONSTITUTIONAL/GENERAL: This is an adequately nourished patient, in no apparent distress. Frequent coughing during my visit. TUBES/LINES/DRAINS: Peripheral IV. Nasal cannula 02. SKIN: No jaundice, rashes, or lesions. Ecchymoses on upper extremities. No wounds seen anteriorly. Skin temperature appropriate. Not diaphoretic. EYES: Pupils equal and round. Extraocular motions intact. No scleral icterus. No injection or drainage. Fundi not examined. CARDIOVASCULAR: Regular rate and rhythm without murmurs, gallops, or rubs. No JVD. RESPIRATORY/CHEST: Symmetric, unlabored respirations. Breath sounds equal bilaterally. Frequent cough. No audible wheeze. No crackles. GASTROINTESTINAL: Abdomen soft, non-tender, nondistended. No hepato-splenomegaly , or palpable masses. No guarding. Bowel sounds present. GENITOURINARY: Without palpable bladder distension. MUSCULOSKELETAL: Extremities without clubbing, cyanosis, or edema. No calf tenderness. No mottling. LYMPHATICS: Not examined. NEUROLOGICAL: Awake, alert, interactive, cognitively sharp. Follows commands. Moves all extremities. PSYCHIATRIC: No obvious anxiety/depression. No apparent hallucinations or other psychotic thought process. . Diagnostic Tests Laboratory Laboratory Tests Test 05/26/16 05/26/16 05/27/16 05/27/16 16:33 23:01 07:05 09:55 Creatine Kinase MB 1.8 NG/ML Creatine Kinase MB % 0.8 % Total Creatine Kinase 172 U/L Troponin I 0.09 NG/ML Sodium Level 137 MEQ/L Potassium Level 3.8 MEQ/L Chloride Level 97 MEQ/L Carbon Dioxide Level 30.9 MEQ/L Anion Gap 9 MEQ/L Blood Urea Nitrogen 21 MG/DL Creatinine 1.08 MG/DL Estimat Glomerular Filtration 48 ML/MIN Rate Random Glucose 140 MG/DL Calcium Level 8.2 MG/DL Magnesium Level 1.9 MG/DL White Blood Count 11.4 TH/MM3 Red Blood Count 3.33 MIL/MM3 Hemoglobin 10.0 GM/DL Hematocrit 30.3 % Mean Corpuscular Volume 90.9 FL Mean Corpuscular Hemoglobin 29.9 PG Mean Corpuscular Hemoglobin 32.8 % Concent Red Cell Distribution Width 13.7 % Platelet Count 217 TH/MM3 Mean Platelet Volume 9.9 FL Neutrophils (%) (Auto) 93.5 % Lymphocytes (%) (Auto) 3.3 % Monocytes (%) (Auto) 3.1 % Eosinophils (%) (Auto) 0.1 % Basophils (%) (Auto) 0.0 % Neutrophils # (Auto) 10.7 TH/MM3 Lymphocytes # (Auto) 0.4 TH/MM3 Monocytes # (Auto) 0.4 TH/MM3 Eosinophils # (Auto) 0.0 TH/MM3 Basophils # (Auto) 0.0 TH/MM3 CBC Comment AUTO DIFF Differential Total Cells 100 Counted Neutrophils % (Manual) 89 % Band Neutrophils % 4 % Lymphocytes % 2 % Monocytes % 3 % Neutrophils # (Manual) 10.8 TH/MM3 Metamyelocytes 1 % Myelocytes 1 % Differential Comment FINAL DIFF MANUAL Platelet Estimate NORMAL Platelet Morphology Comment NORMAL Red Cell Morphology Comment NORMAL . Result Diagram: 05/27/16 0955 05/27/16 0705 Imaging Last Impressions Chest X-Ray 05/26/16 0000 Signed Impressions: Service Date/Time: May 10:13 - CONCLUSION: Lingular infiltrate suspected. Cardiomegaly. Ricco Santana Jr., MD CT Angiography 05/26/16 0000 Signed Impressions: Service Date/Time: May 17:07 - CONCLUSION: 1. Patchy airspace disease in the posterior perifissural aspect of the right upper lobe shows interval improvement and probably represents resolving atelectasis. Minimal bibasilar atelectasis. 2. Tiny pericardial and right pleural effusion. Minimal bibasilar atelectatic changes. 3. Narrowing of the left mainstem bronchus I believe is physiologic and probably related to the phase of respiration possibly exacerbated by some esophageal distention as the latter passes just posterior to the left mainstem bronchus. This was not present 2 days earlier.. Jaya Cazares MD Knee X-Ray 05/20/16 0000 Signed Impressions: Service Date/Time: Friday, May 20, 2016 23:43 - CONCLUSION: Mild degenerative changes. No evidence of fracture. Blake Saenz MD Abdomen/Pelvis CT 05/20/16 0000 Signed Impressions: Service Date/Time: Friday, May 20, 2016 23:30 - CONCLUSION: 1. 4.3 cm intraluminal masslike increased attenuation at the base of the cecum. I'm not sure whether this is debris or a true mass. 2. No other acute abnormalities are demonstrated. There is atherosclerosis of the abdominal aorta without aneurysm. Patient has had previous hysterectomy and cholecystectomy. Blake Saenz MD . Procedures * Colonoscopy 05/23/16 . 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 . (2) UTI (urinary tract infection) Comment: E coli per culture. . (3) Respiratory infection Comment: Now on antibioitcs and IV steroids. Lingular infiltrate seen on CXR - - possible pneumonia. . (4) Atrial fibrillation with RVR Comment: Sudden onset on 05/26/16. Cardiology does not think she had an OK. Event places patient at increased risk for planned ascending colectomy. May need to re-visit risks/benefits of surgery. Rate now controlled. Patient is not a good candidate for anti-coagulation due to cecal mass and frequent falls. . (5) Orthostatic hypotension (6) Lumbar stenosis with neurogenic claudication Comment: Known at L3-L4 and less at L2-L3. . (7) Peripheral vascular disease Comment: Underwent left carotid endarterectomy which had to be halted for some reason. . (8) Frequent falls (9) Hypothyroidism Symptom Scale: (1) Pain 0-10 Scale: 0 Comment: Denies pain today. Acute chest pain associated with a Fib with RVR on 05/26/16 now resolved. Pt possibly had OK. Patient also reports history of low back pain when she is standing for periods of time. This is attributed to her L3-L4 spinal stenosis and to a less extent her L2-L3 spinal stenosis. Pain is described as severe. It does not radiate. It is helped by sitting down. She does not take pain medication for it. . 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 She used to be mostly regular. Now she can go without moving her bowels for two days and then spends a lot of time in the bathroom going on day 3. . No blood reported. No bowel movement charted by nursing since 05/23/16 when she had her colonoscopy prep. Patient reports her bowels are moving fine. . Pertinent Non-Medical Issues Psychosocial: Resident of [facility]. Well supported by her 4 children and her grandchildren. Spiritual: Mandaen. Caodaism and spirituality are important to her. Her acrobatic dancer will provide spiritual support. Legal: Advance directive on chart. Son -- Edinson-- is health care surrogate. Ethical issues impacting care: Patient is capacitated to make her own health care decisions at this time. . Important Contacts * Edinson Torres (son and HEALTH CARE SURROGATE) [phone] * Mireya Ann (daughter) [phone] . 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 Uncertain what stage this is if cancer. Ascending colectomy has been recommended by surgery and patient/family agree. Await clearance by cardiology and pulmonology. Patient appears to have some sort of respiratory infection ( possibly pneumonia) at this time that needs to clear before surgery. On she had chest pain and tachycardia -- she was in A fib with RVR. Cardiology does not feel she had an OK. This will greatly elevate risk of the surgery and will probably cause a significant delay even if there is determination to go forward with it. If she tolerates surgery well and there is no evidence of metastatic disease, she should have quality of life post operatively. Her advanced age certainly adds risk particularly to the post-op period in spite of being relatively spry for her age. . . Code Status: No Code Plan == Code Status: NO CODE per patient choice. == Decision maker: Patient is currently capacitated to make her own health care decisions. Advance directives are on chart. Patient's son -- Edinson Torres -- is the primary health care surrogate and daughter -- Hina -- is the alternate. == Goals of medical treatment: Patient and family are wanting to go forward with ascending colectomy for the cancer if/when she is cleared by cardiology and pulmonology. They may need to re-assess risiks/benefits of surgery given the vents of 05/26 with Atrial Fib + RVR and possible OK. Goals are aggressive short of resuscitation. == Pain: Patient had some mild post-colonoscopy abdominal pain. She has chronic low back pain that is exacerbated with standing but is not bothering her here in the hospital. She had brief 10/10 chest pain concurrent with her Atrial fib with RVR. She has acetaminophen ordered for pain. Recommend an order for 2 mg iv morphine q 4 hours prn pain level >#6 in case she has another cardiac event. == Constipation: Patient completed bowel prep and colonoscopy on 05/23/16. She had several days after prep without a bowel movement. bowels moved last on 05/28/16. Will need ongoing bowel protocol in nursing facility. == Patient is fall risk normally due to orthostatic hypotension. Should not be getting out of bed unattended. == Respiratory infection -- CXR now shows lingular infiltrate -- pneumonia?. . Now on antibioitcs and iv steroids. Cough waxes and wanes. No SOB today. CTA was negative. == Not a candidate for anti-coagulation (for her a fib) due to falls and her cecal mass. == If, as a result of the cardiac event of 05/26/16 patient and family opt against surgery and desire comfort measures, hospice consultation would be appropriate. == Palliative care will continue to follow to assist with symptom management and to further clarify goals of medical treatment as the clinical course evolves. . Attestation To help prompt me to consider important information that might be impacting today's encounter and assessment, information from prior notes written by myself or my colleagues may have been "brought forward" into today's note. My signature on this note, however, is an attestation that I personally performed the exam, history, and/or decision-making noted today, and, unless otherwise indicated, the interactions with patient, family, and staff as well as the review of records all occurred today. I also attest that the listed assessment and stated plan reflect my best clinical judgment today based on the combination of historical information, prior notes, and today's exam/ interactions. When time spent is documented, it refers only to time spent today by the signer, or if indicated, combined time spent today by collaborating physician/nurse practitioner. . Erwin William MD May 30, 2016 19:53
[2016-06-22] MEDS ORDERED: FERR325T PO (11:01)
[2016-06-26] MEDS ORDERED: AMIODARONE 200 MG TAB PO SCH (12:00)
[2016-07-13] MEDS ORDERED: METO25TA3 PO (09:48)
[2016-07-13] MEDS ORDERED: GABA300C5 PO (09:48)
[2016-09-14] MEDS ORDERED: MIDO2.5T PO (10:26)
[2016-09-14] MEDS ORDERED: ASPI81TA11 PO (10:29)
[2016-09-14] MEDS ORDERED: MIDO5TAB PO (10:45)
[2016-09-14] MEDS ORDERED: GABA100C4 PO (10:45)
[2016-09-14] MEDS ORDERED: ATOR10TA15 PO (10:45)
[2016-09-14] MEDS ORDERED: LEVO25TA4 PO (10:45)
[2016-09-16] MEDS ORDERED: VITA2000 PO (11:43)
== END 2016-05-30 13:16 | DRG 871 ==
LOC: NEPA 22:05 → NEDA 05-21 00:34 → N06B 05-21 04:03 → HCIS 05-26 09:59
PROVIDERS: ADMIT Internal Medicine; ATTEND Internal Medicine
PROC: 0DBH8ZX Excision of Cecum, Via Natural or Artificial Opening Endoscopic, Diagnostic (ICD-10-PCS; principal; 2016-05-23 16:35)
DX: A41.9 Sepsis, unspecified organism (principal); J96.00 Acute respiratory failure, unspecified whether with hypoxia or hypercapnia; J44.0 Chronic obstructive pulmonary disease with (acute) lower respiratory infection; J18.9 Pneumonia, unspecified organism; N17.9 Acute kidney failure, unspecified; I27.2 Other secondary pulmonary hypertension; N39.0 Urinary tract infection, site not specified; I48.91 Unspecified atrial fibrillation; J44.1 Chronic obstructive pulmonary disease with (acute) exacerbation; J98.11 Atelectasis; G62.9 Polyneuropathy, unspecified; I12.9 Hypertensive chronic kidney disease with stage 1 through stage 4 chronic kidney disease, or unspecified chronic kidney disease; D12.0 Benign neoplasm of cecum; E03.9 Hypothyroidism, unspecified; E78.5 Hyperlipidemia, unspecified; G89.29 Other chronic pain; I70.0 Atherosclerosis of aorta; I73.9 Peripheral vascular disease, unspecified; R32 Unspecified urinary incontinence; I95.1 Orthostatic hypotension; Z66 Do not resuscitate; N18.9 Chronic kidney disease, unspecified; W19.XXXA Unspecified fall, initial encounter; R51 Headache; M48.06 Spinal stenosis, lumbar region; R29.6 Repeated falls; K59.00 Constipation, unspecified; K64.4 Residual hemorrhoidal skin tags; D50.9 Iron deficiency anemia, unspecified; B96.20 Unspecified Escherichia coli [E. coli] as the cause of diseases classified elsewhere; M51.36 Other intervertebral disc degeneration, lumbar region; Z51.5 Encounter for palliative care; Z86.73 Personal history of transient ischemic attack (TIA), and cerebral infarction without residual deficits
CPT/HCPCS: 36600; 71010; 71275; 73564; 74177; 76937; 80048; 80053; 81001; 82378; 82550; 82552; 82607; 82728; 82746; 82805; 82948; 83540; 83550; 83605; 83690; 83735; 83880; 84100; 84443; 84484; 85007; 85025; 85027; 85610; 85730; 87040; 87077; 87086; 87186; 87449; 87804; 88305; 93005; 93306; 94640; 94664; 96360; 96361; J0456; J0610; J0696; J1160; J1644; J1756; J1940; J2270; J2405; J2920; J2930; J3420; J3480; J7030; J7050; J7120; Q9967

== ENCOUNTER → 2016-06-20 | Outpatient (CLI) | payer MEDICARE ==
[~2016-06-20] MED LIST changes: +ASPI1TAB69 PO; -ASPI81 PO; +ASPI81TA11 PO; -ATOR10 PO; +ATOR10TA15 PO; +CIPR-9 PO; +CLON0.1T PO; +FERR325T PO; +GABA300C5 PO; +HYDR10TA23 PO; +LEVO25TA4 PO; -LORA-392 PO; +METO25TA3 PO; +MIDO2.5T PO; +MIDO5TAB PO; +PANT40TA3 PO; +POLY17S PO; +SENN1TAB PO; -SYNT25TA PO; +TYLETAB34 PO; +VITA2000 PO; -VITA50LO PO; +[UNRECOGNIZED DRUG - CODE] PO
--- NOTE | 2016-07-01 09:17 | RSPPFT ---
DATE OF PROCEDURE: 06/20/16 COMMENTS: Spirometry with FVC of 2.0, FEV1 of 1.4, FEV1/FVC ratio at 69%. Slow vital capacity is 68% of predicted. TLC is 94%. Diffusion capacity is 78% and normal when corrected for alveolar volume. IMPRESSION: 1. Moderately severe airways obstruction. 2. Positive and significant response to acutely inhaled bronchodilator.
== END ==
LOC: HRSP 09:41
PROVIDERS: ATTEND Internal Medicine Sleep Medicine
DX: R06.89 Other abnormalities of breathing (principal); J18.9 Pneumonia, unspecified organism
CPT/HCPCS: 94060; 94726; 94729

== ENCOUNTER 2016-06-25 23:44 | Inpatient (IN) | payer MEDICARE ==
[~2016-06-25] VITALS: Ht 167.6 cm; Wt 79.9 kg
[~2016-06-25 23:44] MED LIST changes: -ASPI81TA11 PO; -CIPR-9 PO; -CLON0.1T PO; -GABA100C4 PO; -HYDR25TA35 PO; -METO25TA3 PO; -MIDO2.5T PO; -PANT40TA3 PO; -POLY17S PO; -SENN1TAB PO; -TYLETAB34 PO; -VITA2000 PO; -[UNRECOGNIZED DRUG - CODE] PO
[2016-06-25 23:59] VITALS: BP 146/100; PULSE 96; RESP 18; O2SAT 95
[2016-06-26] VITALS (15 sets, daily range): BP systolic 101–148; BP diastolic 49–100; PULSE 49–120; RESP 16–20; TEMP 97.8–98.2; O2SAT 97–100
[2016-06-26] MEDS ORDERED: SODIUM CHLORIDE 0.9% FLUSH 5 ML FLUSH IVF PRN ×2 (00:15→04:00)
--- NOTE | 2016-06-26 00:30 | PD ---
HPI Chief Complaint: Cardiac Complaint Time Seen by Provider: 00:04 Travel History International Travel<30 days: No Contact w/Intl Traveler<30days: No Traveled to known affect area: No History of Present Illness HPI 85 year old female with history of orthostatic hypotension, HLD, chronic kidney disease who was recently hospitalized from 05/21 through 05/30 for UTI, sepsis, COPD/pneumonia and new onset A. fib area patient presents back to the emergency department today complaining of chest pain and shortness of breath. Approximately 2 hours prior to arrival patient developed substernal chest discomfort, aching in nature. Patient states it felt like something was sitting on her chest. She denies any radiation of the pain. She had some associated palpitations. Shortness of breath but no cough or chest congestion. She denies nausea vomiting or diaphoresis. When EMS arrived patient was in to be in A. fib with RVR rates in the 150s. Given 20 mg as diltiazem IV with improvement of heart rate into the 100s. Patient states that since, her chest pain and shortness of breath have been much better. EMR was reviewed and patient's last echo upon hospitalization showed normal EF. Patient does not believe she takes anything for atrial fibrillation, per hospital discharge summary she was not on any rate controlling medications but I do not have a medication list from her facility here. PFSH Past Medical History Hx Anticoagulant Therapy: Yes Blood Disorders: No Cancer: No Cardiovascular Problems: Yes (postural hypotension) High Cholesterol: Yes Chemotherapy: No Cerebrovascular Accident: Yes Diabetes: No Diminished Hearing: No Endocrine: Yes Gastrointestinal Disorders: No Genitourinary: Yes Hepatitis: No Hiatal Hernia: No Hypertension: Yes Implanted Vascular Access Dvce: No Musculoskeletal: No Neurologic: Yes Psychiatric: No Reproductive: Yes Respiratory: Yes Radiation Therapy: No Thyroid Disease: Yes Menopausal: No Past Surgical History Abdominal Surgery: Yes AICD: No Appendectomy: Yes Cholecystectomy: Yes Gynecologic Surgery: Yes Hysterectomy: Yes Joint Replacement: No Oral Surgery: Yes Pacemaker: No Tonsillectomy: Yes Other Surgery: Yes (LEFT CAROTID) Social History Alcohol Use: No Tobacco Use: No Substance Use: No Allergies-Medications (Allergen,Severity, Reaction): Coded Allergies: No Known Allergies (Verified , 05/20/16) Reported Meds & Prescriptions Reported Meds & Active Scripts Active Hydralazine (Hydralazine HCl) 10 Mg Tab 10 Mg PO Q8HR 30 Days Fludrocortisone (Fludrocortisone Acetate) 0.1 Mg Tab 0.1 Mg PO DAILY resume after the course of prednisone has been completed. Reported Levothyroxine (Levothyroxine Sodium) 25 Mcg Tab 25 Mcg PO HS Midodrine 5 Mg Tab 5 Mg PO BID Atorvastatin (Atorvastatin Calcium) 10 Mg Tab 10 Mg PO HS Gabapentin 300 Mg Cap 300 Mg PO TID Aspirin 81 Mg Tabdr 81 Mg PO DAILY Review of Systems Except as stated in HPI: all other systems reviewed are Neg Physical Exam Narrative GENERAL: Elderly female in no acute distress SKIN: Warm and dry. HEAD: Normocephalic. EYES: No scleral icterus. No injection or drainage. ENT: Mucous membranes pink and moist. NECK: Supple CARDIOVASCULAR: Regular rate and irregular rhythm. No murmur appreciated. RESPIRATORY: No accessory muscle use. Clear to auscultation. Breath sounds equal bilaterally. GASTROINTESTINAL: Abdomen soft, non-tender, nondistended. MUSCULOSKELETAL: No obvious deformities. 1+ BLE edema. NEUROLOGICAL: Awake and alert Motor grossly within normal limits. Normal speech. PSYCHIATRIC: Appropriate mood and affect; insight and judgment normal. Data Data Last Documented VS Vital Signs Date Time Temp Pulse Resp B/P Pulse Ox O2 Delivery O2 Flow Rate FiO2 06/26/16 00:35 98 06/26/16 00:32 98.2 79 20 146/100 Nasal Cannula Orders Electrocardiogram (06/26/16 00:07) Basic Metabolic Panel (Bmp) (06/26/16 00:07) Ckmb (Isoenzyme) Profile (06/26/16 00:07) Complete Blood Count With Diff (06/26/16 00:07) Magnesium (Mg) (06/26/16 00:07) Prothrombin Time / Inr (Pt) (06/26/16 00:07) Act Partial Throm Time (Ptt) (06/26/16 00:07) Troponin I (06/26/16 00:07) Chest, Single Ap (06/26/16 00:07) Ecg Monitoring (06/26/16 00:07) Iv Access Insert/Monitor (06/26/16 00:07) Oximetry (06/26/16 00:07) Sodium Chloride 0.9% Flush (Ns Flush) (06/26/16 00:15) Urinalysis - C+S If Indicated (06/26/16 00:07) Labs Laboratory Tests Test 06/26/16 06/26/16 00:38 01:20 White Blood Count 5.6 TH/MM3 Red Blood Count 2.80 MIL/MM3 Hemoglobin 8.9 GM/DL Hematocrit 26.0 % Mean Corpuscular Volume 92.9 FL Mean Corpuscular Hemoglobin 31.9 PG Mean Corpuscular Hemoglobin 34.4 % Concent Red Cell Distribution Width 15.1 % Platelet Count 259 TH/MM3 Mean Platelet Volume 8.0 FL Neutrophils (%) (Auto) 71.8 % Lymphocytes (%) (Auto) 14.7 % Monocytes (%) (Auto) 11.0 % Eosinophils (%) (Auto) 1.6 % Basophils (%) (Auto) 0.9 % Neutrophils # (Auto) 4.0 TH/MM3 Lymphocytes # (Auto) 0.8 TH/MM3 Monocytes # (Auto) 0.6 TH/MM3 Eosinophils # (Auto) 0.1 TH/MM3 Basophils # (Auto) 0.0 TH/MM3 CBC Comment DIFF FINAL Differential Comment Prothrombin Time 10.8 SEC Prothromb Time International 1.0 RATIO Ratio Activated Partial 26.0 SEC Thromboplast Time Sodium Level 142 MEQ/L Potassium Level 3.6 MEQ/L Chloride Level 108 MEQ/L Carbon Dioxide Level 27.5 MEQ/L Anion Gap 7 MEQ/L Blood Urea Nitrogen 20 MG/DL Creatinine 1.19 MG/DL Estimat Glomerular Filtration 43 ML/MIN Rate Random Glucose 112 MG/DL Calcium Level 7.6 MG/DL Magnesium Level 1.9 MG/DL Total Creatine Kinase 42 U/L Troponin I 0.03 NG/ML Urine Color COLORLESS Urine Turbidity CLEAR Urine pH 6.0 Urine Specific [place] 1.004 Urine Protein NEG mg/dL Urine Glucose (UA) NEG mg/dL Urine Ketones NEG mg/dL Urine Occult Blood NEG Urine Nitrite NEG Urine Bilirubin NEG Urine Urobilinogen LESS THAN 2.0 MG/DL Urine Leukocyte Esterase NEG Urine WBC 1 /hpf Urine Squamous Epithelial <1 /hpf Cells Urine Bacteria RARE /hpf Microscopic Urinalysis Comment CULT NOT INDICATED MDM Medical Decision Making Medical Screen Exam Complete: Yes Emergency Medical Condition: Yes Medical Record Reviewed: Yes Differential Diagnosis 85 year old female with history of orthostatic hypotension, HLD, chronic kidney disease who was recently hospitalized from 05/21 through 05/30 for UTI, sepsis, COPD/pneumonia and new onset A. fib area patient presents back to the emergency department today complaining of chest pain and shortness of breath. Noted be in A. fib with RVR per EMS. Differential includes arrhythmia, electrolyte abnormality, symptomatic anemia, ACS, CHF exacerbation, COPD exacerbation, pneumonia. Narrative Course Patient placed on monitor, IV established and blood obtained. Twelve-lead EKG shows A. fib, rate [address] abnormalities, normal intervals. CBC, BMP, magnesium, CK-MB, troponin, coags, urinalysis notable for hemoglobin 8.9. Portal chest x-ray obtained showing no acute abnormalities. Patient's heart rate has remained stable in the primarily 90s. Symptoms may be attributed simply due to rhythm, but patient will be admitted for serial cardiac enzymes and monitoring of rate. Diagnosis Primary Impression: Atrial fibrillation with RVR Additional Impressions: Chest pain Qualified Code: R07.2 - Precordial pain Shortness of breath Admitting Information Admitting Physician Requests: Observation Additional Instructions: Home health and physical therapy as instructed. Follow-up with primary care provider on Monday. Sydney Lu MD Jun 26, 2016 00:30
[2016-06-26 00:49] LABS: BASOPHIL % 0.9 % (0.0-2.0); EOSINOPHIL # 0.1 TH/MM3 (0-0.4); EOSINOPHIL % 1.6 % (0.0-4.0); HEMO FLAGS DIFF FINAL; LYMPH % 14.7 % (9.0-44.0); LYMPHOCYTE # 0.8 TH/MM3 (1.0-4.8); MEAN CELL VOLUME 92.9 FL (80.0-100.0); MEAN CORPUSCULAR HEMOGLOBIN 31.9 PG (27.0-34.0); MEAN CORPUSCULAR HGB CONC 34.4 % (32.0-36.0); NEUT % 71.8 % (16.0-70.0); PLATELET COUNT 259 TH/MM3 (150-450); RED CELL DISTRIBUTION WIDTH 15.1 % (11.6-17.2); WHITE BLOOD COUNT 5.6 TH/MM3 (4.0-11.0)
[2016-06-26 01:07] LABS: BICARBONATE 27.5 MEQ/L (21.0-32.0); MAGNESIUM 1.9 MG/DL (1.5-2.5); POTASSIUM 3.6 MEQ/L (3.5-5.1)
[2016-06-26 01:13] LABS: PROTHROMBIN TIME - PATIENT 10.8 SEC (9.8-11.6)
--- NOTE | 2016-06-26 01:15 | RADRPT ---
EXAM DATE/TIME: 06/26/2016 00:38 [facility] COMPARISON: CHEST SINGLE AP, May 26, 2016, 10:13. INDICATIONS : Chest pain. MEDICAL HISTORY : Cardiovascular disease. SURGICAL HISTORY : None. ENCOUNTER: Initial ACUITY: 1 day PAIN SCORE: 4/10 LOCATION: Bilateral chest FINDINGS: A single view of the chest demonstrates minimal basilar atelectasis or scarring. Tortuous aorta. No e ffusion or pneumothorax. CONCLUSION: 1. Minimal basilar atelectasis. No effusion. No pneumothorax. Heart size mildly enlarged. Anupam Cabral MD on June 26, 2016 at 1:09 Board Certified Radiologist. This report was verified electronically.
[2016-06-26 01:46] LABS: BACTERIA, URINE RARE /hpf; BLOOD, URINE NEG (NEG); COMMENT (UR) CULT NOT INDICATED; CULTURE IF INDICATED CULT NOT INDICATED; GLUCOSE,URINE NEG (NEG); KETONE, URINE NEG (NEG); NITRITE,URINE NEG (NEG); SQUAMOUS EPITHELIAL CELL URINE <1 /hpf (0-5); URINE COLOR COLORLESS (YELLW/STRAW)
--- NOTE | 2016-06-26 02:58 | HHI.HP ---
HPI Service Family Medicine Primary Care Physician Junior Hunt MD Admission Diagnosis afib w cp/sob Diagnoses: International Travel<30 Days: No Contact w/Intl Traveler<30days: No Known Affected Area: No History of Present Illness Pt is a 85 year old female with past medical history significant for orthostatic hypotension, hyperlipidemia, CKD, hypothyroidism, COPD presenting to the ED due to chest pain and shortness of breath, found to be in Afib with RVR. Her symptoms have currently resolved. Pain was located in the center of her chest with radiation to her left upper extremity, deep and burning in quality, 8/10 in intensity. Pain was worse with laying flat, partially relieved by sitting. She has shortness of breath at baseline, but this became worse with the onset of chest pain. Patient's family is visiting from out of town and when she began to experience the chest pain she was unable to express herself clearly. Patient's daughter reports that she had a period of incoherent speech that lasted for approximately 3 minutes. She was slurring her speech during this time. Pt does not recall this. She does not endorse new onset focal weakness. Denies vision changes, facial drooping. She has been able to ambulate with use of walker, which is her baseline. Per EMS report she was in Afib with RVR with rate in the 150s. She was given 20mg of IV diltiazem which brought her rate down to the 100s. She reports that after she got this medication her chest pain and shortness of breath resolved. She was recently hospitalized in May after a fall. She was noted to have an episode of AFIB with RVR during this admission. Echo from 05/24 showing normal systolic function with EF of 60-65%. Her rate was controlled and she was determined to be a poor candidate for anticoagulation due to presence of cecal mass and concern for a GI bleed. She was started on Hydralazine. (Emily Schultz MD R2) Review of Systems Constitutional: DENIES: Fever, Chills Eyes: DENIES: Blurred vision Ears, nose, mouth, throat: COMPLAINS OF: Vertigo Respiratory: COMPLAINS OF: Shortness of breath, DENIES: Cough Cardiovascular: COMPLAINS OF: Chest pain, DENIES: Syncope Gastrointestinal: COMPLAINS OF: Abdominal pain, Constipation (LAst bowel mobvement was yesterday), DENIES: Diarrhea, Nausea, Vomiting Genitourinary: DENIES: Dysuria Musculoskeletal: COMPLAINS OF: Muscle aches Integumentary: DENIES: Rash Neurologic: COMPLAINS OF: Headache, Speech Problems, Tremor (At baseline), DENIES: Localized weakness (Emily Schultz MD R2) Past Family Social History Past Medical History Orthostatic hypotension Hyperlipidemia Chronic kidney disease Urinary incontinence Hypothyroidism Peripheral neuropathy COPD Stroke Hospitalized May 2016 due to orthostatic syncope/fall, UTI, anemia, colon adenoma AFIB with RVR Past Surgical History Cholecystectomy Hysterectomy Right carotid endarterectomy Tonsillectomy Reported Medications Reported Meds & Active Scripts Active Hydralazine (Hydralazine HCl) 10 Mg Tab 10 Mg PO Q8HR 30 Days Fludrocortisone (Fludrocortisone Acetate) 0.1 Mg Tab 0.1 Mg PO DAILY resume after the course of prednisone has been completed. Reported Levothyroxine (Levothyroxine Sodium) 25 Mcg Tab 25 Mcg PO HS Midodrine 5 Mg Tab 5 Mg PO BID Atorvastatin (Atorvastatin Calcium) 10 Mg Tab 10 Mg PO HS Gabapentin 300 Mg Cap 300 Mg PO TID Aspirin 81 Mg Tabdr 81 Mg PO DAILY (Emily Schultz MD R2) Allergies: Coded Allergies: No Known Allergies (Verified , 05/20/16) Family History Father of a heart attack at 65 Mother of kidney disease in her 70s Social History Patient denies current use or history of use of tobacco. Denies alcohol or illicit drug use. She currently resides and [facility] Prior to this she lived at an independent living facility. (Emily Schultz MD R2) Physical Exam Vital Signs Vital Signs Date Time Temp Pulse Resp B/P Pulse Ox O2 Delivery O2 Flow Rate FiO2 06/26/16 00:35 98 06/26/16 00:32 98.2 79 20 146/100 97 Nasal Cannula 06/25/16 23:59 96 18 146/100 95 Physical Exam GENERAL: This is a well-nourished, well-developed patient, in no apparent distress. SKIN: No rashes. Ecchymoses on abdomnen from previous administration of anticoagulation. Cool and dry. HEAD: Atraumatic. Normocephalic. No temporal or scalp tenderness. EYES: Pupils equal round and reactive. Extraocular motions intact. No scleral icterus. No injection or drainage. ENT: Nose without bleeding, purulent drainage or septal hematoma. Throat without erythema, tonsillar hypertrophy or exudate. Airway patent. NECK: Trachea midline. No JVD or lymphadenopathy. Supple, nontender, no meningeal signs. No carotid bruits appreciated. CARDIOVASCULAR: Tachycardic, irregularly irregular rhythm. No murmurs rubs or gallops appreciated. RESPIRATORY: Clear to auscultation. Breath sounds equal bilaterally. No wheezes , rales, or rhonchi. GASTROINTESTINAL: Abdomen soft, non-tender, nondistended. No hepato-splenomegaly , or palpable masses. No guarding. MUSCULOSKELETAL: Extremities without clubbing, cyanosis, or edema. No joint tenderness, effusion, or edema noted. No calf tenderness. Negative Homans sign bilaterally. NEUROLOGICAL: Awake and alert. Oriented to person place and time. Uvula deviated to the right. CN 2-8, 11-12 otherwise intact. 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 Five out of 5 muscle strength in other muscle groups. Normal speech. Laboratory Laboratory Tests Test 06/26/16 06/26/16 00:38 01:20 White Blood Count 5.6 Red Blood Count 2.80 Hemoglobin 8.9 Hematocrit 26.0 Mean Corpuscular Volume 92.9 Mean Corpuscular Hemoglobin 31.9 Mean Corpuscular Hemoglobin 34.4 Concent Red Cell Distribution Width 15.1 Platelet Count 259 Mean Platelet Volume 8.0 Neutrophils (%) (Auto) 71.8 Lymphocytes (%) (Auto) 14.7 Monocytes (%) (Auto) 11.0 Eosinophils (%) (Auto) 1.6 Basophils (%) (Auto) 0.9 Neutrophils # (Auto) 4.0 Lymphocytes # (Auto) 0.8 Monocytes # (Auto) 0.6 Eosinophils # (Auto) 0.1 Basophils # (Auto) 0.0 CBC Comment DIFF FINAL Differential Comment Prothrombin Time 10.8 Prothromb Time International 1.0 Ratio Activated Partial 26.0 Thromboplast Time Sodium Level 142 Potassium Level 3.6 Chloride Level 108 Carbon Dioxide Level 27.5 Anion Gap 7 Blood Urea Nitrogen 20 Creatinine 1.19 Estimat Glomerular Filtration 43 Rate Random Glucose 112 Calcium Level 7.6 Magnesium Level 1.9 Total Creatine Kinase 42 Troponin I 0.03 Urine Color COLORLESS Urine Turbidity CLEAR Urine pH 6.0 Urine Specific [place] 1.004 Urine Protein NEG Urine Glucose (UA) NEG Urine Ketones NEG Urine Occult Blood NEG Urine Nitrite NEG Urine Bilirubin NEG Urine Urobilinogen LESS THAN 2.0 Urine Leukocyte Esterase NEG Urine WBC 1 Urine Squamous Epithelial <1 Cells Urine Bacteria RARE Microscopic Urinalysis Comment CULT NOT INDICATED (Emily Schultz MD R2) Result Diagram: 06/26/168 06/26/1637 Assessment and Plan Assessment and Plan Pt is a 85 year old female with past medical history significant for orthostatic hypotension, hyperlipidemia, CKD, hypothyroidism, COPD presenting to the ED due to chest pain and shortness of breath, found to be in afib with RVR, also reports symptoms concerning for TIA vs CVA. Code Status DNR Discussed Condition With mony katzw FPTS team (Emily Schultz MD R2) Attending Attestation THIS CASE WAS DISCUSSED WITH THE RESIDENT PHYSICIAN. I HAVE REVIEWED THE RECORD AND AGREE WITH THE ABOVE NOTE AND PLAN OF CARE WAS DISCUSSED. I HAVE AUTHORIZED THE ORDER FOR PLACEMENT IN OUT-PATIENT OBSERVATION STATUS. (Cayden Coppola MD) Problem List: (1) Atrial fibrillation with RVR Status: Acute Plan: Pt found to be in A. fib with RVR. On exam HR elevated to 120s. Currently denies chest pain. Pt was advised to let her nurse know if she has any new chest pain. Echo from 05/24 showing normal systolic function with EF of 60-65%. -Cardiology consulted regarding management of atrial fibrillation given patient' s history of orthostatic hypotension and concern for TIA vs CVA, appreciate recommendations -Patient is not a candidate for anticoagulation due to fall risk and concern for GI bleed due to cecal mass -Patient was found to have A. fib with RVR during recent admission and was discharged on hydralazine 10 mg Q8hrs, HR at this time was 55-60 -Initial troponin 0.03, CK 42 -We'll check troponin, CK-MB Q6 hours 2, EKGs -media monitor significant for A fib with RVR -Cardizem 30mg po x1 -ASA 81 mg -Telemetry History: Pt was given 20 mg IV diltiazem 1 by EMS (2) Incoherent speech Status: Acute Plan: Patient's family reports brief episode of incoherent speech. On exam patient with uvula deviation to the right, decreased strength of right upper extremity which is new. Patient reports that her right arm is usually stronger. She reports history of a stroke, brain MRI from 05/2013 significant for old lacunar infarct. Pt at increased risk due to A fib, and not being a candidate for anticoagulation. -Head CT -Brain MRI -Carotid US -Neuro checks -Lipid profile -Consult PT, OT and ST -Bedside swallow eval (3) Shortness of breath Status: Acute Plan: Pt with history of COPD and she is short of breath at baseline. She reports that breathing has improved with resolution of chest pain. -Duonebs Q6hrs PRN SOB Imaging: Chest x-ray significant for minimal basilar atelectasis. No effusion. No pneumothorax. Heart size mildly enlarged. (4) Orthostatic hypotension Status: Chronic Plan: Patient is currently hypertensive, we'll hold home fludrocortisone and midodrine. Due to elevated HR pt has antihypertensive medication ordered prn. Will use caution with antihypertensives and monitor pts blood pressure closely. (5) Cecum mass Status: Acute Plan: Pt with tubulovillous adenoma of the cecum:Colonoscopy and biopsy in 2016 that was significant for tubulovillous adenoma. Recommendation from prior hospitalization was to reevaluate pt regarding possibility of surgery. This would be a high risk procedure given patients other comorbidities. Pt has an appointment to follow-up with Dr. Thompson on Monday at 9:30 AM. If it becomes apparent that patient will not be able to keep this appointment consider consulting general surgery for reevaluation. (6) FEN/PPX Status: Acute Plan: Fluids: NS 70mls, consider stopping once pt passes swallow evaluation Electrolytes: Calcium low at 7.6 will check protein corrected Nutrition: NPO pending swallow evaluation DVT PPX: Heparin Chronic conditions: CKD: Cr 1.19, CrCl 34. Renally dose medication, avoid nephrotoxic agents Hypothyroidism: Continue home Synthroid, will check TSH, was last normal at 3.16 on 05/22/16 Peripheral neuropathy: Continue gabapentin to be renally dosed at 200mg po BID due to CrCl of 34 Anemia: Pt with hisoty of iron deficiency anemia, continue to monitor, consider starting ferrous sulfate (Emily Schultz MD R2) Emily Schultz MD R2 Jun 26, 2016 02:58 Cayden Coppola MD Jun 26, 2016 10:30
[2016-06-26] MEDS ORDERED: GLUCAGON 1 MG/ML VIAL OTHER PRN (04:00)
[2016-06-26] MEDS ORDERED: DEXTROSE 50% IN WATER 50 ML VIAL(D50) IV PUSH PRN (04:00)
[2016-06-26] MEDS ORDERED: RESP: ALBUTEROL 2.5 MG/IPRATROPIUM 0.5 MG NEB (PRN) NEB (04:15)
[2016-06-26] MEDS ORDERED: DILTIAZEM HCL 30 MG TAB PO ONE (04:30)
[2016-06-26] MEDS ORDERED: DILTIAZEM HCL 30 MG TAB PO PRN (05:15)
[2016-06-26] MEDS: SODIUM CHLOR 0.9% 1000 ML INJ 1,000 ML IV SCH ×2 (05:16→20:59)
[2016-06-26] MEDS: hydrALAZINE HCL 10 MG TAB PO SCH ×3 (05:16→21:00)
[2016-06-26] MEDS: INSULIN ASPART SUPPLEMENTAL SCALE SQ SCH ×4 (07:00→20:43)
--- NOTE | 2016-06-26 07:56 | RADRPT ---
EXAM DATE/TIME: 06/26/2016 07:43 [facility] COMPARISON: CT BRAIN W/O CONTRAST, March 14, 2015, 14:48. INDICATIONS : Episode of slurred speech. RADIATION DOSE: 36.06 CTDIvol (mGy) MEDICAL HISTORY : Chronic obstructive pulmonary disease. Congestive heart failure. Cerebrovascular disease.Hypertension . Anticoagulant therapy. SURGICAL HISTORY : Tonsillectomy. Appendectomy.Cholecystectomy.Hysterectomy. ENCOUNTER: Initial ACUITY: 1 day PAIN SCALE: 0/10 LOCATION: cranial TECHNIQUE: Multiple contiguous axial images were obtained of the head. Using automated exposure control and adj ustment of the mA and/or kV according to patient size, radiation dose was kept as low as reasonably a chievable to obtain optimal diagnostic quality images. FINDINGS: CEREBRUM: Old right basal ganglia lacunar infarct. The ventricles are normal for age. No evidence of midline s hift, mass lesion, hemorrhage or acute infarction. No extra-axial fluid collections are seen. POSTERIOR FOSSA: The cerebellum and brainstem are intact. The 4th ventricle is midline. The cerebellopontine angle i s unremarkable. EXTRACRANIAL: The visualized portion of the orbits is intact. SKULL: The calvaria is intact. No evidence of skull fracture. CONCLUSION: No acute intracranial disease. Moses Santos MD on June 26, 2016 at 7:54 Board Certified Radiologist. This report was verified electronically.
[2016-06-26 08:16] LABS: HDL CHOLESTEROL 41.8 MG/DL (40.0-60.0)
[2016-06-26] MEDS: HEPARIN SODIUM - SQ 10,000 UNITS/ML VIAL SQ SCH ×2 (08:48→17:46)
[2016-06-26] MEDS: GABAPENTIN 100 MG CAP PO SCH ×2 (08:48→21:00)
[2016-06-26] MEDS: SODIUM CHLORIDE 0.9% FLUSH 5 ML FLUSH IVF SCH ×2 (08:49→21:00)
--- NOTE | 2016-06-26 08:56 | RADRPT ---
EXAM DATE/TIME: 06/26/2016 08:18 [facility] COMPARISON: MRI BRAIN W/O CONTRAST, September 15, 2013, 13:33. INDICATIONS : CVA. Slurred speech, resolved. MEDICAL HISTORY : Hypertension. Renal insufficiency, chronic. Chronic obstructive pulmonary disease. CVA SURGICAL HISTORY : Appendectomy. Cholecystectomy. Hysterectomy. ENCOUNTER: Initial ACUITY: 1 day PAIN SCORE: 0/10 LOCATION: cranial TECHNIQUE: Multiplanar, multisequence MRI of the brain was performed without contrast. FINDINGS: CEREBRUM: The ventricles are normal for age. Old right basal ganglia lacunar infarct. No evidence of midline sh ift, mass lesion, hemorrhage or acute infarction. No extraaxial fluid collections are seen. The pit uitary gland and suprasellar cistern are normal in configuration. WHITE MATTER: No significant signal abnormalities are seen in the white matter. POSTERIOR FOSSA: The cerebellum and brainstem are intact. The 4th ventricle is midline. The cerebellopontine angle is unremarkable. The cerebellar tonsils are normal in position. DIFFUSION IMAGING: No focal areas of restricted diffusion are seen. No evidence of acute infarction. EXTRACRANIAL: The visualized portions of the orbits and paranasal sinuses are unremarkable. CONCLUSION: 1. No acute infarction. 2. Remote right basal ganglia lacunar infarct. Moses Santos MD on June 26, 2016 at 8:53 Board Certified Radiologist. This report was verified electronically.
--- NOTE | 2016-06-26 09:41 | RADRPT ---
EXAM DATE/TIME: 06/26/2016 08:55 [facility] COMPARISON: US CAROTID ARTERIES, September 14, 2013, 17:19. EXTERNAL COMPARISON : [facility], US CAROTID ARTERIES, June 05, 2012 INDICATIONS : Cerebrovascular accident. MEDICAL HISTORY : Congestive heart failure. Thyroid disease. CVA. Seizures. Tremors. Vertigo. COPD. Postural hypote nsion. SURGICAL HISTORY : Tonsillectomy. Appendectomy. Cholecystectomy. Hysterectomy. Left carotid endarterectomy. ENCOUNTER: Subsequent ACUITY: 1 day PAIN SCORE: 0/10 LOCATION: Bilateral neck PEAK SYSTOLIC VELOCITIES (cm/sec): ICA/CCA RATIO: Right: 1.6 Left: 1.5 ICA: Right: 97 Left: 121 CCA: Right: 60 Left: 82 ECA: Right: 89 Left: 82 VERTEBRAL: Right: 68 antegrade Left: 73 antegrade Elevated flow velocities and ICA/CCA ratios have been found to correlate with increased degrees of vessel stenosis, calculated as percentage of diameter relative to a normal segment of distal ICA/CCA FINDINGS: RIGHT CAROTID: No significant stenosis is visualized. Mild scattered plaque. The waveforms are within normal limits . LEFT CAROTID: No significant stenosis is visualized. Mild scattered plaque. The waveforms are within normal limits. VERTEBRAL ARTERIES: Antegrade flow is seen in both vertebral arteries. MISCELLANEOUS: None. CONCLUSION: 1. No hemodynamically significant stenosis in either carotid artery. Moses Santos MD on June 26, 2016 at 9:38 Board Certified Radiologist. This report was verified electronically.
--- NOTE | 2016-06-26 09:49 | HHI.HP ---
[facility] Service Family Medicine Primary Care Physician Junior Hunt MD Admission Diagnosis afib w cp/sob Diagnoses: (1) Atrial fibrillation with RVR (2) Incoherent speech (3) Shortness of breath (4) Orthostatic hypotension (5) Cecum mass (6) FEN/PPX International Travel<30 Days: No Contact w/Intl Traveler<30days: No Known Affected Area: No History of Present Illness 85-year-old female presenting to the emergency department with a chief complaint of chest pain, shortness of breath, and lethargy and found to be in atrial fibrillation with RVR. She was at home with her family when she developed a sudden onset chest discomfort in the center of her chest that radiated to her left upper extremity that she described as a deep, burning pain. She did endorse shortness of breath with this. She denies any nausea or vomiting, denies any diaphoresis, denies any loss of consciousness. EMS was called by her family and on initial evaluation she was found to be in atrial fibrillation with RVR with a heart rate in the 150s. She was given an IV dose of diltiazem 20 mg 1 which brought her heart rate down to the 100s on transport to the emergency department. There is also a short time period where she had slurred speech and appeared to be confused. This lasted for approximately 3 minutes and has completely resolved and she has no complaints of slurred speech at this time. Currently, she denies any problems with chest pain or palpitations, denies any shortness of breath, denies any lightheadedness or dizziness. She did get out of bed with physical therapy and became short of breath, prompting physical therapy to place her back into bed quickly. She was recently hospitalized in May after a fall. She was noted to have an episode of AFIB with RVR during this admission. Echo from 05/24 showing normal systolic function with EF of 60-65%. Her rate was controlled and she was determined to be a poor candidate for anticoagulation due to presence of cecal mass and concern for a GI bleed. She was started on Hydralazine. Review of Systems Constitutional: COMPLAINS OF: Fatigue, DENIES: Fever, Chills, Dizziness Respiratory: COMPLAINS OF: Shortness of breath, DENIES: Cough, Wheezing, Sputum production Cardiovascular: COMPLAINS OF: Chest pain, Palpitations, Dyspnea on Exertion, DENIES: Syncope, Lower Extremity Edema Gastrointestinal: DENIES: Abdominal pain, Constipation, Diarrhea, Nausea, Vomiting Neurologic: COMPLAINS OF: Speech Problems, DENIES: Abnormal gait, Headache, Localized weakness, Paresthesias, Poor Balance Psychiatric: COMPLAINS OF: Anxiety, DENIES: Confusion, Depression, Hallucinations, Agitation Past Family Social History Past Medical History Orthostatic hypotension Hyperlipidemia Chronic kidney disease Urinary incontinence Hypothyroidism Peripheral neuropathy COPD Stroke Hospitalized May 2016 due to orthostatic syncope/fall, UTI, anemia, colon adenoma AFIB with RVR Past Surgical History Cholecystectomy Hysterectomy Right carotid endarterectomy Tonsillectomy Allergies: Coded Allergies: No Known Allergies (Verified , 05/20/16) Family History Father of a heart attack at 65 Mother of kidney disease in her 70s Social History Patient denies current use or history of use of tobacco. Denies alcohol or illicit drug use. She currently resides and [facility] ([facility] Prior to this she lived at an independent living facility. Physical Exam Vital Signs Vital Signs Date Time Temp Pulse Resp B/P Pulse Ox O2 Delivery O2 Flow Rate FiO2 06/26/16 07:16 98 Nasal Cannula 1.00 06/26/16 07:15 49 06/26/16 06:21 89 06/26/16 06:11 84 06/26/16 05:53 97.8 120 16 135/65 99 06/26/16 05:46 105 16 148/94 100 Room Air 06/26/16 04:50 98 Nasal Cannula 1.00 06/26/16 00:35 98 06/26/16 00:32 98.2 79 20 146/100 97 Nasal Cannula 06/25/16 23:59 96 18 146/100 95 Physical Exam GENERAL: This is a well-nourished, well-developed patient, in no apparent distress. SKIN: No rashes. Ecchymoses on abdomen from previous administration of anticoagulation. Cool and dry. HEAD: Atraumatic. Normocephalic. No temporal or scalp tenderness. EYES: Pupils equal round and reactive. Extraocular motions intact. No scleral icterus. No injection or drainage. NECK: Trachea midline. No JVD or lymphadenopathy. Supple, nontender, no meningeal signs. No carotid bruits appreciated. CARDIOVASCULAR: Regular rate and rhythm. No murmurs rubs or gallops appreciated. RESPIRATORY: Clear to auscultation. Breath sounds equal bilaterally. No wheezes , rales, or rhonchi. GASTROINTESTINAL: Abdomen soft, non-tender, nondistended. MUSCULOSKELETAL: Extremities without clubbing, cyanosis, or edema. NEUROLOGICAL: Awake and alert. Oriented to person place and time. Cranial nerves II through XII intact. 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 Five out of 5 muscle strength in other muscle groups. Normal speech. Laboratory Laboratory Tests Test 06/26/16 06/26/16 06/26/16 00:38 01:20 06:34 White Blood Count 5.6 Red Blood Count 2.80 Hemoglobin 8.9 Hematocrit 26.0 Mean Corpuscular Volume 92.9 Mean Corpuscular Hemoglobin 31.9 Mean Corpuscular Hemoglobin 34.4 Concent Red Cell Distribution Width 15.1 Platelet Count 259 Mean Platelet Volume 8.0 Neutrophils (%) (Auto) 71.8 Lymphocytes (%) (Auto) 14.7 Monocytes (%) (Auto) 11.0 Eosinophils (%) (Auto) 1.6 Basophils (%) (Auto) 0.9 Neutrophils # (Auto) 4.0 Lymphocytes # (Auto) 0.8 Monocytes # (Auto) 0.6 Eosinophils # (Auto) 0.1 Basophils # (Auto) 0.0 CBC Comment DIFF FINAL Differential Comment Prothrombin Time 10.8 Prothromb Time International 1.0 Ratio Activated Partial 26.0 Thromboplast Time Sodium Level 142 Potassium Level 3.6 Chloride Level 108 Carbon Dioxide Level 27.5 Anion Gap 7 Blood Urea Nitrogen 20 Creatinine 1.19 Estimat Glomerular Filtration 43 Rate Random Glucose 112 Calcium Level 7.6 Magnesium Level 1.9 Total Creatine Kinase 42 43 Troponin I 0.03 0.07 Triglycerides Level 111 Cholesterol Level 110 LDL Cholesterol 46 HDL Cholesterol 41.8 Cholesterol/HDL Ratio 2.63 Urine Color COLORLESS Urine Turbidity CLEAR Urine pH 6.0 Urine Specific [place] 1.004 Urine Protein NEG Urine Glucose (UA) NEG Urine Ketones NEG Urine Occult Blood NEG Urine Nitrite NEG Urine Bilirubin NEG Urine Urobilinogen LESS THAN 2.0 Urine Leukocyte Esterase NEG Urine WBC 1 Urine Squamous Epithelial <1 Cells Urine Bacteria RARE Microscopic Urinalysis Comment CULT NOT INDICATED Result Diagram: 06/26/16 0038 06/26/16 0038 Imaging Last [address] 06/26/16 0429 Signed Impressions: Service Date/Time: Sunday, June 26, 2016 07:43 - CONCLUSION: No acute intracranial disease. Moses Santos MD Chest X-Ray 06/26/16 0007 Signed Impressions: Service Date/Time: Sunday, June 26, 2016 00:38 - CONCLUSION: 1. Minimal basilar atelectasis. No effusion. No pneumothorax. Heart size mildly enlarged. Anupam Cabral MD Brain MRI 06/26/16 0000 Signed Impressions: Service Date/Time: Sunday, June 26, 2016 08:18 - CONCLUSION: 1. No acute infarction. 2. Remote right basal ganglia lacunar infarct. Moses Santos MD Echocardiogram 05/24/16: Left ventricular cavity size normal, systolic function was normal. Estimated ejection fraction in the range of 60-65%. Wall motion was normal. There was no regional wall motion abnormalities. Mild tricuspid valve regurgitation. Pulmonary artery peak pressure of 56 mmHg. Trivial pericardial effusion identified Assessment and Plan Assessment and Plan Pt is a 85 year old female with past medical history significant for orthostatic hypotension, hyperlipidemia, CKD, hypothyroidism, COPD presenting to the ED due to chest pain and shortness of breath, found to be in afib with RVR, also reports symptoms concerning for TIA vs CVA. Problem List: (1) Atrial fibrillation with RVR Status: Acute Plan: Patient arrived in atrial fibrillation with RVR. - Received diltiazem 30 mg PO 1 with resolution of rapid heart rate Echocardiogram recently done on 05/24/16 showing an EF of 60-65% and no wall motion abnormalities. Patient does have a history of significant orthostatic hypotension - Orthostatic vitals ordered - We will begin digoxin 0.125 mg by mouth see if patient tolerates this as her heart rate is in the 80s at this point Cardiology consulted regarding management of atrial fibrillation given patient' s history of orthostatic hypotension and concern for TIA vs CVA, appreciate recommendations - Seen in previous hospitalization by Dr. Azar who felt patient was a high risk for anticoagulation due to recent falls as well as cecal mass - She was noted to have significant orthostatic hypotension so was not started on a beta penny or calcium channel penny - Resting heart rate was in the 45-55 range and therefore digoxin was not started Continue to monitor on telemetry Supplemental oxygen as needed Initial troponin 0.03 with subsequent troponin 0.07 likely due to stress from RVR History: Pt was given 20 mg IV diltiazem 1 by EMS (2) Incoherent speech Status: Acute Plan: Patient's family reports brief episode of incoherent speech that has completely resolved Neurologic exam on admission did note some uvula deviation to the right, however this was not noted during my exam No focal weakness was found during my exam Head CT shows no acute intracranial disease Brain MRI shows no acute infarction, it does note remote right basal ganglia lacunar infarct Carotid US - no hemodynamically significant stenosis in either carotid artery -Neuro checks -Lipid profile -Consult PT, OT and ST (3) Shortness of breath Status: Acute Plan: Pt with history of COPD and she is short of breath at baseline. She reports that breathing has improved with resolution of chest pain. -Duonebs Q6hrs PRN SOB Imaging: Chest x-ray significant for minimal basilar atelectasis. No effusion. No pneumothorax. Heart size mildly enlarged. (4) Orthostatic hypotension Status: Chronic Plan: Patient is currently hypertensive, we'll hold home fludrocortisone and midodrine. Due to elevated HR pt has antihypertensive medication ordered prn. Will use caution with antihypertensives and monitor pts blood pressure closely. (5) Cecum mass Status: Acute Plan: Pt with tubulovillous adenoma of the cecum:Colonoscopy and biopsy in 2016 that was significant for tubulovillous adenoma. Recommendation from prior hospitalization was to reevaluate pt regarding possibility of surgery. This would be a high risk procedure given patients other comorbidities. Pt has an appointment to follow-up with Dr. Thompson on Monday at 9:30 AM. If it becomes apparent that patient will not be able to keep this appointment consider consulting general surgery for reevaluation. (6) FEN/PPX Status: Acute Plan: Fluids: NS 70mls, consider stopping once pt passes swallow evaluation Electrolytes: Calcium low at 7.6 will check protein corrected Nutrition: NPO pending swallow evaluation DVT PPX: Heparin Chronic conditions: CKD: Cr 1.19, CrCl 34. Renally dose medication, avoid nephrotoxic agents Hypothyroidism: Continue home Synthroid, will check TSH, was last normal at 3.16 on 05/22/16 Peripheral neuropathy: Continue gabapentin to be renally dosed at 200mg po BID due to CrCl of 34 Anemia: Pt with hisoty of iron deficiency anemia, continue to monitor, consider starting ferrous sulfate Cayden Coppola MD Jun 26, 2016 09:48
--- NOTE | 2016-06-26 11:59 | MB ---
cc: GAURAV MARTIN,JONO BLUNT,GEORGETTE Obregon M.D. DATE OF CONSULTATION: 06/26/2016 REASON FOR CONSULTATION: HISTORY OF PRESENT ILLNESS: The patient is an 85-year-old woman I am seeing for atrial fibrillation with rapid response. She was just seen by Dr. Martin last month. The patient complained of sharp chest discomfort which was persistent along with shortness of breath. She was found to be in rapid atrial fibrillation which subsequently has converted to sinus rhythm. She did have atrial fibrillation with rapid response last month. The patient has had anemia with GI bleeding recently and has a cecal mass. Apparently she also had some slurred speech this time which has resolved. PAST MEDICAL HISTORY 1. Orthostatic hypotension 2. Hyperlipidemia. 3. Hypothyroidism 4. Urinary incontinence. 6. Neuropathy. 7. COPD. 8. Prior stroke. 9. GI as above. PAST SURGICAL HISTORY: 1. Cholecystectomy. 2. Hysterectomy. 3. Right carotid endarterectomy. 4. Tonsillectomy. ALLERGIES: NONE. FAMILY HISTORY: Unremarkable for premature coronary artery disease. SOCIAL HISTORY: She is independent, living at [facility], [place]. She does not smoke or drink. REVIEW OF SYSTEMS: Remarkable for incontinence, hearing loss and memory issues along with the above. She is otherwise comfortable at this point in time. EKG: Rapid atrial fibrillation which has resolved. X-RAYS: Head CT showed no active disease. Chest x-ray showed minimal cardiomegaly and atelectasis. Brain MRI showed remote right basoganglia stroke. Carotid ultrasound showed no hemodynamically significant stenoses. Echocardiogram done in 05/27 showed normal LV function with mild tricuspid regurgitation. LABORATORY DATA: Lab work this hospital stay. She is anemic with hematocrit 26.0. PT/PTT normal. Potassium 3.6, creatinine 1.19, troponin 0.03 and 0.07. LDL 46. PHYSICAL EXAMINATION: She is alert, oriented x3, afebrile. Vital signs stable. There are no xanthelasma and oral pharyngeal mucosa normal. Chest: Clear. Neck: JVD normal. Heart: S1-S2 with no definite murmurs or gallops. Abdomen: Benign. Extremities: Show no cyanosis, clubbing or edema. Pulses: Carotids without bruits. Radials 1+. Femorals not felt through her diaper. Pedals 1 to 2+. She is not ambulated. ASSESSMENT/PLAN Sameera presents with prolonged chest pain and atrial fibrillation with rapid response. Beta blockers and calcium blockers were unable to be used on her recent hospital admission because of orthostatic hypotension. Her troponin is borderline elevated. I suspect the chest discomfort is related to the rapid atrial fibrillation. Certainly with her multiple risk factors and prior vascular disease we cannot rule out underlying coronary disease but certainly with her cecal mass and GI bleeding, I would not pursue workup of this at the present time. I would recommend the followin. Will make sure sequentials are ordered for DVT prophylaxis. 2. She is on low-dose oral diltiazem p.r.n. 3. Will load her with amiodarone as hopefully this will help maintain sinus rhythm. 4. Dr. Martin will return tomorrow and make further cardiac recommendations. 5. Low cholesterol / salt diet with continuation of statin therapy. MD KEILA Brown/LEN /11:20 AM /11:51 AM
--- NOTE | 2016-06-26 12:32 | EKG ---
Date Performed: 06/26/2016 Time Performed: 00:17:25 PTAGE: 85 years EKG: ATRIAL FIBRILLATION NONSPECIFIC ST & T-WAVE ABNORMALITY ABNORMAL RHYTHM ECG Compared to rc or electrocardiogram,Atrial fibrillation has replaced Sinus rhythm . PREVIOUS TRACING : 05/27/2016 03.12 DOCTOR: Monroe Wolfe Interpretating Date/Time 06/26/2016 12:31:20
[2016-06-26 13:37] LABS: CALCIUM-PROTEIN CORRECTED 8.7 MG/DL (8.5-10.1)
[2016-06-26 13:40] LABS: CREATINE KINASE 47 U/L (26-192)
[2016-06-26] MEDS: ATORVASTATIN 10 MG TAB PO SCH (20:59)
[2016-06-26] MEDS ORDERED: LEVOTHYROXINE SODIUM 25 MCG TAB PO SCH (21:00)
[2016-06-26] MEDS ORDERED: MELATONIN 5 MG TAB PO PRN (23:00)
[2016-06-27] VITALS (12 sets, daily range): BP systolic 126–191; BP diastolic 55–96; PULSE 60–76; RESP 18–20; TEMP 96.1–98.4; O2SAT 93–97
[2016-06-27] MEDS: HEPARIN SODIUM - SQ 10,000 UNITS/ML VIAL SQ SCH ×3 (00:02→16:33)
[2016-06-27] MEDS: hydrALAZINE HCL 10 MG TAB PO SCH ×3 (05:38→22:23)
[2016-06-27] MEDS: INSULIN ASPART SUPPLEMENTAL SCALE SQ SCH ×4 (05:42→21:00)
[2016-06-27] MEDS ORDERED: DIGOXIN 0.125 MG TAB PO SCH (09:00)
[2016-06-27] MEDS: GABAPENTIN 100 MG CAP PO SCH ×2 (09:39→22:22)
[2016-06-27] MEDS: SODIUM CHLOR 0.9% 1000 ML INJ 1,000 ML IV SCH ×2 (09:39→22:24)
[2016-06-27] MEDS: SODIUM CHLORIDE 0.9% FLUSH 5 ML FLUSH IVF SCH ×2 (09:39→22:25)
--- NOTE | 2016-06-27 09:56 | PD.CARD.PN ---
Subjective Subjective Remarks No chest pain, no shortness of breath, doing well Objective Medications Current Medications Medications (Trade) Dose Ordered Sig/Betito Route Start Time Stop Time Status Last Admin (NS Flush) 2 ml BID IVF 06/26/16 09:00 06/27/16 09:39 IV Flush 2 ml 2 ml UNSCH PRN IVF 06/26/16 04:00 (NS 1000 ml Inj) 1,000 ml @ 70 mls/hr [id number] IV 06/26/16 03:53 06/27/16 09:39 (D50w (Vial) Inj) 25 ml UNSCH PRN IV PUSH 06/26/16 04:00 (Glucagon Inj) 1 mg UNSCH PRN OTHER 06/26/16 04:00 (Lipitor) 10 mg HS PO 06/26/16 21:00 06/26/16 20:59 (Apresoline) 10 mg Q8HR PO 06/26/16 06:00 06/27/16 05:38 (Synthroid) 25 mcg HS PO 06/26/16 21:00 06/26/16 21:00 (Neurontin) 200 mg BID PO 06/26/16 09:00 06/27/16 09:39 (Heparin Inj) 5,000 units Q8H SQ 06/26/16 09:00 06/27/16 09:39 (Cardizem) 30 mg Q6HR PRN PO 06/26/16 05:15 (Melatonin) 5 mg HS PRN PO 06/26/16 23:00 06/27/16 00:02 Vital Signs / I&O Vital Signs Date Time Temp Pulse Resp B/P Pulse Ox O2 Delivery O2 Flow Rate FiO2 06/27/16 07:31 191/74 06/27/16 07:31 139/64 06/27/16 07:30 96.1 62 18 184/75 93 06/27/16 05:05 98.4 65 18 153/67 97 06/27/16 00:09 97.8 76 18 126/55 97 06/26/16 21:44 62 06/26/16 19:45 98 Nasal Cannula 1.00 06/26/16 19:29 97.8 78 18 108/68 97 06/26/16 16:14 62 120/57 06/26/16 15:47 54 3/19/17 11:19 62 142/67 116/56 101/49 I/O 06/26/16 06/26/16 06/26/16 06/27/16 06/27/16 06/27/16 07:00 15:00 23:00 07:00 15:00 23:00 Intake Total 120 ml 190 ml 590 ml Balance 120 ml 190 ml 590 ml Intake Oral 50 ml 50 ml 100 ml IV Total 70 ml 140 ml 490 ml # Voids 2 2 4 Physical Exam GENERAL: NAD, AAOx3 SKIN: Warm and dry. HEAD: Atraumatic. Normocephalic. EYES: Pupils equal and round. No scleral icterus. No injection or drainage. ENT: No nasal bleeding or discharge. Mucous membranes pink and moist. NECK: Trachea midline. No JVD. CARDIOVASCULAR: Irregularly irregular RESPIRATORY: No accessory muscle use. Clear to auscultation. Breath sounds equal bilaterally. GASTROINTESTINAL: Abdomen soft, non-tender, nondistended. Hepatic and splenic margins not palpable. MUSCULOSKELETAL: Extremities without clubbing, cyanosis, or edema. No obvious deformities. NEUROLOGICAL: Awake and alert. No obvious cranial nerve deficits. Motor grossly within normal limits. Five out of 5 muscle strength in the arms and legs. Normal speech. PSYCHIATRIC: Appropriate mood and affect; insight and judgment normal. Laboratory Laboratory Tests Test 06/26/16 12:33 Calcium Level 7.9 MG/DL Protein Corrected Calcium 8.7 MG/DL Total Creatine Kinase 47 U/L Troponin I 0.05 NG/ML Total Protein 5.7 GM/DL Thyroid Stimulating Hormone 1.420 uIU/ML 3rd Gen Assessment and Plan Problem List: (1) Atrial fibrillation with RVR (2) Cecum mass (3) Sinus pause (4) Orthostatic hypotension (5) Chronic kidney disease (CKD) stage G3a/A1, moderately decreased glomerular filtration rate (GFR) between 45-59 mL/min/1.73 square meter and albuminuria creatinine ratio less than 30 mg/g (6) Chest pain Assessment and Plan 1) Afib currently controlled, although difficulty with tachy-tania, heart rate in NSR around 60 but episode of Afib with RVR 2) >6 second pause on 06/26 at 07:20 3) Will consult Dr. Rg EP, for consideration of PPM due to pause and tachy- tania, discussed case with him 4) Will attempt to increase blood pressure medications to better control, although difficult with orthostatic hypotension 5) Not an anticoagulation candidate due to cecal mass and falls 6) Chest pain felt to be due to Afib, not a candidate for ischemic evaluation or revascularization Problem Qualifiers (1) Chest pain: Qualified Code: R07.2 - Precordial pain Angel Azar DO Jun 27, 2016 09:56
[2016-06-27 10:39] LABS: HEMOGLOBIN A1a 0.5 %; HEMOGLOBIN A1b 1.6 %; HEMOGLOBIN Ao 86.1 %; HEMOGLOBIN LA1C 1.7 %; HEMOGLOBIN P3 3.6 %
--- NOTE | 2016-06-27 10:47 | HHI.FPPN ---
Subjective Remarks Patient seen this morning. No acute events overnight. Blood pressures are significantly elevated this AM (SBP up to the 190s). Sameera c/o frontal DURON this AM associated with mild blurry vision. No N/V or CP. She has no other complaints this AM. Appetite good, she would like to try eating this AM. Denies any F/C or SOB. No palpitations. (Newton Adkins MD R3) Objective Vitals Vital Signs Date Time Temp Pulse Resp B/P Pulse Ox O2 Delivery O2 Flow Rate FiO2 06/27/16 08:05 61 06/27/16 07:31 191/74 06/27/16 07:31 139/64 06/27/16 07:30 96.1 62 18 184/75 93 06/27/16 05:05 98.4 65 18 153/67 97 06/27/16 00:09 97.8 76 18 126/55 97 06/26/16 21:44 62 06/26/16 19:45 98 Nasal Cannula 1.00 06/26/16 19:29 97.8 78 18 108/68 97 06/26/16 16:14 62 120/57 06/26/16 15:47 54 06/26/16 11:19 62 142/67 116/56 101/49 I/O 06/26/16 06/26/16 06/26/16 06/27/16 06/27/16 06/27/16 07:00 15:00 23:00 07:00 15:00 23:00 Intake Total 120 ml 190 ml 590 ml 300 ml Balance 120 ml 190 ml 590 ml 300 ml Intake Oral 50 ml 50 ml 100 ml 100 ml IV Total 70 ml 140 ml 490 ml 200 ml # Voids 2 2 4 1 (Newton Adkins MD R3) Result Diagram: 06/26/16 0038 06/26/16 0038 Objective Remarks GENERAL: well-appearing, elderly female patient. In NAD. SKIN: No rashes. Ecchymoses on abdomen from previous administration of anticoagulation. Cool and dry. CARDIOVASCULAR: Distant heart sounds. Regular rate and rhythm. No murmurs rubs or gallops appreciated. RESPIRATORY: Clear to auscultation. Breath sounds equal bilaterally. No wheezes , rales, or rhonchi. GASTROINTESTINAL: Abdomen soft, non-tender, nondistended. +bs in all 4 quadrants. MUSCULOSKELETAL: Extremities without clubbing, cyanosis, or edema. NEUROLOGICAL: Awake and alert. Oriented to person, place and time. Motor and sensory are grossly intact. (Newton Adkins MD R3) A/P Assessment and Plan Pt is a 85 year old female with past medical history significant for orthostatic hypotension, hyperlipidemia, CKD, hypothyroidism, COPD presenting to the ED due to chest pain and shortness of breath, found to be in afib with RVR, also reports symptoms concerning for TIA vs CVA. Discharge Planning Patient would prefer DC home with HH. Will need eval for pacemaker and excision of cecal mass before DC. Will discuss criteria for inpatient admission and discharge arrangement with CM today. Will discuss with Dr. Coppola. (Newton Adkins MD R3) Attending Attestation Pt. examined and case discussed with resident physician I have read the above note and agree with the assessment/plan as discussed with me I was involved in all medical decision making for this patient Cayden Coppola MD (Cayden Coppola MD) Problem List: (1) Atrial fibrillation with RVR Status: Acute Plan: Well controlled. Patient arrived in atrial fibrillation with RVR. Did have intermittent tachycardia-bradycardia with >6s sinus pause yesterday morning. -cont tele -cont diltiazem 30mg q6 PRN for HR >120 bpm -Cardiology consulted regarding management of atrial fibrillation given patient' s history of orthostatic hypotension and concern for TIA vs CVA, appreciate recommendations. They have consulted Dr. Rg for PPM eval, given sinus pause and intermittent tachy-tania on tele. * Seen in previous hospitalization by Dr. Azar who felt patient was a high risk for anticoagulation due to recent falls as well as cecal mass * She was noted to have significant orthostatic hypotension so was not started on a beta penny or calcium channel penny * Resting heart rate was in the 45-55 range and therefore digoxin was not started History: -ACS r/o negative. Mild bump in troponin on admission likely 2/2 strain from RVR. -Pt was given 20 mg IV diltiazem 1 by EMS -Echocardiogram recently done on 05/24/16 showing an EF of 60-65% and no wall motion abnormalities. (2) Sinus pause Status: Acute Plan: Consult for Dr. Rg, as above. (3) Orthostatic hypotension Status: Chronic Plan: Orthostatic hypotension with drop of >30 points SBP and >10 points DBP with standing yesterday. HR paradoxically decreased ~30 bpm with standing. -patient currently hypertensive, which will make treatment difficult. Home midodrine and fludricortisone currently on hold 2/2 hypertension. -PT/OT eval. PT currently recommends HH with PT v. rehab. (4) HTN (hypertension) Status: Acute Plan: SBP up to the 190s. -will have nursing check with manual cuff this AM -cardiology has increased hydralazine to 20 mg TID -consider adding FLORIN. Will discuss with cards. -vasotec PRN for SBP >180 -holding BB and calcium channel blockers 2/2 intermittent bradycardia (5) Headache Status: Acute Plan: Likely related to elevated BP. Will give Tylenol. Avoid NSAIDs 2/2 elevated BP. (6) Shortness of breath Status: Acute Plan: Pt with history of COPD and she is short of breath at baseline. She reports that breathing has improved with resolution of chest pain. -Duonebs Q6hrs PRN SOB History: -Chest x-ray significant for minimal basilar atelectasis. No effusion. No pneumothorax. Heart size mildly enlarged. (7) Incoherent speech Status: Acute Plan: Resolved. Patient's family reports brief episode of incoherent speech that is now resolved. No focal deficits on exam today. -DC neuro checks -Lipid profile unremarkable -Consult PT and OT, as above. ST consulted, awaiting eval. History: -Head CT shows no acute intracranial disease -Brain MRI shows no acute infarction, it does note remote right basal ganglia lacunar infarct -Carotid US - no hemodynamically significant stenosis in either carotid artery (8) Chronic kidney disease (CKD) stage G3a/A1, moderately decreased glomerular filtration rate (GFR) between 45-59 mL/min/1.73 square meter and albuminuria creatinine ratio less than 30 mg/g Status: Acute Plan: Creatinine stable at 1.19 yesterday. eGFR in the 40s. -gentle fluid hydration with NS at 70 mls/hr -monitor daily chemistry (9) Cecum mass Status: Acute Plan: Pt with tubulovillous adenoma of the cecum:Colonoscopy and biopsy in 2016 that was significant for tubulovillous adenoma. Recommendation from prior hospitalization was to reevaluate pt regarding possibility of surgery. This would be a high risk procedure given patients other comorbidities. -plan for surgery consult. Will need eval for pacemaker by Dr. Rg before any intervention. Patient had consult scheduled with general surgery today. (10) FEN/PPX Status: Acute Plan: Fluids: NS 70mls. DC once PO intake improved. Electrolytes: WNL yesterday. Nutrition: Heart healthy DVT PPX: Heparin (Newton Adkins MD R3) Newton Adkins MD R3 Jun 27, 2016 10:47 Cayden Coppola MD Jun 27, 2016 18:11
[2016-06-27] MEDS ORDERED: hydrALAZINE HCL 20 MG/ML VIAL IV PUSH PRN (11:15)
[2016-06-27] MEDS ORDERED: ACETAMINOPHEN 325 MG TAB PO PRN (11:15)
[2016-06-27 11:54] LABS: MEAN CELL VOLUME 93.3 FL (80.0-100.0); MEAN CORPUSCULAR HEMOGLOBIN 31.9 PG (27.0-34.0); MEAN CORPUSCULAR HGB CONC 34.2 % (32.0-36.0); PLATELET COUNT 259 TH/MM3 (150-450); REVIEW FLAG FINAL; WHITE BLOOD COUNT 3.6 TH/MM3 (4.0-11.0)
[2016-06-27 12:15] LABS: BICARBONATE 25.8 MEQ/L (21.0-32.0); POTASSIUM 3.9 MEQ/L (3.5-5.1)
--- NOTE | 2016-06-27 13:21 | MB ---
cc: JABIER WEBB MD DATE OF CONSULTATION: 06/27/2016 REASON FOR CONSULTATION Cecal mass. HISTORY OF PRESENT ILLNESS This is an 85-year-old female who was originally admitted to the hospital on May 21 and at that time was noted to have a colon mass on CT as well as anemia. She underwent colonoscopy which revealed a cecal mass. Biopsies were taken and the patient was noted to have tubulovillous adenoma with severe glandular dysplasia. During that hospitalization she had symptomatic atrial fibrillation with rapid ventricular response. She was noted to be fairly high risk for surgery and she was to see me in the office as an outpatient for further discussion and probable surgical planning. However, the patient presented again to the emergency department yesterday with chest pain and shortness of breath. She was noted to have atrial fibrillation with rapid ventricular response again. Cardiology evaluated the patient and there are plans for pacemaker placement tomorrow. She does have a history of orthostatic hypotension as well and tachy-tania syndrome. Regarding the cecal mass she does not have any abdominal complaints. Her hemoglobin is pretty much stable compared to her recent hospitalization at 9.6. PAST MEDICAL HISTORY 1. Orthostatic hypotension. 2. Hyperlipidemia. 3. Chronic kidney disease. 4. Hypothyroidism. 5. COPD. 6. Stroke. 7. Atrial fibrillation with rapid ventricular response. PAST SURGICAL HISTORY 1. Cholecystectomy. 2. Hysterectomy. 3. Right carotid endarterectomy. MEDICATIONS Home medications include: 1. Levothyroxine. 2. Midodrine. 3. Atorvastatin. 4. Gabapentin. 5. 81 mg aspirin. ALLERGIES No known allergies. FAMILY HISTORY Noncontributory. SOCIAL HISTORY No alcohol or tobacco use. Prior to her recent illness she lived alone and was able to perform activities of daily living including cooking and cleaning. She did not drive. REVIEW OF SYSTEMS A 10-point review of systems is negative except as mentioned in the HPI. PHYSICAL EXAMINATION GENERAL: An elderly pleasant female. She is not in distress and is sitting in her bed reading a magazine. VITAL SIGNS: Temperature 96.8, heart rate 66, respirations 18, blood pressure 140/76. HEAD: Normocephalic, atraumatic. EYES: Pupils equal, round and react to light bilaterally. ENT: Moist oral mucosa. LUNGS: Clear to auscultation bilaterally. CARDIOVASCULAR: Regular rate and rhythm. ABDOMEN: Soft. Mild diffuse tenderness. A well-healed incision at the umbilicus and Pfannenstiel incision. No masses palpated. She has mild ecchymosis of the abdominal wall. EXTREMITIES: No cyanosis or edema. SKIN: Warm, dry, non-jaundiced. LABORATORY DATA White blood count 3.6, hemoglobin 9.6, hematocrit 28. Chemistries basically unremarkable. ASSESSMENT AND PLAN An 85-year-old female with a cecal mass which is at least a polyp with severe glandular dysplasia if not adenocarcinoma. She has anemia from the cecal mass. In addition she has multiple co-morbid conditions and acutely tachy-tania syndrome and atrial fibrillation with rapid ventricular response. She is planned to have a pacemaker placed probably tomorrow. I discussed the case again in detail with the patient including the risks which are higher for her due to her cardiac issues. She does desire to go ahead and proceed with surgery considering the likelihood of either current malignancy or malignant transformation of the polyp soon and the anemia. I will tentatively schedule surgery for this morning and discuss it further with the medical and cardiology teams. Jabier Webb MD JPRadha/DE /1:00 PM /1:12 PM
[2016-06-27] MEDS: ATORVASTATIN 10 MG TAB PO SCH (22:23)
[2016-06-27] MEDS ORDERED: POVIDONE IODINE 5% (ANTISEPSIS KIT) 4 APPLICATIONS EACH NARE SCH (22:30)
[2016-06-27] MEDS ORDERED: MUPIROCIN 2% OINT 1 APPLIC/GM SYR NASAL SCH (22:30)
[2016-06-27] MEDS ORDERED: CHLORHEXIDINE GLUCONATE 2 % 1 PACK (2 CLOTHS) TOP SCH (22:30)
[2016-06-28] VITALS (18 sets, daily range): BP systolic 127–175; BP diastolic 59–86; PULSE 62–72; RESP 16–20; TEMP 97.5–98.8; O2SAT 95–99
[2016-06-28] MEDS: HEPARIN SODIUM - SQ 10,000 UNITS/ML VIAL SQ SCH (01:00)
[2016-06-28] MEDS: LEVOTHYROXINE SODIUM 25 MCG TAB PO SCH (06:07)
[2016-06-28] MEDS: hydrALAZINE HCL 10 MG TAB PO SCH ×3 (06:07→21:39)
[2016-06-28] MEDS: INSULIN ASPART SUPPLEMENTAL SCALE SQ SCH ×4 (06:09→21:00)
[2016-06-28] MEDS ORDERED: ceFAZolin INJ 1,000 MG VIAL ONE ×2 (08:20→08:23)
[2016-06-28] MEDS ORDERED: MIDAZOLAM HCL 5 MG/5 ML VIAL ONE (08:20)
[2016-06-28] MEDS ORDERED: VANCOMYCIN 500 MG VIAL ONE (08:20)
[2016-06-28] MEDS ORDERED: VANCOMYCIN HCL 1000 MG VIAL ONE (08:20)
[2016-06-28] MEDS ORDERED: LIDOCAINE HCL 2% 50 ML VIAL ONE (08:21)
--- NOTE | 2016-06-28 08:28 | MB ---
cc: GAURAV MARTIN HANSCY M.D. LEMASTER,JONO WOLFE,IDALIA NUNEZ M.D., M.D. DATE OF CONSULTATION: 06/27/2016 REASON FOR CONSULTATION Severe bradycardia, pause up to 6 seconds, tachy-tania syndrome. HISTORY OF PRESENT ILLNESS Mrs. Torres is an 85-year-old female with atrial fibrillation, tachy-tania syndrome, seen by Dr. Martin and Dr. Wolfe, developed six second pause and multiple episodes of bradycardia. She was put on Cardizem. She has a history of hyperlipidemia, high blood pressure and neuropathy. She has a previous history of anemia, not a good candidate for anticoagulation. She was referred for evaluation for possible device insertion. The chart was reviewed. The patient was evaluated. ALLERGIES None reported. SOCIAL HISTORY Negative for smoking and drinking. FAMILY HISTORY Noncontributory to her current medical condition. MEDICATIONS The patient currently is on: 1. Acetaminophen. 2. Lipitor 10 mg a day. 3. Cardizem 30 mg q.6h. 4. Neurontin. 5. Heparin. 6. Hydralazine 10 mg q.8h. 7. Levoxyl. REVIEW OF SYSTEMS She refers an episode of dizziness, near-syncope and palpitations. No chest pain. PHYSICAL EXAMINATION GENERAL: Alert, fully oriented. VITAL SIGNS: Blood pressure on evaluation 148/76, pulse was around 80, respiratory rate 18. LUNGS: Ventilated. CARDIOVASCULAR: S1, S2, irregular. ABDOMEN: Soft. No mass. EXTREMITIES: No edema. ELECTROCARDIOGRAM Electrocardiogram: Atrial fibrillation. Telemetry shows sinus rhythm at this point. 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 She cannot tolerate negative chronotropic medication. She has multiple pauses. She will need backup pacing. I had a very long conversation with her family. There was three of them. I went to the telemetry and showed them the pauses of six seconds and severe bradycardia. Also, I did show them the episodes of tachyarrhythmia. I recommend at this point a permanent pacemaker. I advised the family to look for another opinion before they decide to proceed with a pacemaker. They had multiple questions. At the end they had a meeting between them and they agreed to proceed. I will keep her n.p.o. after midnight for permanent pacemaker in the morning. MD GUZMAN Reza/DE /10:30 PM /8:11 AM
[2016-06-28] MEDS: GABAPENTIN 100 MG CAP PO SCH ×2 (09:00→21:38)
[2016-06-28] MEDS: SODIUM CHLORIDE 0.9% FLUSH 5 ML FLUSH IVF SCH ×2 (09:00→21:00)
[2016-06-28] MEDS ORDERED: ACETAMINOPHEN/CODEINE 300 MG/30 MG TAB PO PRN (10:00)
[2016-06-28] MEDS ORDERED: SODIUM CHLORIDE 0.9% FLUSH 10 ML FLUSH IV FLUSH PRN (10:00)
--- NOTE | 2016-06-28 10:44 | PD.CARD.PN ---
Subjective Subjective Remarks No chest pain, no shortness of breath Patient seen this morning, going for PPM Objective Medications Current Medications Medications (Trade) Dose Ordered Sig/Betito Route Start Time Stop Time Status Last Admin (NS Flush) 2 ml BID IVF 06/26/16 09:00 06/27/16 22:25 IV Flush 2 ml 2 ml UNSCH PRN IVF 06/26/16 04:00 (NS 1000 ml Inj) 1,000 ml @ 70 mls/hr [id number] IV 06/26/16 03:53 06/27/16 22:24 (D50w (Vial) Inj) 25 ml UNSCH PRN IV PUSH 06/26/16 04:00 (Glucagon Inj) 1 mg UNSCH PRN OTHER 06/26/16 04:00 (Lipitor) 10 mg HS PO 06/26/16 21:00 06/27/16 22:23 (Neurontin) 200 mg BID PO 06/26/16 09:00 06/27/16 22:22 (Cardizem) 30 mg Q6HR PRN PO 06/26/16 05:15 (Melatonin) 5 mg HS PRN PO 06/26/16 23:00 06/27/16 00:02 (Apresoline) 20 mg Q8HR PO 06/27/16 14:00 06/28/16 06:07 (Tylenol) 650 mg Q4H PRN PO 06/27/16 11:15 06/27/16 11:52 (Vasotec Inj) 1.25 mg Q6H PRN IV PUSH 06/27/16 11:45 Levothyroxine Sodium 25 mcg 25 mcg DAILY@06 PO 06/28/16 06:00 06/28/16 06:07 (Ancef 2 Gm Premix) 50 ml @ 100 mls/hr Q8H IV 06/28/16 10:00 06/29/16 02:29 UNV (Tylenol-Codeine #3) 1 tab Q4H PRN PO 06/28/16 10:00 UNV (Tylenol-Codeine #3) 2 tab Q4H PRN PO 06/28/16 10:00 UNV (NS Flush) 2 ml UNSCH PRN IV FLUSH 06/28/16 10:00 UNV Vital Signs / I&O Vital Signs Date Time Temp Pulse Resp B/P Pulse Ox O2 Delivery O2 Flow Rate FiO2 06/28/16 08:05 65 06/28/16 07:40 97.6 65 17 175/77 98 06/28/16 04:00 97.7 67 16 158/86 96 06/28/16 00:00 97.5 67 18 142/82 96 06/27/16 20:10 72 06/27/16 20:00 98.0 66 18 180/96 97 06/27/16 16:00 97.9 64 20 160/88 96 06/27/16 15:47 62 18 156/69 96 06/27/16 15:00 60 06/27/16 11:45 148/76 06/27/16 11:26 96.7 66 18 186/89 96 I/O 06/27/16 06/27/16 06/27/16 06/28/16 06/28/16 06/28/16 07:00 15:00 23:00 07:00 15:00 23:00 Intake Total 590 ml 300 ml 240 ml 0 ml Output Total 800 ml Balance 590 ml 300 ml 240 ml -800 ml Intake Oral 100 ml 100 ml 240 ml 0 ml IV Total 490 ml 200 ml Output Urine Total 800 ml # Voids 4 1 1 # Bowel Movements 0 0 Physical Exam GENERAL: NAD, AAOx3 SKIN: Warm and dry. HEAD: Atraumatic. Normocephalic. EYES: Pupils equal and round. No scleral icterus. No injection or drainage. ENT: No nasal bleeding or discharge. Mucous membranes pink and moist. NECK: Trachea midline. No JVD. CARDIOVASCULAR: Irregularly irregular RESPIRATORY: No accessory muscle use. Clear to auscultation. Breath sounds equal bilaterally. GASTROINTESTINAL: Abdomen soft, non-tender, nondistended. Hepatic and splenic margins not palpable. MUSCULOSKELETAL: Extremities without clubbing, cyanosis, or edema. No obvious deformities. NEUROLOGICAL: Awake and alert. No obvious cranial nerve deficits. Motor grossly within normal limits. Five out of 5 muscle strength in the arms and legs. Normal speech. PSYCHIATRIC: Appropriate mood and affect; insight and judgment normal. Laboratory Laboratory Tests Test 06/27/16 11:23 White Blood Count 3.6 TH/MM3 Red Blood Count 3.00 MIL/MM3 Hemoglobin 9.6 GM/DL Hematocrit 28.0 % Mean Corpuscular Volume 93.3 FL Mean Corpuscular Hemoglobin 31.9 PG Mean Corpuscular Hemoglobin 34.2 % Concent Red Cell Distribution Width 15.0 % Platelet Count 259 TH/MM3 Mean Platelet Volume 8.2 FL Sodium Level 142 MEQ/L Potassium Level 3.9 MEQ/L Chloride Level 108 MEQ/L Carbon Dioxide Level 25.8 MEQ/L Anion Gap 8 MEQ/L Blood Urea Nitrogen 14 MG/DL Creatinine 0.92 MG/DL Estimat Glomerular Filtration 58 ML/MIN Rate Random Glucose 87 MG/DL Calcium Level 8.4 MG/DL Assessment and Plan Problem List: (1) Atrial fibrillation with RVR (2) Cecum mass (3) Sinus pause (4) Orthostatic hypotension (5) Chronic kidney disease (CKD) stage G3a/A1, moderately decreased glomerular filtration rate (GFR) between 45-59 mL/min/1.73 square meter and albuminuria creatinine ratio less than 30 mg/g (6) Chest pain Assessment and Plan 1) Afib currently controlled, although difficulty with tachy-tania, heart rate in NSR around 60 but episode of Afib with RVR 2) >6 second pause on 06/26 at 07:20... for PPM this morning with Dr. Rg 3) Not an anticoagulation candidate due to cecal mass and falls 4) Chest pain felt to be due to Afib, not a candidate for ischemic evaluation or revascularization 5) For Laparoscopic colectomy by Dr. Thompson, considering ... still remains a moderate-high cardiovascular risk for a time-sensitive surgery, would not put off further as I can not decrease her risk, family understands that she has an elevated risk from a cardiovascular stand point pre-operatively... no current ACS/CHF, may proceed with surgery 6) Will plan on starting low dose BB to help control heart rate as PPM is being placed, with current blood pressure, should not be a problem with hypotension pre- or sherine-operatively Problem Qualifiers (1) Chest pain: Qualified Code: R07.2 - Precordial pain Angel Azar DO Jun 28, 2016 10:44
--- NOTE | 2016-06-28 10:51 | HHI.FPPN ---
Subjective Remarks Patient seen in the DOCU this morning. No acute events overnight. BP elevated up to the 170s this morning. Patient had successful PPM placement this morning. Tolerated procedure well. States she "can't believe how well I feel" this morning. Her only complaint this AM is of mild maxillary sinus and nasal congestion with mild, clear rhinorrhea. She denies history of allergy. Denies any CP or SOB. Does not feel dizzy. No F/C. Objective Vitals Vital Signs Date Time Temp Pulse Resp B/P Pulse Ox O2 Delivery O2 Flow Rate FiO2 06/28/16 08:05 65 06/28/16 07:40 97.6 65 17 175/77 98 06/28/16 04:00 97.7 67 16 158/86 96 06/28/16 00:00 97.5 67 18 142/82 96 06/27/16 20:10 72 06/27/16 20:00 98.0 66 18 180/96 97 06/27/16 16:00 97.9 64 20 160/88 96 06/27/16 15:47 62 18 156/69 96 06/27/16 15:00 60 06/27/16 11:45 148/76 06/27/16 11:26 96.7 66 18 186/89 96 I/O 06/27/16 06/27/16 06/27/16 06/28/16 06/28/16 06/28/16 07:00 15:00 23:00 07:00 15:00 23:00 Intake Total 590 ml 300 ml 240 ml 0 ml Output Total 800 ml Balance 590 ml 300 ml 240 ml -800 ml Intake Oral 100 ml 100 ml 240 ml 0 ml IV Total 490 ml 200 ml Output Urine Total 800 ml # Voids 4 1 1 # Bowel Movements 0 0 Result Diagram: 06/27/16 1123 06/27/16 1123 Objective Remarks GENERAL: well-appearing, elderly female patient. In NAD. SKIN: No rashes. Ecchymoses on abdomen from previous administration of anticoagulation. Cool and dry. ENT: Anterior nasal vaults erythematous with clear rhinorrhea. Maxillary sinuses mildly TTP. OP benign. CHEST WALL: PPM present over left chest with dressing in place. Wound site grossly appear c/d/i. No drainage. Left shoulder sling in place. CARDIOVASCULAR: Distant heart sounds. Regular rate and rhythm. No murmurs rubs or gallops appreciated. RESPIRATORY: Clear to auscultation. Breath sounds equal bilaterally. No wheezes , rales, or rhonchi. GASTROINTESTINAL: Abdomen soft, non-tender, nondistended. +bs in all 4 quadrants. MUSCULOSKELETAL: Extremities without clubbing, cyanosis, or edema. NEUROLOGICAL: Awake and alert. Oriented to person, place and time. Motor and sensory are grossly intact. A/P Assessment and Plan Pt is a 85 year old female with past medical history significant for orthostatic hypotension, hyperlipidemia, CKD, hypothyroidism, COPD presenting to the ED due to chest pain and shortness of breath, found to be in afib with RVR, also reports symptoms concerning for TIA vs CVA. Now s/p PPM placement . Discharge Planning Plan for DC home with Monday or Monday. Has planned excision of cecal mass for . Will discuss with Dr. Coppola. Problem List: (1) Atrial fibrillation with RVR Status: Acute Plan: Well controlled. Patient arrived in atrial fibrillation with RVR. Did have intermittent tachycardia-bradycardia with >6s sinus pause on 06/26. Intermittent sinus tania on tele overnight. S/p PPM placement 06/28. -cont tele -cont diltiazem 30mg q6 PRN for HR >120 bpm for now. Defer to cardiology regarding long-term rate control medication. -Cardiology consulted regarding management of atrial fibrillation given patient' s history of orthostatic hypotension and concern for TIA vs CVA, appreciate recommendations. They have consulted Dr. Rg for PPM eval, given sinus pause and intermittent tachy-tania on tele. * s/p PPM placement this morning, as above. CXR pending. * tylenol #3 for post-op pain History: -ACS r/o negative. Mild bump in troponin on admission likely 2/2 strain from RVR. -Pt was given 20 mg IV diltiazem 1 by EMS -Echocardiogram recently done on 05/24/16 showing an EF of 60-65% and no wall motion abnormalities. / (2) Sinus pause Status: Acute Plan: Intermittent sinus tania on tele overnight, as above. S/p PPM placement this AM. (3) Orthostatic hypotension Status: Chronic Plan: Drop of >50 points SBP and 10 points DBP with standing yesterday. -repeat orthostatics today -patient currently hypertensive, which will make treatment difficult. Home midodrine and fludricortisone currently on hold 2/2 hypertension. -PT/OT eval. PT currently recommends HH with PT v. rehab. (4) HTN (hypertension) Status: Acute Plan: Control improving. SBP up to the 180s overnight. -will place order to check BPs with normal cuff. Yesterday SBP was in the 140s with manual v. 170s with auto. -cardiology has increased hydralazine to 20 mg TID -consider adding FLORIN. Will discuss with cards. -vasotec PRN for SBP >180 -holding BB and calcium channel blockers 2/2 intermittent bradycardia (5) Nasal congestion Status: Acute Plan: Allergic rhinitis v. URI. -add flonase (6) Headache Status: Acute Plan: Resolved. Likely related to elevated BP. -cont PRN tylenol (7) Shortness of breath Status: Chronic Plan: Pt with history of COPD and she is short of breath at baseline. She reports that breathing has improved with resolution of chest pain. -Duonebs Q6hrs PRN SOB -repeat CXR today, s/p PPM placement History: -Chest x-ray significant for minimal basilar atelectasis. No effusion. No pneumothorax. Heart size mildly enlarged. (8) Chronic kidney disease (CKD) stage G3a/A1, moderately decreased glomerular filtration rate (GFR) between 45-59 mL/min/1.73 square meter and albuminuria creatinine ratio less than 30 mg/g Status: Chronic Plan: Creatinine stable at 0.92 yesterday. eGFR in the 50s. Labs today are pending. -gentle fluid hydration with NS at 70 mls/hr. DC as PO increases. -monitor daily chemistry (9) Cecum mass Status: Acute Plan: Pt with tubulovillous adenoma of the cecum:Colonoscopy and biopsy in 2016 that was significant for tubulovillous adenoma. Recommendation from prior hospitalization was to reevaluate pt regarding possibility of surgery. This would be a high risk procedure given patients other comorbidities. -Dr. Thompson has seen patient and will place on schedule (10) FEN/PPX Status: Acute Plan: Fluids: NS 70mls. DC once PO intake improved. Electrolytes: WNL yesterday. Nutrition: Heart healthy DVT PPX: restart heparin this afternoon (8 hours post procedure). Will put on hold for tomorrow AM (24 hours pre-procedure). Newton Adkins MD R3 Jun 28, 2016 10:51 Electrolytes: WNL yesterday. Nutrition: Heart healthy DVT PPX: Heparin Newton Adkins MD R3 Jun 28, 2016 10:51
--- NOTE | 2016-06-28 11:15 | RADRPT ---
EXAM DATE/TIME: 06/28/2016 10:39 [place] COMPARISON: CHEST SINGLE AP, June 26, 2016, 0:38. INDICATIONS : Pneumothorax. Post pacemaker insertion. MEDICAL HISTORY : Hypertension. Renal insufficiency, chronic. Chronic obstructive pulmonary disease. CVA SURGICAL HISTORY : Appendectomy. Cholecystectomy. Hysterectomy. ENCOUNTER: Subsequent ACUITY: 1 day PAIN SCORE: 0/10 LOCATION: Bilateral chest FINDINGS: A single view of the chest demonstrates lungs are clear. There is no pneumothorax post pacer placemen t. Left subclavian unipolar pacer is radiographically intact. Heart size is prominent but well compen sated. Levoscoliosis of the dorsal spine with associated degenerative changes. Osseous structures are otherwise intact. CONCLUSION: No pneumothorax post pacer placement. Jaya Cazares MD on June 28, 2016 at 11:11 Board Certified Radiologist. This report was verified electronically.
[2016-06-28] MEDS ORDERED: FLUTICASONE PROPIONATE 50 MCG/ACT 16 GM NASAL SPRAY NASAL ONE (12:00)
[2016-06-28] MEDS ORDERED: PILL SPLITTER OTHER PRN (12:30)
[2016-06-28] MEDS: SODIUM CHLOR 0.9% 1000 ML INJ 1,000 ML IV SCH (13:05)
[2016-06-28] MEDS ORDERED: MIDAZOLAM HCL 2 MG/2 ML VIAL ONE (13:15)
[2016-06-28 13:49] LABS: AUTOMATED NEUTROPHIL # 4.7 TH/MM3 (1.8-7.7); BASOPHIL # 0.1 TH/MM3 (0-0.2); EOSINOPHIL # 0.1 TH/MM3 (0-0.4); HEMATOCRIT 29.9 % (35.0-46.0); HEMO FLAGS DIFF FINAL; LYMPH % 11.3 % (9.0-44.0); LYMPHOCYTE # 0.7 TH/MM3 (1.0-4.8); MEAN CELL VOLUME 92.7 FL (80.0-100.0); MEAN CORPUSCULAR HEMOGLOBIN 31.2 PG (27.0-34.0); MEAN CORPUSCULAR HGB CONC 33.7 % (32.0-36.0); MONO % 8.7 % (0.0-8.0); PLATELET COUNT 260 TH/MM3 (150-450); RED BLOOD COUNT 3.23 MIL/MM3 (4.00-5.30); RED CELL DISTRIBUTION WIDTH 15.1 % (11.6-17.2)
[2016-06-28] MEDS: ACETAMINOPHEN/CODEINE 300 MG/30 MG TAB PO PRN ×2 (14:07→22:02)
[2016-06-28 14:12] LABS: BICARBONATE 25.2 MEQ/L (21.0-32.0); POTASSIUM 3.6 MEQ/L (3.5-5.1)
--- NOTE | 2016-06-28 14:29 | HHI.PR ---
Subjective Subjective Notes No complaints. She had pacer placed this am. Objective Vitals/I&O Vital Signs Date Time Temp Pulse Resp B/P Pulse Ox O2 Delivery O2 Flow Rate FiO2 06/28/16 14:02 67 06/28/16 12:33 97.9 18 158/75 99 Manual Cuff/Auscultation 06/28/16 11:27 Room Air 06/26/16 19:45 1.00 Labs Laboratory Tests Test 06/28/16 13:00 White Blood Count 6.0 Red Blood Count 3.23 Hemoglobin 10.1 Hematocrit 29.9 Mean Corpuscular Volume 92.7 Mean Corpuscular Hemoglobin 31.2 Mean Corpuscular Hemoglobin 33.7 Concent Red Cell Distribution Width 15.1 Platelet Count 260 Mean Platelet Volume 8.2 Neutrophils (%) (Auto) 78.0 Lymphocytes (%) (Auto) 11.3 Monocytes (%) (Auto) 8.7 Eosinophils (%) (Auto) 1.0 Basophils (%) (Auto) 1.0 Neutrophils # (Auto) 4.7 Lymphocytes # (Auto) 0.7 Monocytes # (Auto) 0.5 Eosinophils # (Auto) 0.1 Basophils # (Auto) 0.1 CBC Comment DIFF FINAL Differential Comment Sodium Level 142 Potassium Level 3.6 Chloride Level 108 Carbon Dioxide Level 25.2 Anion Gap 9 Blood Urea Nitrogen 12 Creatinine 0.99 Estimat Glomerular Filtration 53 Rate Random Glucose 100 Calcium Level 8.3 Narrative Exam NAD comfortable in bed RRR A/P Assessment and Plan 85 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 Plan to proceed with lap assisted right colectomy on . Levi Thompson MD Jun 28, 2016 14:29
[2016-06-28] MEDS: ceFAZolin 2 GM PREMIX 50 ML IV SCH (17:41)
[2016-06-28] MEDS: METOPROLOL TARTRATE 25 MG TAB PO SCH (21:38)
[2016-06-28] MEDS: ATORVASTATIN 10 MG TAB PO SCH (21:38)
[2016-06-29] VITALS (31 sets, daily range): BP systolic 96–168; BP diastolic 46–74; PULSE 60–72; RESP 16–20; TEMP 97.9–98.6; O2SAT 94–100
[2016-06-29] MEDS: ceFAZolin 2 GM PREMIX 50 ML IV SCH ×2 (00:42→09:09)
[2016-06-29] MEDS: LEVOTHYROXINE SODIUM 25 MCG TAB PO SCH (05:45)
[2016-06-29] MEDS: hydrALAZINE HCL 10 MG TAB PO SCH (05:45)
[2016-06-29 06:12] LABS: AUTOMATED NEUTROPHIL # 2.5 TH/MM3 (1.8-7.7); BASOPHIL % 0.7 % (0.0-2.0); EOSINOPHIL % 1.2 % (0.0-4.0); HEMATOCRIT 26.7 % (35.0-46.0); HEMO FLAGS DIFF FINAL; LYMPH % 18.7 % (9.0-44.0); LYMPHOCYTE # 0.7 TH/MM3 (1.0-4.8); MEAN CELL VOLUME 91.6 FL (80.0-100.0); MEAN CORPUSCULAR HEMOGLOBIN 32.5 PG (27.0-34.0); MEAN CORPUSCULAR HGB CONC 35.5 % (32.0-36.0); MONO % 13.4 % (0.0-8.0); PLATELET COUNT 220 TH/MM3 (150-450); RED BLOOD COUNT 2.91 MIL/MM3 (4.00-5.30); RED CELL DISTRIBUTION WIDTH 15.1 % (11.6-17.2); WHITE BLOOD COUNT 3.7 TH/MM3 (4.0-11.0)
[2016-06-29 06:35] LABS: POTASSIUM 3.8 MEQ/L (3.5-5.1)
--- NOTE | 2016-06-29 07:00 | PD.CARD.PN ---
Subjective Subjective Remarks Feels ok. Objective Medications Current Medications Medications (Trade) Dose Ordered Sig/Betito Route Start Time Stop Time Status Last Admin (NS Flush) 2 ml BID IVF 06/26/16 09:00 06/27/16 22:25 IV Flush 2 ml 2 ml UNSCH PRN IVF 06/26/16 04:00 (NS 1000 ml Inj) 1,000 ml @ 70 mls/hr [id number] IV 06/26/16 03:53 06/28/16 13:05 (Lipitor) 10 mg HS PO 06/26/16 21:00 06/28/16 21:38 (Neurontin) 200 mg BID PO 06/26/16 09:00 06/28/16 21:38 (Melatonin) 5 mg HS PRN PO 06/26/16 23:00 06/27/16 00:02 (Apresoline) 20 mg Q8HR PO 06/27/16 14:00 06/29/16 05:45 (Tylenol) 650 mg Q4H PRN PO 06/27/16 11:15 06/27/16 11:52 (Vasotec Inj) 1.25 mg Q6H PRN IV PUSH 06/27/16 11:45 Levothyroxine Sodium 25 mcg 25 mcg DAILY@06 PO 06/28/16 06:00 06/29/16 05:45 (Ancef 2 Gm Premix) 50 ml @ 100 mls/hr Q8H IV 06/28/16 17:00 06/29/16 09:29 06/29/16 00:42 (Tylenol-Codeine #3) 1 tab Q4H PRN PO 06/28/16 10:00 06/28/16 22:02 (Tylenol-Codeine #3) 2 tab Q4H PRN PO 06/28/16 10:00 (NS Flush) 2 ml UNSCH PRN IV FLUSH 06/28/16 10:00 (Flonase Jackson Spr) 2 spray DAILY NASAL 06/29/16 09:00 (Lopressor) 12.5 mg Q12HR PO 06/28/16 21:00 06/28/16 21:38 (Pill Splitter) 1 ea UNSCH PRN OTHER 06/28/16 12:30 Vital Signs / I&O Vital Signs Date Time Temp Pulse Resp B/P Pulse Ox O2 Delivery O2 Flow Rate FiO2 06/29/16 06:00 63 06/29/16 05:03 65 06/29/16 04:00 67 06/29/16 03:40 98.5 67 18 158/74 97 06/29/16 03:07 64 06/29/16 02:00 67 06/29/16 01:17 66 06/29/16 00:00 62 06/28/16 23:40 98.8 65 20 151/66 95 06/28/16 23:00 62 06/28/16 22:00 68 06/28/16 21:00 66 06/28/16 20:28 97 21 06/28/16 20:00 66 06/28/16 20:00 98.6 67 20 127/59 97 06/28/16 19:00 64 06/28/16 18:23 69 06/28/16 17:38 66 06/28/16 16:03 72 06/28/16 15:40 71 06/28/16 15:40 97.9 70 18 158/73 98 06/28/16 15:28 16 06/28/16 14:02 67 06/28/16 13:19 67 06/28/16 12:33 97.9 64 18 158/75 99 Manual Cuff/Auscultation 06/28/16 12:33 65 06/28/16 11:27 98 Room Air 06/28/16 10:49 Nasal Cannula 06/28/16 08:05 65 06/28/16 07:40 97.6 65 17 175/77 98 I/O 06/28/16 06/28/16 06/28/16 06/29/16 06/29/16 06/29/16 07:00 15:00 23:00 07:00 15:00 23:00 Intake Total 0 ml 550 ml 1087 ml Output Total 800 ml 400 ml 1200 ml Balance -800 ml 150 ml -113 ml Intake Oral 0 ml 500 ml 300 ml IV Total 50 ml 787 ml Output Urine Total 800 ml 400 ml 1200 ml # Bowel Movements 0 0 0 Physical Exam GENERAL: Well-nourished, well-developed patient. SKIN: Warm and dry. LCW incision well approximated without erythema, swelling or drainage. HEAD: Normocephalic. EYES: No scleral icterus. No injection or drainage. NECK: Supple, trachea midline. No JVD or lymphadenopathy. CARDIOVASCULAR: Regular rate and rhythm without murmurs, gallops, or rubs. RESPIRATORY: Breath sounds equal bilaterally. No accessory muscle use. GASTROINTESTINAL: Abdomen soft, non-tender, nondistended. EXTREMITIES: No cyanosis, or edema. NEUROLOGICAL: Awake, alert, and oriented x 3. Non-focal. Laboratory Laboratory Tests Test 06/28/16 06/29/16 13:00 05:40 White Blood Count 6.0 TH/MM3 3.7 TH/MM3 Red Blood Count 3.23 MIL/MM3 2.91 MIL/MM3 Hemoglobin 10.1 GM/DL 9.5 GM/DL Hematocrit 29.9 % 26.7 % Mean Corpuscular Volume 92.7 FL 91.6 FL Mean Corpuscular Hemoglobin 31.2 PG 32.5 PG Mean Corpuscular Hemoglobin 33.7 % 35.5 % Concent Red Cell Distribution Width 15.1 % 15.1 % Platelet Count 260 TH/MM3 220 TH/MM3 Mean Platelet Volume 8.2 FL 8.4 FL Neutrophils (%) (Auto) 78.0 % 66.0 % Lymphocytes (%) (Auto) 11.3 % 18.7 % Monocytes (%) (Auto) 8.7 % 13.4 % Eosinophils (%) (Auto) 1.0 % 1.2 % Basophils (%) (Auto) 1.0 % 0.7 % Neutrophils # (Auto) 4.7 TH/MM3 2.5 TH/MM3 Lymphocytes # (Auto) 0.7 TH/MM3 0.7 TH/MM3 Monocytes # (Auto) 0.5 TH/MM3 0.5 TH/MM3 Eosinophils # (Auto) 0.1 TH/MM3 0.0 TH/MM3 Basophils # (Auto) 0.1 TH/MM3 0.0 TH/MM3 CBC Comment DIFF FINAL DIFF FINAL Differential Comment Sodium Level 142 MEQ/L 142 MEQ/L Potassium Level 3.6 MEQ/L 3.8 MEQ/L Chloride Level 108 MEQ/L 107 MEQ/L Carbon Dioxide Level 25.2 MEQ/L 27.0 MEQ/L Anion Gap 9 MEQ/L 8 MEQ/L Blood Urea Nitrogen 12 MG/DL 13 MG/DL Creatinine 0.99 MG/DL 1.15 MG/DL Estimat Glomerular Filtration 53 ML/MIN 45 ML/MIN Rate Random Glucose 100 MG/DL 96 MG/DL Calcium Level 8.3 MG/DL 8.0 MG/DL Imaging Last Impressions Chest X-Ray 06/28/16 0000 Signed Impressions: Service Date/Time: Tuesday, June 28, 2016 10:39 - CONCLUSION: No pneumothorax post pacer placement. Jaya Cazares MD Head CT 06/26/16 0427 Signed Impressions: Service Date/Time: Sunday, June 26, 2016 07:43 - CONCLUSION: No acute intracranial disease. Moses Santos MD Carotid Artery Ultrasound 06/26/16 0000 Signed Impressions: Service Date/Time: Sunday, June 26, 2016 08:55 - CONCLUSION: 1. No hemodynamically significant stenosis in either carotid artery. Moses Santos MD Brain MRI 06/26/16 0000 Signed Impressions: Service Date/Time: Sunday, June 26, 2016 08:18 - CONCLUSION: 1. No acute infarction. 2. Remote right basal ganglia lacunar infarct. Moses Santos MD Assessment and Plan Problem List: (1) Sinus pause Assessment and Plan: Stable s/p PPM implantation. (2) S/P cardiac pacemaker procedure Assessment and Plan: CXR ;negative for ptx. Can be discharged at the discretion of the managing team from an EP standpoint if interrogation ok. Keflex 500 mg PO TID X 3 days after ancef completed. F/U with Dr. Rg in 2 weeks, per my d/w him. Manuela Yi Jun 29, 2016 07:00
[2016-06-29] MEDS: ACETAMINOPHEN/CODEINE 300 MG/30 MG TAB PO PRN (07:47)
[2016-06-29] MEDS: SODIUM CHLOR 0.9% 1000 ML INJ 1,000 ML IV SCH ×3 (07:48→21:00)
[2016-06-29] MEDS: FLUTICASONE PROPIONATE 50 MCG/ACT 16 GM NASAL SPRAY NASAL SCH ×2 (09:00→09:08)
--- NOTE | 2016-06-29 09:04 | MP ---
cc: LASHAWN MCKEON M.D. DATE OF SURGERY: 06/28/2016 OPERATION: Single chamber permanent pacemaker insertion. INDICATION Mrs. Torres is a 85-year-old female with episode of bradycardia, symptomatic pause up to 6-second, to undergo single chamber permanent pacemaker insertion. The risks, the nature and the benefit of the procedure are clearly stated to her and her family. The risks include pneumothorax, cardiac perforation, stroke, need for open heart surgery and even . They understand and agree to proceed. PROCEDURE After written informed consent was obtained, the patient was brought to the EP lab where she was prepped and draped in the usual sterile fashion. Conscious sedation was initiated and maintained throughout the procedure using intravenous Versed, intravenous Fentanyl. Once sedation was verified, the left infraclavicular area was anesthetized with 2% Xylocaine. Using modified Seldinger technique, the left subclavian vein was cannulated on one occasion, one guidewire was advanced. Then using #11 blade scalpel, a 2-cm incision was made two fingerbreadths below the left clavicle. This incision was then taken down to deep fascial layer using Bovie cautery and blunt dissection. Into the inferomedial direction, device pocket was dissected then the wire were dissected into the pocket. A 2-0 Vicryl suture was placed around the wire to prevent back bleeding. At this point over the wire a 7-Hungarian dilator and introducer was advanced. As the dilator and wire were removed, an active fixation right ventricular pacing sensing lead was advanced. After adequate pacing and sensing threshold was obtained, the lead was secured in the pocket using #2 Ethibond suture. Then the pocket was copiously irrigated using antibiotic solution. The lead was connected to the generator and placed into the pocket. I did proceed with wound closure. The deep fascial layer was approximated using #2-0 Vicryl suture in a continuous fashion. The subcutaneous layer was reapproximated using #2-0 Vicryl suture in a continuous fashion. The subcuticular layer was approximated using #2-0 Vicryl suture in a continuous fashion. Dermabond adhesive was applied to the wound followed by sterile pressure dressing. There was no complication. The patient tolerated the procedure. Blood loss was minimal. 1. Implanted hardware. The implanted permanent pacemaker is a Biotronik, model number [id number], serial number [id number]. The right ventricular pacing sensing lead is a [employer], model number [id number], serial number [id number]. 2. Threshold. The right ventricular pacing threshold in bipolar mode was 0.8 volts at 0.4 milliseconds, lead impedance 720 ohms, R-wave at 5.2 mV. 3. Setting. The device set in VVI 50. CONCLUSION Successful permanent pacemaker insertion, COMMENT AND RECOMMENDATION The patient is going to be transferred to the recovery room. She will be observed and when stable can be discharged home. MD GUZMAN Reza/RODOLFO /9:54 AM /8:50 AM
[2016-06-29] MEDS: SODIUM CHLORIDE 0.9% FLUSH 5 ML FLUSH IVF SCH ×2 (09:08→22:28)
[2016-06-29] MEDS: GABAPENTIN 100 MG CAP PO SCH ×2 (09:08→22:27)
--- NOTE | 2016-06-29 09:16 | EKG ---
Date Performed: 06/29/2016 Time Performed: 06:24:24 PTAGE: 85 years EKG: Sinus rhythm . Anterolateral infarct - age undetermined Low QRS voltages in precordial leads Abnormal ECG PREVIOUS TRACING : 06/28/2016 10.59 DOCTOR: Nik Dillon Interpretating Date/Time 06/29/2016 09:15:01
--- NOTE | 2016-06-29 11:12 | PD.CARD.PN ---
Subjective Subjective Remarks Doing well post-PPM, no chest pain, no shortness of breath Up and ambulating with physical therapy Objective Medications Current Medications Medications (Trade) Dose Ordered Sig/Betito Route Start Time Stop Time Status Last Admin (NS Flush) 2 ml BID IVF 06/26/16 09:00 06/29/16 09:08 IV Flush 2 ml 2 ml UNSCH PRN IVF 06/26/16 04:00 (NS 1000 ml Inj) 1,000 ml @ 70 mls/hr [id number] IV 06/26/16 03:53 06/29/16 07:48 (Lipitor) 10 mg HS PO 06/26/16 21:00 06/28/16 21:38 (Neurontin) 200 mg BID PO 06/26/16 09:00 06/29/16 09:08 (Melatonin) 5 mg HS PRN PO 06/26/16 23:00 06/27/16 00:02 (Apresoline) 20 mg Q8HR PO 06/27/16 14:00 06/29/16 05:45 (Tylenol) 650 mg Q4H PRN PO 06/27/16 11:15 06/27/16 11:52 (Vasotec Inj) 1.25 mg Q6H PRN IV PUSH 06/27/16 11:45 (Synthroid) 25 mcg DAILY@06 PO 06/28/16 06:00 06/29/16 05:45 (Tylenol-Codeine #3) 1 tab Q4H PRN PO 06/28/16 10:00 06/29/16 07:47 (Tylenol-Codeine #3) 2 tab Q4H PRN PO 06/28/16 10:00 (NS Flush) 2 ml UNSCH PRN IV FLUSH 06/28/16 10:00 (Flonase Jackson Spr) 2 spray DAILY NASAL 06/29/16 09:00 (Lopressor) 12.5 mg Q12HR PO 06/28/16 21:00 06/28/16 21:38 (Pill Splitter) 1 ea UNSCH PRN OTHER 06/28/16 12:30 (Keflex) 500 mg Q8H PO 06/29/16 17:00 07/02/16 16:59 Vital Signs / I&O Vital Signs Date Time Temp Pulse Resp B/P Pulse Ox O2 Delivery O2 Flow Rate FiO2 06/29/16 10:06 110/58 06/29/16 10:00 67 06/29/16 09:00 62 06/29/16 08:00 98.5 62 16 96/47 94 102/50 06/29/16 08:00 63 06/29/16 07:38 96 21 06/29/16 07:30 98.4 62 20 108/49 94 06/29/16 06:00 63 06/29/16 05:03 65 06/29/16 04:00 67 06/29/16 03:40 98.5 67 18 158/74 97 06/29/16 03:07 64 06/29/16 02:00 67 06/29/16 01:17 66 06/29/16 00:00 62 06/28/16 23:40 98.8 65 20 151/66 95 06/28/16 23:00 62 06/28/16 22:00 68 06/28/16 21:00 66 06/28/16 20:28 97 21 06/28/16 20:00 66 06/28/16 20:00 98.6 67 20 127/59 97 06/28/16 19:00 64 06/28/16 18:23 69 06/28/16 17:38 66 06/28/16 16:03 72 06/28/16 15:40 71 06/28/16 15:40 97.9 70 18 158/73 98 06/28/16 15:28 16 06/28/16 14:02 67 06/28/16 13:19 67 06/28/16 12:33 97.9 64 18 158/75 99 Manual Cuff/Auscultation 06/28/16 12:33 65 06/28/16 11:27 98 Room Air I/O 06/28/16 06/28/16 06/28/16 06/29/16 06/29/16 06/29/16 07:00 15:00 23:00 07:00 15:00 23:00 Intake Total 0 ml 550 ml 1087 ml Output Total 800 ml 400 ml 1200 ml Balance -800 ml 150 ml -113 ml Intake Oral 0 ml 500 ml 300 ml IV Total 50 ml 787 ml Output Urine Total 800 ml 400 ml 1200 ml # Bowel Movements 0 0 0 Physical Exam GENERAL: NAD, AAOx3 SKIN: Warm and dry. HEAD: Atraumatic. Normocephalic. EYES: Pupils equal and round. No scleral icterus. No injection or drainage. ENT: No nasal bleeding or discharge. Mucous membranes pink and moist. NECK: Trachea midline. No JVD. CARDIOVASCULAR: Irregularly irregular. Left chest wall incision clean, dry and intact RESPIRATORY: No accessory muscle use. Clear to auscultation. Breath sounds equal bilaterally. GASTROINTESTINAL: Abdomen soft, non-tender, nondistended. Hepatic and splenic margins not palpable. MUSCULOSKELETAL: Extremities without clubbing, cyanosis, or edema. No obvious deformities. NEUROLOGICAL: Awake and alert. No obvious cranial nerve deficits. Motor grossly within normal limits. Five out of 5 muscle strength in the arms and legs. Normal speech. PSYCHIATRIC: Appropriate mood and affect; insight and judgment normal. Laboratory Laboratory Tests Test 06/28/16 06/29/16 13:00 05:40 White Blood Count 6.0 TH/MM3 3.7 TH/MM3 Red Blood Count 3.23 MIL/MM3 2.91 MIL/MM3 Hemoglobin 10.1 GM/DL 9.5 GM/DL Hematocrit 29.9 % 26.7 % Mean Corpuscular Volume 92.7 FL 91.6 FL Mean Corpuscular Hemoglobin 31.2 PG 32.5 PG Mean Corpuscular Hemoglobin 33.7 % 35.5 % Concent Red Cell Distribution Width 15.1 % 15.1 % Platelet Count 260 TH/MM3 220 TH/MM3 Mean Platelet Volume 8.2 FL 8.4 FL Neutrophils (%) (Auto) 78.0 % 66.0 % Lymphocytes (%) (Auto) 11.3 % 18.7 % Monocytes (%) (Auto) 8.7 % 13.4 % Eosinophils (%) (Auto) 1.0 % 1.2 % Basophils (%) (Auto) 1.0 % 0.7 % Neutrophils # (Auto) 4.7 TH/MM3 2.5 TH/MM3 Lymphocytes # (Auto) 0.7 TH/MM3 0.7 TH/MM3 Monocytes # (Auto) 0.5 TH/MM3 0.5 TH/MM3 Eosinophils # (Auto) 0.1 TH/MM3 0.0 TH/MM3 Basophils # (Auto) 0.1 TH/MM3 0.0 TH/MM3 CBC Comment DIFF FINAL DIFF FINAL Differential Comment Sodium Level 142 MEQ/L 142 MEQ/L Potassium Level 3.6 MEQ/L 3.8 MEQ/L Chloride Level 108 MEQ/L 107 MEQ/L Carbon Dioxide Level 25.2 MEQ/L 27.0 MEQ/L Anion Gap 9 MEQ/L 8 MEQ/L Blood Urea Nitrogen 12 MG/DL 13 MG/DL Creatinine 0.99 MG/DL 1.15 MG/DL Estimat Glomerular Filtration 53 ML/MIN 45 ML/MIN Rate Random Glucose 100 MG/DL 96 MG/DL Calcium Level 8.3 MG/DL 8.0 MG/DL Assessment and Plan Problem List: (1) Sinus pause (2) S/P cardiac pacemaker procedure Assessment and Plan 1) Post PPM, doing well, no tachy events noted 2) Blood pressure lower this morning, will hold Hydralazine and continue low- dose Metoprolol as possible with parameters 3) Not an anticoagulation candidate due to cecal mass and falls 4) Chest pain felt to be due to Afib, not a candidate for ischemic evaluation or revascularization 5) For Laparoscopic colectomy by Dr. Thompson, considering tomorrow... still remains a moderate-high cardiovascular risk for a time-sensitive surgery, would not put off further as I can not decrease her risk, family understands that she has an elevated risk from a cardiovascular stand point pre-operatively... no current ACS/CHF, may proceed with surgery Angel Azar DO Jun 29, 2016 11:12
--- NOTE | 2016-06-29 11:13 | HHI.FPPN ---
Subjective Remarks Patient seen this morning. No acute events overnight. Normal heart rate overnight with borderline low pressures (MAP in the 60s) this morning. Sameera c/ o continued nasal congestion and clear rhinorrhea this AM. Was afraid to use flonase, as she thought this could interfere somehow with her surgery tomorrow. Has mild pain over site of pacemaker insertion, but well controlled with tylenol #3. C/o mild constipation. Last BM Monday. No ab pain or N/V. Also has mild SOB, consistent with baseline. Does not want PRN albuterol, as this makes her "jittery". No other complaints today. (Newton Adkins MD R3) Objective Vitals Vital Signs Date Time Temp Pulse Resp B/P Pulse Ox O2 Delivery O2 Flow Rate FiO2 06/29/16 10:06 110/58 06/29/16 10:00 67 06/29/16 09:00 62 06/29/16 08:00 98.5 62 16 96/47 94 102/50 06/29/16 08:00 63 06/29/16 07:38 96 21 06/29/16 07:30 98.4 62 20 108/49 94 06/29/16 06:00 63 06/29/16 05:03 65 06/29/16 04:00 67 06/29/16 03:40 98.5 67 18 158/74 97 06/29/16 03:07 64 06/29/16 02:00 67 06/29/16 01:17 66 06/29/16 00:00 62 06/28/16 23:40 98.8 65 20 151/66 95 06/28/16 23:00 62 06/28/16 22:00 68 06/28/16 21:00 66 06/28/16 20:28 97 21 06/28/16 20:00 66 06/28/16 20:00 98.6 67 20 127/59 97 06/28/16 19:00 64 06/28/16 18:23 69 06/28/16 17:38 66 06/28/16 16:03 72 06/28/16 15:40 71 06/28/16 15:40 97.9 70 18 158/73 98 06/28/16 15:28 16 06/28/16 14:02 67 3/21/17 13:19 67 06/28/16 12:33 97.9 64 18 158/75 99 Manual Cuff/Auscultation 06/28/16 12:33 65 06/28/16 11:27 98 Room Air I/O 06/28/16 06/28/16 06/28/16 06/29/16 06/29/16 06/29/16 07:00 15:00 23:00 07:00 15:00 23:00 Intake Total 0 ml 550 ml 1087 ml Output Total 800 ml 400 ml 1200 ml Balance -800 ml 150 ml -113 ml Intake Oral 0 ml 500 ml 300 ml IV Total 50 ml 787 ml Output Urine Total 800 ml 400 ml 1200 ml # Bowel Movements 0 0 0 (Newton Adkins MD R3) Result Diagram: 06/29/16 0540 06/29/16 05 Objective Remarks GENERAL: well-appearing, elderly female patient. In NAD. SKIN: No rashes. Ecchymoses on abdomen from previous administration of anticoagulation. Cool and dry. ENT: Anterior nasal vaults erythematous with clear rhinorrhea. Maxillary sinuses mildly TTP. OP benign. CHEST WALL: PPM present over left chest with dressing in place. Wound site grossly appear c/d/i. No drainage. CARDIOVASCULAR: Distant heart sounds. Regular rate and rhythm. No murmurs rubs or gallops appreciated. RESPIRATORY: Clear to auscultation. Breath sounds equal bilaterally. No wheezes , rales, or rhonchi. GASTROINTESTINAL: Abdomen soft, non-tender, nondistended. +bs in all 4 quadrants. MUSCULOSKELETAL: Extremities without clubbing, cyanosis, or edema. NEUROLOGICAL: Awake and alert. Oriented to person, place and time. Motor and sensory are grossly intact. (Newton Adkins MD R3) A/P Assessment and Plan Pt is a 85 year old female with past medical history significant for orthostatic hypotension, hyperlipidemia, CKD, hypothyroidism, COPD presenting to the ED due to chest pain and shortness of breath, found to be in afib with RVR, also reports symptoms concerning for TIA vs CVA. Now s/p PPM placement . Discharge Planning Plan for DC back to her SNF with PT versus rehab, depending on clinical course after surgery. Will likely need 4-7 days in the hospital after surgery tomorrow. Will discuss with Dr. Coppola. (Newton Adkins MD R3) Attending Attestation Pt. examined and case discussed with resident physician I have read the above note and agree with the assessment/plan as discussed with me I was involved in all medical decision making for this patient Cayden Coppola MD (Cayden Coppola MD) Problem List: (1) Atrial fibrillation with RVR Status: Acute Plan: Well controlled. Patient arrived in atrial fibrillation with RVR. Did have intermittent tachycardia-bradycardia with >6s sinus pause on 06/26. Normal rate overnight. S/p PPM placement 06/28. -cont tele -cont diltiazem 30mg q6 PRN for HR >120 bpm for now. Defer to cardiology regarding long-term rate control medication. -Cardiology consulted regarding management of atrial fibrillation given patient' s history of orthostatic hypotension and concern for TIA vs CVA, appreciate recommendations. They have consulted Dr. Rg for PPM eval, given sinus pause and intermittent tachy-tania on tele. * s/p PPM placement this 06/28, as above. CXR shows no evidence of pneumothorax. * tylenol #3 for post-op pain * received ancef for ppx sherine-operatively. Now on 3 day course of keflex (06/29-) History: -ACS r/o negative. Mild bump in troponin on admission likely 2/2 strain from RVR. -Pt was given 20 mg IV diltiazem 1 by EMS -Echocardiogram recently done on 05/24/16 showing an EF of 60-65% and no wall motion abnormalities. / (2) Sinus pause Status: Acute Plan: Rate well controlled o/n. S/p PPM placement 06/28. (3) Orthostatic hypotension Status: Chronic Plan: Drop of >50 points SBP and 10 points DBP with standing 06/27. -repeat orthostatics today -patient currently hypertensive, which will make treatment difficult. Home midodrine and fludricortisone currently on hold 2/2 hypertension. -PT/OT eval. PT currently recommends HH with PT v. rehab. (4) HTN (hypertension) Status: Acute Plan: Control improving. BP readings now on the low end. -cont checks with manual cuff. -DC hydralazine, given low pressures -cards has started metoprolol 12.5 mg BID for rate control -vasotec PRN for SBP >180 (5) Nasal congestion Status: Acute Plan: Allergic rhinitis v. URI. -flonase added. Advised patient okay to use before surgery. (6) Shortness of breath Status: Chronic Plan: Pt with history of COPD and she is short of breath at baseline. She reports that breathing has improved with resolution of chest pain. -change duoneb to atrovent neb, given adverse RXN to albuterol in the past -CXR 06/28 negative for acute process History: -Chest x-ray significant for minimal basilar atelectasis. No effusion. No pneumothorax. Heart size mildly enlarged. (7) Cecum mass Status: Acute Plan: Pt with tubulovillous adenoma of the cecum:Colonoscopy and biopsy in 2016 that was significant for tubulovillous adenoma. Recommendation from prior hospitalization was to reevaluate pt regarding possibility of surgery. This would be a high risk procedure given patients other comorbidities. -Dr. Thompson has seen patient and will place on schedule (8) Constipation Status: Chronic Plan: Chronic issue. ? relation to cecal mass. -milk of mg today. Bowel regimen of sherine-colace/miralax after surgery (9) Chronic kidney disease (CKD) stage G3a/A1, moderately decreased glomerular filtration rate (GFR) between 45-59 mL/min/1.73 square meter and albuminuria creatinine ratio less than 30 mg/g Status: Chronic Plan: Creatinine slightly increased at 1.15 today. eGFR in the 40s. -gentle fluid hydration with NS at 70 mls/hr. Run at 100 mls/hr tonight once NPO. -monitor daily chemistry (10) FEN/PPX Status: Acute Plan: Fluids: NS 70mls. Increase to 100 mls/hr at night. Electrolytes: WNL yesterday. Nutrition: Heart healthy. NPO at midnight. DVT PPX: restart heparin this afternoon (8 hours post procedure). Will put on hold for tomorrow AM (24 hours pre-procedure). (Newton Adkins MD R3) Problem Qualifiers (1) Constipation: Qualified Code: K59.01 - Slow transit constipation Newton Adkins MD R3 Jun 29, 2016 11:13 Cayden Coppola MD Jun 29, 2016 21:42
--- NOTE | 2016-06-29 11:21 | EKG ---
Date Performed: 06/28/2016 Time Performed: 10:59:18 PTAGE: 85 years EKG: Sinus rhythm Anterolateral ST-T changes are nonspecific Borderline ECG PREVIOUS TRACING : 06/26/2016 00.17 DOCTOR: Nik Dillon Interpretating Date/Time 06/29/2016 11:18:30
[2016-06-29] MEDS: METOPROLOL TARTRATE 25 MG TAB PO SCH ×2 (11:22→22:28)
--- NOTE | 2016-06-29 11:40 | HHI.PR ---
Subjective Subjective Notes Stable. Son and daughter at bedside. The patient has no complaints. Doing well s/p pacemaker placement. Objective Vitals/I&O Vital Signs Date Time Temp Pulse Resp B/P Pulse Ox O2 Delivery O2 Flow Rate FiO2 06/29/16 11:00 67 06/29/16 11:00 97.9 16 118/58 96 06/29/16 07:38 21 06/28/16 11:27 Room Air 06/26/16 19:45 1.00 Labs Laboratory Tests Test 06/28/16 06/29/16 13:00 05:40 White Blood Count 6.0 3.7 Red Blood Count 3.23 2.91 Hemoglobin 10.1 9.5 Hematocrit 29.9 26.7 Mean Corpuscular Volume 92.7 91.6 Mean Corpuscular Hemoglobin 31.2 32.5 Mean Corpuscular Hemoglobin 33.7 35.5 Concent Red Cell Distribution Width 15.1 15.1 Platelet Count 260 220 Mean Platelet Volume 8.2 8.4 Neutrophils (%) (Auto) 78.0 66.0 Lymphocytes (%) (Auto) 11.3 18.7 Monocytes (%) (Auto) 8.7 13.4 Eosinophils (%) (Auto) 1.0 1.2 Basophils (%) (Auto) 1.0 0.7 Neutrophils # (Auto) 4.7 2.5 Lymphocytes # (Auto) 0.7 0.7 Monocytes # (Auto) 0.5 0.5 Eosinophils # (Auto) 0.1 0.0 Basophils # (Auto) 0.1 0.0 CBC Comment DIFF FINAL DIFF FINAL Differential Comment Sodium Level 142 142 Potassium Level 3.6 3.8 Chloride Level 108 107 Carbon Dioxide Level 25.2 27.0 Anion Gap 9 8 Blood Urea Nitrogen 12 13 Creatinine 0.99 1.15 Estimat Glomerular Filtration 53 45 Rate Random Glucose 100 96 Calcium Level 8.3 8.0 Narrative Exam NAD comfortable in bed Lungs ctab RRR Abd: soft, ntd A/P Assessment and Plan 85 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 She remains mod-high risk but after many discussions with patient and family we will proceed with lap assisted right hemicolectomy tomorrow scheduled for 930am. Details, risks, and benefits of surgery again discussed with the patient and the present family. Jay,Levi MAY Jun 29, 2016 11:40
[2016-06-29] MEDS ORDERED: RESP: IPRATROPIUM 0.5 MG/2.5 ML NEB NEB PRN (11:45)
[2016-06-29] MEDS ORDERED: ceFAZolin 2 GM PREMIX 50 ML IV SCH (11:45)
[2016-06-29] MEDS ORDERED: metroNIDAZOLE 500 MG INJ 100 ML IV SCH (11:45)
[2016-06-29] MEDS ORDERED: MAGNESIUM HYDROXIDE SUSP 30 ML CUP PO ONE (13:00)
[2016-06-29] MEDS: CEPHALEXIN MONOHYDRATE 500 MG CAP PO SCH (17:38)
[2016-06-29] MEDS: ATORVASTATIN 10 MG TAB PO SCH (22:28)
[2016-06-30] VITALS (22 sets, daily range): BP systolic 105–165; BP diastolic 60–87; PULSE 60–86; RESP 18–20; TEMP 97.4–98.4; O2SAT 92–98
[2016-06-30] MEDS: CEPHALEXIN MONOHYDRATE 500 MG CAP PO SCH ×3 (02:51→16:33)
[2016-06-30] MEDS: LEVOTHYROXINE SODIUM 25 MCG TAB PO SCH (06:17)
[2016-06-30] MEDS: SODIUM CHLOR 0.9% 1000 ML INJ 1,000 ML IV SCH ×2 (06:18→16:35)
[2016-06-30] MEDS: ACETAMINOPHEN/CODEINE 300 MG/30 MG TAB PO PRN (06:18)
[2016-06-30 06:47] LABS: AUTOMATED NEUTROPHIL # 3.1 TH/MM3 (1.8-7.7); BASOPHIL % 0.8 % (0.0-2.0); EOSINOPHIL # 0.1 TH/MM3 (0-0.4); EOSINOPHIL % 1.3 % (0.0-4.0); HEMATOCRIT 27.4 % (35.0-46.0); HEMO FLAGS DIFF FINAL; LYMPH % 16.7 % (9.0-44.0); LYMPHOCYTE # 0.8 TH/MM3 (1.0-4.8); MEAN CELL VOLUME 92.4 FL (80.0-100.0); MEAN CORPUSCULAR HEMOGLOBIN 31.1 PG (27.0-34.0); MEAN CORPUSCULAR HGB CONC 33.6 % (32.0-36.0); MONO % 12.7 % (0.0-8.0); NEUT % 68.5 % (16.0-70.0); PLATELET COUNT 193 TH/MM3 (150-450); RED BLOOD COUNT 2.96 MIL/MM3 (4.00-5.30); WHITE BLOOD COUNT 4.5 TH/MM3 (4.0-11.0)
[2016-06-30 07:16] LABS: BICARBONATE 25.7 MEQ/L (21.0-32.0); POTASSIUM 4.1 MEQ/L (3.5-5.1)
[2016-06-30] MEDS: GABAPENTIN 100 MG CAP PO SCH ×2 (07:58→20:30)
[2016-06-30] MEDS: FLUTICASONE PROPIONATE 50 MCG/ACT 16 GM NASAL SPRAY NASAL SCH (07:59)
[2016-06-30] MEDS: SODIUM CHLORIDE 0.9% FLUSH 5 ML FLUSH IVF SCH ×2 (08:00→20:31)
[2016-06-30] MEDS: METOPROLOL TARTRATE 25 MG TAB PO SCH ×3 (08:01→20:30)
--- NOTE | 2016-06-30 08:24 | HHI.FPPN ---
Subjective Remarks Patient seen this morning. No acute events overnight. Vitals WNL. Pulse in the 60-70s overnight. SBP up to the 160s last evening. This morning it is WNL. Ms. Torres has no complaints this morning. Feels ready for surgery. No palpitations or CP. No SOB. No abdominal pain or N/V. Has mild nasal congestion , partially relieved with flonase. She denies any F/C. (Newton Adkins MD R3) Objective Vitals Vital Signs Date Time Temp Pulse Resp B/P Pulse Ox O2 Delivery O2 Flow Rate FiO2 06/30/16 06:00 74 06/30/16 05:00 75 06/30/16 04:00 66 06/30/16 03:00 77 06/30/16 03:00 98.4 77 18 128/60 96 06/30/16 02:00 64 06/30/16 01:00 66 06/30/16 00:00 60 06/29/16 23:00 98.5 66 18 142/70 99 06/29/16 22:00 62 06/29/16 21:00 65 06/29/16 20:00 72 06/29/16 19:00 98.1 70 18 168/72 100 06/29/16 19:00 70 06/29/16 18:16 64 06/29/16 17:00 62 06/29/16 16:00 60 06/29/16 15:30 98.6 68 20 105/50 96 06/29/16 15:00 67 06/29/16 14:00 62 06/29/16 13:43 63 06/29/16 12:45 65 06/29/16 12:00 61 06/29/16 11:35 127/60 135/63 97/46 06/29/16 11:00 67 06/29/16 11:00 97.9 64 16 118/58 96 06/29/16 11:00 65 06/29/16 10:06 110/58 06/29/16 10:00 67 06/29/16 09:00 62 I/O 06/29/16 06/29/16 06/29/16 06/30/16 06/30/16 06/30/16 07:00 15:00 23:00 07:00 15:00 23:00 Intake Total 1087 ml 1080 ml 1480 ml Output Total 1200 ml 700 ml 850 ml Balance -113 ml 380 ml 630 ml Intake Oral 300 ml 480 ml 480 ml IV Total 787 ml 600 ml 1000 ml Output Urine Total 1200 ml 700 ml 850 ml # Bowel Movements 0 0 (Newton Adkins MD R3) Result Diagram: 06/30/1660406/30/16604 Objective Remarks GENERAL: well-appearing, elderly female sitting up in chair this morning. SKIN: No rashes. Ecchymoses on abdomen from previous administration of anticoagulation. Cool and dry. CHEST WALL: PPM present over left chest with dressing in place. Wound site grossly appear c/d/i. No drainage. CARDIOVASCULAR: Distant heart sounds. Regular rate and rhythm. No murmurs rubs or gallops appreciated. RESPIRATORY: Clear to auscultation. Breath sounds equal bilaterally. No wheezes , rales, or rhonchi. GASTROINTESTINAL: Abdomen soft, non-tender, nondistended. +bs in all 4 quadrants. MUSCULOSKELETAL: Extremities without clubbing, cyanosis, or edema. NEUROLOGICAL: Awake and alert. Oriented to person, place and time. Motor and sensory are grossly intact. (Newton Adkins MD R3) A/P Assessment and Plan Pt is a 85 year old female with past medical history significant for orthostatic hypotension, hyperlipidemia, CKD, hypothyroidism, COPD presenting to the ED due to chest pain and shortness of breath, found to be in afib with RVR, also reports symptoms concerning for TIA vs CVA. Now s/p PPM placement . Discharge Planning Plan for DC back to her SNF with HH PT versus rehab, depending on clinical course after surgery. Will likely need 4-7 days in the hospital after surgery today. Will discuss with Dr. Garvey. (Newton Adkins MD R3) Attending Attestation Patient seen and examined. Case reviewed and discussed with the resident team. Agree with plan of care as discussed with me and documented in the resident note. (Adriana Garvey MD) Problem List: (1) Atrial fibrillation with RVR Status: Acute Plan: Well controlled. Patient arrived in atrial fibrillation with RVR. Did have intermittent tachycardia-bradycardia with >6s sinus pause on 06/26. Normal rate overnight. S/p PPM placement 06/28. -cont tele -cont metoprolol 12.5mg BID. Apparently held this morning 2/2 low blood pressure. Will put in order to hold if BP <90/60s. -Cardiology consulted regarding management of atrial fibrillation given patient' s history of orthostatic hypotension and concern for TIA vs CVA, appreciate recommendations. They have consulted Dr. Rg for PPM eval, given sinus pause and intermittent tachy-tania on tele. * s/p PPM placement this 06/28, as above. CXR shows no evidence of pneumothorax. * tylenol #3 for post-op pain * received ancef for ppx sherine-operatively. Now on 3 day course of keflex (06/29-) History: -ACS r/o negative. Mild bump in troponin on admission likely 2/2 strain from RVR. -Pt was given 20 mg IV diltiazem 1 by EMS -Echocardiogram recently done on 05/24/16 showing an EF of 60-65% and no wall motion abnormalities. / (2) Sinus pause Status: Acute Plan: Rate well controlled o/n. S/p PPM placement 06/28. (3) Orthostatic hypotension Status: Chronic Plan: Drop of >50 points SBP and 10 points DBP with standing 06/27. Continues to have significant orthostasis. -orthostatics daily -patient currently hypertensive, which will make treatment difficult. Home midodrine and fludricortisone currently on hold 2/2 hypertension. -PT/OT eval. PT currently recommends HH with PT v. rehab. (4) HTN (hypertension) Status: Acute Plan: Control improving. -cont checks with manual cuff. -cards has started metoprolol 12.5 mg BID for rate control -vasotec PRN for SBP >180 (5) Nasal congestion Status: Acute Plan: Allergic rhinitis v. URI. -flonase added. Advised patient okay to use before surgery. (6) Shortness of breath Status: Chronic Plan: Pt with history of COPD and she is short of breath at baseline. She reports that breathing has improved with resolution of chest pain. -atrovent neb PRN, given adverse RXN to albuterol in the past -CXR 06/28 negative for acute process History: -Chest x-ray significant for minimal basilar atelectasis. No effusion. No pneumothorax. Heart size mildly enlarged. (7) Cecum mass Status: Acute Plan: Pt with tubulovillous adenoma of the cecum:Colonoscopy and biopsy in 2016 that was significant for tubulovillous adenoma. Recommendation from prior hospitalization was to reevaluate pt regarding possibility of surgery. This would be a high risk procedure given patients other comorbidities. -Dr. Thompson has seen patient and plan is for surgical excision today (8) Constipation Status: Chronic Plan: Chronic issue. ? relation to cecal mass. -Bowel regimen of sherine-colace/miralax after surgery (9) Chronic kidney disease (CKD) stage G3a/A1, moderately decreased glomerular filtration rate (GFR) between 45-59 mL/min/1.73 square meter and albuminuria creatinine ratio less than 30 mg/g Status: Chronic Plan: Creatinine WNL this AM with eGFR in the 50s. -NS 100 mls/hr while NPO -monitor daily chemistry (10) FEN/PPX Status: Acute Plan: Fluids: NS at 100 mls/hr while NPO Electrolytes: WNL today. Nutrition: NPO DVT PPX: restart hepatin 24 hours after procedure. (Newton Adkins MD R3) Problem Qualifiers (1) HTN (hypertension): Qualified Code: I10 - Essential hypertension (2) Constipation: Qualified Code: K59.01 - Slow transit constipation Newton Adkins MD R3 Jun 30, 2016 08:24 Adriana Garvey MD Jul 02, 2016 11:13
[2016-06-30] MEDS ORDERED: ALVIMOPAN 12 MG CAPSULE PO ONE (08:30)
--- NOTE | 2016-06-30 08:50 | PD.CARD.PN ---
Subjective Subjective Remarks No chest pain, no shortness of breath For surgery this morning Objective Medications Current Medications Medications (Trade) Dose Ordered Sig/Betito Route Start Time Stop Time Status Last Admin (NS Flush) 2 ml BID IVF 06/26/16 09:00 06/29/16 22:28 (NS Flush) 2 ml UNSCH PRN IVF 06/26/16 04:00 (Lipitor) 10 mg HS PO 06/26/16 21:00 06/29/16 22:28 (Neurontin) 200 mg BID PO 06/26/16 09:00 06/30/16 07:58 (Melatonin) 5 mg HS PRN PO 06/26/16 23:00 06/27/16 00:02 (Apresoline) 20 mg Q8HR PO 06/27/16 14:00 Hold 06/29/16 05:45 (Tylenol) 650 mg Q4H PRN PO 06/27/16 11:15 06/27/16 11:52 (Vasotec Inj) 1.25 mg Q6H PRN IV PUSH 06/27/16 11:45 (Synthroid) 25 mcg DAILY@06 PO 06/28/16 06:00 06/30/16 06:17 (Tylenol-Codeine #3) 1 tab Q4H PRN PO 06/28/16 10:00 06/30/16 06:18 (Tylenol-Codeine #3) 2 tab Q4H PRN PO 06/28/16 10:00 (NS Flush) 2 ml UNSCH PRN IV FLUSH 06/28/16 10:00 (Flonase Jackson Spr) 2 spray DAILY NASAL 06/29/16 09:00 06/30/16 07:59 (Lopressor) 12.5 mg Q12HR PO 06/28/16 21:00 06/30/16 08:38 (Pill Splitter) 1 ea UNSCH PRN OTHER 06/28/16 12:30 Cephalexin Monohydrate 500 mg 500 mg Q8H PO 06/29/16 17:00 07/02/16 16:59 06/30/16 07:58 (NS 1000 ml Inj) 1,000 ml @ 100 mls/hr Q10H IV 06/29/16 21:00 06/30/16 06:18 (Entereg) 12 mg Q12HR PO 06/30/16 21:00 Vital Signs / I&O Vital Signs Date Time Temp Pulse Resp B/P Pulse Ox O2 Delivery O2 Flow Rate FiO2 06/30/16 08:37 138/60 06/30/16 07:30 97.6 66 20 105/60 95 06/30/16 06:00 74 06/30/16 05:00 75 06/30/16 04:00 66 06/30/16 03:00 77 06/30/16 03:00 98.4 77 18 128/60 96 06/30/16 02:00 64 06/30/16 01:00 66 06/30/16 00:00 60 06/29/16 23:00 98.5 66 18 142/70 99 06/29/16 22:00 62 06/29/16 21:00 65 06/29/16 20:00 72 06/29/16 19:00 98.1 70 18 168/72 100 06/29/16 19:00 70 06/29/16 18:16 64 06/29/16 17:00 62 06/29/16 16:00 60 06/29/16 15:30 98.6 68 20 105/50 96 06/29/16 15:00 67 06/29/16 14:00 62 06/29/16 13:43 63 06/29/16 12:45 65 06/29/16 12:00 61 06/29/16 11:35 127/60 135/63 97/46 06/29/16 11:00 67 06/29/16 11:00 97.9 64 16 118/58 96 06/29/16 11:00 65 06/29/16 10:06 110/58 06/29/16 10:00 67 06/29/16 09:00 62 I/O 06/29/16 06/29/16 06/29/16 06/30/16 06/30/16 06/30/16 07:00 15:00 23:00 07:00 15:00 23:00 Intake Total 1087 ml 1080 ml 1480 ml Output Total 1200 ml 700 ml 850 ml Balance -113 ml 380 ml 630 ml Intake Oral 300 ml 480 ml 480 ml IV Total 787 ml 600 ml 1000 ml Output Urine Total 1200 ml 700 ml 850 ml # Bowel Movements 0 0 Physical Exam GENERAL: NAD, AAOx3 SKIN: Warm and dry. HEAD: Atraumatic. Normocephalic. EYES: Pupils equal and round. No scleral icterus. No injection or drainage. ENT: No nasal bleeding or discharge. Mucous membranes pink and moist. NECK: Trachea midline. No JVD. CARDIOVASCULAR: Irregularly irregular. Left chest wall incision clean, dry and intact RESPIRATORY: No accessory muscle use. Clear to auscultation. Breath sounds equal bilaterally. GASTROINTESTINAL: Abdomen soft, non-tender, nondistended. Hepatic and splenic margins not palpable. MUSCULOSKELETAL: Extremities without clubbing, cyanosis, or edema. No obvious deformities. NEUROLOGICAL: Awake and alert. No obvious cranial nerve deficits. Motor grossly within normal limits. Five out of 5 muscle strength in the arms and legs. Normal speech. PSYCHIATRIC: Appropriate mood and affect; insight and judgment normal. Laboratory Laboratory Tests Test 06/30/16 06:05 White Blood Count 4.5 TH/MM3 Red Blood Count 2.96 MIL/MM3 Hemoglobin 9.2 GM/DL Hematocrit 27.4 % Mean Corpuscular Volume 92.4 FL Mean Corpuscular Hemoglobin 31.1 PG Mean Corpuscular Hemoglobin 33.6 % Concent Red Cell Distribution Width 15.0 % Platelet Count 193 TH/MM3 Mean Platelet Volume 8.5 FL Neutrophils (%) (Auto) 68.5 % Lymphocytes (%) (Auto) 16.7 % Monocytes (%) (Auto) 12.7 % Eosinophils (%) (Auto) 1.3 % Basophils (%) (Auto) 0.8 % Neutrophils # (Auto) 3.1 TH/MM3 Lymphocytes # (Auto) 0.8 TH/MM3 Monocytes # (Auto) 0.6 TH/MM3 Eosinophils # (Auto) 0.1 TH/MM3 Basophils # (Auto) 0.0 TH/MM3 CBC Comment DIFF FINAL Differential Comment Sodium Level 142 MEQ/L Potassium Level 4.1 MEQ/L Chloride Level 108 MEQ/L Carbon Dioxide Level 25.7 MEQ/L Anion Gap 8 MEQ/L Blood Urea Nitrogen 12 MG/DL Creatinine 0.94 MG/DL Estimat Glomerular Filtration 56 ML/MIN Rate Random Glucose 88 MG/DL Calcium Level 8.4 MG/DL Assessment and Plan Problem List: (1) Sinus pause (2) S/P cardiac pacemaker procedure (3) Chronic kidney disease (CKD) stage G3a/A1, moderately decreased glomerular filtration rate (GFR) between 45-59 mL/min/1.73 square meter and albuminuria creatinine ratio less than 30 mg/g (4) Orthostatic hypotension (5) HTN (hypertension) (6) Cecum mass (7) Atrial fibrillation with RVR Assessment and Plan 1) Post PPM, doing well, no tachy events noted 2) Blood pressure stable on Lopressor without Hydralazine 3) Not an anticoagulation candidate due to cecal mass and falls 4) Chest pain felt to be due to Afib, not a candidate for ischemic evaluation or revascularization 5) For Laparoscopic colectomy by Dr. Thompson, today... still remains a moderate- high cardiovascular risk for a time-sensitive surgery, would not put off further as I can not decrease her risk, family understands that she has an elevated risk from a cardiovascular stand point pre-operatively... no current ACS/CHF, may proceed with surgery Angel Azar DO Jun 30, 2016 08:50
[2016-06-30] MEDS ORDERED: DEXAMETHASONE SOD PHOS 4 MG/ML VIAL ONE (09:25)
[2016-06-30] MEDS ORDERED: MIDAZOLAM HCL 2 MG/2 ML VIAL ONE (09:25)
[2016-06-30] MEDS ORDERED: FAMOTIDINE 20 MG/2 ML VIAL ONE ×2 (09:25→09:31)
[2016-06-30] MEDS ORDERED: ACETAMINOPHEN 1000 MG/100 ML VIAL IV ONE (09:25)
[2016-06-30] MEDS ORDERED: BUPIVACAINE/EPINEPHRINE 0.25% 50 ML VIAL ONE (09:41)
[2016-06-30] MEDS ORDERED: MORPHINE SULFATE 4 MG/ML INJ IV PUSH PRN (13:30)
[2016-06-30] MEDS ORDERED: DO NOT ADM ANY ANTICOAGULANT DRUGS XX PRN (13:46)
[2016-06-30] MEDS ORDERED: *LABETALOL HCL 100 MG/20 ML VIAL PERIprocedural Use ONLY ONE (14:12)
[2016-06-30] MEDS ORDERED: *ONDANSETRON 4 MG VIAL PERIprocedural Use ONLY ONE (14:16)
[2016-06-30] MEDS ORDERED: *RESP: ALBUTEROL 2.5 MG/3 ML NEB (PRN) PERIprocedural Use ONLY NEB ONE (14:30)
[2016-06-30] MEDS ORDERED: PROPOFOL 200 MG/20 ML AMP IV ONE (14:39)
[2016-06-30] MEDS ORDERED: NEOSTIGMINE 3 MG/3 ML SYR IV ONE (14:39)
[2016-06-30] MEDS ORDERED: ONDANSETRON HCL 4 MG/2 ML VIAL IV PUSH ONE (14:40)
[2016-06-30] MEDS ORDERED: LACTATED RINGER'S 1000 ML INJ 1,000 ML IV ONE (14:40)
[2016-06-30] MEDS: KETOROLAC TROMETHAMINE 30 MG/ML (IVP) VIAL IV PUSH PRN ×2 (14:47→19:28)
[2016-06-30] MEDS: ACETAMINOPHEN 1000 MG/100 ML VIAL IV SCH ×2 (16:31→21:21)
[2016-06-30] MEDS: DOCUSATE SODIUM 50 MG/SENNA 8.6 MG TAB PO SCH (20:30)
[2016-06-30] MEDS: ALVIMOPAN 12 MG CAPSULE PO SCH (20:31)
[2016-06-30] MEDS: ATORVASTATIN 10 MG TAB PO SCH (20:31)
[2016-07-01] VITALS (28 sets, daily range): BP systolic 132–151; BP diastolic 53–77; PULSE 61–74; RESP 16–20; TEMP 98–98.7; O2SAT 93–98
[2016-07-01] MEDS: CEPHALEXIN MONOHYDRATE 500 MG CAP PO SCH ×3 (01:53→16:19)
[2016-07-01] MEDS: SODIUM CHLOR 0.9% 1000 ML INJ 1,000 ML IV SCH ×3 (03:00→23:00)
[2016-07-01] MEDS: ACETAMINOPHEN 1000 MG/100 ML VIAL IV SCH ×3 (04:34→16:19)
[2016-07-01] MEDS: LEVOTHYROXINE SODIUM 25 MCG TAB PO SCH (06:10)
[2016-07-01 06:44] LABS: AUTOMATED NEUTROPHIL # 8.2 TH/MM3 (1.8-7.7); BASOPHIL % 0.1 % (0.0-2.0); HEMATOCRIT 26.5 % (35.0-46.0); HEMO FLAGS DIFF FINAL; LYMPH % 5.3 % (9.0-44.0); LYMPHOCYTE # 0.5 TH/MM3 (1.0-4.8); MEAN CELL VOLUME 92.6 FL (80.0-100.0); MEAN CORPUSCULAR HEMOGLOBIN 31.1 PG (27.0-34.0); MEAN CORPUSCULAR HGB CONC 33.5 % (32.0-36.0); MONO % 8.4 % (0.0-8.0); NEUT % 86.2 % (16.0-70.0); PLATELET COUNT 187 TH/MM3 (150-450); RED BLOOD COUNT 2.85 MIL/MM3 (4.00-5.30); RED CELL DISTRIBUTION WIDTH 15.1 % (11.6-17.2); WHITE BLOOD COUNT 9.5 TH/MM3 (4.0-11.0)
[2016-07-01 07:08] LABS: BICARBONATE 26.5 MEQ/L (21.0-32.0); POTASSIUM 4.4 MEQ/L (3.5-5.1)
[2016-07-01] MEDS: SODIUM CHLORIDE 0.9% FLUSH 5 ML FLUSH IVF SCH ×2 (09:00→21:00)
[2016-07-01] MEDS: FLUTICASONE PROPIONATE 50 MCG/ACT 16 GM NASAL SPRAY NASAL SCH (09:00)
[2016-07-01] MEDS: POLYETHYLENE GLYCOL 17 GM PKG PO SCH (09:28)
--- NOTE | 2016-07-01 09:29 | PD.CARD.PN ---
Subjective Subjective Remarks Doing well, no chest pain, no shortness of breath Objective Medications Current Medications Medications (Trade) Dose Ordered Sig/Betito Route Start Time Stop Time Status Last Admin (NS Flush) 2 ml BID IVF 06/26/16 09:00 06/30/16 20:31 (NS Flush) 2 ml UNSCH PRN IVF 06/26/16 04:00 (Lipitor) 10 mg HS PO 06/26/16 21:00 06/30/16 20:31 (Neurontin) 200 mg BID PO 06/26/16 09:00 06/30/16 20:30 (Melatonin) 5 mg HS PRN PO 06/26/16 23:00 06/27/16 00:02 (Apresoline) 20 mg Q8HR PO 06/27/16 14:00 Hold 06/29/16 05:45 (Vasotec Inj) 1.25 mg Q6H PRN IV PUSH 06/27/16 11:45 (Synthroid) 25 mcg DAILY@06 PO 06/28/16 06:00 07/01/16 06:10 (NS Flush) 2 ml UNSCH PRN IV FLUSH 06/28/16 10:00 (Flonase Jackson Spr) 2 spray DAILY NASAL 06/29/16 09:00 06/30/16 07:59 (Lopressor) 12.5 mg Q12HR PO 06/28/16 21:00 06/30/16 20:30 (Pill Splitter) 1 ea UNSCH PRN OTHER 06/28/16 12:30 Cephalexin Monohydrate 500 mg 500 mg Q8H PO 06/29/16 17:00 07/02/16 16:59 07/01/16 01:53 (NS 1000 ml Inj) 1,000 ml @ 100 mls/hr Q10H IV 06/29/16 21:00 07/01/16 03:00 (Entereg) 12 mg Q12HR PO 06/30/16 21:00 06/30/16 20:31 (Heparin Inj) 5,000 units Q8H SQ 07/01/16 12:00 (Miralax) 17 gm DAILY PO 07/01/16 09:00 (Ebony-Colace) 1 tab BID PO 06/30/16 21:00 06/30/16 20:30 (Ofirmev Inj) 1,000 mg Q6H IV 06/30/16 16:00 07/02/16 15:59 07/01/16 04:34 (Toradol Inj) 15 mg Q6H PRN IV PUSH 06/30/16 13:30 07/05/16 13:29 06/30/16 19:28 (Morphine Inj) 2 mg Q3H PRN IV PUSH 06/30/16 13:30 Miscellaneous Information ALL NURSING DEPARTME... UNSCH PRN XX 06/30/16 13:46 07/01/16 13:45 Vital Signs / I&O Vital Signs Date Time Temp Pulse Resp B/P Pulse Ox O2 Delivery O2 Flow Rate FiO2 07/01/16 07:31 98 Nasal Cannula 2.00 07/01/16 06:00 62 07/01/16 05:00 66 07/01/16 04:50 68 07/01/16 03:19 65 132/62 96 07/01/16 03:00 61 07/01/16 02:00 66 07/01/16 01:00 68 07/01/16 00:00 72 06/30/16 23:37 98.3 76 150/87 94 06/30/16 23:00 76 06/30/16 22:00 76 06/30/16 21:00 78 06/30/16 20:00 86 06/30/16 19:00 97.4 82 165/78 98 06/30/16 19:00 81 06/30/16 18:01 83 06/30/16 17:24 95 Nasal Cannula 3.00 06/30/16 17:18 82 06/30/16 16:00 82 06/30/16 15:00 74 06/30/16 15:00 97.6 72 12 159/65 93 Nasal Cannula 3 06/30/16 15:00 82 157/68 92 06/30/16 14:45 80 12 158/68 93 Nasal Cannula 3 06/30/16 14:30 79 12 160/73 97 Aerosol Mask 7 06/30/16 14:15 75 16 150/67 95 Simple Mask 7 06/30/16 14:10 92 18 183/73 98 Simple Mask 7 06/30/16 14:00 92 18 165/55 98 Simple Mask 7 06/30/16 13:44 97.5 79 15 144/60 88 Nasal Cannula 3 Manual Cuff/Auscultation 06/30/16 10:00 96 21 I/O 06/30/16 06/30/16 06/30/16 07/01/16 07/01/16 07/01/16 07:00 15:00 23:00 07:00 15:00 23:00 Intake Total 1480 ml 2500 ml 240 ml Output Total 850 ml 725 ml 450 ml 550 ml Balance 630 ml 1775 ml -450 ml -310 ml Intake Oral 480 ml 240 ml IV Total 1000 ml Other 2500 ml Output Urine Total 850 ml 450 ml 550 ml Estimated Blood Loss 25 ml Other 700 ml # Bowel Movements 0 Physical Exam GENERAL: NAD, AAOx3 SKIN: Warm and dry. HEAD: Atraumatic. Normocephalic. EYES: Pupils equal and round. No scleral icterus. No injection or drainage. ENT: No nasal bleeding or discharge. Mucous membranes pink and moist. NECK: Trachea midline. No JVD. CARDIOVASCULAR: Irregularly irregular. Left chest wall incision clean, dry and intact RESPIRATORY: No accessory muscle use. Clear to auscultation. Breath sounds equal bilaterally. GASTROINTESTINAL: Abdomen soft, non-tender, nondistended. Incisions clean, dry and intact MUSCULOSKELETAL: Extremities without clubbing, cyanosis, or edema. No obvious deformities. Left arm in a sling for PPM NEUROLOGICAL: Awake and alert. No obvious cranial nerve deficits. Motor grossly within normal limits. Five out of 5 muscle strength in the arms and legs. Normal speech. PSYCHIATRIC: Appropriate mood and affect; insight and judgment normal. Laboratory Laboratory Tests Test 07/01/16 05:55 White Blood Count 9.5 TH/MM3 Red Blood Count 2.85 MIL/MM3 Hemoglobin 8.9 GM/DL Hematocrit 26.5 % Mean Corpuscular Volume 92.6 FL Mean Corpuscular Hemoglobin 31.1 PG Mean Corpuscular Hemoglobin 33.5 % Concent Red Cell Distribution Width 15.1 % Platelet Count 187 TH/MM3 Mean Platelet Volume 8.8 FL Neutrophils (%) (Auto) 86.2 % Lymphocytes (%) (Auto) 5.3 % Monocytes (%) (Auto) 8.4 % Eosinophils (%) (Auto) 0.0 % Basophils (%) (Auto) 0.1 % Neutrophils # (Auto) 8.2 TH/MM3 Lymphocytes # (Auto) 0.5 TH/MM3 Monocytes # (Auto) 0.8 TH/MM3 Eosinophils # (Auto) 0.0 TH/MM3 Basophils # (Auto) 0.0 TH/MM3 CBC Comment DIFF FINAL Differential Comment Sodium Level 137 MEQ/L Potassium Level 4.4 MEQ/L Chloride Level 104 MEQ/L Carbon Dioxide Level 26.5 MEQ/L Anion Gap 7 MEQ/L Blood Urea Nitrogen 14 MG/DL Creatinine 0.93 MG/DL Estimat Glomerular Filtration 57 ML/MIN Rate Random Glucose 128 MG/DL Calcium Level 8.2 MG/DL Assessment and Plan Problem List: (1) Sinus pause (2) S/P cardiac pacemaker procedure (3) Chronic kidney disease (CKD) stage G3a/A1, moderately decreased glomerular filtration rate (GFR) between 45-59 mL/min/1.73 square meter and albuminuria creatinine ratio less than 30 mg/g (4) Orthostatic hypotension (5) HTN (hypertension) (6) Cecum mass (7) Atrial fibrillation with RVR (8) S/P partial colectomy Assessment and Plan 1) Post PPM, doing well, no tachy events noted 2) Blood pressure stable on Lopressor without Hydralazine 3) Not an anticoagulation candidate due to history of falls with orthostatic hypotension, will be further discussed with the family outpatient 4) Chest pain felt to be due to Afib, not a candidate for ischemic evaluation or revascularization 5) S/p Laparoscopic Colectomy POD #1, doing well, no complaints 6) Will see PRN, call with questions Angel Azar DO Jul 01, 2016 09:29
[2016-07-01] MEDS: GABAPENTIN 100 MG CAP PO SCH ×2 (09:30→22:07)
[2016-07-01] MEDS: METOPROLOL TARTRATE 25 MG TAB PO SCH ×2 (09:30→23:31)
[2016-07-01] MEDS: ALVIMOPAN 12 MG CAPSULE PO SCH ×2 (09:30→22:07)
[2016-07-01] MEDS: DOCUSATE SODIUM 50 MG/SENNA 8.6 MG TAB PO SCH ×2 (09:30→21:00)
--- NOTE | 2016-07-01 10:53 | HHI.FPPN ---
Subjective Remarks Patient seen this morning. No acute events overnight. Vitals WNL this AM. She had laparoscopic right colectomy yesterday. Tolerated the procedure well. She would like to start exercising today. She would prefer to go home with PT, if possible. Apparently family wants her to go to [place]. She states she is okay with this if "you think I need to". No complaints this AM. Mild SOB, consistent with baseline. No palpitations or CP. Denies F/C. (Newton Adkins MD R3) Objective Vitals Vital Signs Date Time Temp Pulse Resp B/P Pulse Ox O2 Delivery O2 Flow Rate FiO2 07/01/16 07:31 98 Nasal Cannula 2.00 07/01/16 06:00 62 07/01/16 05:00 66 07/01/16 04:50 68 07/01/16 03:19 65 132/62 96 07/01/16 03:00 61 07/01/16 02:00 66 07/01/16 01:00 68 07/01/16 00:00 72 06/30/16 23:37 98.3 76 150/87 94 06/30/16 23:00 76 06/30/16 22:00 76 06/30/16 21:00 78 06/30/16 20:00 86 06/30/16 19:00 97.4 82 165/78 98 06/30/16 19:00 81 06/30/16 18:01 83 06/30/16 17:24 95 Nasal Cannula 3.00 06/30/16 17:18 82 06/30/16 16:00 82 06/30/16 15:00 74 06/30/16 15:00 97.6 72 12 159/65 93 Nasal Cannula 3 06/30/16 15:00 82 157/68 92 06/30/16 14:45 80 12 158/68 93 Nasal Cannula 3 06/30/16 14:30 79 12 160/73 97 Aerosol Mask 7 06/30/16 14:15 75 16 150/67 95 Simple Mask 7 06/30/16 14:10 92 18 183/73 98 Simple Mask 7 06/30/16 14:00 92 18 165/55 98 Simple Mask 7 06/30/16 13:44 97.5 79 15 144/60 88 Nasal Cannula 3 Manual Cuff/Auscultation I/O 06/30/16 06/30/16 06/30/16 07/01/16 07/01/16 07/01/16 07:00 15:00 23:00 07:00 15:00 23:00 Intake Total 1480 ml 2500 ml 240 ml Output Total 850 ml 725 ml 450 ml 550 ml Balance 630 ml 1775 ml -450 ml -310 ml Intake Oral 480 ml 240 ml IV Total 1000 ml Other 2500 ml Output Urine Total 850 ml 450 ml 550 ml Estimated Blood Loss 25 ml Other 700 ml # Bowel Movements 0 (Newton Adkins MD R3) Result Diagram: 07/01/1655407/01/16554 Objective Remarks GENERAL: well-appearing, elderly female sitting up in chair this morning. SKIN: No rashes. Ecchymoses on abdomen from previous administration of anticoagulation. Cool and dry. CHEST WALL: PPM present over left chest with dressing in place. Wound site grossly appear c/d/i. No drainage. CARDIOVASCULAR: Distant heart sounds. Regular rate and rhythm. No murmurs rubs or gallops appreciated. RESPIRATORY: Clear to auscultation. Breath sounds equal bilaterally. No wheezes , rales, or rhonchi. GASTROINTESTINAL: Abdomen soft, non-tender, nondistended. +bs in all 4 quadrants. 2 small incisions above umbilicus along with ~ 10 cm horizontal incision over RUQ with kyler in place. Wound sites c/d/i. MUSCULOSKELETAL: Extremities without clubbing, cyanosis, or edema. NEUROLOGICAL: Awake and alert. Oriented to person, place and time. Motor and sensory are grossly intact. (Newton Adkins MD R3) A/P Assessment and Plan Pt is a 85 year old female with past medical history significant for orthostatic hypotension, hyperlipidemia, CKD, hypothyroidism, COPD presenting to the ED due to chest pain and shortness of breath, found to be in afib with RVR, also reports symptoms concerning for TIA vs CVA. S/p PPM placement 06/28. Now s/p right colectomy 06/30. Discharge Planning Patient wants DC to [place] rehab versus PT. Consult ST and OT today and will discuss with case management. Will discuss with Dr. Garvey (Newton Adkins MD R3) Attending Attestation Patient seen and examined. Case reviewed and discussed with the resident team. Agree with plan of care as discussed with me and documented in the resident note. she wants to go back to [facility] whenever she can. she is doing well with walking and her strength overall (Adriana Garvey MD) Problem List: (1) Cecum mass Status: Acute Plan: S/p right colectomy 06/30. Path sent. -change activity to OOB with assistance -PT/OT/ST -restart DVT ppx today at 1200 (>12 hrs post-op) -pain control with toradol/morphine (2) Atrial fibrillation with RVR Status: Acute Plan: Well controlled. Patient arrived in atrial fibrillation with RVR. Did have intermittent tachycardia-bradycardia with >6s sinus pause on 06/26. Normal rate overnight. S/p PPM placement 06/28. -cont tele -cont metoprolol 12.5mg BID. Will put in order to hold if BP <90/60s. -Cardiology consulted regarding management of atrial fibrillation given patient' s history of orthostatic hypotension and concern for TIA vs CVA, appreciate recommendations. They have consulted Dr. Rg for PPM eval, given sinus pause and intermittent tachy-tania on tele. * s/p PPM placement this 06/28, as above. CXR shows no evidence of pneumothorax. * received ancef for ppx sherine-operatively. Now on 3 day course of keflex (06/29-) History: -ACS r/o negative. Mild bump in troponin on admission likely 2/2 strain from RVR. -Pt was given 20 mg IV diltiazem 1 by EMS -Echocardiogram recently done on 05/24/16 showing an EF of 60-65% and no wall motion abnormalities. / (3) Sinus pause Status: Acute Plan: Rate well controlled o/n. S/p PPM placement 06/28. (4) Orthostatic hypotension Status: Chronic Plan: Drop of >50 points SBP and 10 points DBP with standing 06/27. Continues to have significant orthostasis. -orthostatics daily -patient currently hypertensive, which will make treatment difficult. Home midodrine and fludricortisone currently on hold 2/2 hypertension. -PT/OT eval. PT currently recommends HH with PT v. rehab. (5) HTN (hypertension) Status: Acute Plan: Control improving. -cont checks with manual cuff. -cards has started metoprolol 12.5 mg BID for rate control -vasotec PRN for SBP >180 (6) Nasal congestion Status: Acute Plan: Allergic rhinitis v. URI. -flonase added. Advised patient okay to use before surgery. (7) Shortness of breath Status: Chronic Plan: Pt with history of COPD and she is short of breath at baseline. She reports that breathing has improved with resolution of chest pain. -atrovent neb PRN, given adverse RXN to albuterol in the past -CXR 06/28 negative for acute process History: -Chest x-ray significant for minimal basilar atelectasis. No effusion. No pneumothorax. Heart size mildly enlarged. (8) Constipation Status: Chronic Plan: Chronic issue. ? relation to cecal mass. -Bowel regimen of sherine-colace/miralax -milk of Mg if no BM x3 days (9) Chronic kidney disease (CKD) stage G3a/A1, moderately decreased glomerular filtration rate (GFR) between 45-59 mL/min/1.73 square meter and albuminuria creatinine ratio less than 30 mg/g Status: Chronic Plan: Creatinine WNL this AM with eGFR in the 50s. -NS 100 mls/hr while NPO -monitor daily chemistry (10) FEN/PPX Status: Acute Plan: Fluids: NS at 100 mls/hr. DC once PO improves. Electrolytes: WNL today. Nutrition: Clear liquid at lunch today. Advance, as tolerated. DVT PPX: restart hepatin today at 1200 (Newton Adkins MD R3) Problem Qualifiers (1) HTN (hypertension): Qualified Code: I10 - Essential hypertension (2) Constipation: Qualified Code: K59.01 - Slow transit constipation Newton Adkins MD R3 Jul 01, 2016 10:53 Adriana Garvey MD Jul 02, 2016 11:15
[2016-07-01] MEDS: HEPARIN SODIUM - SQ 10,000 UNITS/ML VIAL SQ SCH ×2 (12:33→22:06)
--- NOTE | 2016-07-01 17:40 | HHI.PR ---
Subjective Subjective Notes pt comfortable no flatus no Bm Objective Vitals/I&O Vital Signs Date Time Temp Pulse Resp B/P Pulse Ox O2 Delivery O2 Flow Rate FiO2 07/01/16 16:09 67 07/01/16 15:34 98.7 18 132/53 95 07/01/16 07:31 Nasal Cannula 2.00 06/30/16 10:00 21 Labs Laboratory Tests Test 07/01/16 05:55 White Blood Count 9.5 Red Blood Count 2.85 Hemoglobin 8.9 Hematocrit 26.5 Mean Corpuscular Volume 92.6 Mean Corpuscular Hemoglobin 31.1 Mean Corpuscular Hemoglobin 33.5 Concent Red Cell Distribution Width 15.1 Platelet Count 187 Mean Platelet Volume 8.8 Neutrophils (%) (Auto) 86.2 Lymphocytes (%) (Auto) 5.3 Monocytes (%) (Auto) 8.4 Eosinophils (%) (Auto) 0.0 Basophils (%) (Auto) 0.1 Neutrophils # (Auto) 8.2 Lymphocytes # (Auto) 0.5 Monocytes # (Auto) 0.8 Eosinophils # (Auto) 0.0 Basophils # (Auto) 0.0 CBC Comment DIFF FINAL Differential Comment Sodium Level 137 Potassium Level 4.4 Chloride Level 104 Carbon Dioxide Level 26.5 Anion Gap 7 Blood Urea Nitrogen 14 Creatinine 0.93 Estimat Glomerular Filtration 57 Rate Random Glucose 128 Calcium Level 8.2 Abdomen: Post-op tenderness Extremities: Perfused Narrative Exam mild distension Wound Wound : Wound Location: Abdomen A/P Assessment and Plan S/P Lap R Colectomy Doing well Continue liquids till flatus then advance as andrae ambulate with assistance Jeferson Franz MD Jul 01, 2016 17:40
[2016-07-01] MEDS: ATORVASTATIN 10 MG TAB PO SCH (22:07)
[2016-07-02] VITALS (23 sets, daily range): BP systolic 136–183; BP diastolic 66–88; PULSE 60–80; RESP 16–20; TEMP 98–98.4; O2SAT 94–96
[2016-07-02] MEDS: ACETAMINOPHEN 1000 MG/100 ML VIAL IV SCH ×3 (01:02→08:36)
[2016-07-02] MEDS: CEPHALEXIN MONOHYDRATE 500 MG CAP PO SCH ×2 (01:25→08:37)
[2016-07-02] MEDS: ONDANSETRON HCL 4 MG/2 ML VIAL IV PUSH PRN ×2 (01:26→08:36)
[2016-07-02] MEDS: HEPARIN SODIUM - SQ 10,000 UNITS/ML VIAL SQ SCH ×3 (04:08→20:32)
[2016-07-02] MEDS: LEVOTHYROXINE SODIUM 25 MCG TAB PO SCH (06:02)
[2016-07-02] MEDS: POLYETHYLENE GLYCOL 17 GM PKG PO SCH (08:36)
[2016-07-02] MEDS: ALVIMOPAN 12 MG CAPSULE PO SCH ×2 (08:37→20:31)
[2016-07-02] MEDS: DOCUSATE SODIUM 50 MG/SENNA 8.6 MG TAB PO SCH ×2 (08:37→20:32)
[2016-07-02] MEDS: SODIUM CHLORIDE 0.9% FLUSH 5 ML FLUSH IVF SCH ×2 (08:37→21:00)
[2016-07-02] MEDS: FLUTICASONE PROPIONATE 50 MCG/ACT 16 GM NASAL SPRAY NASAL SCH (08:37)
[2016-07-02] MEDS: GABAPENTIN 100 MG CAP PO SCH ×2 (08:37→20:32)
[2016-07-02] MEDS: METOPROLOL TARTRATE 25 MG TAB PO SCH ×2 (08:37→20:31)
[2016-07-02] MEDS: SODIUM CHLOR 0.9% 1000 ML INJ 1,000 ML IV SCH (08:39)
[2016-07-02] MEDS ORDERED: METOCLOPRAMIDE HCL 10 MG/2 ML VIAL IM PRN (11:00)
--- NOTE | 2016-07-02 11:04 | HHI.FPPN ---
Subjective Remarks Ms Torres complains of nausea today. She has good bowel sounds and even had a bowel movement last night and tolerated dinner but declines breakfast because of her nausea. Zofran so far has not been effective. She was up walking in the [place] yesterday and is doing very well overall with her strength. She cannot put pressure on her left arm because of the pacemaker recently placed and her arm is still in a sling. Her family has wanted her to go to [place] but she is doing very well overall and does not need that level of rehab at this time. Ms Torres prefers to go back to [facility] where she has friends and have rehab there. Objective Vitals Vital Signs Date Time Temp Pulse Resp B/P Pulse Ox O2 Delivery O2 Flow Rate FiO2 07/02/16 10:00 68 07/02/16 09:00 65 07/02/16 08:00 72 07/02/16 07:00 68 07/02/16 07:00 98.0 69 20 156/72 94 07/02/16 05:00 65 07/02/16 04:00 64 07/02/16 03:00 64 07/02/16 03:00 98.1 66 16 136/66 94 07/02/16 02:00 62 07/02/16 01:30 16 07/02/16 01:00 64 07/02/16 00:00 70 07/01/16 23:00 98.2 72 16 151/76 96 07/01/16 23:00 68 07/01/16 22:45 93 21 07/01/16 22:00 70 07/01/16 21:00 66 07/01/16 20:00 68 07/01/16 19:00 70 07/01/16 19:00 98.0 68 16 150/77 98 07/01/16 18:21 74 07/01/16 17:00 70 07/01/16 16:09 67 07/01/16 15:34 98.7 69 18 132/53 95 07/01/16 15:00 66 07/01/16 14:00 66 07/01/16 13:37 68 07/01/16 12:00 64 07/01/16 12:00 98.5 73 17 133/69 94 07/01/16 11:00 70 I/O 07/01/16 07/01/16 07/01/16 07/02/16 07/02/16 07/02/16 07:00 15:00 23:00 07:00 15:00 23:00 Intake Total 240 ml 1200 ml 1121 ml Output Total 550 ml 400 ml 800 ml Balance -310 ml 800 ml 321 ml Intake Oral 240 ml 800 ml 480 ml IV Total 400 ml 641 ml Output Urine Total 550 ml 400 ml 800 ml Result Diagram: 07/01/16 0555 07/01/16554 Objective Remarks GENERAL: well-appearing, elderly female sitting up in chair this morning. SKIN: No rashes. Ecchymoses on abdomen from previous administration of anticoagulation. Cool and dry. CHEST WALL: PPM present over left chest with dressing in place. Wound site grossly appear c/d/i. No drainage. CARDIOVASCULAR: Distant heart sounds. Regular rate and rhythm. No murmurs rubs or gallops appreciated. RESPIRATORY: Clear to auscultation. Breath sounds equal bilaterally. No wheezes , rales, or rhonchi. GASTROINTESTINAL: Abdomen soft, non-tender, nondistended. +bs in all 4 quadrants. 2 small incisions above umbilicus along with ~ 10 cm horizontal incision over RUQ with kyler in place. Wound sites c/d/i. MUSCULOSKELETAL: Extremities without clubbing, cyanosis, or edema. NEUROLOGICAL: Awake and alert. Oriented to person, place and time. Motor and sensory are grossly intact. Urinary Catheter: Yes Assessment to: Remove Vascular Central Line Catheter: No A/P Assessment and Plan Pt is a 85 year old female with past medical history significant for orthostatic hypotension, hyperlipidemia, CKD, hypothyroidism, COPD presenting to the ED due to chest pain and shortness of breath, found to be in afib with RVR, also reports symptoms concerning for TIA vs CVA. S/p PPM placement 06/28. Now s/p right colectomy 06/30. Discharge Planning Patient wants DC to [facility] for rehab. Consulted ST and OT today and will discuss with case management. She needs to improve for now from her surgery prior to D/C but is progressing Problem List: (1) Cecum mass Status: Acute Plan: S/p right colectomy 06/30. Path sent. -change activity to OOB with assistance -PT/OT/ST -restart DVT ppx today at 1200 (>12 hrs post-op) -pain control with toradol/morphine (2) Atrial fibrillation with RVR Status: Acute Plan: Well controlled. Patient arrived in atrial fibrillation with RVR. Did have intermittent tachycardia-bradycardia with >6s sinus pause on 06/26. Normal rate overnight. S/p PPM placement 06/28. -cont tele -cont metoprolol 12.5mg BID. Will put in order to hold if BP <90/60s. -Cardiology consulted regarding management of atrial fibrillation given patient' s history of orthostatic hypotension and concern for TIA vs CVA, appreciate recommendations. They have consulted Dr. Rg for PPM eval, given sinus pause and intermittent tachy-tania on tele. * s/p PPM placement this 06/28, as above. CXR shows no evidence of pneumothorax. * received ancef for ppx sherine-operatively. Now on 3 day course of keflex (06/29-) History: -ACS r/o negative. Mild bump in troponin on admission likely 2/2 strain from RVR. -Pt was given 20 mg IV diltiazem 1 by EMS -Echocardiogram recently done on 05/24/16 showing an EF of 60-65% and no wall motion abnormalities. / (3) Sinus pause Status: Acute Plan: Rate well controlled o/n. S/p PPM placement 06/28. (4) Orthostatic hypotension Status: Chronic Plan: Drop of >50 points SBP and 10 points DBP with standing 06/27. Continues to have significant orthostasis. -orthostatics daily. She will need prison rate control meds with her history of rvr so her orthostasis may be a continuing problem -patient currently hypertensive, which will make treatment difficult. Home midodrine and fludrocortisone currently on hold 2/2 hypertension. would aim for systolic 150 or above if possible at her age. at her age with orthostasis her diastolic should be greater than 65 as well. -PT/OT eval. PT currently recommends HH with PT v. rehab. (5) HTN (hypertension) Status: Acute Plan: Control improving. -cont checks with manual cuff. -cards has started metoprolol 12.5 mg BID for rate control -vasotec PRN for SBP >180 (6) Nasal congestion Status: Acute Plan: Allergic rhinitis v. URI. -flonase added. no complaints today (7) Shortness of breath Status: Chronic Plan: Pt with history of COPD and she is short of breath at baseline. She reports that breathing has improved with resolution of chest pain. -atrovent neb PRN, given adverse RXN to albuterol in the past -CXR 06/28 negative for acute process History: -Chest x-ray significant for minimal basilar atelectasis. No effusion. No pneumothorax. Heart size mildly enlarged. (8) Constipation Status: Chronic Plan: Chronic issue. ? relation to cecal mass. -Bowel regimen of sherine-colace/miralax -milk of Mg if no BM x3 days she has no complaints today (9) Chronic kidney disease (CKD) stage G3a/A1, moderately decreased glomerular filtration rate (GFR) between 45-59 mL/min/1.73 square meter and albuminuria creatinine ratio less than 30 mg/g Status: Chronic Plan: Creatinine WNL this AM with eGFR in the 50s. -monitor daily chemistry (10) FEN/PPX Status: Acute Plan: Fluids: NS at 100 mls/hr initially. D/C as PO improves. if unable to eat or drink can restart fluids Electrolytes: WNL today. Nutrition: Clear liquid at lunch today. Advance, as tolerated. with nausea may need to take one step back DVT PPX: restart hepatin Problem Qualifiers (1) HTN (hypertension): Qualified Code: I10 - Essential hypertension (2) Constipation: Qualified Code: K59.01 - Slow transit constipation Adriana Garvey MD Jul 02, 2016 11:04
--- NOTE | 2016-07-02 11:24 | HHI.PR ---
Subjective Subjective Notes c/o nausea no flatus Objective Vitals/I&O Vital Signs Date Time Temp Pulse Resp B/P Pulse Ox O2 Delivery O2 Flow Rate FiO2 07/02/16 10:00 68 07/02/16 07:00 98.0 20 156/72 94 07/01/16 22:45 21 07/01/16 07:31 Nasal Cannula 2.00 Abdomen: Post-op tenderness Extremities: Perfused Narrative Exam mild distension Wound Wound : Wound Location: Abdomen Appearance: Clean & Dry A/P Assessment and Plan S/P Lap R Colectomy ileus sips of clears till flatus then advance as andrae ambulate with assistance Jeferson Franz MD Jul 02, 2016 11:24
[2016-07-02] MEDS ORDERED: PROCHLORPERAZINE INJ 10 MG/2 ML VIAL IVS PRN (12:15)
[2016-07-02] MEDS ORDERED: PANTOPRAZOLE SOD 40 MG DELAYED RELEASE TAB PO ONE (12:15)
[2016-07-02] MEDS ORDERED: DEXAMETHASONE SOD PHOS 4 MG/ML VIAL IM ONE (12:15)
[2016-07-02] MEDS: ATORVASTATIN 10 MG TAB PO SCH (20:31)
[2016-07-02] MEDS: ENALAPRILAT 1.25 MG/ML VIAL IV PUSH PRN (21:38)
[2016-07-02] MEDS ORDERED: SODIUM CHLOR 0.9% 1000 ML INJ 1,000 ML IV SCH (23:45)
[2016-07-02] MEDS ORDERED: hydrALAZINE HCL 10 MG TAB PO ONE (23:45)
[2016-07-03] VITALS (25 sets, daily range): BP systolic 138–190; BP diastolic 60–90; PULSE 56–93; RESP 16–20; TEMP 98.1–98.6; O2SAT 95–99
[2016-07-03] MEDS ORDERED: hydrALAZINE HCL 10 MG TAB PO PRN (00:15)
[2016-07-03] MEDS: ENALAPRILAT 1.25 MG/ML VIAL IV PUSH PRN (03:10)
[2016-07-03] MEDS ORDERED: hydrALAZINE HCL 20 MG/ML VIAL IV PRN (03:15)
[2016-07-03] MEDS ORDERED: cloNIDine HCL 0.1 MG TAB PO PRN (03:15)
[2016-07-03] MEDS: LEVOTHYROXINE SODIUM 25 MCG TAB PO SCH (05:13)
[2016-07-03] MEDS: HEPARIN SODIUM - SQ 10,000 UNITS/ML VIAL SQ SCH ×3 (05:13→20:12)
[2016-07-03 07:48] LABS: HEMATOCRIT 23.8 % (35.0-46.0); MEAN CELL VOLUME 92.7 FL (80.0-100.0); MEAN CORPUSCULAR HEMOGLOBIN 31.3 PG (27.0-34.0); MEAN CORPUSCULAR HGB CONC 33.7 % (32.0-36.0); PLATELET COUNT 179 TH/MM3 (150-450); RED BLOOD COUNT 2.56 MIL/MM3 (4.00-5.30); RED CELL DISTRIBUTION WIDTH 15.1 % (11.6-17.2); REVIEW FLAG FINAL; WHITE BLOOD COUNT 5.4 TH/MM3 (4.0-11.0)
[2016-07-03 08:05] LABS: BICARBONATE 25.3 MEQ/L (21.0-32.0)
[2016-07-03] MEDS: POLYETHYLENE GLYCOL 17 GM PKG PO SCH (08:36)
[2016-07-03] MEDS: SODIUM CHLOR 0.9% 1000 ML INJ 1,000 ML IV SCH (08:36)
[2016-07-03] MEDS: SODIUM CHLORIDE 0.9% FLUSH 5 ML FLUSH IVF SCH ×2 (08:36→20:12)
[2016-07-03] MEDS: METOPROLOL TARTRATE 25 MG TAB PO SCH ×2 (08:37→20:12)
[2016-07-03] MEDS: ALVIMOPAN 12 MG CAPSULE PO SCH ×2 (08:37→20:11)
[2016-07-03] MEDS: DOCUSATE SODIUM 50 MG/SENNA 8.6 MG TAB PO SCH ×2 (08:37→20:12)
[2016-07-03] MEDS: PANTOPRAZOLE SOD 40 MG DELAYED RELEASE TAB PO SCH (08:37)
[2016-07-03] MEDS: FLUTICASONE PROPIONATE 50 MCG/ACT 16 GM NASAL SPRAY NASAL SCH (08:38)
[2016-07-03] MEDS: GABAPENTIN 100 MG CAP PO SCH ×2 (08:38→20:11)
--- NOTE | 2016-07-03 09:50 | HHI.FPPN ---
Subjective Remarks Patient seen this morning. No acute events overnight. SBP up to the 180s overnight. Per nursing, Sameera is ambulating without assistance. Tolerating clear liquid diet this AM. Sameera states she would like to go home today. Nausea resolved. Had 1 BM overnight. No complaints this AM. Denies any F/C. (Newton Adkins MD R3) Objective Vitals Vital Signs Date Time Temp Pulse Resp B/P Pulse Ox O2 Delivery O2 Flow Rate FiO2 07/03/16 09:00 72 07/03/16 08:00 68 07/03/16 07:00 98.6 70 20 184/83 95 07/03/16 07:00 69 07/03/16 06:00 68 07/03/16 05:00 64 07/03/16 04:00 62 07/03/16 03:00 66 07/03/16 03:00 98.1 66 16 176/82 96 07/03/16 02:00 68 07/03/16 01:00 58 07/03/16 00:00 56 07/02/16 23:00 60 07/02/16 23:00 98.3 70 16 183/83 96 07/02/16 22:00 66 07/02/16 21:00 70 07/02/16 20:00 68 07/02/16 19:00 98.4 71 16 180/72 94 07/02/16 19:00 74 07/02/16 18:00 77 07/02/16 17:00 77 07/02/16 16:00 76 07/02/16 15:00 98.1 70 16 140/88 94 07/02/16 15:00 72 07/02/16 14:00 75 07/02/16 13:00 72 07/02/16 12:00 77 07/02/16 11:00 80 07/02/16 11:00 98.0 72 20 168/77 94 07/02/16 10:00 68 I/O 07/02/16 07/02/16 07/02/16 07/03/16 07/03/16 07/03/16 07:00 15:00 23:00 07:00 15:00 23:00 Intake Total 1121 ml 1847 ml 966 ml Output Total 800 ml 1650 ml 1051 ml Balance 321 ml 197 ml -85 ml Intake Oral 480 ml 960 ml 480 ml IV Total 641 ml 887 ml 486 ml Output Urine Total 800 ml 1650 ml 1050 ml Stool Total 1 ml # Voids 1 # Bowel Movements 1 (Newton Adkins MD R3) Result Diagram: 07/03/1663407/03/16634 Objective Remarks GENERAL: well-appearing, elderly female sitting up in chair this morning. SKIN: No rashes. Ecchymoses on abdomen from previous administration of anticoagulation. Cool and dry. CHEST WALL: PPM present over left chest with dressing in place. Wound site grossly appear c/d/i. No drainage. CARDIOVASCULAR: Distant heart sounds. Regular rate and rhythm. No murmurs rubs or gallops appreciated. RESPIRATORY: Clear to auscultation. Breath sounds equal bilaterally. No wheezes , rales, or rhonchi. GASTROINTESTINAL: Abdomen soft, non-tender, nondistended. +bs in all 4 quadrants. 2 small incisions above umbilicus along with ~ 10 cm horizontal incision over RUQ with kyler in place. Wound sites c/d/i. MUSCULOSKELETAL: Extremities without clubbing, cyanosis, or edema. NEUROLOGICAL: Awake and alert. Oriented to person, place and time. Motor and sensory are grossly intact. (Newton Adkins MD R3) A/P Assessment and Plan Pt is a 85 year old female with past medical history significant for orthostatic hypotension, hyperlipidemia, CKD, hypothyroidism, COPD presenting to the ED due to chest pain and shortness of breath, found to be in afib with RVR, also reports symptoms concerning for TIA vs CVA. S/p PPM placement 06/28. Now s/p right colectomy 06/30. Discharge Planning Patient wants DC to [facility] for rehab. Will discuss with case management. Likely discharge in next 2-3 days. Will discuss with Dr. Garvey (Newton Adkins MD R3) Attending Attestation Patient seen and examined. Case reviewed and discussed with the resident team. Agree with plan of care as discussed with me and documented in the resident note. she is doing very well. she is hungry for "regular food" and is up walking with no assistance (Adriana Garvey MD) Problem List: (1) Cecum mass Status: Acute Plan: S/p right colectomy 3/23. Path sent. -OOB with assistance -PT/OT/ST -DVT ppx with heparin until mobility increased -pain control with toradol/morphine (2) Atrial fibrillation with RVR Status: Acute Plan: Well controlled. Patient arrived in atrial fibrillation with RVR. Did have intermittent tachycardia-bradycardia with >6s sinus pause on 06/26. Normal rate overnight. S/p PPM placement 06/28. -cont tele -cont metoprolol 12.5mg BID. Will put in order to hold if BP <90/60s. -Cardiology consulted regarding management of atrial fibrillation given patient' s history of orthostatic hypotension and concern for TIA vs CVA, appreciate recommendations. They have consulted Dr. Rg for PPM eval, given sinus pause and intermittent tachy-tania on tele. * s/p PPM placement this 06/28, as above. CXR shows no evidence of pneumothorax. * received ancef for ppx sherine-operatively. Now on 3 day course of keflex (06/29-) History: -ACS r/o negative. Mild bump in troponin on admission likely 2/2 strain from RVR. -Pt was given 20 mg IV diltiazem 1 by EMS -Echocardiogram recently done on 05/24/16 showing an EF of 60-65% and no wall motion abnormalities. / (3) Sinus pause Status: Acute Plan: Rate well controlled o/n. S/p PPM placement 06/28. (4) Nausea Status: Acute Plan: Improved. -cont PRN compazine. Received 4mg IV decadron x1 yesterday. (5) Orthostatic hypotension Status: Chronic Plan: Drop of >50 points SBP and 10 points DBP with standing 06/27. Continues to have significant orthostasis. -orthostatics daily. She will need terminal gauger rate control meds with her history of rvr so her orthostasis may be a continuing problem. -patient currently hypertensive, which will make treatment difficult. Home midodrine and fludrocortisone currently on hold 2/2 hypertension. Would aim for systolic 150 or above if possible at her age. at her age with orthostasis her diastolic should be greater than 65 as well. -PT/OT eval. PT currently recommends HH with PT v. rehab. (6) HTN (hypertension) Status: Acute Plan: SBP up to the 180s overnight. Likely elevated, in part, 2/2 steroid use yesterday. -cont checks with manual cuff. -cards has started metoprolol 12.5 mg BID for rate control -re-start hydralazine 20mg q8. Monitor BPs today. -vasotec PRN for SBP >180. PRN clonidine added overnight, will DC at this time. (7) Nasal congestion Status: Acute Plan: Allergic rhinitis v. URI. -flonase added. no complaints today (8) Shortness of breath Status: Chronic Plan: Pt with history of COPD and she is short of breath at baseline. She reports that breathing has improved with resolution of chest pain. -atrovent neb PRN, given adverse RXN to albuterol in the past -CXR 06/28 negative for acute process History: -Chest x-ray significant for minimal basilar atelectasis. No effusion. No pneumothorax. Heart size mildly enlarged. (9) Constipation Status: Chronic Plan: Chronic issue. ? relation to cecal mass. 1 recorded BM overnight. No complaints today. -Bowel regimen of sherine-colace/miralax. Surgery has added entereg, as well. -milk of Mg if no BM x3 days (10) FEN/PPX Status: Acute Plan: Fluids: PO improved. DC IVF at this time. Electrolytes: WNL today. Nutrition: full liquid this AM. Advance, as tolerated, now that patient is moving bowels. DVT PPX: restart hepatin. DC as mobility improves. (Newton Adkins MD R3) Problem Qualifiers (1) HTN (hypertension): Qualified Code: I10 - Essential hypertension (2) Constipation: Qualified Code: K59.01 - Slow transit constipation Newton Adkins MD R3 Jul 03, 2016 09:49 Adriana Garvey MD Jul 04, 2016 10:25
[2016-07-03] MEDS ORDERED: hydrALAZINE HCL 25 MG TAB PO ONE (11:00)
--- NOTE | 2016-07-03 11:08 | HHI.PR ---
Subjective Subjective Notes nausea better liquid BM Objective Vitals/I&O Vital Signs Date Time Temp Pulse Resp B/P Pulse Ox O2 Delivery O2 Flow Rate FiO2 07/03/16 10:00 61 07/03/16 10:00 190/79 07/03/16 07:00 98.6 20 95 07/01/16 22:45 21 07/01/16 07:31 Nasal Cannula 2.00 Labs Laboratory Tests Test 07/03/16 06:35 White Blood Count 5.4 Red Blood Count 2.56 Hemoglobin 8.0 Hematocrit 23.8 Mean Corpuscular Volume 92.7 Mean Corpuscular Hemoglobin 31.3 Mean Corpuscular Hemoglobin 33.7 Concent Red Cell Distribution Width 15.1 Platelet Count 179 Mean Platelet Volume 8.9 Sodium Level 138 Potassium Level 4.0 Chloride Level 104 Carbon Dioxide Level 25.3 Anion Gap 9 Blood Urea Nitrogen 11 Creatinine 0.75 Estimat Glomerular Filtration 73 Rate Random Glucose 90 Calcium Level 8.1 Abdomen: Post-op tenderness Narrative Exam mild distension Wound Wound : Wound Location: Abdomen Appearance: Clean & Dry A/P Assessment and Plan S/P Lap R Colectomy advance diet as andrae ambulate with assistance D/C when ok with primary team Jeferson Franz MD Jul 03, 2016 11:08
[2016-07-03] MEDS: hydrALAZINE HCL 10 MG TAB PO SCH ×2 (14:00→21:55)
[2016-07-03] MEDS: ATORVASTATIN 10 MG TAB PO SCH (20:12)
[2016-07-04] VITALS (31 sets, daily range): BP systolic 135–194; BP diastolic 56–194; PULSE 60–78; RESP 16; TEMP 97.9–98.6; O2SAT 96
[2016-07-04] MEDS: HEPARIN SODIUM - SQ 10,000 UNITS/ML VIAL SQ SCH (04:16)
[2016-07-04] MEDS: LEVOTHYROXINE SODIUM 25 MCG TAB PO SCH (06:20)
[2016-07-04] MEDS: hydrALAZINE HCL 10 MG TAB PO SCH (06:21)
--- NOTE | 2016-07-04 08:50 | HHI.FPPN ---
Subjective Remarks Patient seen this morning. No acute events overnight. Blood pressure improving. Systolic BP in the 140s this morning. Not orthostatic with sit/stand yesterday. Sameera' only complaint this morning is of mild nasal congestion, only partially relieved with flonase. Pain around abdominal incisions mild and improving. Nausea resolved. Tolerating regular diet. Had BM overnight and UOP is good. She feels ready for DC. Prefers HH PT but will do rehab "if she needs it". (Newton Adkins MD R3) Objective Vitals Vital Signs Date Time Temp Pulse Resp B/P Pulse Ox O2 Delivery O2 Flow Rate FiO2 07/04/16 08:00 68 07/04/16 07:59 98.4 69 16 148/68 Manual Cuff/Palpation 07/04/16 07:00 69 07/04/16 05:00 66 07/04/16 04:00 64 07/04/16 03:00 98.3 71 16 152/69 07/04/16 03:00 64 07/04/16 02:00 68 07/04/16 01:57 135/57 135/65 07/04/16 01:00 62 07/04/16 00:00 64 07/03/16 23:00 65 07/03/16 23:00 98.5 65 16 138/60 96 07/03/16 22:00 66 07/03/16 21:00 60 07/03/16 20:00 68 07/03/16 19:00 98.2 70 16 177/77 97 07/03/16 19:00 70 07/03/16 18:00 72 07/03/16 17:00 74 07/03/16 16:00 68 07/03/16 15:00 98.5 64 20 140/72 99 07/03/16 15:00 63 07/03/16 14:00 67 07/03/16 13:00 66 07/03/16 12:06 146/74 158/78 07/03/16 12:00 66 07/03/16 11:00 98.2 62 20 142/90 97 07/03/16 11:00 63 07/03/16 10:00 61 07/03/16 10:00 190/79 07/03/16 09:00 72 I/O 07/03/16 07/03/16 07/03/16 07/04/16 3/27/17 3/27/17 07:00 15:00 23:00 07:00 15:00 23:00 Intake Total 966 ml 960 ml 480 ml Output Total 1051 ml 1 ml Balance -85 ml 960 ml 479 ml Intake Oral 480 ml 960 ml 480 ml IV Total 486 ml Output Urine Total 1050 ml Stool Total 1 ml 1 ml # Voids 1 4 3 # Bowel Movements 1 (Newton Adkins MD R3) Result Diagram: 07/03/1663407/03/16634 Objective Remarks GENERAL: well-appearing, elderly female sitting up in chair this morning. SKIN: No rashes. Ecchymoses on abdomen from previous administration of anticoagulation. Cool and dry. CHEST WALL: PPM present over left chest with dressing in place. Wound site grossly appear c/d/i. No drainage. CARDIOVASCULAR: Distant heart sounds. Regular rate and rhythm. No murmurs rubs or gallops appreciated. RESPIRATORY: Clear to auscultation. Breath sounds equal bilaterally. No wheezes , rales, or rhonchi. GASTROINTESTINAL: Abdomen soft, non-tender, nondistended. +bs in all 4 quadrants. 2 small incisions above umbilicus along with ~ 10 cm horizontal incision over RUQ with kyler in place. Wound sites c/d/i. MUSCULOSKELETAL: Extremities without clubbing, cyanosis, or edema. NEUROLOGICAL: Awake and alert. Oriented to person, place and time. Motor and sensory are grossly intact. (Newton Adkins MD R3) A/P Assessment and Plan Pt is a 85 year old female with past medical history significant for orthostatic hypotension, hyperlipidemia, CKD, hypothyroidism, COPD presenting to the ED due to chest pain and shortness of breath, found to be in afib with RVR, also reports symptoms concerning for TIA vs CVA. S/p PPM placement 06/28. Now s/p right colectomy 06/30. Discharge Planning Patient wants DC to [facility] assisted [facility] with PT. She was walking without assistance over the weekend. Will have PT evaluate and discuss this AM. Plan for DC today. Discussed with case management. Will discuss with Dr. Garvey (Newton Adkins MD R3) Attending Attestation Patient seen and examined. Case reviewed and discussed with the resident team. Agree with plan of care as discussed with me and documented in the resident note. (Adriana Garvey MD) Problem List: (1) Cecum mass Status: Acute Plan: S/p right colectomy 06/30. Path sent. -OOB with assistance -PT/OT/ST -DC heparin at this point, given increased mobility -pain control with toradol/morphine (2) Atrial fibrillation with RVR Status: Acute Plan: Well controlled. Patient arrived in atrial fibrillation with RVR. Did have intermittent tachycardia-bradycardia with >6s sinus pause on 06/26. Normal rate overnight. S/p PPM placement 06/28. -cont tele -cont metoprolol 12.5mg BID. Will put in order to hold if BP <90/60s. -Cardiology consulted regarding management of atrial fibrillation given patient' s history of orthostatic hypotension and concern for TIA vs CVA, appreciate recommendations. They have consulted Dr. Rg for PPM eval, given sinus pause and intermittent tachy-tania on tele. * s/p PPM placement this 06/28, as above. CXR shows no evidence of pneumothorax. * received ancef for ppx sherine-operatively. Completed 3 day course of keflex (-07/02) post-op. History: -ACS r/o negative. Mild bump in troponin on admission likely 2/2 strain from RVR. -Pt was given 20 mg IV diltiazem 1 by EMS -Echocardiogram recently done on 05/24/16 showing an EF of 60-65% and no wall motion abnormalities. (3) Sinus pause Status: Acute Plan: Rate well controlled o/n. S/p PPM placement 06/28. (4) Orthostatic hypotension Status: Chronic Plan: Improving. Drop of >50 points SBP and 10 points DBP with standing 06/27. Now without significant orthostasis with sit/stand yesterday. -orthostatics daily. She will need parts counterman rate control meds with her history of rvr so her orthostasis may be a continuing problem. -patient currently hypertensive, which will make treatment difficult. Home midodrine and fludrocortisone currently on hold 2/2 hypertension. Would aim for systolic 150 or above if possible at her age. at her age with orthostasis her diastolic should be greater than 65 as well. (5) HTN (hypertension) Status: Acute Plan: Improving. SBP in 140s this morning. -cont checks with manual cuff. -cards has started metoprolol 12.5 mg BID for rate control -hydralazine 20mg q8. Monitor BPs today. -vasotec PRN for SBP >180. (6) Nasal congestion Status: Acute Plan: Allergic rhinitis v. URI. -flonase added. Mild congestion today. (7) Shortness of breath Status: Chronic Plan: Pt with history of COPD and she is short of breath at baseline. She reports that breathing has improved with resolution of chest pain. -atrovent neb PRN, given adverse RXN to albuterol in the past -CXR 06/28 negative for acute process History: -Chest x-ray significant for minimal basilar atelectasis. No effusion. No pneumothorax. Heart size mildly enlarged. (8) Constipation Status: Chronic Plan: Resolved. Chronic issue. ? relation to cecal mass. 1 recorded BM overnight. No complaints today. -Bowel regimen of sherine-colace/miralax. Surgery has added entereg, as well. -milk of Mg if no BM x3 days (9) FEN/PPX Status: Acute Plan: Fluids: SLIV. Electrolytes: WNL today. Nutrition: Heart healthy. DVT PPX: DC heparin, given increased mobility. (Newton Adkins MD R3) Problem Qualifiers (1) HTN (hypertension): Qualified Code: I10 - Essential hypertension (2) Constipation: Qualified Code: K59.01 - Slow transit constipation Newton Adkins MD R3 Jul 04, 2016 08:50 Adriana Garvey MD Jul 04, 2016 10:26
--- NOTE | 2016-07-04 08:53 | HHI.PR ---
Subjective Subjective Notes Tolerated diet last night and had BM. She is not using any narcotics for pain. Denies nausea. 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 Doing well post op. Cont regular diet. I will check cbc to be sure hgb not trending further down. If stable I am ok with discharge. F/u with me in 10 days. For pain at home I recommend motrin and tylenol. Levi Thompson MD Jul 04, 2016 08:52
[2016-07-04] MEDS: ALVIMOPAN 12 MG CAPSULE PO SCH ×2 (08:55→21:40)
[2016-07-04] MEDS ORDERED: POLY17S PO (08:55)
[2016-07-04] MEDS ORDERED: METO25TA3 PO (08:55)
[2016-07-04] MEDS ORDERED: HYDR10TA23 PO (08:55)
[2016-07-04] MEDS: METOPROLOL TARTRATE 25 MG TAB PO SCH ×2 (08:55→21:40)
[2016-07-04] MEDS ORDERED: [UNRECOGNIZED DRUG - CODE] PO (08:55)
[2016-07-04] MEDS ORDERED: TYLETAB34 PO (08:55)
[2016-07-04] MEDS: PANTOPRAZOLE SOD 40 MG DELAYED RELEASE TAB PO SCH (08:55)
[2016-07-04] MEDS ORDERED: SENN1TAB PO (08:55)
[2016-07-04] MEDS ORDERED: PANT40TA3 PO (08:55)
[2016-07-04] MEDS: SODIUM CHLORIDE 0.9% FLUSH 5 ML FLUSH IVF SCH ×2 (08:56→21:40)
[2016-07-04] MEDS: GABAPENTIN 100 MG CAP PO SCH ×2 (08:56→21:40)
[2016-07-04] MEDS: POLYETHYLENE GLYCOL 17 GM PKG PO SCH (08:56)
[2016-07-04] MEDS: FLUTICASONE PROPIONATE 50 MCG/ACT 16 GM NASAL SPRAY NASAL SCH (08:57)
[2016-07-04] MEDS: DOCUSATE SODIUM 50 MG/SENNA 8.6 MG TAB PO SCH ×2 (08:57→21:40)
--- NOTE | 2016-07-04 08:57 | HHI.DCPOC ---
Discharge Care Plan Diagnosis: (1) S/P partial colectomy (2) S/P cardiac pacemaker procedure Goals to Promote Your Health * To prevent worsening of your condition and complications * To maintain your health at the optimal level Directions to Meet Your Goals Take your medications as prescribed Follow your dietary instruction Follow activity as directed Keep your appointments as scheduled Take your immunizations and boosters as scheduled If your symptoms worsen call your PCP, if no PCP go to Urgent Care Center or Emergency Room Smoking is Dangerous to Your Health. Avoid second hand smoke Call the 24-hour hour crisis hotline for domestic abuse at Newton Adkins MD R3 Jul 04, 2016 08:56
[2016-07-04 11:05] LABS: HEMATOCRIT 27.4 % (35.0-46.0); MEAN CELL VOLUME 90.8 FL (80.0-100.0); MEAN CORPUSCULAR HEMOGLOBIN 30.4 PG (27.0-34.0); MEAN CORPUSCULAR HGB CONC 33.5 % (32.0-36.0); PLATELET COUNT 234 TH/MM3 (150-450); RED BLOOD COUNT 3.02 MIL/MM3 (4.00-5.30); RED CELL DISTRIBUTION WIDTH 15.2 % (11.6-17.2); REVIEW FLAG FINAL; WHITE BLOOD COUNT 8.1 TH/MM3 (4.0-11.0)
--- NOTE | 2016-07-04 11:30 | HHI.FPPN ---
Addendum to progress note ADDENDUM Reason for addendum: Additonal documentation Additional information S: Called by nurse at 1100. Patient apparently working with OT and had drop in diastolic blood pressure to the 40s. This was followed by SOB and substernal chest pressure radiating to the back. Her SBP had previously been elevated to the 190s this AM. Received scheduled 20mg PO hydralazine and 10mg IV PRN hydralazine x1 this AM. She reports chest pressure started improving after laying down in bed and is now only mild in nature. No longer radiating to back. Denies radiation to arms or jaw. No dizziness. No N/V. SOB improved. O: Vitals: BP in the 120s/40s. HR in the 70s. GEN: Pale and slightly anxious appearing elderly female. In NAD. CV: RRR. No murmurs, rubs, or gallops. RESP: non-labored breathing. Faint, dry rales at the bases. No other adventitious sounds. A/P: 85 year old female admitted with complicated medical history including orthostatic hypotension admitted for CP and SOB. Now s/p PPM placement and removal of right cecal mass. She is now presenting with complaint of drop in diastolic blood pressure followed by chest pressure and SOB. -strongly suspect CP and SOB related to orthostatic hypotension (coronary artery filling during diastole). I will DC her scheduled hydralazine at this time and change the order on her PRN hydralazine to be given for SBP >200. -faint rales at lung bases. Will check CXR. -check EKG. -troponin x1 -Hemoglobin increased to 9s this morning -will re-assess this afternoon. Plan to DC home if sxs resolved. Will hold scheduled BP meds at discharge. Discussed with Dr. Garvey. Newton Adkins MD R3 Jul 04, 2016 11:30
--- NOTE | 2016-07-04 12:05 | RADRPT ---
EXAM DATE/TIME: 07/04/2016 11:19 [facility] COMPARISON: CHEST SINGLE AP, June 28, 2016, 10:39. INDICATIONS : Short of breath. MEDICAL HISTORY : Chronic obstructive pulmonary disease. SURGICAL HISTORY : Pacemaker. colon surgery. ENCOUNTER: Initial ACUITY: 1 week PAIN SCORE: 0/10 LOCATION: Bilateral chest FINDINGS: Pacemaker is in good position on the left. Lead is intact. Lungs are clear. The heart and pulmonar y vascularity are normal. The portion of the bony skeleton visualized is unremarkable. CONCLUSION: No acute disease. Garo Wadsworth MD FACR on July 04, 2016 at 12:02 Board Certified Radiologist. This report was verified electronically.
--- NOTE | 2016-07-04 12:39 | MP ---
cc: JABIER WEBB MD DATE OF SURGERY: 06/30/2016 PREOPERATIVE DIAGNOSIS Cecal mass. POSTOPERATIVE DIAGNOSIS Cecal mass. PROCEDURE Laparoscopic-assisted ascending colectomy. SURGEON Jabier Webb ASSISTANTS CRISTEL Ramirez, MS III ANESTHESIA General endotracheal. SPECIMENS Right colon with cecal mass. COMPLICATIONS None apparent. ESTIMATED BLOOD LOSS 30 cc. INDICATIONS The patient is an 85-year-old female who about a month ago presented to the hospital with syncope. She was noted to be anemic and during evaluation underwent a colonoscopy. 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 At that time she had atrial fibrillation with rapid ventricular response and also had issues with orthostatic hypotension with pulmonary issues as well. She was therefore to follow-up with me in the office for further operative planning. She presented back to the hospital this week again with shortness of breath and was noted again to be in atrial fibrillation with a rapid ventricular response. On further evaluation she was noted to have tachy-tania syndrome and she had a pacemaker placed. She was evaluated by cardiology and was noted to be moderate to high risk for surgery. However, after multiple discussions with the patient and her family and due to the fact that this polyp had severe dysplasia and was possibly an adenocarcinoma and also causing anemia, we did elect to proceed with surgery. OPERATIVE FINDINGS The patient had adhesions in the upper abdomen and the right lower quadrant from previous surgery. The remainder of the procedure was uncomplicated. PROCEDURE IN DETAIL The patient was taken to the operating room and placed in supine position. General endotracheal anesthesia was induced. The abdomen was prepped and draped in a usual sterile fashion and a surgical timeout was performed to verify correct patient, procedure and site. She was administered appropriate perioperative antibiotics. Initially a 5 mm port was placed in the left mid abdomen and direct entry technique used. The abdomen was insufflated to 15 mmHg with CO2 gas which the patient tolerated well. There were noted to be a number of adhesions to the anterior abdominal wall. In the left upper abdomen there were no adhesions and a second 5 mm port was placed. Using the Harmonic scalpel omental adhesions to the anterior abdominal wall near the falciform were taken down and in the right upper quadrant. A third 5 mm port was placed in the epigastrium. Adhesions near the umbilicus were then taken down with the Harmonic scalpel. A fourth 5 mm port was placed in the lower midline. She was placed in reverse Trendelenburg position. Some lateral adhesions from previous appendectomy were taken down. Next, the cecum was elevated. There did appear to be a mass in the cecum. The ileocolic pedicle was skeletonized carefully using the Harmonic scalpel. The ileocolic vessel was clearly identified. The duodenum was visible superiorly and was avoided. A white load vascular laparoscopic stapler was then used to divide the ileocolic. A portion of the mesentery on either side was then divided with the Harmonic scalpel. Attention was then turned to lateral mobilization. In the right lower abdomen the terminal ileum and the cecum more mobilized carefully. Again there were some adhesions which were taken down. The white line of Toldt was mobilized laterally all the way up to the hepatic flexure. Attention was then turned to the hepatic flexure and proximal transverse colon. There were adhesions from the antrum of the stomach to the liver from previous cholecystectomy and these were carefully taken down with the Harmonic scalpel. The greater omentum was divided from the transverse colon and hepatic flexure fully mobilized. At this point there was significant mobility with the specimen. Therefore, in the right abdomen a few centimeters superior to the umbilicus a mini laparotomy incision was made using electrocautery. A wound protector was placed in the wound. The specimen was brought up through the wound. There was good mobilization of a portion of the ileum as well as the colon all the way to the mid transverse. A site was chosen on the terminal ileum and a mesenteric defect created. It was divided with a ALHAJI blue load stapler. The remaining mesentery between the ileocolic division and the division of the terminal ileum was taken with the Harmonic scalpel. A site was then chosen in the proximal transverse colon and a mesenteric defect created. This was then divided with the blue ALHAJI 75 load. The mesentery again was completed using the Harmonic scalpel. The specimen was removed. A [id number] functional end-to-end anastomosis was then performed using the ALHAJI 75 blue load between the terminal ileum and the transverse colon taking care to keep the mesentery in correct orientation. The enterotomy was closed with a TA blue load. There was no tension or bleeding from the staple line. A 3-0 silk suture was placed at the end of the staple line from the small bowel to the colon. The mesenteric defect was closed with interrupted [id number] 3-0 silk suture. The anastomosis was then allowed to reenter the abdomen. Gloves were changed and the mini laparotomy site was closed with two layers of #1 PDS. The wound was irrigated and skin closed with the skin stapler. The abdomen was again insufflated and visualized laparoscopically. The right abdomen was irrigated. The anastomosis was intact without tension and the mesentery in correct orientation. The trocars were then removed and the abdomen allowed to desufflate. The left mid abdominal port had been changed to a 12 mm port during the operation to allow for stapler firing. The fascia was closed with 0 Vicryl suture. Skin was closed with subcuticular 4-0 Monocryl and Dermabond at each site. The patient tolerated the procedure well, was extubated and taken to PACU in stable condition. MD KASEY Ferrer/DE /4:29 PM /12:22 PM
--- NOTE | 2016-07-04 12:57 | HHI.FF ---
Face to Face Verification Diagnosis: (1) S/P right colectomy (2) S/P cardiac pacemaker procedure (3) Orthostatic hypotension (4) Anemia (5) Shortness of breath (6) Frequent falls Physical Therapy Order: Evaluate and Treat, Improve ambulation, Strength and gait training Occupational Therapy Order: Evaluate and Treat, Improve ADL, Gross motor coordination, Fine motor coordination Home Health Nursing Order: Medical education Signs/symptoms of disease process Nursing assessment with vital signs I have seen patient Sameera Torres on 07/04/16. My clinical findings support the need for the requested home health care services because: Ltd mobility - disease progression Patient has SOB Deconditioned w/ increased weakness High risk of falls I certify that my clinical findings support that this patient is homebound because: Post-op weakness Hx COPD- exertion dyspnea/weakness Unsteady gait/balance Poor cardiac reserve Newton Adkins MD R3 Jul 04, 2016 12:57
[2016-07-04] MEDS ORDERED: SODIUM CHLORID 0.9% 500 ML INJ 500 ML IV ONE (14:00)
[2016-07-04] MEDS: SODIUM CHLOR 0.9% 1000 ML INJ 1,000 ML IV SCH (14:15)
[2016-07-04] MEDS ORDERED: ASPIRIN 325 MG TAB PO ONE (15:30)
[2016-07-04] MEDS: ATORVASTATIN 10 MG TAB PO SCH (21:39)
[2016-07-05] VITALS (13 sets, daily range): BP systolic 163–192; BP diastolic 78–88; PULSE 60–70; RESP 16–18; TEMP 98.7–98.8; O2SAT 94–95
[2016-07-05] MEDS: ENALAPRILAT 1.25 MG/ML VIAL IV PUSH PRN (04:16)
[2016-07-05] MEDS: SODIUM CHLOR 0.9% 1000 ML INJ 1,000 ML IV SCH ×2 (04:19→10:15)
[2016-07-05] MEDS: LEVOTHYROXINE SODIUM 25 MCG TAB PO SCH (05:39)
[2016-07-05 06:19] LABS: MEAN CORPUSCULAR HGB CONC 33.7 % (32.0-36.0); PLATELET COUNT 196 TH/MM3 (150-450); RED CELL DISTRIBUTION WIDTH 15.1 % (11.6-17.2); REVIEW FLAG FINAL; WHITE BLOOD COUNT 4.9 TH/MM3 (4.0-11.0)
[2016-07-05 06:47] LABS: BICARBONATE 26.3 MEQ/L (21.0-32.0); POTASSIUM 3.3 MEQ/L (3.5-5.1)
--- NOTE | 2016-07-05 07:57 | HHI.FPPN ---
Objective Vitals Vital Signs Date Time Temp Pulse Resp B/P Pulse Ox O2 Delivery O2 Flow Rate FiO2 07/05/16 07:23 67 07/05/16 06:00 63 07/05/16 05:00 68 07/05/16 04:30 163/81 07/05/16 04:00 64 07/05/16 04:00 98.7 64 16 192/78 94 07/05/16 03:00 60 07/05/16 02:32 60 07/05/16 01:07 70 07/05/16 00:00 63 07/04/16 23:10 97.9 64 16 148/74 96 07/04/16 23:00 63 07/04/16 22:00 62 07/04/16 21:00 62 07/04/16 20:00 98.4 63 16 163/70 96 07/04/16 20:00 60 07/04/16 19:00 66 07/04/16 18:00 72 07/04/16 17:00 72 07/04/16 16:00 74 07/04/16 15:07 98.3 69 16 157/66 07/04/16 15:00 77 07/04/16 14:00 72 07/04/16 13:00 74 07/04/16 12:00 68 07/04/16 12:00 98.6 69 16 138/56 07/04/16 11:00 78 07/04/16 10:00 72 07/04/16 09:46 136/74 07/04/16 09:45 140/76 07/04/16 09:40 142/77 07/04/16 09:25 194/82 07/04/16 09:00 70 07/04/16 08:00 68 07/04/16 07:59 98.4 69 16 190/80 Manual Cuff/Palpation I/O 07/04/16 07/04/16 07/04/16 07/05/16 07/05/16 07/05/16 07:00 15:00 23:00 07:00 15:00 23:00 Intake Total 480 ml 1635 ml 1054 ml Output Total 1 ml 625 ml 100 ml Balance 479 ml 1010 ml 954 ml Intake Oral 480 ml 725 ml 240 ml IV Total 910 ml 814 ml Output Urine Total 625 ml 100 ml Stool Total 1 ml # Voids 3 3 # Bowel Movements 0 Result Diagram: 07/05/16 0546 07/05/16 0546 Objective Remarks GENERAL: well-appearing, elderly female sitting up in chair this morning. SKIN: No rashes. Ecchymoses on abdomen from previous administration of anticoagulation. Cool and dry. CHEST WALL: PPM present over left chest with dressing in place. Wound site grossly appear c/d/i. No drainage. CARDIOVASCULAR: Distant heart sounds. Regular rate and rhythm. No murmurs rubs or gallops appreciated. RESPIRATORY: Clear to auscultation. Breath sounds equal bilaterally. No wheezes , rales, or rhonchi. GASTROINTESTINAL: Abdomen soft, non-tender, nondistended. +bs in all 4 quadrants. 2 small incisions above umbilicus along with ~ 10 cm horizontal incision over RUQ with kyler in place. Wound sites c/d/i. MUSCULOSKELETAL: Extremities without clubbing, cyanosis, or edema. NEUROLOGICAL: Awake and alert. Oriented to person, place and time. Motor and sensory are grossly intact. A/P Assessment and Plan Pt is a 85 year old female with past medical history significant for orthostatic hypotension, hyperlipidemia, CKD, hypothyroidism, COPD presenting to the ED due to chest pain and shortness of breath, found to be in afib with RVR, also reports symptoms concerning for TIA vs CVA. S/p PPM placement 06/28. Now s/p right colectomy 06/30. Discharge Planning Believe DC to rehab would be safer for patient at this point, given episode of orthostatic hypotension followed by chest pressure and SOB yesterday. Will discuss with case work aide. Plan for DC to rehab as soon as today. Will discuss with Dr. Garvey Problem List: (1) Chest pain Status: Acute Plan: Patient c/o chest pressure yesterday. Likely related to drop in diastolic blood pressure (to the 40s) with standing. -ACS r/o negative yesterday -hold BP meds, except beta penny. PRN hydralazine for SBP >200. -morphine for CP. Avoid nitro for BP concerns. -cont IVF (2) Orthostatic hypotension Status: Chronic Plan: Improving. Did have drop in DBP to the 40s yesterday. DBP now in the 70- 80s. -orthostatics daily. She will need retirement rate control meds with her history of rvr so her orthostasis may be a continuing problem. -patient currently hypertensive, which will make treatment difficult. Home midodrine and fludrocortisone currently on hold 2/2 hypertension. Would aim for systolic 150 or above if possible at her age. at her age with orthostasis her diastolic should be greater than 65 as well. (3) Cecum mass Status: Acute Plan: S/p right colectomy 06/30. 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 -OOB with assistance -PT/OT/ST -pain control with toradol/morphine (4) Atrial fibrillation with RVR Status: Acute Plan: Well controlled. Patient arrived in atrial fibrillation with RVR. Did have intermittent tachycardia-bradycardia with >6s sinus pause on 06/26. Normal rate overnight. S/p PPM placement 06/28. -cont tele -cont metoprolol 12.5mg BID. Will put in order to hold if BP <90/60s. -Cardiology consulted regarding management of atrial fibrillation given patient' s history of orthostatic hypotension and concern for TIA vs CVA, appreciate recommendations. They have consulted Dr. Rg for PPM eval, given sinus pause and intermittent tachy-tania on tele. * s/p PPM placement this 06/28, as above. CXR shows no evidence of pneumothorax. * received ancef for ppx sherine-operatively. Completed 3 day course of keflex (-07/02) post-op. History: -ACS r/o negative. Mild bump in troponin on admission likely 2/2 strain from RVR. -Pt was given 20 mg IV diltiazem 1 by EMS -Echocardiogram recently done on 05/24/16 showing an EF of 60-65% and no wall motion abnormalities. (5) Sinus pause Status: Acute Plan: Rate well controlled o/n. S/p PPM placement 06/28. (6) HTN (hypertension) Status: Acute Plan: SBP elevated up to 190s overnight. -cont checks with manual cuff. -cards has started metoprolol 12.5 mg BID for rate control -holding hydralazine, given low DBP yesterday. -PRN hydralazine, as above (7) Nasal congestion Status: Acute Plan: Allergic rhinitis v. URI. -flonase added. Mild congestion today. (8) Shortness of breath Status: Chronic Plan: Pt with history of COPD and she is short of breath at baseline. She reports that breathing has improved with resolution of chest pain. -atrovent neb PRN, given adverse RXN to albuterol in the past -CXR 07/04 negative for acute process History: -Chest x-ray significant for minimal basilar atelectasis. No effusion. No pneumothorax. Heart size mildly enlarged. (9) Constipation Status: Chronic Plan: Resolved. Chronic issue. ? relation to cecal mass. 1 recorded BM yesterday. No complaints today. -Bowel regimen of sherine-colace/miralax. Surgery has added entereg, as well. -milk of Mg if no BM x3 days (10) FEN/PPX Status: Acute Plan: Fluids: NS at 100 mls/hr. Electrolytes: WNL today. Nutrition: Heart healthy. DVT PPX: SCDs. Encourage ambulation with stand by. Problem Qualifiers (1) Chest pain: Qualified Code: R07.2 - Precordial pain (2) HTN (hypertension): Qualified Code: I10 - Essential hypertension (3) Constipation: Qualified Code: K59.01 - Slow transit constipation Newton Adkins MD R3 Jul 05, 2016 07:57
--- NOTE | 2016-07-05 07:59 | HHI.FPPN ---
Subjective Remarks Patient seen this morning. No acute events overnight. SBP up as high as the 190s overnight. Sameera has no complaints at this time. Chest pressure resolved. Not feeling SOB. She feels like she could go home today. States she would prefer dispo to home with PT. Apparently her family will be there with her . Denies any F/C. (Newton Adkins MD R3) Objective Vitals Vital Signs Date Time Temp Pulse Resp B/P Pulse Ox O2 Delivery O2 Flow Rate FiO2 07/05/16 07:45 98.8 70 18 189/88 95 07/05/16 07:23 67 07/05/16 06:00 63 07/05/16 05:00 68 07/05/16 04:30 163/81 07/05/16 04:00 64 07/05/16 04:00 98.7 64 16 192/78 94 07/05/16 03:00 60 07/05/16 02:32 60 07/05/16 01:07 70 07/05/16 00:00 63 07/04/16 23:10 97.9 64 16 148/74 96 07/04/16 23:00 63 07/04/16 22:00 62 07/04/16 21:00 62 07/04/16 20:00 98.4 63 16 163/70 96 07/04/16 20:00 60 07/04/16 19:00 66 07/04/16 18:00 72 07/04/16 17:00 72 07/04/16 16:00 74 07/04/16 15:07 98.3 69 16 157/66 07/04/16 15:00 77 07/04/16 14:00 72 07/04/16 13:00 74 07/04/16 12:00 68 07/04/16 12:00 98.6 69 16 138/56 07/04/16 11:00 78 07/04/16 10:00 72 07/04/16 09:46 136/74 07/04/16 09:45 140/76 07/04/16 09:40 142/77 07/04/16 09:25 194/82 07/04/16 09:00 70 07/04/16 08:00 68 07/04/16 07:59 98.4 69 16 190/80 Manual Cuff/Palpation I/O 07/04/16 07/04/16 07/04/16 07/05/16 07/05/16 07/05/16 07:00 15:00 23:00 07:00 15:00 23:00 Intake Total 480 ml 1635 ml 1054 ml Output Total 1 ml 625 ml 100 ml Balance 479 ml 1010 ml 954 ml Intake Oral 480 ml 725 ml 240 ml IV Total 910 ml 814 ml Output Urine Total 625 ml 100 ml Stool Total 1 ml # Voids 3 3 # Bowel Movements 0 (Newton Adkins MD R3) Result Diagram: 07/05/1654507/05/16545 Objective Remarks GENERAL: well-appearing, elderly female sitting up in chair this morning. SKIN: No rashes. Ecchymoses on abdomen from previous administration of anticoagulation. Cool and dry. CHEST WALL: PPM present over left chest with dressing in place. Wound site grossly appear c/d/i. No drainage. CARDIOVASCULAR: Distant heart sounds. Regular rate and rhythm. No murmurs rubs or gallops appreciated. RESPIRATORY: Clear to auscultation. Breath sounds equal bilaterally. No wheezes , rales, or rhonchi. GASTROINTESTINAL: Abdomen soft, non-tender, nondistended. +bs in all 4 quadrants. 2 small incisions above umbilicus along with ~ 10 cm horizontal incision over RUQ with kyler in place. Wound sites c/d/i. MUSCULOSKELETAL: Extremities without clubbing, cyanosis, or edema. NEUROLOGICAL: Awake and alert. Oriented to person, place and time. Motor and sensory are grossly intact. (Newton Adkins MD R3) A/P Assessment and Plan Pt is a 85 year old female with past medical history significant for orthostatic hypotension, hyperlipidemia, CKD, hypothyroidism, COPD presenting to the ED due to chest pain and shortness of breath, found to be in afib with RVR, also reports symptoms concerning for TIA vs CVA. S/p PPM placement 06/28. Now s/p right colectomy 06/30. Discharge Planning Plan for DC home with PT. Will have PT and OT reassess today. Will discuss with Dr. Garvey (Newton Adkins MD R3) Attending Attestation Patient seen and examined. Case reviewed and discussed with the resident team. Agree with plan of care as discussed with me and documented in the resident note. agree with D/C. she cannot tolerate anything much at all in the way of BP meds ( Adriana Garvey MD) Problem List: (1) Chest pain Status: Acute Plan: Patient c/o chest pressure yesterday. Likely related to drop in diastolic blood pressure (to the 40s) with standing. -ACS r/o negative yesterday -hold BP meds, except beta hunter. PRN hydralazine and vasotec. -morphine for CP. Avoid nitro for BP concerns. -cont IVF (2) Orthostatic hypotension Status: Chronic Plan: Improving. Did have drop in DBP to the 40s yesterday. DBP now in the 70- 80s. -orthostatics daily. She will need long-term rate control meds with her history of rvr so her orthostasis may be a continuing problem. -patient currently hypertensive, which will make treatment difficult. Home midodrine and fludrocortisone currently on hold 2/2 hypertension. Would aim for systolic 150 or above if possible at her age. at her age with orthostasis her diastolic should be greater than 65 as well. Could consider giving midodrine BID during time of day she does most of her walking. (3) Cecum mass Status: Acute Plan: S/p right colectomy 06/30. 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 -OOB with assistance -PT/OT/ST -pain control with toradol/morphine (4) Atrial fibrillation with RVR Status: Acute Plan: Well controlled. Patient arrived in atrial fibrillation with RVR. Did have intermittent tachycardia-bradycardia with >6s sinus pause on 06/26. Normal rate overnight. S/p PPM placement 06/28. -cont tele -cont metoprolol 12.5mg BID. Will put in order to hold if BP <90/60s. -Cardiology consulted regarding management of atrial fibrillation given patient' s history of orthostatic hypotension and concern for TIA vs CVA, appreciate recommendations. They have consulted Dr. Rg for PPM eval, given sinus pause and intermittent tachy-tania on tele. * s/p PPM placement this 06/28, as above. CXR shows no evidence of pneumothorax. * received ancef for ppx sherine-operatively. Completed 3 day course of keflex (-07/02) post-op. History: -ACS r/o negative. Mild bump in troponin on admission likely 2/2 strain from RVR. -Pt was given 20 mg IV diltiazem 1 by EMS -Echocardiogram recently done on 05/24/16 showing an EF of 60-65% and no wall motion abnormalities. (5) Sinus pause Status: Acute Plan: Rate well controlled o/n. S/p PPM placement 06/28. (6) HTN (hypertension) Status: Acute Plan: SBP elevated up to 190s overnight. -cont checks with manual cuff. -cards has started metoprolol 12.5 mg BID for rate control -holding hydralazine, given low DBP yesterday. Would likely do better with FLORIN v increase in Beta Hunter for BP control. -PRN hydralazine and vasotec, as above. (7) Nasal congestion Status: Acute Plan: Allergic rhinitis v. URI. -flonase added. Mild congestion today. (8) Shortness of breath Status: Chronic Plan: Pt with history of COPD and she is short of breath at baseline. She reports that breathing has improved with resolution of chest pain. -atrovent neb PRN, given adverse RXN to albuterol in the past -CXR 07/04 negative for acute process History: -Chest x-ray significant for minimal basilar atelectasis. No effusion. No pneumothorax. Heart size mildly enlarged. (9) Constipation Status: Chronic Plan: Resolved. Chronic issue. ? relation to cecal mass. 1 recorded BM yesterday. No complaints today. -Bowel regimen of sherine-colace/miralax. Surgery has added entereg, as well. -milk of Mg if no BM x3 days (10) FEN/PPX Status: Acute Plan: Fluids: NS at 100 mls/hr. Electrolytes: WNL today. Nutrition: Heart healthy. DVT PPX: SCDs. Encourage ambulation with stand by. (Newton Adkins MD R3) Problem Qualifiers (1) Chest pain: Qualified Code: R07.2 - Precordial pain (2) HTN (hypertension): Qualified Code: I10 - Essential hypertension (3) Constipation: Qualified Code: K59.01 - Slow transit constipation Newton Adkins MD R3 Jul 05, 2016 07:59 Adriana Garvey MD Jul 06, 2016 14:13
[2016-07-05] MEDS ORDERED: ENALAPRILAT 1.25 MG/ML VIAL IV PUSH PRN (08:00)
[2016-07-05] MEDS ORDERED: HYDR25TA35 PO (08:27)
[2016-07-05] MEDS ORDERED: CLON0.1T PO (08:27)
[2016-07-05] MEDS: GABAPENTIN 100 MG CAP PO SCH (08:29)
[2016-07-05] MEDS: PANTOPRAZOLE SOD 40 MG DELAYED RELEASE TAB PO SCH (08:29)
[2016-07-05] MEDS: ALVIMOPAN 12 MG CAPSULE PO SCH (08:29)
[2016-07-05] MEDS: METOPROLOL TARTRATE 25 MG TAB PO SCH (08:29)
[2016-07-05] MEDS: DOCUSATE SODIUM 50 MG/SENNA 8.6 MG TAB PO SCH (08:29)
[2016-07-05] MEDS: FLUTICASONE PROPIONATE 50 MCG/ACT 16 GM NASAL SPRAY NASAL SCH (08:34)
[2016-07-05] MEDS: SODIUM CHLORIDE 0.9% FLUSH 5 ML FLUSH IVF SCH (08:35)
[2016-07-05] MEDS: POLYETHYLENE GLYCOL 17 GM PKG PO SCH (08:35)
--- NOTE | 2016-07-05 09:09 | HHI.PR ---
Subjective Subjective Notes Issues with orthostatic hypotension and chest pressure yesterday, now seems to be resolved. She is tolerated diet and has minimal abdominal pain. Objective Vitals/I&O Vital Signs Date Time Temp Pulse Resp B/P Pulse Ox O2 Delivery O2 Flow Rate FiO2 07/05/16 07:45 98.8 70 18 189/88 95 07/01/16 22:45 21 07/01/16 07:31 Nasal Cannula 2.00 Labs Laboratory Tests Test 07/04/16 07/04/16 07/04/16 07/05/16 10:15 13:06 19:02 01:14 White Blood Count 8.1 Red Blood Count 3.02 Hemoglobin 9.2 Hematocrit 27.4 Mean Corpuscular Volume 90.8 Mean Corpuscular Hemoglobin 30.4 Mean Corpuscular Hemoglobin 33.5 Concent Red Cell Distribution Width 15.2 Platelet Count 234 Mean Platelet Volume 9.7 Hematology Comments Troponin I LESS THAN 0.02 LESS THAN 0.02 0.02 Test 07/05/16 05:46 White Blood Count 4.9 Red Blood Count 2.60 Hemoglobin 8.1 Hematocrit 24.0 Mean Corpuscular Volume 92.0 Mean Corpuscular Hemoglobin 31.0 Mean Corpuscular Hemoglobin 33.7 Concent Red Cell Distribution Width 15.1 Platelet Count 196 Mean Platelet Volume 8.5 Sodium Level 136 Potassium Level 3.3 Chloride Level 101 Carbon Dioxide Level 26.3 Anion Gap 9 Blood Urea Nitrogen 10 Creatinine 1.01 Estimat Glomerular Filtration 52 Rate Random Glucose 87 Calcium Level 8.1 Narrative Exam NAD, sitting up in chair Abd: soft, mild distention, mild RLQ ttp, inc c/d/i A/P Assessment and Plan 85 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 Orthostatic issues and chest pressure addressed by primary team. Cont regular diet. Ok for d/c from my standpoint. Path reveals adenocarcinoma- I will discuss this at office visit and refer to her to oncology at that time. Levi Thompson MD Jul 05, 2016 09:09
[2016-07-05] MEDS ORDERED: LISINOPRIL 20 MG TAB PO SCH (10:00)
--- NOTE | 2016-07-05 21:49 | EKG ---
Date Performed: 07/04/2016 Time Performed: 20:28:44 PTAGE: 85 years EKG: Sinus rhythm Anterolateral ST changes are nonspecific Since previous tracing, no significant change noted Borderl ine ECG PREVIOUS TRACING : 07/04/2016 12.29 DOCTOR: Piper Cordero Interpretating Date/Time 07/05/2016 21:48:04
--- NOTE | 2016-07-05 21:50 | EKG ---
Date Performed: 07/05/2016 Time Performed: 01:02:18 PTAGE: 85 years EKG: Sinus rhythm with PAC(s) Lateral ST changes are nonspecific Since previous tracing, no significant change noted B orderline ECG PREVIOUS TRACING : 07/04/16 20.28.44 DOCTOR: Piper Cordero Interpretating Date/Time 07/05/2016 21:48:44
--- NOTE | 2016-07-06 08:09 | EKG ---
Date Performed: 07/04/2016 Time Performed: 12:29:38 PTAGE: 85 years EKG: Sinus rhythm Inferior/lateral ST-T changes are nonspecific Borderline ECG Compared to PREVIOUS TRACING , the criteria for the prior anterolateral infarct are no longer evident and there has been a marked improvement in anterolateral voltage. Lateral ST segment changes are new . Clinical correlation is recommended PREVIOUS TRACIN06/29/2016 06.24 DOCTOR: Piper Cordero Interpretating Date/Time 07/06/2016 08:08:02
[2016-07-13] MEDS ORDERED: GABA300C5 PO (09:48)
[2016-07-13] MEDS ORDERED: METO25TA3 PO (09:48)
--- NOTE | 2016-07-13 12:06 | HHI.DS ---
Discharge Summary Admission Date Jun 27, 2016 at 13:26 Discharge Date: Jul 05, 2016 Admitting Diagnosis afib w cp/sob (1) Chest pain Diagnosis: Principal Plan: Patient c/o chest pressure yesterday. Likely related to drop in diastolic blood pressure (to the 40s) with standing. -ACS r/o negative yesterday -hold BP meds, except beta hunter. PRN hydralazine and vasotec. -morphine for CP. Avoid nitro for BP concerns. -cont IVF (2) Orthostatic hypotension Diagnosis: Secondary Plan: Improving. Did have drop in DBP to the 40s yesterday. DBP now in the 70- 80s. -orthostatics daily. 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 -patient currently hypertensive, which will make treatment difficult. Home midodrine and fludrocortisone currently on hold 2/2 hypertension. Would aim for systolic 150 or above if possible at her age. at her age with orthostasis her diastolic should be greater than 65 as well. Could consider giving midodrine BID during time of day she does most of her walking. (3) Cecum mass Diagnosis: Secondary Plan: S/p right colectomy 06/30. 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 -OOB with assistance -PT/OT/ST -pain control with toradol/morphine (4) Atrial fibrillation with RVR Diagnosis: Secondary Plan: Well controlled. Patient arrived in atrial fibrillation with RVR. Did have intermittent tachycardia-bradycardia with >6s sinus pause on 06/26. Normal rate overnight. S/p PPM placement 06/28. -cont tele -cont metoprolol 12.5mg BID. Will put in order to hold if BP <90/60s. -Cardiology consulted regarding management of atrial fibrillation given patient' s history of orthostatic hypotension and concern for TIA vs CVA, appreciate recommendations. They have consulted Dr. Rg for PPM eval, given sinus pause and intermittent tachy-tania on tele. * s/p PPM placement this 06/28, as above. CXR shows no evidence of pneumothorax. * received ancef for ppx sherine-operatively. Completed 3 day course of keflex (-07/02) post-op. History: -ACS r/o negative. Mild bump in troponin on admission likely 2/2 strain from RVR. -Pt was given 20 mg IV diltiazem 1 by EMS -Echocardiogram recently done on 05/24/16 showing an EF of 60-65% and no wall motion abnormalities. (5) Sinus pause Diagnosis: Secondary Plan: Rate well controlled o/n. S/p PPM placement 06/28. (6) HTN (hypertension) Diagnosis: Secondary Plan: SBP elevated up to 190s overnight. -cont checks with manual cuff. -cards has started metoprolol 12.5 mg BID for rate control -holding hydralazine, given low DBP yesterday. Would likely do better with FLORIN v increase in Beta Hunter for BP control. -PRN hydralazine and vasotec, as above. (7) Nasal congestion Diagnosis: Secondary Plan: Allergic rhinitis v. URI. -flonase added. Mild congestion today. (8) Shortness of breath Diagnosis: Secondary Plan: Pt with history of COPD and she is short of breath at baseline. She reports that breathing has improved with resolution of chest pain. -atrovent neb PRN, given adverse RXN to albuterol in the past -CXR 07/04 negative for acute process History: -Chest x-ray significant for minimal basilar atelectasis. No effusion. No pneumothorax. Heart size mildly enlarged. (9) Constipation Diagnosis: Secondary Plan: Resolved. Chronic issue. ? relation to cecal mass. 1 recorded BM yesterday. No complaints today. -Bowel regimen of sherine-colace/miralax. Surgery has added entereg, as well. -milk of Mg if no BM x3 days (10) FEN/PPX Diagnosis: Secondary Plan: Fluids: NS at 100 mls/hr. Electrolytes: WNL today. Nutrition: Heart healthy. DVT PPX: SCDs. Encourage ambulation with stand by. Consultants Cardiology (Dr. Azar, Dr. Rg) Surgery (Dr. Thompson) Brief History 85-year-old female presenting to the emergency department with a chief complaint of chest pain, shortness of breath, and lethargy and found to be in atrial fibrillation with RVR. She was at home with her family when she developed a sudden onset chest discomfort in the center of her chest that radiated to her left upper extremity that she described as a deep, burning pain. She did endorse shortness of breath with this. She denies any nausea or vomiting, denies any diaphoresis, denies any loss of consciousness. EMS was called by her family and on initial evaluation she was found to be in atrial fibrillation with RVR with a heart rate in the 150s. She was given an IV dose of diltiazem 20 mg 1 which brought her heart rate down to the 100s on transport to the emergency department. There is also a short time period where she had slurred speech and appeared to be confused. This lasted for approximately 3 minutes and has completely resolved and she has no complaints of slurred speech at this time. Currently, she denies any problems with chest pain or palpitations, denies any shortness of breath, denies any lightheadedness or dizziness. She did get out of bed with physical therapy and became short of breath, prompting physical therapy to place her back into bed quickly. She was recently hospitalized in May after a fall. She was noted to have an episode of AFIB with RVR during this admission. Echo from 05/24 showing normal systolic function with EF of 60-65%. Her rate was controlled and she was determined to be a poor candidate for anticoagulation due to presence of cecal mass and concern for a GI bleed. She was started on Hydralazine. PE at Discharge GENERAL: well-appearing, elderly female sitting up in chair this morning. SKIN: No rashes. Ecchymoses on abdomen from previous administration of anticoagulation. Cool and dry. CHEST WALL: PPM present over left chest with dressing in place. Wound site grossly appear c/d/i. No drainage. CARDIOVASCULAR: Distant heart sounds. Regular rate and rhythm. No murmurs rubs or gallops appreciated. RESPIRATORY: Clear to auscultation. Breath sounds equal bilaterally. No wheezes , rales, or rhonchi. GASTROINTESTINAL: Abdomen soft, non-tender, nondistended. +bs in all 4 quadrants. 2 small incisions above umbilicus along with ~ 10 cm horizontal incision over RUQ with kyler in place. Wound sites c/d/i. MUSCULOSKELETAL: Extremities without clubbing, cyanosis, or edema. NEUROLOGICAL: Awake and alert. Oriented to person, place and time. Motor and sensory are grossly intact. Hospital Course 85-year-old female with past medical history of orthostatic hypotension presenting to the ER with complaints of chest pain and shortness of breath, discovered to be in atrial fibrillation with RVR. Cardiology consulted. Patient initially started on diltiazem, then loaded with amiodarone. Anti-coagulation held due to recent history of cecal mass causing GI bleed. Patient had initial concern for possible stroke with incoherent speech. No focal findings on exam. Head CT, brain MRI, carotid ultrasound negative. Patient was found to be hypertensive on admission and because of this her home Florinef and Midrin were held. Surgery consulted for cecal mass. On review of her telemetry strip overnight, patient had over 6 second cause and tachycardia-bradycardia pattern. Dr. Rg was consult it and recommended pacemaker placement. This was done on . Patient was then started on metoprolol for control of atrial fibrillation. Patient's symptoms improved dramatically after placement of pacemaker. No further episodes of A. fib with RVR during her course. She had right colectomy for cecal mass. Pathology showed adenocarcinoma with clear margins. She began working with physical therapy/occupational therapy after surgery. Did complain of chest pressure after getting up to work with occupational therapy on 07/04. Of note, diastolic blood pressure dropped to the 40s at this time. Case was discussed with cardiology. Decision made to do ACS rule out, which was negative. By 07/05, symptoms had resolved. It was determined as pressure was most likely related to orthostatic hypotension. Blood pressure meds were held, except for beta hunter. Physical therapy and occupational therapy cleared for discharge to assisted living facility. Patient will need to follow-up with primary care physician (Dr. Hunt), within the next week. Pt Condition on Discharge: Stable Discharge Disposition: Disch w/ Home Health Serv Discharge Instructions DIET: Follow Instructions for: Heart Healthy Diet Speech Therapy-Diet Recommends: Other Additional Diet Instructions: Please make sure to drink plenty of water (at least 8 glasses per day). This will help maintain adequate blood pressure while standing. Activities you can perform: Weight Bearing as Leona Other Activity Instructions: Check blood pressure at least every 8 hours. You will be discharged home with a medication called clonidine to be used as needed for elevated blood pressures (see label for instructions). Newton Adkins MD R3 Jul 13, 2016 12:06
[2016-09-14] MEDS ORDERED: MIDO2.5T PO (10:26)
[2016-09-14] MEDS ORDERED: ASPI81TA11 PO (10:29)
[2016-09-14] MEDS ORDERED: LEVO25TA4 PO (10:45)
[2016-09-14] MEDS ORDERED: GABA100C4 PO (10:45)
[2016-09-14] MEDS ORDERED: ATOR10TA15 PO (10:45)
[2016-09-14] MEDS ORDERED: MIDO5TAB PO (10:45)
[2016-09-16] MEDS ORDERED: VITA2000 PO (11:43)
== END 2016-07-05 13:54 | disposition home health service (06) | DRG 243 ==
LOC: NEPE 23:44 → NEDA 06-26 02:31 → NEPGCP 06-26 05:27 → OBSVTOIN 06-27 13:26 → N04A 06-27 16:07 → HCIS 06-28 11:18 → HCIN 06-28 12:20
PROVIDERS: ADMIT Family Medicine; ATTEND Family Medicine
PROC: 02HK3JZ Insertion of Pacemaker Lead into Right Ventricle, Percutaneous Approach (ICD-10-PCS; 2016-06-28)
PROC: 0JH604Z Insertion of Pacemaker, Single Chamber into Chest Subcutaneous Tissue and Fascia, Open Approach (ICD-10-PCS; principal; 2016-06-28 09:30)
PROC: 0DBF4ZZ Excision of Right Large Intestine, Percutaneous Endoscopic Approach (ICD-10-PCS; 2016-06-30)
DX: I49.5 Sick sinus syndrome (principal); J98.11 Atelectasis; K56.7 Ileus, unspecified; C18.0 Malignant neoplasm of cecum; G62.9 Polyneuropathy, unspecified; I12.9 Hypertensive chronic kidney disease with stage 1 through stage 4 chronic kidney disease, or unspecified chronic kidney disease; D64.9 Anemia, unspecified; J44.9 Chronic obstructive pulmonary disease, unspecified; E03.9 Hypothyroidism, unspecified; E78.5 Hyperlipidemia, unspecified; I95.1 Orthostatic hypotension; R32 Unspecified urinary incontinence; R09.81 Nasal congestion; N18.9 Chronic kidney disease, unspecified; Z66 Do not resuscitate; Z86.73 Personal history of transient ischemic attack (TIA), and cerebral infarction without residual deficits; Z91.81 History of falling; K59.01 Slow transit constipation; T38.0X5A Adverse effect of glucocorticoids and synthetic analogues, initial encounter; Z79.82 Long term (current) use of aspirin
CPT/HCPCS: 33207; 70450; 70551; 71010; 76937; 80048; 80061; 81001; 82550; 82948; 83036; 83735; 84155; 84443; 84484; 85025; 85027; 85610; 85730; 88309; 93005; 93880; 94150; 94664; C1786; C1898; G0378; G8987-GO; G8988-GO; G9162-GN; G9163-GN; G9164-GN; J0131; J0360; J0690; J0780; J1100; J1644; J1885; J2250; J2405; J2710; J2765; J3010; J3370; J7030; J7040; J7120; J7613

== ENCOUNTER 2016-08-02 12:17 | Observation (INO) | payer MEDICARE ==
[~2016-08-02 12:17] MED LIST changes: +CLON0.1T PO; -FERR325T PO; -FLUD.1 PO; -HYDR10TA23 PO; +METO25TA3 PO; -MIDO5TAB PO; +SENN1TAB PO; +TYLETAB34 PO
[2016-08-02 12:19] VITALS: BP 112/59; PULSE 67; RESP 15; TEMP 98.2; O2SAT 98
--- NOTE | 2016-08-02 12:26 | PD ---
Physical Exam Date Seen by Provider: Aug 02, 2016 Time Seen by Provider: 12:21 Narrative Pt is an 85 year old female presenting to ED for evaluation of 2 syncopal episodes with head contusion. Pt fell twice today, she doesn't remember falling. She states she was making coffee and then next thing she remembers she was on the floor. Pt reports a slight headache, no nausea or dizziness. Pt has had syncopal episodes in the past. Pt takes a baby aspirin daily. Fall occurred at approx. 0800, pt initially went to [facility] and was subsequently sent here for a more complete work-up. Pt also reports pain in right hip from the fall, pt is able to bear weight. VSS Data Data Last Documented VS Vital Signs Date Time Temp Pulse Resp B/P Pulse Ox O2 Delivery O2 Flow Rate FiO2 08/02/16 12:19 98.2 67 15 112/59 98 MDM Supervised Visit with SERAFIN: Ruth Ann Youngblood Aug 02, 2016 12:26
[2016-08-02 13:07] LABS: BASOPHIL # 0.1 TH/MM3 (0-0.2); EOSINOPHIL # 0.1 TH/MM3 (0-0.4); HEMATOCRIT 33.1 % (35.0-46.0); HEMO FLAGS DIFF FINAL; LYMPH % 20.4 % (9.0-44.0); LYMPHOCYTE # 1.2 TH/MM3 (1.0-4.8); MEAN CELL VOLUME 90.2 FL (80.0-100.0); MEAN CORPUSCULAR HEMOGLOBIN 29.5 PG (27.0-34.0); MEAN CORPUSCULAR HGB CONC 32.7 % (32.0-36.0); NEUT % 66.6 % (16.0-70.0); PLATELET COUNT 226 TH/MM3 (150-450); RED BLOOD COUNT 3.67 MIL/MM3 (4.00-5.30); RED CELL DISTRIBUTION WIDTH 14.5 % (11.6-17.2); WHITE BLOOD COUNT 6.1 TH/MM3 (4.0-11.0)
--- NOTE | 2016-08-02 13:07 | RADRPT ---
EXAM DATE/TIME: 08/02/2016 12:46 [facility] COMPARISON: CT BRAIN W/O CONTRAST, June 26, 2016, 7:43. INDICATIONS : Trauma. Fall. Laceration above right eye. RADIATION DOSE: 45.79 CTDIvol (mGy) MEDICAL HISTORY : Seizures. Cerebrovascular disease. Chronic obstructive pulmonary disease.Congestive heart failure. SURGICAL HISTORY : Appendectomy. Cholecystectomy.Hysterectomy. ENCOUNTER: Initial ACUITY: 1 day PAIN SCALE: 4/10 LOCATION: cranial TECHNIQUE: Multiple contiguous axial images were obtained of the head. Using automated exposure control and adj ustment of the mA and/or kV according to patient size, radiation dose was kept as low as reasonably a chievable to obtain optimal diagnostic quality images. FINDINGS: CEREBRUM: The ventricles are normal for age. There is an old lacunar infarct again noted in the right caudate n ucleus. No evidence of midline shift, mass lesion, hemorrhage or acute infarction. No extra-axial fl uid collections are seen. POSTERIOR FOSSA: The cerebellum and brainstem are intact. The 4th ventricle is midline. The cerebellopontine angle i s unremarkable. EXTRACRANIAL: The visualized portion of the orbits is intact. SKULL: The calvaria is intact. No evidence of skull fracture. CONCLUSION: 1. No acute hemorrhage, mass effect or evidence of acute infarction. 2. 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 Tyree Wang MD on August 02, 2016 at 13:04 Board Certified Radiologist. This report was verified electronically.
--- NOTE | 2016-08-02 13:10 | RADRPT ---
EXAM DATE/TIME: 08/02/2016 12:46 [facility] COMPARISON: No previous studies available for comparison. INDICATIONS : Trauma. Fall. Laceration above right eye. RADIATION DOSE: 50.92 CTDIvol (mGy) MEDICAL HISTORY : Chronic obstructive pulmonary disease. Seizures. Congestive heart failure.Hypertension. SURGICAL HISTORY : Appendectomy. Cholecystectomy.Hysterectomy. ENCOUNTER: Initial ACUITY: 1 day PAIN SCORE: 8/10 LOCATION: Right flank TECHNIQUE: Volumetric scanning of the facial bones was performed. Using automated exposure control and adjustme nt of the mA and/or kV according to patient size, radiation dose was kept as low as reasonably achiev able to obtain optimal diagnostic quality images. FINDINGS: ORBITS: The orbital and infraorbital osseous structures are intact. The retroconal structures have a normal configuration. No radiopaque foreign bodies are seen. NASAL BONE: The nasal bone and maxillary spine are intact ZYGOMATIC ARCHES: Symmetric without evidence of fracture. SINUSES: The maxillary, ethmoid and frontal sinuses are intact. No air-fluid levels seen. NASAL CAVITY: The nasal septum is intact and midline. The lacrimal ducts are intact. SOFT TISSUES: No radiopaque foreign bodies seen. There is soft tissue swelling over the right orbit. INTRACRANIAL: No intracranial air seen. CRIBIFORM PLATE: Grossly intact. CONCLUSION: Soft tissue swelling with no acute fracture or malalignment. Tyree Wang MD on August 02, 2016 at 13:06 Board Certified Radiologist. This report was verified electronically.
[2016-08-02 13:22] LABS: APTT (PATIENT) 25.7 SEC (24.3-30.1); INTERNATIONAL NORMALIZED RATIO 0.9 RATIO; PROTHROMBIN TIME - PATIENT 10.4 SEC (9.8-11.6)
[2016-08-02 13:31] LABS: ANION GAP 11 MEQ/L (5-15); AST (GOT) 14 U/L (15-37); BICARBONATE 24.8 MEQ/L (21.0-32.0); BLOOD UREA NITROGEN 13 MG/DL (7-18); CHLORIDE 96 MEQ/L (98-107); GLOMERULAR FILTRATION RATE 42 ML/MIN (>89); MAGNESIUM 2.1 MG/DL (1.5-2.5); SODIUM (NA) 132 MEQ/L (136-145)
[2016-08-02 13:37] LABS: ALKALINE PHOSPHATASE 97 U/L (45-117); ALT (GPT) 18 U/L (10-53); TOTAL BILIRUBIN ADULT 0.5 MG/DL (0.2-1.0)
[2016-08-02 13:40] LABS: CREATINE KINASE 34 U/L (26-192)
--- NOTE | 2016-08-02 13:48 | RADRPT ---
EXAM DATE/TIME: 08/02/2016 13:22 [facility] COMPARISON: CHEST SINGLE AP, July 04, 2016, 11:19. INDICATIONS : Shortness of breath after fall today. MEDICAL HISTORY : Hypertension. Chronic obstructive pulmonary disease. Congestive heart failure. SURGICAL HISTORY : Pacemaker. Appendectomy. Cholecystectomy. ENCOUNTER: Initial ACUITY: 1 day PAIN SCORE: 0/10 LOCATION: Bilateral chest FINDINGS: Portable AP view of the chest demonstrates a normal-sized cardiac silhouette. Single lead left chest wall pacing device is present. No effusion, consolidation, or pneumothorax is identified. Bones and s oft tissues demonstrate no acute finding. CONCLUSION: No acute cardiopulmonary abnormality is identified. Blake Gutierrez MD on August 02, 2016 at 13:45 Board Certified Radiologist. This report was verified electronically.
--- NOTE | 2016-08-02 13:54 | RADRPT ---
EXAM DATE/TIME: 08/02/2016 13:22 [facility] COMPARISON: No previous studies available for comparison. INDICATIONS : Right hip pain after falling today. MEDICAL HISTORY : Hypertension. Chronic obstructive pulmonary disease. Congestive heart failure. SURGICAL HISTORY : Appendectomy. Cholecystectomy. Hysterectomy. ENCOUNTER: Initial ACUITY: 1 day PAIN SCORE: 2/10 LOCATION: Right hip joint. FINDINGS: Examination of the right hip was performed with AP Pelvis. The primary and secondary trabecular duc luis of the femoral neck is intact. The hip joint is of normal width without significant sclerosis or bony hypertrophy. The acetabulum is grossly intact. CONCLUSION: Negative trauma study. Tyree Wang MD on August 02, 2016 at 13:50 Board Certified Radiologist. This report was verified electronically.
--- NOTE | 2016-08-02 14:43 | PD ---
HPI Chief Complaint: Fall Time Seen by Provider: 12:31 Travel History International Travel<30 days: No Contact w/Intl Traveler<30days: No Traveled to known affect area: No History of Present Illness HPI 85 y/o female presents with fall this morning at about 8 AM. She states that she does not know how she fell and did lose consciousness. She states this morning she sustained a cut to her right eye and after the fall she also had pain to her right hip. She states that pain is worse with movement. She denies other concurrent complaints other than pain over the laceration. She states that she hasn't had workup for falls before. She states that she does have a pacemaker that recently got placed here at [facility] but does not know what company placed it or who. Patient poor historian and history supplemented by urgent care record PFSH Past Medical History Hx Anticoagulant Therapy: Yes (ASPIRIN) Asthma: No Blood Disorders: No Heart Rhythm Problems: Yes Cancer: No Cardiovascular Problems: Yes (postural hypotension) High Cholesterol: Yes Chemotherapy: No Chest Pain: No Congestive Heart Failure: Yes COPD: Yes Cerebrovascular Accident: Yes Diabetes: No Diminished Hearing: No Endocrine: Yes Gastrointestinal Disorders: No Genitourinary: Yes Hepatitis: No Hiatal Hernia: No Hypertension: Yes Immune Disorder: No (HAD TO TAKE A STEROID BUT CANT REMEMBER WHY) Implanted Vascular Access Dvce: No Musculoskeletal: No Neurologic: Yes Psychiatric: No Reproductive: Yes Respiratory: Yes Radiation Therapy: No Sleep Apnea: No Thyroid Disease: Yes ?: Not Menopausal: No Past Surgical History Abdominal Surgery: Yes AICD: No Appendectomy: Yes Cholecystectomy: Yes Gynecologic Surgery: Yes Hysterectomy: Yes Joint Replacement: No Oral Surgery: Yes Pacemaker: No Tonsillectomy: Yes Other Surgery: Yes (LEFT CAROTID) Social History Alcohol Use: No Tobacco Use: No Substance Use: No Allergies-Medications (Allergen,Severity, Reaction): Coded Allergies: No Known Allergies (Verified , 07/13/16) Reported Meds & Prescriptions Reported Meds & Active Scripts Active Metoprolol Tartrate 25 Mg Tab 25 Mg PO BID Gabapentin 300 Mg Cap 300 Mg PO BID Clonidine (Clonidine HCl) 0.1 Mg Tab 0.1 Mg PO Q6HR PRN Tylenol-Codeine #3 (Acetaminophen-Codeine) 300-30 mg Tab 1 Tab PO Q4H PRN Senna Plus 8.6-50 mg (Sennosides-Docusate Sodium) 1 Tab Tab 1 Tab PO BID Reported Levothyroxine (Levothyroxine Sodium) 25 Mcg Tab 25 Mcg PO HS Atorvastatin (Atorvastatin Calcium) 10 Mg Tab 10 Mg PO HS Aspirin 81 Mg Tabdr 81 Mg PO DAILY Review of Systems ROS Limitations: Poor Historian Except as stated in HPI: all other systems reviewed are Neg Physical Exam Narrative GENERAL: Well-nourished, well-developed patient. SKIN: Warm and dry. HEAD: Normocephalic and laceration noted above right eye EYES: No injection or drainage. ENT: No nasal drainage noted. NECK: Supple, trachea midline. nttp in midline and with ROM CARDIOVASCULAR: Regular rate and rhythm RESPIRATORY: Breath sounds equal bilaterally. No accessory muscle use. GASTROINTESTINAL: Abdomen soft, non-tender, nondistended. Extremity: Tender to right hip, neurovascularly intact, no significant pain with other joints NEUROLOGICAL: Awake. Moves all extremities. Normal speech. Data Data Last Documented VS Vital Signs Date Time Temp Pulse Resp B/P Pulse Ox O2 Delivery O2 Flow Rate FiO2 08/02/16 12:19 98.2 67 15 112/59 98 Orders Magnesium (Mg) (08/02/16 12:36) Phosphorus (Po4) (08/02/16 12:36) Complete Blood Count With Diff (08/02/16 12:36) Comprehensive Metabolic Panel (08/02/16 12:36) Ckmb (Isoenzyme) Profile (08/02/16 12:36) Troponin I (08/02/16 12:36) Urinalysis - C+S If Indicated (08/02/16 12:36) Act Partial Throm Time (Ptt) (08/02/16 12:36) Prothrombin Time / Inr (Pt) (08/02/16 12:36) Ct Brain W/O Iv Contrast(Rout) (08/02/16 ) B-Type Natriuretic Peptide (08/02/16 12:36) Chest, Single Ap (08/02/16 ) Electrocardiogram (08/02/16 ) Iv Access Insert/Monitor (08/02/16 12:36) Ecg Monitoring (08/02/16 12:36) Oximetry (08/02/16 12:36) Type And Screen (08/02/16 12:36) Ct Facial Bones W/O Iv Cont (08/02/16 ) Hip, Uni(Ap&Lat) W Ap Pelvis (08/02/16 ) Lidocai-Epi 1%-1:100,000 Inj (Xylocaine- (08/02/16 15:00) Admit Order (Ed Use Only) (08/02/16 14:59) Labs Laboratory Tests Test 08/02/16 12:50 White Blood Count 6.1 TH/MM3 Red Blood Count 3.67 MIL/MM3 Hemoglobin 10.8 GM/DL Hematocrit 33.1 % Mean Corpuscular Volume 90.2 FL Mean Corpuscular Hemoglobin 29.5 PG Mean Corpuscular Hemoglobin 32.7 % Concent Red Cell Distribution Width 14.5 % Platelet Count 226 TH/MM3 Mean Platelet Volume 8.8 FL Neutrophils (%) (Auto) 66.6 % Lymphocytes (%) (Auto) 20.4 % Monocytes (%) (Auto) 10.0 % Eosinophils (%) (Auto) 2.0 % Basophils (%) (Auto) 1.0 % Neutrophils # (Auto) 4.0 TH/MM3 Lymphocytes # (Auto) 1.2 TH/MM3 Monocytes # (Auto) 0.6 TH/MM3 Eosinophils # (Auto) 0.1 TH/MM3 Basophils # (Auto) 0.1 TH/MM3 CBC Comment DIFF FINAL Differential Comment Prothrombin Time 10.4 SEC Prothromb Time International 0.9 RATIO Ratio Activated Partial 25.7 SEC Thromboplast Time Sodium Level 132 MEQ/L Potassium Level 4.0 MEQ/L Chloride Level 96 MEQ/L Carbon Dioxide Level 24.8 MEQ/L Anion Gap 11 MEQ/L Blood Urea Nitrogen 13 MG/DL Creatinine 1.22 MG/DL Estimat Glomerular Filtration 42 ML/MIN Rate Random Glucose 100 MG/DL Calcium Level 9.0 MG/DL Phosphorus Level 3.6 MG/DL Magnesium Level 2.1 MG/DL Total Bilirubin 0.5 MG/DL Aspartate Amino Transf 14 U/L (AST/SGOT) Alanine Aminotransferase 18 U/L (ALT/SGPT) Alkaline Phosphatase 97 U/L Total Creatine Kinase 34 U/L Troponin I LESS THAN 0.02 NG/ML B-Type Natriuretic Peptide 64 PG/ML Total Protein 7.0 GM/DL Albumin 3.8 GM/DL MDM Medical Decision Making Medical Screen Exam Complete: Yes Emergency Medical Condition: Yes Medical Record Reviewed: Yes (past history confirmed) Interpretation(s) EKG is normal sinus rhythm at 60 without STEMI criteria CBC & BMP Diagram 08/02/16 12:50 Last [address] 08/02/16 0000 Signed Impressions: Service Date/Time: Tuesday, August 02, 2016 12:46 - CONCLUSION: Soft tissue swelling with no acute fracture or malalignment. Tyree Wang MD Hip and Pelvis X-Ray 08/02/16 0000 Signed Impressions: Service Date/Time: Tuesday, August 02, 2016 13:22 - CONCLUSION: Negative trauma study. Tyree Wang MD Head CT 08/02/16 0000 Signed Impressions: Service Date/Time: Tuesday, August 02, 2016 12:46 - CONCLUSION: 1. No acute hemorrhage, mass effect or evidence of acute infarction. 2. 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 Tyree Wang MD Chest X-Ray 08/02/16 0000 Signed Impressions: Service Date/Time: Tuesday, August 02, 2016 13:22 - CONCLUSION: No acute cardiopulmonary abnormality is identified. Blake Gutierrez MD Differential Diagnosis Anemia, vasovagal, intracranial, arrhythmia, renal failure, fracture, strain... Narrative Course Will check blood work, urinalysis, imaging and have pacemaker interrogated Pacemaker interrogation without acute process. Patient will be admitted for further workup of syncope, PA to assist with laceration repair Physician Communication Physician Communication resident team states to admit to dr bunn Diagnosis Primary Impression: Syncope Admitting Information Admitting Physician Requests: Observation Anjali Morin MD Aug 02, 2016 14:43
[2016-08-02] MEDS ORDERED: LIDOCAINE 1%/EPINEPHrine 1:100,000 SOLN 20 ML VIAL INFIL ONE (15:00)
--- NOTE | 2016-08-02 15:59 | PD ---
Physical Exam Time Seen by Provider: 15:58 Narrative I was asked to perform a laceration repair to this patient's right eyebrow. For further details regarding the patient's visit please see the physician's documentation. Data Data Last Documented VS Vital Signs Date Time Temp Pulse Resp B/P Pulse Ox O2 Delivery O2 Flow Rate FiO2 08/02/16 12:19 98.2 67 15 112/59 98 Orders Magnesium (Mg) (08/02/16 12:36) Phosphorus (Po4) (08/02/16 12:36) Complete Blood Count With Diff (08/02/16 12:36) Comprehensive Metabolic Panel (08/02/16 12:36) Ckmb (Isoenzyme) Profile (08/02/16 12:36) Troponin I (08/02/16 12:36) Urinalysis - C+S If Indicated (08/02/16 12:36) Act Partial Throm Time (Ptt) (08/02/16 12:36) Prothrombin Time / Inr (Pt) (08/02/16 12:36) Ct Brain W/O Iv Contrast(Rout) (08/02/16 ) B-Type Natriuretic Peptide (08/02/16 12:36) Chest, Single Ap (08/02/16 ) Electrocardiogram (08/02/16 ) Iv Access Insert/Monitor (08/02/16 12:36) Ecg Monitoring (08/02/16 12:36) Oximetry (08/02/16 12:36) Type And Screen (08/02/16 12:36) Ct Facial Bones W/O Iv Cont (08/02/16 ) Hip, Uni(Ap&Lat) W Ap Pelvis (08/02/16 ) Lidocai-Epi 1%-1:100,000 Inj (Xylocaine- (08/02/16 15:00) Admit Order (Ed Use Only) (08/02/16 14:59) Labs Laboratory Tests Test 08/02/16 12:50 White Blood Count 6.1 TH/MM3 Red Blood Count 3.67 MIL/MM3 Hemoglobin 10.8 GM/DL Hematocrit 33.1 % Mean Corpuscular Volume 90.2 FL Mean Corpuscular Hemoglobin 29.5 PG Mean Corpuscular Hemoglobin 32.7 % Concent Red Cell Distribution Width 14.5 % Platelet Count 226 TH/MM3 Mean Platelet Volume 8.8 FL Neutrophils (%) (Auto) 66.6 % Lymphocytes (%) (Auto) 20.4 % Monocytes (%) (Auto) 10.0 % Eosinophils (%) (Auto) 2.0 % Basophils (%) (Auto) 1.0 % Neutrophils # (Auto) 4.0 TH/MM3 Lymphocytes # (Auto) 1.2 TH/MM3 Monocytes # (Auto) 0.6 TH/MM3 Eosinophils # (Auto) 0.1 TH/MM3 Basophils # (Auto) 0.1 TH/MM3 CBC Comment DIFF FINAL Differential Comment Prothrombin Time 10.4 SEC Prothromb Time International 0.9 RATIO Ratio Activated Partial 25.7 SEC Thromboplast Time Sodium Level 132 MEQ/L Potassium Level 4.0 MEQ/L Chloride Level 96 MEQ/L Carbon Dioxide Level 24.8 MEQ/L Anion Gap 11 MEQ/L Blood Urea Nitrogen 13 MG/DL Creatinine 1.22 MG/DL Estimat Glomerular Filtration 42 ML/MIN Rate Random Glucose 100 MG/DL Calcium Level 9.0 MG/DL Phosphorus Level 3.6 MG/DL Magnesium Level 2.1 MG/DL Total Bilirubin 0.5 MG/DL Aspartate Amino Transf 14 U/L (AST/SGOT) Alanine Aminotransferase 18 U/L (ALT/SGPT) Alkaline Phosphatase 97 U/L Total Creatine Kinase 34 U/L Troponin I LESS THAN 0.02 NG/ML B-Type Natriuretic Peptide 64 PG/ML Total Protein 7.0 GM/DL Albumin 3.8 GM/DL MDM Supervised Visit with SERAFIN: No Procedures Procedure Narrative LACERATION LOCATION: Lateral right eyebrow LENGTH: 2.5 cm, T-shaped NUMBER OF STITCHES/ALLEGRA: 8 sutures REPAIR: The area of the laceration was prepped with Betadine and sterilely draped. The laceration was infiltrated with 1% lidocaine with epinephrine. The wound was copiously irrigated and explored without evidence of foreign body , tendon injury or neurovascular injury. The wound was closed using 5. 0 Ethilon. This was a single layer repair. Antibiotic ointment and a sterile dressing was applied. The patient was advised to keep the dressing clean and dry. Patient tolerated the procedure well. Diagnosis Primary Impression: Syncope Additional Instruction: Wash wound gently with soap and water. Apply topical antibiotic ointment twice daily. Have sutures removed in 5-7 days. Alka Hubbard Aug 02, 2016 15:59
--- NOTE | 2016-08-02 16:44 | HHI.HP ---
[facility] Service Family Medicine Primary Care Physician Junior Hunt MD Admission Diagnosis syncope Diagnoses: International Travel<30 Days: No Contact w/Intl Traveler<30days: No Known Affected Area: No History of Present Illness Ms. Torres is a 85 yo F with PMH of tania/tachy syndrome s/p pacemaker placement, atrial fibrillation, TIA, orthostatic hypotension, CKD, hypothyroidism, cecal adenoma s/p hemicolectomy who presents following syncopal episode today. Patient states that she fell and lost consciousness about 8am this morning. Patient denies presyncopal symptoms such as lightheadedness, nausea, or anxiety. Patient states she was fixing breakfast and coffee when she lost consciousness, but that she was not standing for a long period prior to losing consciousness. Patient states that she immediately awoke upon hitting the floor and did not feel confused. Patient states that she has had right- sided headache, right shoulder pain, and right hip pain since her injury. Patient states that she usually gets lightheaded prior to feeling as if she would fall. Patient states that when she stands up abruptly she feels lightheaded. Patient reports history of fluctuating BP [orthostatic hypotension presumably] when standing. This morning, patient states that she did not feel any lightheadedness prior, it this episode was unique. 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 Since falling in proceeding fall, patient denies vision changes, fever/chills, chest pain or palpitations. She denies leg swelling. Patient reports normal bowel movements and urination. Patient reports chronic exertional SOB; and supplements that she sometimes pants when walking. Patient states that she takes her blood pressures routinely at home; she has had labile pressures with occasional systolic values in 160s. Patient was also had frequent low blood pressures with averaging in 70s80s/50s. Patient states that she was recently taken off of her chronic antihypertensives and given when necessary medications for when her pressure is low or high. [Per EMR, patient last seen / by Dr. Hunt and Metoprolol was continued; unclear whether patient is had subsequent instruction by another physician or whether patient poor historian]. Patient states that her blood pressure was 160/78 immediately after her fall. Interval History: Head CT demonstrative of old infarct, no acute abnormalities. EKG in sinus rhythm, rate 57. Normal IL, QRS, and QT intervals Pacemaker interrogated per ED documentation; no abnormal rhythms found (Magen Shore MD R2) Past Family Social History Past Medical History A fib- pacemaker Sob- exertion BP lability Past Surgical History Pacemaker placement Hysterectomy Colon cancer- colectomy Reported Medications Reported Meds & Active Scripts Active STOPPED A COUPLE WEEKS AGO Metoprolol Tartrate 25 Mg Tab 25 Mg PO BID Gabapentin 300 Mg Cap 300 Mg PO BID STOPPEDClonidine (Clonidine HCl) 0.1 Mg Tab 0.1 Mg PO Q6HR PRN STOPPEDTylenol-Codeine #3 (Acetaminophen-Codeine) 300-30 mg Tab 1 Tab PO Q4H PRN DOESNT TAKESenna Plus 8.6-50 mg (Sennosides-Docusate Sodium) 1 Tab Tab 1 Tab PO BID Reported Levothyroxine (Levothyroxine Sodium) 25 Mcg Tab 25 Mcg PO HS Atorvastatin (Atorvastatin Calcium) 10 Mg Tab 10 Mg PO HS Aspirin 81 Mg Tabdr 81 Mg PO DAILY Miralax Unspecified medications for high/low BP (Magen Shore MD R2) Allergies: Coded Allergies: No Known Allergies (Verified , 07/13/16) Family History Father- CAD Social History Smoking- 's Oswald- falls but breaks fall (Magen Shore MD R2) Physical Exam Vital Signs Vital Signs Date Time Temp Pulse Resp B/P Pulse Ox O2 Delivery O2 Flow Rate FiO2 08/02/16 12:19 98.2 67 15 112/59 98 Physical Exam GENERAL: This is a well-nourished, well-developed patient, in no apparent distress. SKIN: No rashes, ecchymoses or lesions. Cool and dry. HEAD: Atraumatic. Normocephalic. No temporal or scalp tenderness. EYES: Pupils equal round and reactive. Extraocular motions intact. No scleral icterus. No injection or drainage. ENT: Nose without bleeding, purulent drainage or septal hematoma. Throat without erythema, tonsillar hypertrophy or exudate. Uvula midline. Airway patent. NECK: Trachea midline. No JVD or lymphadenopathy. Supple, nontender, no meningeal signs. CARDIOVASCULAR: Regular rate and rhythm without murmurs, gallops, or rubs. RESPIRATORY: Clear to auscultation. Breath sounds equal bilaterally. No wheezes , rales, or rhonchi. GASTROINTESTINAL: Abdomen soft, non-tender, nondistended. No hepato-splenomegaly , or palpable masses. No guarding. MUSCULOSKELETAL: Extremities without clubbing, cyanosis, or edema. No joint tenderness, effusion, or edema noted. No calf tenderness. Negative Homans sign bilaterally. NEUROLOGICAL: Awake and alert. Cranial nerves II through XII intact. Motor and sensory grossly within normal limits. Five out of 5 muscle strength in all muscle groups. Normal speech. Laboratory Laboratory Tests Test 08/02/16 12:50 White Blood Count 6.1 Red Blood Count 3.67 Hemoglobin 10.8 Hematocrit 33.1 Mean Corpuscular Volume 90.2 Mean Corpuscular Hemoglobin 29.5 Mean Corpuscular Hemoglobin 32.7 Concent Red Cell Distribution Width 14.5 Platelet Count 226 Mean Platelet Volume 8.8 Neutrophils (%) (Auto) 66.6 Lymphocytes (%) (Auto) 20.4 Monocytes (%) (Auto) 10.0 Eosinophils (%) (Auto) 2.0 Basophils (%) (Auto) 1.0 Neutrophils # (Auto) 4.0 Lymphocytes # (Auto) 1.2 Monocytes # (Auto) 0.6 Eosinophils # (Auto) 0.1 Basophils # (Auto) 0.1 CBC Comment DIFF FINAL Differential Comment Prothrombin Time 10.4 Prothromb Time International 0.9 Ratio Activated Partial 25.7 Thromboplast Time Sodium Level 132 Potassium Level 4.0 Chloride Level 96 Carbon Dioxide Level 24.8 Anion Gap 11 Blood Urea Nitrogen 13 Creatinine 1.22 Estimat Glomerular Filtration 42 Rate Random Glucose 100 Calcium Level 9.0 Phosphorus Level 3.6 Magnesium Level 2.1 Total Bilirubin 0.5 Aspartate Amino Transf 14 (AST/SGOT) Alanine Aminotransferase 18 (ALT/SGPT) Alkaline Phosphatase 97 Total Creatine Kinase 34 Troponin I LESS THAN 0.02 B-Type Natriuretic Peptide 64 Total Protein 7.0 Albumin 3.8 (Magen Shore MD R2) Result Diagram: 08/02/16 1250 08/02/16 1250 Imaging Last Impressions Maxillofacial CT 08/02/16 0000 Signed Impressions: Service Date/Time: Tuesday, August 02, 2016 12:46 - CONCLUSION: Soft tissue swelling with no acute fracture or malalignment. Tyree Wang MD Hip and Pelvis X-Ray 08/02/16 0000 Signed Impressions: Service Date/Time: Tuesday, August 02, 2016 13:22 - CONCLUSION: Negative trauma study. Tyree Wang MD Head CT 08/02/16 0000 Signed Impressions: Service Date/Time: Tuesday, August 02, 2016 12:46 - CONCLUSION: 1. No acute hemorrhage, mass effect or evidence of acute infarction. 2. 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 Tyree Wnag MD Chest X-Ray 08/02/16 0000 Signed Impressions: Service Date/Time: Tuesday, August 02, 2016 13:22 - CONCLUSION: No acute cardiopulmonary abnormality is identified. Blake Gutierrez MD (Magen Shore MD R2) Assessment and Plan Assessment and Plan Ms. Torres is a 85 yo F with: Code Status Full Code (Magen Shore MD R2) Problem List: (1) Syncope Status: Acute Plan: Impression: Syncopal episode earlier today. Patient with history of orthostatic hypotension as well as atrial fibrillation and tachybrady syndrome. Pacemaker interrogation reportedly did not reveal abnormality. Troponin x1 wnl Normal O2 saturations Recent echocardiogram 05/2016- normal EF, no structural defects appreciated. Aortic and mitral sclerosis, no stenosis -Will check orthostatic vital signs -Continue telemetry -Will defer repeat echocardiogram due to recent reassuring result (2) Shortness of breath Status: Chronic Plan: Impression: Chronic shortness of breath. CXR without acute abnormalities. O2 saturation wnl since admission; no wheezing on exam -We'll provide O2/breathing treatments as needed (3) TIA (transient ischemic attack) Status: Acute Plan: Impression: History of TIA Continue baby aspirin Continue statin Continue blood pressure monitoring (4) Atrial fibrillation with RVR Status: Resolved Plan: Impression: History of atrial fibrillation per EMR. Sinus rhythm on EKG on admission Monitor telemetry (5) Hypothyroidism Status: Chronic Plan: Impression: Chronic hypothyroidism on Synthroid 25 ug daily. TSH wnl 2016 -Continue home Synthroid -Will recheck TSH (6) Anemia Status: Chronic Plan: Impression: Chronic anemia; Hgb 10.8, above baseline of 8-9. MCV wnl -Will monitor (7) Frequent falls Status: Chronic Plan: Impression: Frequent falling at home, likely generally secondary to orthostatic hypotension -Will check orthostatic vitals -Will consult PT -Will check Vit D (8) Fluids, Electrolytes, and Nutrition Status: Acute Plan: Fluids: will give IV NS at ~maintenance Diet: Regular basic diet Electrolytes: wnl on admission (9) DVT PPX Status: Acute Plan: DVT PPX: Will give Heparin 5000mg TID due to mild Cr elevation (Magen Shore MD R2) Physician Certification 2 Midnight Certification Type: Admission for Inpatient Services Order for Inpatient Services The services are ordered in accordance with Medicare regulations or non- Medicare payer requirements, as applicable. In the case of services not specified as inpatient-only, they are appropriately provided as inpatient services in accordance with the 2-midnight benchmark. Estimated LOS (days): 3 days is the estimated time the patient will need to remain in the hospital, assuming treatment plan goals are met and no additional complications. Post-Hospital Plan: Home (Magen Shore MD R2) Magen Shore MD R2 Aug 02, 2016 16:44 Anel Shields MD Aug 03, 2016 21:55
[2016-08-02] MEDS ORDERED: SODIUM CHLORIDE 0.9% FLUSH 10 ML FLUSH IV FLUSH PRN (17:15)
[2016-08-02] MEDS ORDERED: ONDANSETRON HCL 4 MG/2 ML VIAL IVP PRN (17:15)
[2016-08-02] MEDS ORDERED: NALOXONE HCL 0.4 MG/ML AMP IV PRN (17:15)
[2016-08-02 18:03] VITALS: O2SAT 96
[2016-08-02] MEDS: HEPARIN SODIUM - SQ 10,000 UNITS/ML VIAL SQ SCH (19:29)
[2016-08-02] MEDS: SODIUM CHLOR 0.9% 1000 ML INJ 1,000 ML IV SCH (19:29)
[2016-08-02 19:55] VITALS: BP 146/65; PULSE 64; RESP 20; TEMP 98.9; O2SAT 97
[2016-08-02] MEDS: SODIUM CHLORIDE 0.9% FLUSH 10 ML FLUSH IV FLUSH SCH (21:21)
[2016-08-02] MEDS: ATORVASTATIN 10 MG TAB PO SCH (21:22)
[2016-08-02] MEDS: LEVOTHYROXINE SODIUM 25 MCG TAB PO SCH (21:22)
[2016-08-02 21:24] LABS: BACTERIA, URINE OCC /hpf; BLOOD, URINE NEG (NEG); COMMENT (UR) CULTURE INDICATED; CULTURE IF INDICATED CULTURE INDICATED; GLUCOSE,URINE NEG (NEG); KETONE, URINE NEG (NEG); PH, URINE 5.5 (5.0-8.5); URINE COLOR LIGHT-YELLOW (YELLW/STRAW)
[2016-08-02 21:25] LABS: NITRITE,URINE POS (NEG)
[2016-08-03] VITALS (10 sets, daily range): BP systolic 100–187; BP diastolic 45–76; PULSE 60–71; RESP 16–20; TEMP 97.6–98.8; O2SAT 94–99
[2016-08-03] MEDS: cefTRIAXone INJ 1,000 MG in SODIUM CHLORIDE 0.9% INJ 100 ML IV SCH ×2 (00:39→23:50)
[2016-08-03] MEDS: HEPARIN SODIUM - SQ 10,000 UNITS/ML VIAL SQ SCH ×3 (00:39→19:57)
[2016-08-03] MEDS: SODIUM CHLOR 0.9% 1000 ML INJ 1,000 ML IV SCH ×2 (06:08→19:57)
[2016-08-03 06:39] LABS: AUTOMATED NEUTROPHIL # 2.2 TH/MM3 (1.8-7.7); BASOPHIL % 1.3 % (0.0-2.0); EOSINOPHIL # 0.2 TH/MM3 (0-0.4); EOSINOPHIL % 4.9 % (0.0-4.0); HEMATOCRIT 31.6 % (35.0-46.0); HEMO FLAGS DIFF FINAL; LYMPH % 23.5 % (9.0-44.0); LYMPHOCYTE # 0.9 TH/MM3 (1.0-4.8); MEAN CELL VOLUME 90.4 FL (80.0-100.0); MEAN CORPUSCULAR HEMOGLOBIN 29.6 PG (27.0-34.0); MEAN CORPUSCULAR HGB CONC 32.7 % (32.0-36.0); MONO % 13.1 % (0.0-8.0); NEUT % 57.2 % (16.0-70.0); PLATELET COUNT 210 TH/MM3 (150-450); RED BLOOD COUNT 3.49 MIL/MM3 (4.00-5.30); RED CELL DISTRIBUTION WIDTH 15.1 % (11.6-17.2); WHITE BLOOD COUNT 3.8 TH/MM3 (4.0-11.0)
[2016-08-03 06:59] LABS: BICARBONATE 25.7 MEQ/L (21.0-32.0); POTASSIUM 4.2 MEQ/L (3.5-5.1)
[2016-08-03] MEDS: SODIUM CHLORIDE 0.9% FLUSH 10 ML FLUSH IV FLUSH SCH ×2 (09:00→20:58)
[2016-08-03] MEDS: ASPIRIN EC 81 MG TABEC PO SCH (09:33)
--- NOTE | 2016-08-03 10:56 | EKG ---
Date Performed: 08/02/2016 Time Performed: 13:52:43 PTAGE: 85 years EKG: SINUS BRADYCARDIA NONSPECIFIC ST & T-WAVE ABNORMALITY BORDERLINE ECG PREVIOUS TRACING : 07/05/2016 01.02 Compared to prior tracing no significant change DOCTOR: Yandy Whalen Interpretating Date/Time 08/03/2016 10:54:54
[2016-08-03] MEDS: ACETAMINOPHEN 325 MG TAB PO PRN (11:43)
[2016-08-03] MEDS: CHOLECALCIFEROL (VIT D3) 5000 UNIT CAP PO SCH (11:49)
--- NOTE | 2016-08-03 18:27 | HHI.FPPN ---
Subjective Remarks Patient seen and examined this morning. Reports she is feeling better, having some lightheadedness with getting up and out of bed, but thinks it's improved No chest pain, palpitations PM interrogation without events Objective Vitals Vital Signs Date Time Temp Pulse Resp B/P Pulse Ox O2 Delivery O2 Flow Rate FiO2 08/03/16 16:00 97.6 60 16 121/64 96 Manual Cuff/Auscultation 08/03/16 12:43 20 08/03/16 11:51 98.2 66 16 116/59 99 129/65 102/45 08/03/16 07:25 98.1 64 16 164/72 95 100/56 08/03/16 05:39 64 08/03/16 03:57 71 20 143/63 97 135/61 08/03/16 02:27 98 21 08/03/16 00:29 98.8 69 20 160/74 97 08/02/16 19:55 98.9 64 20 146/65 97 Result Diagram: 08/03/16 0540 08/03/16 0540 Imaging Last Impressions Maxillofacial CT 08/02/16 0000 Signed Impressions: Service Date/Time: Tuesday, August 02, 2016 12:46 - CONCLUSION: Soft tissue swelling with no acute fracture or malalignment. Tyree Wang MD Hip and Pelvis X-Ray 08/02/16 0000 Signed Impressions: Service Date/Time: Tuesday, August 02, 2016 13:22 - CONCLUSION: Negative trauma study. Tyree Wang MD Head CT 08/02/16 0000 Signed Impressions: Service Date/Time: Tuesday, August 02, 2016 12:46 - CONCLUSION: 1. No acute hemorrhage, mass effect or evidence of acute infarction. 2. 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 Tyree Wang MD Chest X-Ray 08/02/16 0000 Signed Impressions: Service Date/Time: Tuesday, August 02, 2016 13:22 - CONCLUSION: No acute cardiopulmonary abnormality is identified. Blake Gutierrez MD Objective Remarks GENERAL: This is a well-nourished, well-developed elderly female patient, in no apparent distress. SKIN: No rashes,. +R sherine-ocular ecchymoses with sutured abrasion s/p syncopal episode. Cool and dry. HEAD: +traumatic as noted above. Normocephalic. EYES: Pupils equal round and reactive. Extraocular motions intact. No scleral icterus. No injection or drainage. ENT: Nose without bleeding, purulent drainage or septal hematoma. Throat without erythema, tonsillar hypertrophy or exudate. Uvula midline. Airway patent. NECK: Trachea midline. No JVD or lymphadenopathy. Supple, nontender, no meningeal signs. CARDIOVASCULAR: Regular rate and rhythm without murmurs, gallops, or rubs. Healed PM site over anterior chest. RESPIRATORY: Clear to auscultation. Breath sounds equal bilaterally. No wheezes , rales, or rhonchi. GASTROINTESTINAL: Abdomen soft, non-tender, nondistended. No hepato-splenomegaly , or palpable masses. No guarding. MUSCULOSKELETAL: Extremities without clubbing, cyanosis, or edema. No joint tenderness, effusion, or edema noted. No calf tenderness. R lateral hip with ecchymoses. NEUROLOGICAL: Awake and alert. Cranial nerves II through XII intact. Motor and sensory grossly within normal limits. Normal speech. Some demonstration of short term memory loss which is chronic A/P Assessment and Plan Ms. Torres is a 85 yo F with: Problem List: (1) Syncope Status: Acute Plan: Patient with history of orthostatic hypotension as well as atrial fibrillation and tachybrady syndrome. Pacemaker interrogation reportedly did not reveal abnormality. Troponin x1 wnl Normal O2 saturations Recent echocardiogram 05/2016- normal EF, no structural defects appreciated. Aortic and mitral sclerosis, no stenosis -Continue orthostatic vital signs -Continue telemetry -Will defer repeat echocardiogram due to recent reassuring result PT consult (2) Shortness of breath Status: Chronic Plan: Chronic shortness of breath. CXR without acute abnormalities. O2 saturation wnl since admission; no wheezing on exam O2/breathing treatments as needed (3) TIA (transient ischemic attack) Status: Acute Plan: Impression: History of TIA Continue baby aspirin Continue statin Continue blood pressure monitoring (4) Atrial fibrillation with RVR Status: Resolved Plan: Impression: History of atrial fibrillation per EMR. Sinus rhythm on EKG on admission Monitor telemetry (5) Hypothyroidism Status: Chronic Plan: Impression: Chronic hypothyroidism on Synthroid 25 ug daily. TSH wnl 2016 -Continue home Synthroid TSH wnl (6) Anemia Status: Chronic Plan: Impression: Chronic anemia; Hgb 10.8, above baseline of 8-9. MCV wnl monitor cbc (7) Frequent falls Status: Chronic Plan: Impression: Frequent falling at home, likely generally secondary to orthostatic hypotension -Continue to check orthostatic vitals -Will consult PT- follow- up recommendations -Vit D low- supplementation initiated (8) Fluids, Electrolytes, and Nutrition Status: Acute Plan: Fluids: will give IV NS at ~maintenance Diet: Regular basic diet Electrolytes: wnl on admission (9) UTI (urinary tract infection) Status: Acute Plan: UA with +nitrites Urine culture pending, hx e. coli in micro Empiric Rocephin pending sensitivities (10) DVT PPX Status: Acute Plan: DVT PPX: Will give Heparin 5000mg TID due to mild Cr elevation Anel Shields MD Aug 03, 2016 18:27
[2016-08-03] MEDS: LEVOTHYROXINE SODIUM 25 MCG TAB PO SCH (20:57)
[2016-08-03] MEDS: ATORVASTATIN 10 MG TAB PO SCH (20:57)
[2016-08-04] MEDS: HEPARIN SODIUM - SQ 10,000 UNITS/ML VIAL SQ SCH ×2 (02:13→10:26)
[2016-08-04 03:56] VITALS: PULSE 63; RESP 18; TEMP 97.7; O2SAT 95
[2016-08-04] MEDS: SODIUM CHLOR 0.9% 1000 ML INJ 1,000 ML IV SCH (05:00)
[2016-08-04 08:00] VITALS: PULSE 68
[2016-08-04] MEDS ORDERED: cefTRIAXone INJ 1,000 MG in SODIUM CHLORIDE 0.9% INJ 100 ML IV ONE (08:00)
[2016-08-04 08:05] VITALS: BP_SYST 108; BP_SYST 117; BP_SYST 199; BP_DIAS 53; BP_DIAS 56; BP_DIAS 86; PULSE 64; RESP 18; TEMP 97.8; O2SAT 95
[2016-08-04] MEDS ORDERED: LEVO25TA4 PO (08:23)
[2016-08-04] MEDS: ASPIRIN EC 81 MG TABEC PO SCH (08:36)
[2016-08-04] MEDS: CHOLECALCIFEROL (VIT D3) 5000 UNIT CAP PO SCH (08:36)
[2016-08-04] MEDS: ACETAMINOPHEN 325 MG TAB PO PRN (08:37)
--- NOTE | 2016-08-04 08:40 | HHI.DCPOC ---
Discharge Care Plan Diagnosis: (1) Orthostatic hypotension (2) Syncope (3) UTI (urinary tract infection) (4) Indra-tachy syndrome (5) Hypertension (6) MANSFIELD (dyspnea on exertion) Goals to Promote Your Health * To prevent worsening of your condition and complications follow up with shactor today and primary care doctor in 1 week * To maintain your health at the optimal level follow all medication directions and discharge instructions Directions to Meet Your Goals Take your medications as prescribed Follow your dietary instruction Follow activity as directed Keep your appointments as scheduled Take your immunizations and boosters as scheduled If your symptoms worsen call your PCP, if no PCP go to Urgent Care Center or Emergency Room Smoking is Dangerous to Your Health. Avoid second hand smoke Call the 24-hour hour crisis hotline for domestic abuse at Helen Gentile MD R1 Aug 04, 2016 08:40 Anel Shielsd MD Aug 04, 2016 10:11
[2016-08-04] MEDS: SODIUM CHLORIDE 0.9% FLUSH 10 ML FLUSH IV FLUSH SCH (09:00)
--- NOTE | 2016-08-04 09:04 | HHI.FPPN ---
Subjective Remarks No acute events overnight. AF. Pulse 60s. Breathing well on room air. Significant orthostatic hypotension, 187/76 supine -> 107/52 sitting. Second reading. 199/86 supine -> 117/56 sitting -> 108/53 standing. Denies dizziness or black spots when standing. Fatigue when standing for long amounts of time. Has rolling walker at home with seat. Denies chest pain, palpitations, shortness of breath. Denies hematuria, dysuria , frequency. Would like to go home today. (Helen Gentile MD R1) Objective Vitals Vital Signs Date Time Temp Pulse Resp B/P Pulse Ox O2 Delivery O2 Flow Rate FiO2 08/04/16 08:05 97.8 64 18 199/86 95 117/56 108/53 08/04/16 03:56 97.7 63 18 95 08/03/16 23:22 97.6 61 18 177/74 94 08/03/16 19:43 97.9 68 18 187/76 96 107/52 08/03/16 16:00 97.6 60 16 121/64 96 Manual Cuff/Auscultation 08/03/16 12:43 20 08/03/16 11:51 98.2 66 16 116/59 99 129/65 102/45 I/O 08/03/16 08/03/16 08/03/16 08/04/16 08/04/16 08/04/16 07:00 15:00 23:00 07:00 15:00 23:00 Intake Total 450 ml Output Total 0 ml Balance 450 ml Intake Oral 50 ml IV Total 400 ml Output Stool Total 0 ml # Voids 3 (Helen Gentile MD R1) Result Diagram: 08/03/16 0540 08/03/16 0540 Imaging Last Impressions Maxillofacial CT 08/02/16 0000 Signed Impressions: Service Date/Time: Tuesday, August 02, 2016 12:46 - CONCLUSION: Soft tissue swelling with no acute fracture or malalignment. Tyree Wang MD Hip and Pelvis X-Ray 08/02/16 0000 Signed Impressions: Service Date/Time: Tuesday, August 02, 2016 13:22 - CONCLUSION: Negative trauma study. Tyree Wang MD Head CT 08/02/16 0000 Signed Impressions: Service Date/Time: Tuesday, August 02, 2016 12:46 - CONCLUSION: 1. No acute hemorrhage, mass effect or evidence of acute infarction. 2. 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 Tyree Wang MD Chest X-Ray 08/02/16 0000 Signed Impressions: Service Date/Time: Tuesday, August 02, 2016 13:22 - CONCLUSION: No acute cardiopulmonary abnormality is identified. Blake Gutierrez MD Objective Remarks GENERAL:Elderly female in no apparent distress. SKIN: No rashes,. +R sherine-ocular ecchymoses with sutured abrasion s/p syncopal episode. Cool and dry. HEAD: +traumatic as noted above. Normocephalic. EYES: Pupils equal round and reactive. Extraocular motions intact. No scleral icterus. No injection or drainage. ENT: Nose without bleeding, purulent drainage or septal hematoma. Throat without erythema, tonsillar hypertrophy or exudate. Uvula midline. Airway patent. NECK: Trachea midline. No JVD or lymphadenopathy. Supple, nontender, no meningeal signs. CARDIOVASCULAR: Regular rate and rhythm without murmurs, gallops, or rubs. Healed PM site over anterior chest. RESPIRATORY: Clear to auscultation. Breath sounds equal bilaterally. No wheezes , rales, or rhonchi. GASTROINTESTINAL: Abdomen soft, non-tender, nondistended. No hepato-splenomegaly , or palpable masses. No guarding. MUSCULOSKELETAL: Extremities without clubbing, cyanosis, or edema. No joint tenderness, effusion, or edema noted. No calf tenderness. R lateral hip with ecchymoses. NEUROLOGICAL: Awake and alert. Motor and sensory grossly within normal limits. Normal speech. Some demonstration of short term memory loss which is chronic ( Helen Gentile MD R1) A/P Assessment and Plan 85 year old female with history of hypertension, tania-tachy syndrome s/p pacemaker, history of TIA, hypothyroidism, and anemia admitted 08/03/16 for syncope and UTI. Discharge Planning Today, home with home health Son Edinson: [phone] (Called by Dr. 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 [id number] Angelia: [phone] (Called 8:30am by Dr. Gentile, left message) Son Tyree: [phone]. (Called 9:15am by Dr. Gentile, left message) (Helen Gentile MD R1) Attending Attestation Patient seen and examined this am. Agree with plan of care as discussed with me and documented in the resident note. Patient and family refusing SNF. Want [facility] understand risk of falling with orthostasis. Patient and family counseled extensively regarding time and care with getting up , always use walker Patient's family to stay with patient in her home x 1 week for additional supervision. BP elevated this am, will resume low dose metoprolol and recheck BP. Nursing informed to notify MD in one hour following BP med administration. Urine culture with intermediate susceptibility to Nitrofurantoin. Change to Cipro to complete course on discharge. (Anel Shields MD) Problem List: (1) Syncope Status: Acute Plan: Likely secondary to significant orthostatic hypotension. History of orthostatic hypotension as well as afib and tachybrady syndrome. Pacemaker interrogation did not reveal abnormality, set to fire for bradycardia <50. Troponin x1 wnl. Normal O2 saturations. Recent ECHO 05/2016- normal EF, no structural defects appreciated. Aortic and mitral sclerosis, no stenosis Plan -Discussed fall precautions for orthostatic hypotension with patient (including rest when transitioning positions, walk with walker + seat, rest frequently) -PT recommendations appreciated, discharge to SNF vs Home with Home Health -Case management assistance with discharge appreciated, pt not qualify for SNF -Will discharge [facility] -Follow up with Cardiology (Doe) anticipated today -Continue telemetry -Defer repeat ECHO due to recent reassuring result (2) Orthostatic hypotension Status: Chronic Plan: Chronic. Significant orthostatic hypotension. -187/76 supine -> 107/52 sitting. -199/86 supine -> 117/56 sitting -> 108/53 standing -see plan for syncope (3) MANSFIELD (dyspnea on exertion) Status: Chronic Plan: Chronic. -Supportive care with O2 supplimentation PRN -Frequent resting when ambulating, as needed (4) History of TIA (transient ischemic attack) Status: Acute Plan: Continue baby aspirin Continue statin Continue blood pressure monitoring (5) Hypothyroidism Status: Chronic Plan: Impression: Chronic hypothyroidism on Synthroid 25 ug daily. TSH wnl 2016 -Continue home Synthroid -Will discharge with dose in AM, not HS (6) History of atrial fibrillation Status: Acute Plan: Hx atrial fibrillation per EMR. Sinus rhythm on EKG on admission Monitor telemetry (7) Anemia Status: Chronic Plan: Chronic anemia; Hgb 10.8, above baseline of 8-9. MCV wnl -Monitor cbc, above transfusion threshold. (8) Frequent falls Status: Chronic Plan: Impression: Frequent falling at home, likely generally secondary to orthostatic hypotension -Plan above for syncope -Vit D low- supplementation with 5000 unit day started, to continue at discharge (9) UTI (urinary tract infection) Status: Acute Plan: UA with +nitrites. Urine culture pending, hx e. coli in micro. -Rocephin 1g daily (08/03-08/04), give today's dose in AM prior to discharge -Discharge with Macrobid 100mg BID x5 days (7 days total therapy) (10) Fluids, Electrolytes, and Nutrition Status: Acute Plan: Fluids: will give IV NS at ~maintenance Diet: Regular basic diet Electrolytes: wnl on admission (11) DVT PPX Status: Acute Plan: DVT PPX: Will give Heparin 5000mg TID due to mild Cr elevation (Helen Gentile MD R1) Helen Gentile MD R1 Aug 04, 2016 09:04 Anel Shields MD Aug 04, 2016 10:22
--- NOTE | 2016-08-04 09:33 | HHI.FF ---
Face to Face Verification Diagnosis: (1) Syncope (2) MANSFIELD (dyspnea on exertion) (3) Orthostatic hypotension (4) Frequent falls (5) Indra-tachy syndrome (6) Hypothyroidism Physical Therapy Order: Evaluate and Treat, Improve ambulation, Strength and gait training Home Health Nursing Order: Medical education Signs/symptoms of disease process Medication education-adverse effect Nursing assessment with vital signs (including orthostatic vitals) Home Health Aide Order: To Assist In: Bathing and personal care (Including difficulty clipping toenails, unable to stand for long periods of time, concern for bathing safety) I have seen patient Sameera Torres on 08/04/16. My clinical findings support the need for the requested home health care services because Ltd mobility - disease progression Patient has SOB Deconditioned w/ increased weakness Med compliance is questionable Limited ability to care for self Need for psychosocial assistance Impaired cognition/judgement High risk of falls I certify that my clinical findings support that this patient is homebound because: Impaired cognitive ability/safety Hx COPD- exertion dyspnea/weakness (Excertional dyspnea, no COPD) Unsteady gait/balance Unsafe to leave home unassisted Need for psychosocial assistance Unable to use public transportation Helen Gentile MD R1 Aug 04, 2016 09:33 Anel Shields MD Aug 04, 2016 10:11
[2016-08-04 09:37] VITALS: RESP 20
[2016-08-04] MEDS ORDERED: LEVOTHYROXINE SODIUM 25 MCG TAB PO SCH ×2 (10:00→11:00)
[2016-08-04] MEDS ORDERED: CIPR-9 PO (10:10)
[2016-08-04] MEDS ORDERED: METO25TA3 PO (10:10)
[2016-08-04] MEDS ORDERED: METOPROLOL TARTRATE 25 MG TAB PO ONE (10:15)
[2016-08-04] MEDS ORDERED: PILL SPLITTER OTHER PRN (10:15)
[2016-08-04 11:31] VITALS: BP_SYST 160; BP_SYST 80; BP_DIAS 60; BP_DIAS 70
[2016-08-04 11:36] VITALS: BP 180/90
--- NOTE | 2016-08-04 11:56 | HHI.FPPN ---
Addendum to progress note ADDENDUM Reason for addendum: Additonal documentation Additional information Patient had repeat vitals performed: 180/90 supine, 160/70 sitting, 80/60 standing associated with lightheadedness, unsteadiness, and nausea. Patient continues to have orthostatic hypotension. Risk vs benefits explored of continuing Lopressor vs stopping vs changing to amlodipine. Metoprolol is helping to control a-fib. Amlodipine can cause orthostatic hypotension as well. Will continue patients lopressor at 12 mg PO BID. Due to severity of symptoms, unsafe to discharge patient home at this time. Residents paged by nursing staff, family demanding to speak with doctor. Pulled out patients IV and put her clothes on and stated they were taking patient home despite medical recommendations. Resident went to ER to speak with family in person who were angry that we were requesting patient to stay. I attempted to explain to the family our concerns and the sx the patient experienced earlier in the day. Family stated they wanted family to have a good quality of life and did not want her sitting in a hospital bed all day and felt that since we couldnt cure her problem they were leaving. They stated patient has an appointment with Dr. Muir today at 3pm. Case was discussed with Dr. Sheilds, nurse, patients PCP Dr. Hunt and patients senior production supervisor Dr. Doe katzw Dr. Coppola and Malaika Hess MD Aug 04, 2016 11:56
[2016-08-04] MEDS ORDERED: METOPROLOL TARTRATE 25 MG TAB PO SCH (21:00)
[2016-09-14] MEDS ORDERED: MIDO2.5T PO (10:26)
[2016-09-14] MEDS ORDERED: ASPI81TA11 PO (10:29)
[2016-09-14] MEDS ORDERED: LEVO25TA4 PO (10:45)
[2016-09-14] MEDS ORDERED: MIDO5TAB PO (10:45)
[2016-09-14] MEDS ORDERED: ATOR10TA15 PO (10:45)
[2016-09-14] MEDS ORDERED: GABA100C4 PO (10:45)
[2016-09-16] MEDS ORDERED: VITA2000 PO (11:43)
== END 2016-08-04 12:32 | disposition left against medical advice (07) ==
LOC: NEPC 12:17 → NEDA 15:00 → NEPGCP 18:25 → UNDODISOB 08-04 12:29
PROVIDERS: ADMIT Family Medicine; ATTEND Family Medicine
DX: I95.1 Orthostatic hypotension (principal); S01.111A Laceration without foreign body of right eyelid and periocular area, initial encounter; M25.551 Pain in right hip; I48.91 Unspecified atrial fibrillation; N39.0 Urinary tract infection, site not specified; B96.89 Other specified bacterial agents as the cause of diseases classified elsewhere; I13.0 Hypertensive heart and chronic kidney disease with heart failure and stage 1 through stage 4 chronic kidney disease, or unspecified chronic kidney disease; I50.9 Heart failure, unspecified; N18.9 Chronic kidney disease, unspecified; I05.8 Other rheumatic mitral valve diseases; D64.9 Anemia, unspecified; E03.9 Hypothyroidism, unspecified; J44.9 Chronic obstructive pulmonary disease, unspecified; D12.0 Benign neoplasm of cecum; E78.00 Pure hypercholesterolemia, unspecified; Z79.82 Long term (current) use of aspirin; R29.6 Repeated falls; Z86.73 Personal history of transient ischemic attack (TIA), and cerebral infarction without residual deficits; Z95.0 Presence of cardiac pacemaker; Z90.49 Acquired absence of other specified parts of digestive tract; W19.XXXA Unspecified fall, initial encounter
CPT/HCPCS: 12011; 70450; 70486; 71010; 73502; 80048; 80053; 81001; 82306; 82550; 83735; 83880; 84100; 84443; 84484; 85025; 85610; 85730; 86850; 86900; 86901; 86920; 86922; 87040; 87077; 87086; 87186; 93005; 97162; 99285; G0378; G8987; G8988; J0696; J1644; J7030

== ENCOUNTER → 2016-09-07 | Outpatient (CLI) | payer MEDICARE ==
[~2016-09-07] MED LIST changes: +ASPI81TA11 PO; +CIPR-9 PO; -CLON0.1T PO; +GABA100C4 PO; +GADODIAMIDE PF 287 MG/ML 5 ML VIAL (for RAD MRI) IV ONE; +MIDO2.5T PO; +MIDO5TAB PO; -TYLETAB34 PO; +VITA2000 PO
--- NOTE | 2016-09-07 12:24 | RADRPT ---
EXAM DATE/TIME: 09/07/2016 10:56 [facility] COMPARISON: CT BRAIN W/O CONTRAST, August 02, 2016, 12:46. INDICATIONS : Dizziness. Orthostatic hypotension. CONTRAST: 15 cc Omniscan (gadodiamide) IV MEDICAL HISTORY : Carcinoma, colon. SURGICAL HISTORY : Colon resection. Pacemaker. Hysterectomy. Carotid artery. ENCOUNTER: Initial ACUITY: 1 week PAIN SCORE: 0/10 LOCATION: Head. TECHNIQUE: Multiplanar, multisequence MRI of the brain was performed both prior to and following the administrat ion of paramagnetic contrast. FINDINGS: CEREBRUM: The ventricles are normal for age. No evidence of midline shift, mass lesion, hemorrhage or acute in farction. There is an old lacunar infarct at the right caudate head region. No extraaxial fluid kyle ections are seen. The pituitary gland and suprasellar cistern are normal in configuration. WHITE MATTER: No significant signal abnormalities are seen in the white matter. POSTERIOR FOSSA: The cerebellum and brainstem are intact. The 4th ventricle is midline. The cerebellopontine angle is unremarkable. The cerebellar tonsils are normal in position. DIFFUSION IMAGING: No focal areas of restricted diffusion are seen. No evidence of acute infarction. EXTRACRANIAL: The visualized portions of the orbits and paranasal sinuses are unremarkable. POST-CONTRAST: No abnormal areas of parenchymal or dural enhancement. No evidence of blood-brain barrier breakdown. CONCLUSION: 1. No acute intracranial abnormality is seen. 2. Old lacunar infarct right caudate head region. Blake Lombardo MD on September 07, 2016 at 12:19 Board Certified Radiologist. This report was verified electronically.
--- NOTE | 2016-09-07 13:54 | RADRPT ---
EXAM DATE/TIME: 09/07/2016 11:39 [facility] COMPARISON: US CAROTID ARTERIES, June 26, 2016, 8:55 INDICATIONS : Syncope. MEDICAL HISTORY : Hypothyroidism. Afib. TIA. CKD. Cecal adenoma. SURGICAL HISTORY : Hysterectomy. Pacemaker. Hemicolectomy. ENCOUNTER: Initial ACUITY: 1 day PAIN SCORE: 0/10 LOCATION: Bilateral neck PEAK SYSTOLIC VELOCITIES (cm/sec): ICA/CCA RATIO: Right: 1.5 Left: 1.5 ICA: Right: 83 Left: 105 CCA: Right: 57 Left: 72 ECA: Right: 55 Left: 58 VERTEBRAL: Right: 40 antegrade Left: 59 antegrade Elevated flow velocities and ICA/CCA ratios have been found to correlate with increased degrees of vessel stenosis, calculated as percentage of diameter relative to a normal segment of distal ICA/CCA FINDINGS: RIGHT CAROTID: There is no evidence for a hemodynamically significant carotid stenosis. Minimal int imal hyperplasia is present with scattered calcific plaque. LEFT CAROTID: There is no evidence for a hemodynamically significant carotid stenosis. Minimal inti mal hyperplasia is present with scattered calcific plaque. VERTEBRAL ARTERIES: Flow is antegrade in both vertebral arteries. MISCELLANEOUS: There are no ancillary masses or adenopathy. CONCLUSION: Negative examination for a hemodynamically significant carotid stenosis. Garo Wadsworth MD FACR Board Certified Radiologist. This report was verified electronically.
== END ==
LOC: HRAD 09:49
PROVIDERS: ATTEND Specialist
DX: I95.1 Orthostatic hypotension (principal); R55 Syncope and collapse; Z95.0 Presence of cardiac pacemaker
CPT/HCPCS: 70553; 93880; A9579

== ENCOUNTER 2017-02-19 07:56 | Emergency (ER) | payer MEDICARE ==
[~2017-02-19 07:56] MED LIST changes: -ASPI1TAB69 PO; -ASPI81TA11 PO; +ASPI81TA23 PO; -CIPR-9 PO; -GABA300C5 PO; -GADODIAMIDE PF 287 MG/ML 5 ML VIAL (for RAD MRI) IV ONE; +LEVE500T8 PO; -METO25TA3 PO; -MIDO2.5T PO
[2017-02-19 08:09] VITALS: BP 132/71; PULSE 62; RESP 18; TEMP 98.2; O2SAT 98
[2017-02-19] MEDS ORDERED: SODIUM CHLOR 0.9% 1000 ML INJ 1,000 ML IV ONE (08:10)
[2017-02-19 08:13] VITALS: BP 132/71; PULSE 60; RESP 18; TEMP 98.2; O2SAT 97; O2SAT 98
[2017-02-19] MEDS ORDERED: SODIUM CHLORIDE 0.9% FLUSH 10 ML FLUSH IVF PRN (08:15)
--- NOTE | 2017-02-19 08:15 | PD ---
HPI Chief Complaint: General Weakness Time Seen by Provider: 08:10 Travel History International Travel<30 days: No Contact w/Intl Traveler<30days: No Traveled to known affect area: No History of Present Illness HPI The patient is a 86-year-old female who presents to the emergency department via EMS from an assisted living facility after she complained of dizziness and had a possible seizure. According to EMS the patient walked into the [facility] living room area, became dizzy, and had a near syncopal episode. The patient was seated when her arms and legs were shaking, however, the patient had no LOC according to EMS. When EMS arrived the patient was a GCS of 15 and did not want to go the emergency department. 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 The patient does state she fell 2 days ago, does complain of some proximal left humeral pain that is worse with movement and alleviated at rest. She denies any injury to the head or neck. The patient apparently does have a history of possible seizure disorder and takes Keppra. The patient denies any headache, chest pain, shortness breath, palpitations, nausea, vomiting, or abdominal pain. Symptoms are mild to moderate, no alleviating or exacerbating factors. PFSH Past Medical History Hx Anticoagulant Therapy: Yes (ASPIRIN) Asthma: No Blood Disorders: No Heart Rhythm Problems: Yes Cancer: No Cardiovascular Problems: Yes (postural hypotension) High Cholesterol: Yes Chemotherapy: No Chest Pain: No Congestive Heart Failure: Yes COPD: Yes Cerebrovascular Accident: Yes Diabetes: No Diminished Hearing: No Endocrine: Yes Gastrointestinal Disorders: No Genitourinary: Yes Hepatitis: No Hiatal Hernia: No Hypertension: Yes Immune Disorder: No (HAD TO TAKE A STEROID BUT CANT REMEMBER WHY) Implanted Vascular Access Dvce: No Musculoskeletal: No Neurologic: Yes Psychiatric: No Reproductive: Yes Respiratory: Yes Radiation Therapy: No Sleep Apnea: No Thyroid Disease: Yes Menopausal: No Past Surgical History Abdominal Surgery: Yes AICD: No Appendectomy: Yes Cholecystectomy: Yes Gynecologic Surgery: Yes Hysterectomy: Yes Joint Replacement: No Oral Surgery: Yes Pacemaker: No Tonsillectomy: Yes Other Surgery: Yes (LEFT CAROTID) Social History Alcohol Use: Yes Tobacco Use: No Substance Use: No Allergies-Medications (Allergen,Severity, Reaction): Coded Allergies: No Known Allergies (Verified Adverse Reaction, Unknown, 02/19/17) Reported Meds & Prescriptions Reported Meds & Active Scripts Active Midodrine 5 Mg Tab 5 Mg PO BID Levothyroxine (Levothyroxine Sodium) 25 Mcg Tab 25 Mcg PO AC BREAKFAST Gabapentin 100 Mg Cap 200 Mg PO BID Atorvastatin (Atorvastatin Calcium) 10 Mg Tab 10 Mg PO HS Senna Plus 8.6-50 mg (Sennosides-Docusate Sodium) 1 Tab Tab 1 Tab PO BID Reported Levetiracetam 500 Mg Tab 500 Mg PO DIRECTED 1 tab daily for 1 week, then 1 BID Vitamin D3 (Cholecalciferol) 2,000 Unit Cap 2,000 Units PO DAILY Aspirin EC (Aspirin) 81 Mg Tabdr 81 Mg PO DAILY Review of Systems Except as stated in HPI: all other systems reviewed are Neg General / Constitutional: No: Fever Eyes: No: Visual changes HENT: Positive: Lightheadedness, No: Headaches Cardiovascular: No: Chest Pain or Discomfort, Palpitations, Diaphoresis Respiratory: No: Shortness of Breath Gastrointestinal: No: Nausea, Vomiting, Abdominal Pain Genitourinary: No: Dysuria Musculoskeletal: No: Edema Neurologic: Positive: Dizziness, No: Headache, Change in Mentation, Paresthesia , Sensory Disturbance Physical Exam Narrative GENERAL: Awake, alert, very pleasant 86 year-old female who appears her stated age and is in no acute respiratory distress. SKIN: Focused skin assessment warm/dry. HEAD: Atraumatic. Normocephalic. EYES: Pupils equal and round. Pupils are 2 mm bilateral and reactive. EOMs are intact. ENT: No nasal bleeding or discharge. Mucous membranes pink and moist. Upper dentures in place. NECK: Trachea midline. No JVD. CARDIOVASCULAR: Regular rate and rhythm. No murmur appreciated. RESPIRATORY: No accessory muscle use. Clear to auscultation. Breath sounds equal bilaterally. GASTROINTESTINAL: Abdomen soft, non-tender, nondistended. Well-healed scar right upper quadrant. No guarding or rigidity. MUSCULOSKELETAL: Mild tenderness of the proximal left humerus, patient is able to abduct and extend the arm, and limited range of motion secondary to pain. Back: No CVA tenderness. No visible ecchymosis over the thoracic or lumbar spine. NEUROLOGICAL: Awake and alert. No obvious cranial nerve deficits. Motor grossly within normal limits. Normal speech. Patient was oriented to person, place, month, and year. She was unable to tell me the year. PSYCHIATRIC: Appropriate mood and affect; insight and judgment normal. Data Data Last Documented VS Vital Signs Date Time Temp Pulse Resp B/P (MAP) Pulse Ox O2 Delivery O2 Flow Rate FiO2 02/19/17 08:13 97 Room Air 02/19/17 08:13 98.2 60 18 132/71 (91) Orders Orders Electrocardiogram (02/19/17 08:10) Complete Blood Count With Diff (02/19/17 08:10) Comprehensive Metabolic Panel (02/19/17 08:10) Magnesium (Mg) (02/19/17 08:10) Ckmb (Isoenzyme) Profile (02/19/17 08:10) Troponin I (02/19/17 08:10) Urinalysis - C+S If Indicated (02/19/17 08:10) Ct Brain W/O Iv Contrast(Rout) (02/19/17 08:10) Ecg Monitoring (02/19/17 08:10) Iv Access Insert/Monitor (02/19/17 08:10) Oximetry (02/19/17 08:10) Sodium Chloride 0.9% Flush (Ns Flush) (02/19/17 08:15) Sodium Chlor 0.9% 1000 Ml Inj (Ns 1000 M (02/19/17 08:10) Orthostatic Vital Signs (02/19/17 08:10) Shoulder, Limited(2vws) (02/19/17 ) CKMB (02/19/17 08:35) CKMB% (02/19/17 08:35) Labs Laboratory Tests Test 02/19/17 08:35 02/19/17 09:20 White Blood Count 7.2 TH/MM3 Red Blood Count 3.82 MIL/MM3 Hemoglobin 12.6 GM/DL Hematocrit 36.1 % Mean Corpuscular Volume 94.6 FL Mean Corpuscular Hemoglobin 33.0 PG Mean Corpuscular Hemoglobin Concent 34.9 % Red Cell Distribution Width 12.7 % Platelet Count 194 TH/MM3 Mean Platelet Volume 8.9 FL Neutrophils (%) (Auto) 71.6 % Lymphocytes (%) (Auto) 14.8 % Monocytes (%) (Auto) 11.0 % Eosinophils (%) (Auto) 2.0 % Basophils (%) (Auto) 0.6 % Neutrophils # (Auto) 5.1 TH/MM3 Lymphocytes # (Auto) 1.1 TH/MM3 Monocytes # (Auto) 0.8 TH/MM3 Eosinophils # (Auto) 0.1 TH/MM3 Basophils # (Auto) 0.0 TH/MM3 CBC Comment DIFF FINAL Differential Comment Blood Urea Nitrogen 21 MG/DL Creatinine 1.51 MG/DL Random Glucose 96 MG/DL Total Protein 6.8 GM/DL Albumin 3.6 GM/DL Calcium Level 8.2 MG/DL Magnesium Level 1.9 MG/DL Alkaline Phosphatase 89 U/L Aspartate Amino Transf (AST/SGOT) 22 U/L Alanine Aminotransferase (ALT/SGPT) 19 U/L Total Bilirubin 0.7 MG/DL Sodium Level 137 MEQ/L Potassium Level 4.4 MEQ/L Chloride Level 104 MEQ/L Carbon Dioxide Level 24.8 MEQ/L Anion Gap 8 MEQ/L Estimat Glomerular Filtration Rate 33 ML/MIN Total Creatine Kinase 177 U/L Creatine Kinase MB 1.8 NG/ML Troponin I LESS THAN 0.02 NG/ML Urine Color YELLOW Urine Turbidity CLEAR Urine pH 5.5 Urine Specific Rhine 1.013 Urine Protein NEG mg/dL Urine Glucose (UA) NEG mg/dL Urine Ketones NEG mg/dL Urine Occult Blood NEG Urine Nitrite NEG Urine Bilirubin NEG Urine Urobilinogen LESS THAN 2.0 MG/DL Urine Leukocyte Esterase TRACE Urine RBC LESS THAN 1 /hpf Urine WBC 2 /hpf Urine Squamous Epithelial Cells 1 /hpf Urine Bacteria RARE /hpf Urine Mucus FEW /lpf Microscopic Urinalysis Comment CULT NOT INDICATED MDM Medical Decision Making Medical Screen Exam Complete: Yes Emergency Medical Condition: Yes Medical Record Reviewed: Yes Interpretation(s) EKG reveals sinus bradycardia with a heart rate of 58. Q wave in lead 3. Nonspecific T wave changes. Last Impressions Head CT 02/19/17 0810 Signed Impressions: Service Date/Time: Sunday, February 19, 2017 08:52 - CONCLUSION: 1. Stable exam without evidence of acute infarct, hemorrhage, mass or edema. 2. Small old right basal ganglionic lacunar infarct again noted. Timoteo Lubin MD Shoulder X-Ray 02/19/17 0000 Signed Impressions: Service Date/Time: Sunday, February 19, 2017 08:15 - CONCLUSION: No acute disease. Cardiac pacemaker Timoteo Lubin MD Laboratory Tests Test 02/19/17 08:35 02/19/17 09:20 White Blood Count 7.2 TH/MM3 Red Blood Count 3.82 MIL/MM3 Hemoglobin 12.6 GM/DL Hematocrit 36.1 % Mean Corpuscular Volume 94.6 FL Mean Corpuscular Hemoglobin 33.0 PG Mean Corpuscular Hemoglobin Concent 34.9 % Red Cell Distribution Width 12.7 % Platelet Count 194 TH/MM3 Mean Platelet Volume 8.9 FL Neutrophils (%) (Auto) 71.6 % Lymphocytes (%) (Auto) 14.8 % Monocytes (%) (Auto) 11.0 % Eosinophils (%) (Auto) 2.0 % Basophils (%) (Auto) 0.6 % Neutrophils # (Auto) 5.1 TH/MM3 Lymphocytes # (Auto) 1.1 TH/MM3 Monocytes # (Auto) 0.8 TH/MM3 Eosinophils # (Auto) 0.1 TH/MM3 Basophils # (Auto) 0.0 TH/MM3 CBC Comment DIFF FINAL Differential Comment Blood Urea Nitrogen 21 MG/DL Creatinine 1.51 MG/DL Random Glucose 96 MG/DL Total Protein 6.8 GM/DL Albumin 3.6 GM/DL Calcium Level 8.2 MG/DL Magnesium Level 1.9 MG/DL Alkaline Phosphatase 89 U/L Aspartate Amino Transf (AST/SGOT) 22 U/L Alanine Aminotransferase (ALT/SGPT) 19 U/L Total Bilirubin 0.7 MG/DL Sodium Level 137 MEQ/L Potassium Level 4.4 MEQ/L Chloride Level 104 MEQ/L Carbon Dioxide Level 24.8 MEQ/L Anion Gap 8 MEQ/L Estimat Glomerular Filtration Rate 33 ML/MIN Total Creatine Kinase 177 U/L Creatine Kinase MB 1.8 NG/ML Troponin I LESS THAN 0.02 NG/ML Urine Color YELLOW Urine Turbidity CLEAR Urine pH 5.5 Urine Specific Rhine 1.013 Urine Protein NEG mg/dL Urine Glucose (UA) NEG mg/dL Urine Ketones NEG mg/dL Urine Occult Blood NEG Urine Nitrite NEG Urine Bilirubin NEG Urine Urobilinogen LESS THAN 2.0 MG/DL Urine Leukocyte Esterase TRACE Urine RBC LESS THAN 1 /hpf Urine WBC 2 /hpf Urine Squamous Epithelial Cells 1 /hpf Urine Bacteria RARE /hpf Urine Mucus FEW /lpf Microscopic Urinalysis Comment CULT NOT INDICATED Differential Diagnosis Differential diagnosis includes arrhythmia, near syncope, seizure, partial seizure, hyponatremia, UTI, subdural hemorrhage, subarachnoid hemorrhage, dizziness. Narrative Course IV was established, labs are drawn and sent, and the patient was placed on cardiac telemetry monitoring and continuous pulse oximetry monitoring. EKG was ordered and interpreted. CT the brain was obtained. UA was sent to lab. CT the brain was negative. Chest x-rays unremarkable. Creatinine is mildly elevated at 1.51. UA is negative. The patient wants to be discharged back to the assisted living facility, therefore, the patient will be transferred back to the assisted living facility. She is advised to sit down immediately she has any more near syncopal episodes. Continue previous medications as directed. Diagnosis Primary Impression: Near syncope Additional Impression: Left shoulder pain Qualified Codes: M25.512 - Pain in left shoulder Patient Instructions: General Instructions Additional Instructions: Please provide the patient a copy of her CT results, lab results, and UA results at discharge. Range of motion exercises to left upper quadrant. Tylenol as needed for pain. Follow-up with your primary physician. Disposition: 01 DISCHARGE HOME (discharged back to assisted living facility) Condition: Stable Zeeshan Kendrick MD Feb 19, 2017 08:15
--- NOTE | 2017-02-19 08:50 | RADRPT ---
EXAM DATE/TIME: 02/19/2017 08:15 [facility] COMPARISON: No previous studies available for comparison. INDICATIONS : Fall. Left shoulder pain. MEDICAL HISTORY : None. SURGICAL HISTORY : Pacemaker. ENCOUNTER: Initial ACUITY: 1 day PAIN SCORE: 7/10 LOCATION: Left scapular FINDINGS: Two view examination of the left shoulder demonstrates no evidence of fracture or dislocation. The g lenohumeral and acromioclavicular joints demonstrate mild arthropathy. Bony mineralization is normal. CONCLUSION: No acute disease. Cardiac pacemaker Timoteo Lubin MD on February 19, 2017 at 8:47 Board Certified Radiologist. This report was verified electronically.
[2017-02-19 08:55] LABS: AUTOMATED NEUTROPHIL # 5.1 TH/MM3 (1.8-7.7); BASOPHIL % 0.6 % (0.0-2.0); EOSINOPHIL # 0.1 TH/MM3 (0-0.4); HEMATOCRIT 36.1 % (35.0-46.0); HEMO FLAGS DIFF FINAL; LYMPH % 14.8 % (9.0-44.0); LYMPHOCYTE # 1.1 TH/MM3 (1.0-4.8); MEAN CELL VOLUME 94.6 FL (80.0-100.0); MEAN CORPUSCULAR HGB CONC 34.9 % (32.0-36.0); NEUT % 71.6 % (16.0-70.0); PLATELET COUNT 194 TH/MM3 (150-450); RED BLOOD COUNT 3.82 MIL/MM3 (4.00-5.30); RED CELL DISTRIBUTION WIDTH 12.7 % (11.6-17.2); WHITE BLOOD COUNT 7.2 TH/MM3 (4.0-11.0)
--- NOTE | 2017-02-19 09:08 | RADRPT ---
EXAM DATE/TIME: 02/19/2017 08:52 [facility] COMPARISON: CT BRAIN W/O CONTRAST, August 02, 2016, 12:46. INDICATIONS : Seizure like activity witnessed. RADIATION DOSE: 31.46 CTDIvol (mGy) MEDICAL HISTORY : Seizures. Cardiovascular disease Congestive heart failure.HTN, CVA, COPD SURGICAL HISTORY : Appendectomy. Hysterectomy.Cholecystectomy. ENCOUNTER: Initial ACUITY: 1 day PAIN SCALE: 0/10 LOCATION: cranial TECHNIQUE: Multiple contiguous axial images were obtained of the head. Using automated exposure control and adj ustment of the mA and/or kV according to patient size, radiation dose was kept as low as reasonably a chievable to obtain optimal diagnostic quality images. DICOM format image data is available electro nically for review and comparison. FINDINGS: CEREBRUM: The ventricles are normal for age. Focal hypodensity remains evident in the right basal ganglia. No evidence of midline shift, mass lesion, hemorrhage or acute infarction. No extra-axial fluid collect ions are seen. POSTERIOR FOSSA: The cerebellum and brainstem are intact. The 4th ventricle is midline. The cerebellopontine angle i s unremarkable. EXTRACRANIAL: The visualized portion of the orbits is intact. SKULL: The calvaria is intact. No evidence of skull fracture. CONCLUSION: 1. Stable exam without evidence of acute infarct, hemorrhage, mass or edema. 2. Small old right basal ganglionic lacunar infarct again noted. Timoteo Lubin MD on February 19, 2017 at 9:05 Board Certified Radiologist. This report was verified electronically.
[2017-02-19 09:26] LABS: ALT (GPT) 19 U/L (10-53)
[2017-02-19 09:30] LABS: ALKALINE PHOSPHATASE 89 U/L (45-117); ANION GAP 8 MEQ/L (5-15); AST (GOT) 22 U/L (15-37); BICARBONATE 24.8 MEQ/L (21.0-32.0); BLOOD UREA NITROGEN 21 MG/DL (7-18); CHLORIDE 104 MEQ/L (98-107); CREATINE KINASE 177 U/L (26-192); GLOMERULAR FILTRATION RATE 33 ML/MIN (>89); MAGNESIUM 1.9 MG/DL (1.5-2.5); POTASSIUM 4.4 MEQ/L (3.5-5.1); SODIUM (NA) 137 MEQ/L (136-145); TOTAL BILIRUBIN ADULT 0.7 MG/DL (0.2-1.0)
[2017-02-19 09:42] LABS: CKMB 1.8 NG/ML (0.5-3.6)
[2017-02-19 09:45] LABS: BACTERIA, URINE RARE /hpf; BLOOD, URINE NEG (NEG); COMMENT (UR) CULT NOT INDICATED; CULTURE IF INDICATED CULT NOT INDICATED; GLUCOSE,URINE NEG (NEG); KETONE, URINE NEG (NEG); MUCUS URINE FEW /lpf (OCC); NITRITE,URINE NEG (NEG); PH, URINE 5.5 (5.0-8.5); SQUAMOUS EPITHELIAL CELL URINE 1 /hpf (0-5); URINE COLOR YELLOW (YELLW/STRAW)
[2017-02-19 09:54] VITALS: BP 171/77; PULSE 82; RESP 18; O2SAT 96
[2017-02-19 11:00] VITALS: BP_SYST 172; BP_SYST 178; BP_DIAS 86; BP_DIAS 87; RESP 18
[2017-02-19 11:05] VITALS: BP 154/90
--- NOTE | 2017-02-20 19:19 | EKG ---
Date Performed: 02/19/2017 Time Performed: 08:29:16 PTAGE: 86 years EKG: SINUS BRADYCARDIA NONSPECIFIC ST & T-WAVE ABNORMALITY ABNORMAL ECG Since PREVIOUS TRACING , no significant change noted PREVIOUS TRACIN08/02/2016 13.52 DOCTOR: Mandeep Russo Interpretating Date/Time 02/20/2017 19:18:53
[2017-02-27] MEDS ORDERED: SENN1TAB PO (13:53)
== END 2017-02-19 11:20 | disposition home or self-care (01) ==
LOC: NEPC 07:56
DX: R55 Syncope and collapse (principal); M25.512 Pain in left shoulder; I11.0 Hypertensive heart disease with heart failure; I50.9 Heart failure, unspecified; E78.00 Pure hypercholesterolemia, unspecified
CPT/HCPCS: 70450; 73030; 80053; 81001; 82550; 82552; 83735; 84484; 85025; 93005; 96360; 96361; 99285; J7030

== ENCOUNTER 2017-03-19 08:33 | Emergency (ER) | payer MEDICARE ==
[~2017-03-19] VITALS: Ht 170.2 cm; Wt 85.0 kg
[2017-03-19 08:38] VITALS: PULSE 61; RESP 18; TEMP 97.5; O2SAT 100
[2017-03-19 08:44] VITALS: BP 218/93; PULSE 60; RESP 20; TEMP 97.5; O2SAT 100
[2017-03-19] MEDS ORDERED: cloNIDine HCL 0.1 MG TAB PO ONE (09:00)
--- NOTE | 2017-03-19 09:03 | PD ---
HPI Chief Complaint: Fall Time Seen by Provider: 08:48 Travel History International Travel<30 days: No Contact w/Intl Traveler<30days: No Traveled to known affect area: No History of Present Illness HPI The patient was seen and examined in the presence of the nurse. This patient had a fall today at the assisted-living facility. She had dizzy and lightheaded. That's all she remembers. She fell and struck her right shoulder and right side of her head. She complains of headache and right shoulder pain. She has no neck pain. Does not have distracting injury. She has history of orthostatic hypotension but arrives hypertensive. Severity symptoms is moderate. Duration 1 hour. No alleviating factors. No exacerbating factors. PFSH Past Medical History Hx Anticoagulant Therapy: Yes (ASPIRIN ) Asthma: No Blood Disorders: No Heart Rhythm Problems: Yes Cancer: No Cardiovascular Problems: Yes (postural hypotension) High Cholesterol: Yes Chemotherapy: No Chest Pain: No Congestive Heart Failure: Yes COPD: Yes Cerebrovascular Accident: Yes Diabetes: No Diminished Hearing: No Endocrine: Yes Gastrointestinal Disorders: Yes (mass removed - colon resection done ) Genitourinary: Yes Hepatitis: No Hiatal Hernia: No Hypertension: Yes Immune Disorder: No (HAD TO TAKE A STEROID BUT CANT REMEMBER WHY) Implanted Vascular Access Dvce: No Musculoskeletal: No Neurologic: Yes Psychiatric: No Reproductive: Yes Respiratory: Yes Radiation Therapy: No Sleep Apnea: No Thyroid Disease: Yes Tetanus Vaccination: Unknown Influenza Vaccination: No ?: Not Menopausal: No Past Surgical History Abdominal Surgery: Yes AICD: No Appendectomy: Yes Cholecystectomy: Yes Gynecologic Surgery: Yes Hysterectomy: Yes Joint Replacement: No Oral Surgery: Yes Pacemaker: No Tonsillectomy: Yes Other Surgery: Yes (LEFT CAROTID) Social History Alcohol Use: No Tobacco Use: No Substance Use: No Allergies-Medications (Allergen,Severity, Reaction): Coded Allergies: No Known Allergies (Verified Adverse Reaction, Unknown, 02/19/17) Reported Meds & Prescriptions Reported Meds & Active Scripts Active Senna Plus 8.6-50 mg (Sennosides-Docusate Sodium) 1 Tab Tab 1 Tab PO BID Midodrine 5 Mg Tab 5 Mg PO BID Levothyroxine (Levothyroxine Sodium) 25 Mcg Tab 25 Mcg PO AC BREAKFAST Gabapentin 100 Mg Cap 200 Mg PO BID Atorvastatin (Atorvastatin Calcium) 10 Mg Tab 10 Mg PO HS Reported Levetiracetam 500 Mg Tab 500 Mg PO DIRECTED 1 tab daily for 1 week, then 1 BID Vitamin D3 (Cholecalciferol) 2,000 Unit Cap 2,000 Units PO DAILY Aspirin EC (Aspirin) 81 Mg Tabdr 81 Mg PO DAILY Review of Systems General / Constitutional: No: Fever Eyes: No: Visual changes HENT: Positive: Headaches, Lightheadedness Cardiovascular: No: Chest Pain or Discomfort Respiratory: No: Shortness of Breath Gastrointestinal: No: Abdominal Pain Genitourinary: No: Dysuria Musculoskeletal: Positive: Limited ROM, Pain Skin: No Rash Neurologic: Positive: Dizziness, Headache, No: Weakness Psychiatric: No: Depression Endocrine: No: Polydipsia Hematologic/Lymphatic: No: Easy Bruising Physical Exam Narrative GENERAL: Well-nourished, well-developed patient in no apparent distress. SKIN: Focused skin assessment reveals no rash and nodules. Skin is Warm and dry. HEAD: Large raised swollen tender area on the right forehead . Normocephalic. EYES: Pupils equal and round. No scleral icterus. No injection or drainage. ENT: No nasal bleeding or discharge. Mucous membranes pink and moist. NECK: Trachea midline. No JVD. No midline tenderness CARDIOVASCULAR: Regular rate and rhythm. No murmur appreciated. RESPIRATORY: No accessory muscle use. Clear to auscultation. Breath sounds equal bilaterally. GASTROINTESTINAL: Abdomen soft, non-tender, nondistended. Hepatic and splenic margins not palpable. MUSCULOSKELETAL: No obvious deformities. No clubbing. No cyanosis. No edema. She has tenderness to the right humeral head. No bruising or deformity. NEUROLOGICAL: Awake and alert. No obvious cranial nerve deficits. Motor grossly within normal limits. Normal speech. PSYCHIATRIC: Appropriate mood and affect; insight and judgment bit diminished Data Data Last Documented VS Vital Signs Date Time Temp Pulse Resp B/P (MAP) Pulse Ox O2 Delivery O2 Flow Rate FiO2 03/19/17 08:44 60 18 100 Room Air 03/19/17 08:44 97.5 218/93 (134) Orders Orders Ct Brain W/O Iv Contrast(Rout) (03/19/17 ) Shoulder, Complete (>2vws) (03/19/17 ) Iv Access Insert/Monitor (03/19/17 08:56) Complete Blood Count With Diff (03/19/17 08:56) Basic Metabolic Panel (Bmp) (03/19/17 08:56) Electrocardiogram (03/19/17 ) Clonidine (Catapres) (03/19/17 09:00) Labs Laboratory Tests Test 03/19/17 09:30 White Blood Count 6.1 TH/MM3 Red Blood Count 3.71 MIL/MM3 Hemoglobin 12.1 GM/DL Hematocrit 34.4 % Mean Corpuscular Volume 92.7 FL Mean Corpuscular Hemoglobin 32.5 PG Mean Corpuscular Hemoglobin Concent 35.0 % Red Cell Distribution Width 12.8 % Platelet Count 195 TH/MM3 Mean Platelet Volume 8.5 FL Neutrophils (%) (Auto) 70.7 % Lymphocytes (%) (Auto) 15.8 % Monocytes (%) (Auto) 10.2 % Eosinophils (%) (Auto) 2.5 % Basophils (%) (Auto) 0.8 % Neutrophils # (Auto) 4.3 TH/MM3 Lymphocytes # (Auto) 1.0 TH/MM3 Monocytes # (Auto) 0.6 TH/MM3 Eosinophils # (Auto) 0.2 TH/MM3 Basophils # (Auto) 0.0 TH/MM3 CBC Comment DIFF FINAL Differential Comment Blood Urea Nitrogen 17 MG/DL Creatinine 1.34 MG/DL Random Glucose 93 MG/DL Calcium Level 8.9 MG/DL Sodium Level 136 MEQ/L Potassium Level 4.1 MEQ/L Chloride Level 103 MEQ/L Carbon Dioxide Level 23.8 MEQ/L Anion Gap 9 MEQ/L Estimat Glomerular Filtration Rate 37 ML/MIN MDM Medical Decision Making Medical Screen Exam Complete: Yes Emergency Medical Condition: Yes Medical Record Reviewed: Yes Differential Diagnosis Intracranial hemorrhage, concussion, shoulder fracture, cardiac arrhythmia Narrative Course I have reviewed the patient's electronic medical record. Patient was here last month after a fall IV placed CBC is normal Metabolic profile is normal Brain CT is negative for intracranial injury I reviewed her shoulder x-rays shows no fracture dislocation I reviewed her EKG which shows sinus rhythm without ectopy Has persistently accelerated hypertension, multiple checks over 200 systolic. I gave her a small dose of clonidine and will reassess. Repeat blood pressure 168 systolic She feels well and wants to go home I reviewed with her and her daughter at bedside Stable for outpatient follow-up Advised her to track her blood pressures daily and discuss with her physician tomorrow Diagnosis Primary Impression: Syncope Qualified Codes: R55 - Syncope and collapse Additional Impressions: Head injury due to trauma Qualified Codes: S09.90XA - Unspecified injury of head, initial encounter Contusion of right shoulder, initial encounter Additional Instructions: The patient was advised to follow up with their physician and return if they worsen. Check and record blood pressure daily Med/Other Pt SpecificInfo: Other Disposition: 01 DISCHARGE HOME Condition: Stable Bradly Shipley MD Mar 19, 2017 09:03
--- NOTE | 2017-03-19 09:21 | RADRPT ---
EXAM DATE/TIME: 03/19/2017 09:07 [facility] COMPARISON: No previous studies available for comparison. INDICATIONS : Right shoulder pain post fall. MEDICAL HISTORY : None. SURGICAL HISTORY : Pacemaker. ENCOUNTER: Initial ACUITY: 1 day PAIN SCORE: 4/10 LOCATION: Right shoulder. FINDINGS: No evidence of fracture or subluxation of the right shoulder. 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 No acute soft tissue abnormality demonstrated. CONCLUSION: Intact right shoulder. Moderate degenerative changes. Blake Saenz MD on March 19, 2017 at 9:19 Board Certified Radiologist. This report was verified electronically.
--- NOTE | 2017-03-19 09:35 | RADRPT ---
EXAM DATE/TIME: 03/19/2017 09:15 [facility] COMPARISON: CT BRAIN W/O CONTRAST, February 19, 2017, 8:52. INDICATIONS : Trauma, fall today. Hematoma to right forehead. RADIATION DOSE: 32.73 CTDIvol (mGy) MEDICAL HISTORY : Stroke. Seizures. Hypertension. SURGICAL HISTORY : Hysterectomy. ENCOUNTER: Initial ACUITY: 1 day PAIN SCALE: 7/10 LOCATION: Right head TECHNIQUE: Multiple contiguous axial images were obtained of the head. Using automated exposure control and adj ustment of the mA and/or kV according to patient size, radiation dose was kept as low as reasonably a chievable to obtain optimal diagnostic quality images. DICOM format image data is available electro nically for review and comparison. FINDINGS: CEREBRUM: The ventricles are normal for age. No evidence of midline shift, mass lesion, hemorrhage or acute in farction. No extra-axial fluid collections are seen. Old subcentimeter lacunar infarct near the righ t head of caudate again seen. POSTERIOR FOSSA: The cerebellum and brainstem are intact. The 4th ventricle is midline. The cerebellopontine angle i s unremarkable. EXTRACRANIAL: There is a right frontotemporal scalp contusion. Skull is intact. SKULL: The calvaria is intact. No evidence of skull fracture. CONCLUSION: Scalp contusion. No bleed or other acute intracranial abnormality. Old right head of caudate nucleus lacunar infarct. Blake Saenz MD on March 19, 2017 at 9:31 Board Certified Radiologist. This report was verified electronically.
[2017-03-19 09:56] LABS: AUTOMATED NEUTROPHIL # 4.3 TH/MM3 (1.8-7.7); BASOPHIL % 0.8 % (0.0-2.0); EOSINOPHIL # 0.2 TH/MM3 (0-0.4); EOSINOPHIL % 2.5 % (0.0-4.0); HEMATOCRIT 34.4 % (35.0-46.0); HEMO FLAGS DIFF FINAL; LYMPH % 15.8 % (9.0-44.0); MEAN CELL VOLUME 92.7 FL (80.0-100.0); MEAN CORPUSCULAR HEMOGLOBIN 32.5 PG (27.0-34.0); MONO % 10.2 % (0.0-8.0); NEUT % 70.7 % (16.0-70.0); PLATELET COUNT 195 TH/MM3 (150-450); RED BLOOD COUNT 3.71 MIL/MM3 (4.00-5.30); RED CELL DISTRIBUTION WIDTH 12.8 % (11.6-17.2); WHITE BLOOD COUNT 6.1 TH/MM3 (4.0-11.0)
[2017-03-19 10:00] VITALS: BP 130/85; PULSE 62; RESP 20; O2SAT 98
[2017-03-19 10:18] LABS: BICARBONATE 23.8 MEQ/L (21.0-32.0); POTASSIUM 4.1 MEQ/L (3.5-5.1)
[2017-03-19 11:00] VITALS: BP 104/55; PULSE 59; RESP 20; O2SAT 97
[2017-03-19 12:30] VITALS: BP 126/68; PULSE 58; RESP 20; O2SAT 99
--- NOTE | 2017-03-20 19:50 | EKG ---
Date Performed: 03/19/2017 Time Performed: 08:42:27 PTAGE: 86 years EKG: LIKELY Sinus rhythm WITH BASELINE ARTIFACT OBSCURING A MORE CONCISE RHYTHM INTERPRETATION NONSPECIFIC ST & T-WAVE ABNORM ALITY BORDERLINE ECG INTERPRETATION BASED ON A DEFAULT AGE OF 39 YEARS PREVIOUS TRACING : 02/19/2017 08.29 DOCTOR: Devante Wilson Interpretating Date/Time 03/20/2017 19:50:09
[2017-03-21] MEDS ORDERED: GABA100C4 PO (14:25)
[2017-03-21] MEDS ORDERED: MIDO5TAB PO (14:25)
[2017-03-22] MEDS ORDERED: MIDO10TA PO (15:01)
[2017-03-23] MEDS ORDERED: LEVE500T8 PO (14:12)
== END 2017-03-19 12:54 | disposition home or self-care (01) ==
LOC: NEPE 08:33
DX: R55 Syncope and collapse (principal); S09.90XA Unspecified injury of head, initial encounter; S40.011A Contusion of right shoulder, initial encounter; S00.03XA Contusion of scalp, initial encounter; R94.31 Abnormal electrocardiogram [ECG] [EKG]; I11.0 Hypertensive heart disease with heart failure; I50.9 Heart failure, unspecified; W18.30XA Fall on same level, unspecified, initial encounter; Y92.129 Unspecified place in nursing home as the place of occurrence of the external cause
CPT/HCPCS: 70450; 73030; 80048; 85025; 93005; 99284